=== PATIENT | male | born 1940 | race African-American/Black ===

== ENCOUNTER 2016-09-05 23:47 | Inpatient (IN) ==
[2016-09-06] MEDS ORDERED: cefTRIAXone 1,000 MG in SODIUM CHLORIDE 0.9% 100 ML IV STA (00:24)
[2016-09-06] MEDS ORDERED: methylPREDNISolone SOD SUC 125 MG/2 ML VIAL IV STA (00:24)
[2016-09-06] MEDS ORDERED: ONDANSETRON 4 MG/2 ML VIAL IV STA (00:24)
[2016-09-06] MEDS ORDERED: MORPHINE 2 MG/1 ML SYRINGE IV STA ×2 (00:24→02:29)
[2016-09-06] MEDS ORDERED: FUROSEMIDE 100 MG/10 ML VIAL IV STA (00:24)
[2016-09-06] MEDS ORDERED: ALBUTEROL 2.5 MG/3 ML NEB RESP TX SCH (00:30)
[2016-09-06] MEDS ORDERED: cefTRIAXone 1,000 MG VIAL ONE (00:40)
[2016-09-06] MEDS ORDERED: MORPHINE 2 MG/1 ML SYRINGE ONE ×2 (00:40→02:46)
[2016-09-06] MEDS ORDERED: ONDANSETRON 4 MG/2 ML VIAL ONE (00:40)
[2016-09-06] MEDS ORDERED: FUROSEMIDE 40 MG/4 ML VIAL ONE (00:40)
[2016-09-06] MEDS ORDERED: methylPREDNISolone SOD SUC 125 MG/2 ML VIAL ONE (00:41)
--- NOTE | 2016-09-06 00:43 | Emergency Department Note ---
IBrook Sierra, am scribing for, and in the presence of, Mitchel Dang MD 00:27. Alton Perez Charles R, MD, personally performed the services described in this documentation, ascribed by Donna Doe in my presence, and it is both accurate and complete . Arrival - Arrival Chief Complaint: Shortness of Breath ED Nursing Triage Note: Patient complains of headache that began about four days ago. Patient also complains of shortness of breath. States that he was treated at [facility] yesterday but has not had any relief. Patient was diagnosed with strep throat at clinic. Hx of DM, HTN, and CHF. Mode of Arrival: Stretcher Limitations: No Limitations Source: Patient Time Seen by Provider: 09/06/16 00:07 - History of Present Illness HPI Narrative: Pt is a 76 y/o male that was brought to the ED with c/o HERNÁNDEZ that began 4 days ago. Pt reports the HERNÁNDEZ as a 8 or 9 out of 10. Pt has associated sxs of sore throat but denies SOB. Pt states he was treated at [facility] yesterday and diagnosed with strep throat and treated with an antibiotic shot. Pt denies being tested for the flu. Pt denies feeling smothered when he lays flat or being on lasix. Pt reports he quit smoking years ago. No other complaints/pain in ED. Onset (ago): day(s) Consistency: constant Severity: moderate, severe Severity scale (1-10): 8 Allergies/Adverse Reactions: Allergies Allergy/AdvReac Type Severity Reaction Status Date / Time No Known Allergies Allergy Verified 04/13/16 10:19 Home Medications: Home Medications Medication Instructions Recorded Confirmed Type Furosemide Tab [Lasix Tab] 40 mg PO BID 02/01/15 09/06/16 History Glimepiride [Amaryl] 4 mg PO DAILY W/BREAKFAST 02/01/15 09/06/16 History Potassium Chloride 20 meq PO DAILY 02/01/15 09/06/16 History Clopidogrel [Plavix] 75 mg PO DAILY #30 tablet 02/09/15 09/06/16 Rx Aspirin [Ecotrin] 81 mg PO DAILY 07/31/15 09/06/16 History metFORMIN [Glucophage] 500 mg PO BID W/MEALS 07/31/15 09/06/16 History Carvedilol [Coreg] 12.5 mg PO BID 04/11/16 09/06/16 History HYDROcodone/ACETAMIN 7.5-325 1 tablet PO Q6H #10 tablet 04/11/16 09/06/16 Rx [[place] 7.5-325] Azithromycin Tab [Zithromax Tab] 250 mg PO DAILY #6 tablet 05/04/16 09/06/16 Rx Furosemide Tab [Lasix Tab] 40 mg PO BID #60 tablet 05/04/16 09/06/16 Rx Amitriptyline [Elavil] 10 mg PO Q6H #12 tablet 09/05/16 09/06/16 Rx Promethazine Tab [Phenergan Tab] 25 mg PO Q6H #12 tablet 09/05/16 09/06/16 Rx Rosuvastatin [Crestor] 5 mg PO DAILY 09/06/16 09/06/16 History Review of System - Review of System 12 point system: reviewed and no additional remarkable complaints except as stated - Review of System Constitutional: Absent: chills, fever Head/Ears/Nose/Throat: Present: sore throat Respiratory: Absent: cough Cardiovascular: Absent: chest pain Gastrointestinal: Absent: abdominal pain Musculoskeletal: Absent: arm pain, back pain, leg pain, neck pain Skin: Absent: rash Neurological: Present: headache Psychiatric: Absent: anxiety Medical,Surgical,& Family Hx - Medical History Cardio: History of: CHF, CAD, Hypertension, [place], Valvular Heart Disease Neurology: No history of: TIA Endocrine: History of: Diabetes Mellitus (IDDM), Diabetes Mellitus (NIDDM), Dyslipidemia Respiratory: History of: COPD, Pneumonia Renal: History of: Renal Failure Genitourinary: History of: Prostate Problems (cancer) Other: History of: Cancer (PROSTATE) - Surgical History Cardiac Surgeries: Sugical HX of: Cardiac Catheterization Reproductive Surgeries: Surgical HX of;: Prostate Surgery - Family History Family History: Reports;: Family Cancer (FATHER), Family Diabetes, Family Hypertension Denies;: Family Heart Disease, Family Stroke - Social History Smoking Status: Former smoker Frequency of Alcohol Use: None Type of Drug Use: None Exam Vital Signs: Vital Signs Temperature 98.7 F 09/05/16 23:55 Pulse Rate 105 H 09/06/16 00:52 Respiratory Rate 31 H 09/06/16 00:52 Blood Pressure 156/90 09/05/16 23:55 O2 Sat by Pulse Oximetry 81 L 09/06/16 00:52 - General General appearance: alert, in no apparent distress, other (pt is a mouth breather) - Head Head exam: Present: atraumatic, normocephalic - Eye Eye exam: Present: PERRL, EOMI - ENT ENT exam: Present: mucous membranes moist. Absent: mucous membranes dry - Neck Neck exam: Present: full ROM. Absent: tenderness - Chest Chest inspection: Present: symmetric chest wall rise. Absent: tenderness - Respiratory Respiratory exam: Present: rales (rales in the bases), rhonchi (rhonchi throughout) - Cardiovascular Cardiovascular exam: Present: normal rhythm, tachycardia, murmur (4 out of 6 systolic murmur) - Abdominal Exam Abdominal exam: Present: soft. Absent: tenderness - Extremities Exam Extremities exam: Present: full ROM, pedal edema (+1 or 2 edema in the lower extremities). Absent: tenderness - Back Exam Back exam: Present: full ROM. Absent: tenderness - Neurological Exam Neurological exam: Present: alert, oriented X3, CN II-XII intact. Absent: motor sensory deficit - Psychiatric Psychiatric exam: Present: normal affect, normal mood - Skin Skin exam: Present: warm, dry Course - Reevaluation(s) Reevaluation #1: Patient feels better. Headache is better but still has one. Patient has UTI strep throat COPD exacerbation sinus tachycardia. No chest pain patient was asked this and he said no just his headaches bothering him does have sinus tach on EKG and some looks like increased T wave but no electrolyte abnormality Time: 02:26 - Consultations Consultation #1: Hospitalist will admit patient Time: 02:27 Results - Labs CBC & BMP: 09/06/16 01:18 09/06/16 01:18 Lab Results: I have reviewed the patients labs Labs: Laboratory Tests 09/06/16 Unknown ABG pH 7.486 H ABG pO2 47.6 L ABG HCO3 31.7 H ABG Total CO2 33.1 H ABG O2 Saturation 82.4 L ABG Base Excess 7.6 H Laboratory Tests 09/06/16 01:18 RBC 3.24 L Hgb 10.5 L Hct 31.8 L Neut % (Auto) 80.5 H Lymph % (Auto) 10.5 L Lymph # (Auto) 0.9 L Laboratory Tests 09/06/16 01:18 INR 1.0 PT Patient/Control Mix 10.7 D-Dimer, Quantitative 1.1 Laboratory Tests 09/06/16 01:18 Urine Color Yellow Urine Appearance Slightly hazy Urine pH 6.0 Ur Specific [place] 1.012 Urine Protein 100 Urine Glucose (UA) Negative Urine Ketones Negative Urine Blood Small Urine Nitrate Negative Urine Bilirubin Negative Urine Urobilinogen < 2.0 H Urine Leukocytes Large H Urine RBC 7 Urine WBC 156 Urine WBC Clumps Occasional Ur Squamous Epith Cells Occasional Hyaline Casts 4 Microbiology 09/06/16 01:18 Nasal Aspirate Influenza Types A,B Antigen (ABDI) - Final Negative for Influenza A Ag Negative for Influenza B Ag Laboratory Tests 09/06/16 01:18 Sodium 146 H BUN 27 H Creatinine 1.60 H Glucose 142 H Magnesium 1.7 L AST 95 H ALT 68 H Alkaline Phosphatase 151 H Troponin I 0.588 H Total Protein 6.3 L Albumin 3.2 L Albumin/Globulin Ratio 1.0 L Critical Care Time Critical Care Time: Yes Total Critical Care Time: 60 Disposition Clinical Impression: UTI (urinary tract infection), Strep pharyngitis, Headache, Hypoxia, Congestive heart failure, Aortic stenosis, Diabetes, Elevated troponin, Renal insufficiency Case discussed with: patient, patient's family Disposition: Still a Patient Condition: Guarded Time of Disposition: 02:28
[2016-09-06] MEDS ORDERED: FUROSEMIDE 20 MG/2 ML VIAL ONE (00:48)
[2016-09-06 01:03] LABS: ABG Base Excess 7.6 MMOL/L (-2.5-2.5); ABG HCO3 31.7 MMOL/L (20-26); ABG Oxygen Saturation 82.4 % (95-100); ABG PH 7.486 (7.35-7.45); ABG PO2 47.6 MM HG (80-95); ABG TCO2 33.1 MMOL/L (23-27); Allen Test Positive
[2016-09-06 01:37] LABS: Basophils % 0.1 % (0.0-0.8); Eosinophils # 0.2 10*3/uL (0.0-0.87); Eosinophils % 1.7 % (0.00-10.9); Hematocrit 31.8 VOL% (42.0-52.0); Hemoglobin 10.5 GM/DL (14.0-18.0); Immature Granulocytes % 0.3 %; Immature Granulocytes Absolute 0.03 #; Lymphocytes # 0.9 10*3/uL (1.4-4.0); Lymphocytes % 10.5 % (21.2-54.2); Mean Corpuscular Hemoglobin 32 PG (27-34); Mean Corpuscular Volume 98.1 FL (87-102); Mean Platelet Volume 9.7 FL (9.6-12.0); Monocytes # 0.6 10*3/uL (0.11-0.8); Monocytes % 6.9 % (1.7-12.7); Neutrophils # 7.1 10*3/uL (1.4-7.4); Neutrophils % 80.5 % (38.7-73.9); Platelet Count 240 T/CUMM (130-400); Red Blood Count 3.24 MC/CUMM (3.8-5.5); Red Cell Distribution Width 12.3 % (9.3-17.3); White Blood Count 8.8 T/CUMM (4-12)
[2016-09-06 01:48] LABS: D-Dimer 1.1 MG/L FEU; PT Patient Result 10.7 SECS
[2016-09-06 02:03] LABS: Apearance,Urine Slightly Hazy (Clear); Bilirubin,Urine Negative (Negative); Blood, Urine Small mg/dL (Negative); Glucose,Urine (UA) Negative (Negative); Hyaline Casts,Urine 4 /LPF (0-3); Ketones,Urine Negative (Negative); Nitrite,Urine Negative (Negative); Protein,Urine 100 MG/DL; RBC,Urine 7 /HPF (0-4); Squamous Epithelial Cell,Urine Occasional /HPF (0-10); Urine Color Yellow (Yellow); Urine Specific Gravity 1.012 (1.001-1.035); Urine Urobilinogen < 2.0 EU/DL (0.2-1.0); WBC,Urine 156 /HPF (0-6)
[2016-09-06 02:11] LABS: Albumin 3.2 G/DL (3.4-5.0); Bilirubin,Total 0.5 MG/DL (0.2-1.0); Calcium 8.6 MG/DL (8.5-10.1); Magnesium 1.7 MG/DL (1.8-2.4); Osmolality,Calculated 296.6 MOS/KG (273-304); Potassium 3.7 MMOL/L (3.5-5.1); Total Protein 6.3 G/DL (6.4-8.3); Troponin I Only 0.588 NG/ML (0.00-0.045)
[2016-09-06] MEDS ORDERED: ASPIRIN EC 325 MG TABLET PO STA (02:28)
[2016-09-06] MEDS ORDERED: ASPIRIN 325 MG TABLET ONE (02:46)
--- NOTE | 2016-09-06 03:32 | Hospitalist History & Physical ---
Assessment and Plan (1) COPD (chronic obstructive pulmonary disease) Status: Acute Current Visit: Yes (2) Acute respiratory failure with hypoxia Status: Acute Current Visit: No (3) UTI (urinary tract infection) Status: Acute Current Visit: Yes (4) Strep pharyngitis Status: Acute Current Visit: Yes (5) Headache Status: Acute Assessment and plan: Plan for this patient will be admitting him to our service. Patient's already been started on IV antibiotics. Need to culture his urine. Will diurese him some check a BNP. Recheck a troponin. Reevaluate patient in the morning and repeat labs. Current Visit: Yes (6) Hypoxia Status: Acute Current Visit: Yes (7) Elevated troponin Status: Acute Current Visit: Yes History of Present Illness Chief complaint: Shortness of breath headache History of present illness: Mr. Guerrero is a 76 year old male with past medical history significant for congestive heart failure COPD who was recently diagnosed with strep throat. Patient's family reports that he got antibiotic shot. Patient began feeling short of breath. He was brought here for further evaluation. He has a history of COPD and congestive heart failure. Patient does have oxygen available but is not on oxygen [id number]. Currently his headache feels better shortness of breath is improved. He still satting and on talking to him at 94% but it was significantly lower earlier. I was consulted to admit him Home Medications Medication Instructions Recorded Confirmed Type Furosemide Tab [Lasix Tab] 40 mg PO BID 02/01/15 09/06/16 History Glimepiride [Amaryl] 4 mg PO DAILY W/BREAKFAST 02/01/15 09/06/16 History Potassium Chloride 20 meq PO DAILY 02/01/15 09/06/16 History Clopidogrel [Plavix] 75 mg PO DAILY #30 tablet 02/09/15 09/06/16 Rx Aspirin [Ecotrin] 81 mg PO DAILY 07/31/15 09/06/16 History metFORMIN [Glucophage] 500 mg PO BID W/MEALS 07/31/15 09/06/16 History Carvedilol [Coreg] 12.5 mg PO BID 04/11/16 09/06/16 History HYDROcodone/ACETAMIN 7.5-325 1 tablet PO Q6H #10 tablet 04/11/16 09/06/16 Rx [[place] 7.5-325] Azithromycin Tab [Zithromax Tab] 250 mg PO DAILY #6 tablet 05/04/16 09/06/16 Rx Furosemide Tab [Lasix Tab] 40 mg PO BID #60 tablet 05/04/16 09/06/16 Rx Amitriptyline [Elavil] 10 mg PO Q6H #12 tablet 09/05/16 09/06/16 Rx Promethazine Tab [Phenergan Tab] 25 mg PO Q6H #12 tablet 09/05/16 09/06/16 Rx Rosuvastatin [Crestor] 5 mg PO DAILY 09/06/16 09/06/16 History Allergies Allergy/AdvReac Type Severity Reaction Status Date / Time No Known Allergies Allergy Verified 04/13/16 10:19 Medical,Surgical,& Family Hx - Medical History Cardio: History of: CHF, CAD, Hypertension, [place], Valvular Heart Disease Neurology: No history of: TIA Endocrine: History of: Diabetes Mellitus (IDDM), Diabetes Mellitus (NIDDM), Dyslipidemia Respiratory: History of: COPD, Pneumonia Renal: History of: Renal Failure Genitourinary: History of: Prostate Problems (cancer) Other: History of: Cancer (PROSTATE) - Surgical History Cardiac Surgeries: Sugical HX of: Cardiac Catheterization Reproductive Surgeries: Surgical HX of;: Prostate Surgery - Family History Family History: Reports;: Family Cancer (FATHER), Family Diabetes, Family Hypertension Denies;: Family Heart Disease, Family Stroke - Social History Smoking Status: Former smoker Frequency of Alcohol Use: None Type of Drug Use: None 12 point system: reviewed and no additional remarkable complaints except as stated Exam - Constitutional Vitals: Period Temp Pulse Resp BP Sys/Slater Pulse Ox Last 24 Hr 98.7 F-98.7 F 105-108 20-31 156-156/90-90 81-87 - General General appearance: alert, in no apparent distress - Head Head exam: Present: atraumatic, normocephalic - Eye Eye exam: Present: PERRL, EOMI - ENT ENT exam: Present: mucous membranes moist. - Neck Neck exam: Present: full ROM. - Chest Chest inspection: Present: symmetric chest wall rise. - Respiratory Respiratory exam: Present: rales and rhonchi - Cardiovascular Cardiovascular exam: Present: normal rhythm, tachycardia, systolic murmur - Abdominal Exam Abdominal exam: Present: soft. Absent: tenderness - Extremities Exam Extremities exam: Present: full ROM, pedal edema (+1 or 2 edema in the lower extremities). - Back Exam Back exam: Present: full ROM. - Neurological Exam Neurological exam: Present: alert, oriented X3, CN II-XII intact. Absent: motor sensory deficit - Psychiatric Psychiatric exam: Present: normal affect, normal mood - Skin Skin exam: Present: warm, dry Results - Labs CBC & BMP: 09/06/16 01:18 09/06/16 01:18
[2016-09-06] MEDS ORDERED: MAGNESIUM SULF RIDER 4 GM in PREMIX 1 EACH IV PRN (03:37)
[2016-09-06] MEDS ORDERED: MORPHINE 2 MG/1 ML SYRINGE IV PRN (03:37)
[2016-09-06] MEDS ORDERED: ACETAMINOPHEN 325 MG TABLET PO PRN (03:37)
[2016-09-06] MEDS ORDERED: MAGNESIUM SULF RIDER 2 GM in PREMIX 1 EACH IV PRN (03:37)
[2016-09-06] MEDS ORDERED: GLUCAGON 1 MG VIAL IM PRN (03:37)
[2016-09-06] MEDS ORDERED: ALBUTEROL 2.5 MG/3 ML NEB RESP TX PRN (03:37)
[2016-09-06] MEDS ORDERED: ONDANSETRON 4 MG/2 ML VIAL IV PRN (03:37)
[2016-09-06] MEDS ORDERED: DEXTROSE 50% 25 GM/50 ML VIAL IV PRN (03:37)
--- NOTE | 2016-09-06 06:03 | EKG Report ---
Stationary ECG Study [facility] ER Test Date: 09/06/2016 2:23:35 AM Pat Name: HARDEEP LORENZ Department: Room: 326 Gender: M [employer] Supervisor: BRIANNA : 1940 Requested by: Mitchel Talamantes Order Number: [id number] Curtis MD: TATE BOWDEN Intervals Eclectic Rate: 116 P: 111 PA: 143 QRS: 186 QRSD: 122 T: 94 QT: 338 QTc: 407 Interpretive Statements SINUS TACHYCARDIA ARM LEADS REVERSED ABNORMAL RHYTHM ECG Electronically Signed On 09-06-16 12:26:19 CDT by TATE BOWDEN [email or web address]
[2016-09-06 07:06] LABS: Basophils % 0.1 % (0.0-0.8); Eosinophils % 0.1 % (0.00-10.9); Hematocrit 30.3 VOL% (42.0-52.0); Hemoglobin 9.9 GM/DL (14.0-18.0); Immature Granulocytes % 0.3 %; Immature Granulocytes Absolute 0.03 #; Lymphocytes # 0.2 10*3/uL (1.4-4.0); Lymphocytes % 2.5 % (21.2-54.2); Mean Corpuscular HGB Conc 32.7 GM/DL (32-36); Mean Corpuscular Hemoglobin 32 PG (27-34); Mean Platelet Volume 9.8 FL (9.6-12.0); Monocytes # 0.2 10*3/uL (0.11-0.8); Neutrophils # 9.1 10*3/uL (1.4-7.4); Platelet Count 248 T/CUMM (130-400); Red Blood Count 3.06 MC/CUMM (3.8-5.5); Red Cell Distribution Width 12.2 % (9.3-17.3); White Blood Count 9.6 T/CUMM (4-12)
--- NOTE | 2016-09-06 07:15 | XRay Report ---
XR chest 1V portable Indication: Shortness of breath. Chest one view: Comparison 05/04/2016. Mild cardiomegaly is progressed with increased pulmonary vascular congestion throughout both lung reyes. No focal infiltrate. Pleural spaces are clear. Impression: CHF decompensation. PROCEDURE INTERPRETED AT [facility] DEPARTMENT OF RADIOLOGY Final Report Signed by: Elton Sanches M.D.
[2016-09-06] MEDS: ALBUTEROL/IPRATROPIUM 3 ML NEB RESP TX SCH ×3 (07:19→20:26)
[2016-09-06 07:30] LABS: Band Neutrophils 3 % (0-10); Hypochromasia 1+; Lymphocytes 2 % (20-55); Platelet Estimate Adequate; Polychromasia Slight; Segmented Neutrophils 93 % (50-85); Total Cells Counted 100
[2016-09-06 07:45] LABS: Troponin I Only 0.458 NG/ML (0.00-0.045)
[2016-09-06 07:47] LABS: Calcium 8.5 MG/DL (8.5-10.1); Osmolality,Calculated 303.7 MOS/KG (273-304); Potassium 3.9 MMOL/L (3.5-5.1)
[2016-09-06] MEDS ORDERED: FUROSEMIDE 40 MG/4 ML VIAL IV SCH (08:00)
[2016-09-06] MEDS: ENOXAPARIN 40 MG/0.4 ML SYRINGE SUBCUT SCH (08:26)
[2016-09-06] MEDS: INSULIN REGULAR 100 UNIT/ML SUBCUT SCH ×4 (08:26→23:00)
[2016-09-06] MEDS: predniSONE 20 MG TABLET PO SCH (08:27)
[2016-09-06] MEDS: CLOPIDOGREL 75 MG TABLET PO SCH (08:27)
[2016-09-06] MEDS: PANTOPRAZOLE 40 MG TABLET PO SCH (08:27)
[2016-09-06] MEDS: CARVEDILOL 12.5 MG TABLET PO SCH ×2 (08:27→22:58)
[2016-09-06] MEDS: GLIMEPIRIDE 4 MG TABLET PO SCH (08:27)
[2016-09-06] MEDS: POTASSIUM CHLORIDE 20 MEQ TABLET PO SCH (08:27)
[2016-09-06] MEDS: ASPIRIN CHEW 81 MG TABLET PO SCH (08:27)
[2016-09-06] MEDS: ROSUVASTATIN 10 MG TABLET PO SCH (08:27)
[2016-09-06] MEDS ORDERED: AZITHROMYCIN 250 MG TABLET PO SCH (09:00)
[2016-09-06 10:09] LABS: Troponin I Only 0.371 NG/ML (0.00-0.045)
[2016-09-06] MEDS: methylPREDNISolone SOD SUC 40 MG/1 ML VIAL IV SCH ×3 (10:39→22:59)
[2016-09-06] MEDS: LEVOFLOXACIN INJ 500 MG in PREMIX 1 EACH IV SCH (10:39)
--- NOTE | 2016-09-06 13:32 | Hospitalist Progress Note ---
Assessment and Plan - Time spent with patient Time spent with patient: Greater than 30 minutes (1) COPD (chronic obstructive pulmonary disease) Status: Acute Assessment and plan: Continue current management. Current Visit: Yes (2) Transaminitis Status: Acute Assessment and plan: Obtain a right upper quadrant ultrasound. Current Visit: Yes (3) Elevated troponin Status: Acute Assessment and plan: Unsure if this represents baseline however patient does have chronic kidney disease. Will consult cardiology for any further recommendations. Current Visit: Yes (4) Headache Status: Acute Assessment and plan: Resolved. Current Visit: Yes (5) UTI (urinary tract infection) Status: Acute Assessment and plan: Continue antibiotics. Current Visit: Yes (6) Diabetes Status: Chronic Assessment and plan: Continue current management. Current Visit: Yes Qualifiers: Diabetes mellitus type: type 2 Diabetes mellitus complication status: without complication Qualified Code(s): E11.9 - Type 2 diabetes mellitus without complications (7) CHF (congestive heart failure) Status: Acute Assessment and plan: Previous EF of 25%. I switched his Lasix IV to oral given his creatinine. We will defer to cardiology for like to repeat an echocardiogram. Current Visit: Yes Hospitalist: Subjective Interval history: No complaints. Patient states he feels much better. Denies any chest pain. Exam - Constitutional Vitals: Period Temp Pulse Resp BP Sys/Slater Pulse Ox Last 24 Hr 97.0 F-98.4 F 62-109 16-22 114-168/59-87 87-100 General appearance: no acute distress - Head Head exam: Present: normocephalic, atraumatic - Eye Eye exam: Present: EOMI Pupils: Present: LEANDRO - ENT ENT exam: Present: normal exam - Neck Neck exam: Present: normal inspection - Respiratory Respiratory exam: Absent: prolonged expiratory phase, rhonchi, wheezes - Cardiovascular Cardiovascular exam: Present: regular rate and rhythm. Absent: gallop, rubs, systolic murmur - GI/Abdominal GI/Abdominal exam: Present: normal bowel sounds, soft. Absent: distended, firm , guarding, tenderness, rebound - Extremities Exam Extremities exam: Present: normal inspection. Absent: calf tenderness, edema Results - Labs CBC & BMP: 09/06/16 06:42 09/06/16 06:42 Lab Results: I have reviewed the past 24 hour labs
--- NOTE | 2016-09-06 16:03 | Cardiology Consult Note ---
Radhika Perez April, RN, am scribing for, and in the presence of, Chon Turner MD 16:01. Assessment and Plan - Time spent with patient Time spent with patient: Greater than 30 minutes (due to assessment, planning, documentation, and medication review) (1) Elevated troponin Status: Acute Assessment and plan: This patient has an extensive history of stenting in we need to be certain that he is not having progression of his coronary artery disease. Current Visit: Yes (2) Headache Status: Acute Current Visit: Yes (3) Diabetes Status: Chronic Current Visit: Yes Qualifiers: Diabetes mellitus type: type 2 Diabetes mellitus complication status: without complication (4) Exertional dyspnea Status: Chronic Current Visit: Yes (5) Coronary artery disease Status: Chronic Current Visit: Yes (6) Cardiomyopathy Status: Acute Assessment and plan: This patient has a prior ejection fraction in the 20% range. We will repeat echocardiography. Current Visit: Yes (7) Aortic stenosis Status: Chronic Assessment and plan: Aortic valve area by thermodilution cardiac output was 1.3 and this was in February 2015 Current Visit: Yes Qualifiers: Cardiac valve disease etiology: etiology unspecified Qualified Code(s): I35.0 - Nonrheumatic aortic (valve) stenosis (8) NSTEMI (non-ST elevated myocardial infarction) Status: Resolved Current Visit: No History of Present Illness - Data of Consult Patient: known to practice within the last 3 years Consult date: 09/06/16 Requesting Physician: Gabriela Chew - Consult Narrative Reason for consult: SOB, elevated troponin History of present illness: Mr. Guerrero is a 76 year old male who is routinely followed by Dr. Ho. He is a poor historian so much this information is obtained from old records. He has a history of coronary artery disease, ischemic cardiomyopathy, shortness of breath, anemia, aortic stenosis, and diabetes. Patient had a heart cath May 04, 2013 with drug-eluting stent to mid circumflex. He was cathed again May 07, 2013 with stents to the mid and proximal RCA. His most recent cath was February 17, 2015 with the following impression and plan: Impression: 1. Severe single-vessel coronary artery disease. Proximal mid LAD with 90% stenosis. 2. Patent stents in the mid circumflex, proximal and mid right coronary artery. 3. Right dominant coronary arteries. 4. Combination of ischemic and nonischemic cardiomyopathy with Ejection fraction 20%. 5. Mild to moderate aortic stenosis, aortic valve area by thermodilution 1.34 cm, by Joan equation 1.88 cm. 6. Angiographically normal right iliac artery without evidence of vascular complications. 7. Successful PCI of the proximal mid LAD as described above. 8. Pulmonary hypertension. Plan: 1. DAPT > 12 months. 2. Risk factor modification. 3. Reassess ejection fraction in 6 weeks to evaluate for ICD implantation. 4. Referral to cardiac rehabilitation and heart failure clinic. He denies any other surgery except for prostate surgery had related to prostate cancer. Echo done at Dr. Ho's office in June 2015 with ejection fraction of 40%. Of note he had an echo done here at the hospital in January 2015 with ejection fraction 25% family history includes brother with cancer, mother with heart attack, some of diabetes, and he states numerous family members with hypertension. He reports that he no longer smokes but that he quit smoking about 15 years ago. Patient reports he presented to the emergency department to seek treatment regarding a headache that he has had for 2 days. He reports that he has been short of breath on exertion, but no more than is his usual state. He denies having any recent chest pain at rest or on exertion. Currently he is resting in bed with oxygen use via nasal biprong. He reports that he no longer has a headache, and continues to be without chest pain. EKG done this morning with sinus tachycardia heart rate of 116. Troponin on admission was 0.588, since then has been 0.458 and 0.371. BNP was 1348. I have discussed in detail the particulars of this case and I have examined the patient and reviewed the patient's chart both current and old. I was directly involved in the patient's evaluation and management and I completely agree with Irais Garrido RN regarding this patient's evaluation and treatment plan. This patient is a terrible historian and cannot get a reasonable history. His troponins are elevated and he has a history of multiple intracoronary stents placed over the last 5 years or so. He likely needs repeat catheterization. However, his creatinine is elevated and we will give him cautious hydration. He has aortic stenosis which was not critical value by evaluation done in 2014. We will repeat studies and determine his suitability for proceeding with cardiac evaluation in the future. CC: Gabriela Chew MD - Home Medications and Allergies Home Medications: Home Medications Medication Instructions Recorded Confirmed Type Furosemide Tab [Lasix Tab] 40 mg PO BID 02/01/15 09/06/16 History Glimepiride [Amaryl] 4 mg PO DAILY W/BREAKFAST 02/01/15 09/06/16 History Potassium Chloride 20 meq PO DAILY 02/01/15 09/06/16 History Clopidogrel [Plavix] 75 mg PO DAILY #30 tablet 02/09/15 09/06/16 Rx Aspirin [Ecotrin] 81 mg PO DAILY 07/31/15 09/06/16 History metFORMIN [Glucophage] 500 mg PO BID W/MEALS 07/31/15 09/06/16 History Carvedilol [Coreg] 12.5 mg PO BID 04/11/16 09/06/16 History HYDROcodone/ACETAMIN 7.5-325 1 tablet PO Q6H #10 tablet 04/11/16 09/06/16 Rx [[place] 7.5-325] Azithromycin Tab [Zithromax Tab] 250 mg PO DAILY #6 tablet 05/04/16 09/06/16 Rx Furosemide Tab [Lasix Tab] 40 mg PO BID #60 tablet 05/04/16 09/06/16 Rx Amitriptyline [Elavil] 10 mg PO Q6H #12 tablet 09/05/16 09/06/16 Rx Promethazine Tab [Phenergan Tab] 25 mg PO Q6H #12 tablet 09/05/16 09/06/16 Rx Rosuvastatin [Crestor] 5 mg PO DAILY 09/06/16 09/06/16 History Allergies/Adverse Reactions: Allergies Allergy/AdvReac Type Severity Reaction Status Date / Time No Known Allergies Allergy Verified 04/13/16 10:19 - Constitutional Constitutional: Present: as per HPI - EENT Eyes: Present: blurry vision, loss of vision Ears: Absent: decreased hearing, tinnitus Nose, mouth and throat: Present: headache(s). Absent: epistaxis, neck pain - Cardiovascular Cardiovascular: Present: dyspnea on exertion. Absent: chest pain at rest, chest pain with activity, dyspnea, edema, radiating jaw, neck or arm pain - Respiratory Respiratory: Present: cough, dyspnea on exertion. Absent: hemoptysis, wheezing - Gastrointestinal Gastrointestinal: Absent: abdominal pain, constipation, diarrhea, hematemesis, hematochezia, nausea, vomiting - Genitourinary Genitourinary: Absent: dysuria, hematuria - Musculoskeletal Musculoskeletal: Present: limited range of motion, muscle weakness. Absent: back pain - Neurological Neurological: Present: abnormal gait, headache(s). Absent: dizziness, frequent falls, syncope - Psychiatric Psychiatric: Absent: anxiety, depression - Endocrine Endocrine: Present: fatigue - Hematologic/Lymphatic Hematologic/Lymphatic: Absent: easy bleeding, easy bruising Medical,Surgical,& Family Hx - Medical History Cardio: History of: CHF, CAD, Hypertension, DC, Valvular Heart Disease Endocrine: History of: Diabetes Mellitus (NIDDM), Dyslipidemia Respiratory: History of: COPD, Pneumonia Renal: History of: Renal Failure Genitourinary: History of: Prostate Problems (cancer) Other: History of: Cancer (PROSTATE) - Surgical History Cardiac Surgeries: Sugical HX of: Cardiac Catheterization Reproductive Surgeries: Surgical HX of;: Prostate Surgery - Family History Family History: Reports;: Family Cancer (brother), Family Diabetes (son), Family Heart Disease (mother), Family Hypertension (family) - Social History Smoking Status: Former smoker (quit about 15 years ago) Have you smoked in the last 12 months: No Frequency of Alcohol Use: None Type of Drug Use: None Marital Status: Lives With:: Alone Functional capacity: independent ambulation Physical Examination Vital Signs Temp Pulse Resp BP Pulse Ox 98.7 F 108 H 20 156/90 87 L 09/05/16 23:55 09/05/16 23:55 09/05/16 23:55 09/05/16 23:55 09/05/16 23:55 General: Present: Appears Well, No Apparent Distress HEENT: Present: PERRL, Mucus Membranes Moist Neck: Present: Supple Neck, Midline Trachea, No JVD/HJR Cardiac: Present: Reg Rate and Rhythm, Systolic Murmur Lungs: Present: Normal Breath Sounds, Oxygen (via nasal biprong), No Wheeze, Rales, Rhonchi Neuro: Absent: Essential Tremor Abdomen: Present: Soft, Active Bowel Sounds, Non-Tender. Absent: Distended Skin: Present: Clear Musculoskeletal: Present: Decreased Range of Motion Gait: Present: Poor Gait Extremities: Present: No Edema, Normal Upper Extr. Pulses. Absent: Normal Gait , Normal Lower Extr. Pulses (present but weak) Result/EKG - Labs CBC & BMP: 09/06/16 06:42 09/06/16 06:42 Labs: Laboratory Results - last 24 hr 09/06/16 09/06/16 09/06/16 06:42 06:42 06:42 WBC 9.6 RBC 3.06 L Hgb 9.9 L Hct 30.3 L MCV 99.0 MCH 32 MCHC 32.7 RDW 12.2 Plt Count 248 MPV 9.8 Neut % (Auto) 95.0 H Lymph % (Auto) 2.5 L [place] % (Auto) 2.0 Eos % (Auto) 0.1 Baso % (Auto) 0.1 Neut # (Auto) 9.1 H Lymph # (Auto) 0.2 L [place] # (Auto) 0.2 Eos # (Auto) 0.0 Baso # (Auto) 0.0 Total Counted 100 Immature Gran % 0.3 Nucleated RBC % 0.0 Immature Gran # 0.03 Segmented Neutrophils 93 H Band Neutrophils 3 Lymphocytes 2 L Monocytes 2 Nucleated RBCs # 0.00 Platelet Estimate Adequate Polychromasia Slight Hypochromasia 1+ ABG pH ABG pCO2 ABG pO2 ABG HCO3 ABG Total CO2 ABG O2 Saturation ABG Base Excess FiO2 Sodium 145 Potassium 3.9 Chloride 105 Carbon Dioxide 29 Anion Gap 14.9 BUN 29 H Creatinine 1.80 H GFR Calculation 44 BUN/Creatinine Ratio 16.00 Glucose 277 H POC Glucose Calculated Osmolality 303.7 Calcium 8.5 Total Creatine Kinase 146 CK-MB (CK-2) 1.5 Troponin I 0.458 H D 09/06/16 09/06/16 09/06/16 07:44 09:24 10:44 WBC RBC Hgb Hct MCV MCH MCHC RDW Plt Count MPV Neut % (Auto) Lymph % (Auto) [place] % (Auto) Eos % (Auto) Baso % (Auto) Neut # (Auto) Lymph # (Auto) [place] # (Auto) Eos # (Auto) Baso # (Auto) Total Counted Immature Gran % Nucleated RBC % Immature Gran # Segmented Neutrophils Band Neutrophils Lymphocytes Monocytes Nucleated RBCs # Platelet Estimate Polychromasia Hypochromasia ABG pH ABG pCO2 ABG pO2 ABG HCO3 ABG Total CO2 ABG O2 Saturation ABG Base Excess FiO2 Sodium Potassium Chloride Carbon Dioxide Anion Gap BUN Creatinine GFR Calculation BUN/Creatinine Ratio Glucose POC Glucose 327 H 472 H Calculated Osmolality Calcium Total Creatine Kinase 148 CK-MB (CK-2) 1.6 Troponin I 0.371 H 09/06/16 09/06/16 13:18 Unknown WBC RBC Hgb Hct MCV MCH MCHC RDW Plt Count MPV Neut % (Auto) Lymph % (Auto) [place] % (Auto) Eos % (Auto) Baso % (Auto) Neut # (Auto) Lymph # (Auto) [place] # (Auto) Eos # (Auto) Baso # (Auto) Total Counted Immature Gran % Nucleated RBC % Immature Gran # Segmented Neutrophils Band Neutrophils Lymphocytes Monocytes Nucleated RBCs # Platelet Estimate Polychromasia Hypochromasia ABG pH 7.486 H ABG pCO2 43.0 ABG pO2 47.6 L ABG HCO3 31.7 H ABG Total CO2 33.1 H ABG O2 Saturation 82.4 L ABG Base Excess 7.6 H FiO2 32.00 Sodium Potassium Chloride Carbon Dioxide Anion Gap BUN Creatinine GFR Calculation BUN/Creatinine Ratio Glucose POC Glucose 384 H Calculated Osmolality Calcium Total Creatine Kinase CK-MB (CK-2) Troponin I - EKG EKG results: interpreted by me EKG shows: tachycardia, sinus rhythm I, Chon Turner MD, personally performed the services described in this documentation, ascribed by Irais Garrido RN in my presence, and it is both accurate and complete 603 .
[2016-09-06] MEDS: SODIUM CHLORIDE 0.9% 1,000 ML IV SCH (16:38)
[2016-09-06] MEDS: FUROSEMIDE 40 MG TABLET PO SCH (22:58)
[2016-09-07] MEDS: ALBUTEROL/IPRATROPIUM 3 ML NEB RESP TX SCH ×4 (00:18→19:21)
[2016-09-07] MEDS ORDERED: cefTRIAXone 1,000 MG in SODIUM CHLORIDE 0.9% 100 ML IV SCH (01:00)
[2016-09-07] MEDS: methylPREDNISolone SOD SUC 40 MG/1 ML VIAL IV SCH ×2 (03:33→09:14)
[2016-09-07] MEDS: SODIUM CHLORIDE 0.9% 1,000 ML IV SCH (05:52)
[2016-09-07 06:03] LABS: Basophils % 0.1 % (0.0-0.8); Hematocrit 29.3 VOL% (42.0-52.0); Hemoglobin 9.6 GM/DL (14.0-18.0); Immature Granulocytes % 0.8 %; Immature Granulocytes Absolute 0.14 #; Lymphocytes # 0.4 10*3/uL (1.4-4.0); Lymphocytes % 2.4 % (21.2-54.2); Mean Corpuscular HGB Conc 32.8 GM/DL (32-36); Mean Corpuscular Hemoglobin 32 PG (27-34); Mean Corpuscular Volume 97.3 FL (87-102); Mean Platelet Volume 10.1 FL (9.6-12.0); Monocytes # 0.3 10*3/uL (0.11-0.8); Neutrophils # 16.2 10*3/uL (1.4-7.4); Neutrophils % 94.7 % (38.7-73.9); Platelet Count 299 T/CUMM (130-400); Red Blood Count 3.01 MC/CUMM (3.8-5.5); Red Cell Distribution Width 12.2 % (9.3-17.3); White Blood Count 17.1 T/CUMM (4-12)
[2016-09-07 06:31] LABS: Band Neutrophils 2 % (0-10); Hypochromasia 1+; Lymphocytes 1 % (20-55); Platelet Estimate Adequate; Segmented Neutrophils 96 % (50-85); Total Cells Counted 100
[2016-09-07 06:32] LABS: Calcium 8.6 MG/DL (8.5-10.1); Magnesium 1.9 MG/DL (1.8-2.4); Osmolality,Calculated 303.8 MOS/KG (273-304); Potassium 4.5 MMOL/L (3.5-5.1)
--- NOTE | 2016-09-07 08:21 | Ultrasound Report ---
US right upper quadrant Indication: Transaminitis. ULTRASOUND ABDOMEN, limited Comparison: None Findings: Liver: Normal size without focal lesion. Smooth contour. Gallbladder: Contracted. No stones or sludge. Negative sonographic Glaser sign. Trace amount of pericholecystic fluid is incidentally noted. Common bile duct: 4 mm Pancreas: Unremarkable Right kidney: 10.7 cm length. No mass, cyst, calcification or obstruction Impression: Trace amount of pericholecystic fluid is nonspecific. No findings of cholecystitis. No cholelithiasis. PROCEDURE INTERPRETED AT [facility] DEPARTMENT OF RADIOLOGY Final Report Signed by: Elton Sanches M.D.
[2016-09-07] MEDS: CARVEDILOL 12.5 MG TABLET PO SCH ×2 (09:14→21:48)
[2016-09-07] MEDS: ROSUVASTATIN 10 MG TABLET PO SCH (09:14)
[2016-09-07] MEDS: FUROSEMIDE 40 MG TABLET PO SCH ×2 (09:14→21:48)
[2016-09-07] MEDS: PANTOPRAZOLE 40 MG TABLET PO SCH (09:14)
[2016-09-07] MEDS: predniSONE 20 MG TABLET PO SCH (09:14)
[2016-09-07] MEDS: ENOXAPARIN 40 MG/0.4 ML SYRINGE SUBCUT SCH (09:15)
[2016-09-07] MEDS: CLOPIDOGREL 75 MG TABLET PO SCH (09:15)
[2016-09-07] MEDS: ASPIRIN CHEW 81 MG TABLET PO SCH (09:15)
[2016-09-07] MEDS: GLIMEPIRIDE 4 MG TABLET PO SCH (09:16)
[2016-09-07] MEDS: LEVOFLOXACIN INJ 500 MG in PREMIX 1 EACH IV SCH (09:16)
[2016-09-07] MEDS: POTASSIUM CHLORIDE 20 MEQ TABLET PO SCH (09:17)
[2016-09-07] MEDS: INSULIN REGULAR 100 UNIT/ML SUBCUT SCH ×4 (09:29→21:48)
--- NOTE | 2016-09-07 10:23 | Cardiology Progress Note ---
Radhika Perez April RN, am scribing for, and in the presence of, Chon Turner MD 10:23. Assessment and Plan (1) Elevated troponin Status: Acute Current Visit: Yes (2) Headache Status: Acute Current Visit: Yes (3) Diabetes Status: Chronic Current Visit: Yes Qualifiers: Diabetes mellitus type: type 2 Diabetes mellitus complication status: without complication (4) Exertional dyspnea Status: Chronic Current Visit: Yes (5) Coronary artery disease Status: Chronic Current Visit: Yes (6) Cardiomyopathy Status: Chronic Current Visit: Yes (7) Aortic stenosis Status: Chronic Current Visit: Yes Qualifiers: Cardiac valve disease etiology: etiology unspecified Qualified Code(s): I35.0 - Nonrheumatic aortic (valve) stenosis (8) NSTEMI (non-ST elevated myocardial infarction) Status: Resolved Assessment and plan: 09/07: Patient continues with chest pain free. He had a rise in his troponins which I think is significant given the patient's history and likely he needs repeat cardiac catheterization. Current Visit: No Cardiology - PN: Subj Interval history: Mr. Chou is seen resting in bed in no acute distress. Oxygen use via nasal biprong. He denies chest pain, shortness of breath, palpitations, or dizziness. He has been for some testing and is concerned he has missed his breakfast. Gentle hydration was started yesterday, and this morning creatinine is 1.6. Patient is not complaining of chest discomfort. His creatinine has dropped as noted. We are going to continue cautious hydration normal review his 2D echocardiogram and decide related to proceeding with cardiac catheterization which I think is going to be necessary this admission. Exam (Progress Note) - Constitutional Vitals: Period Temp Pulse Resp BP Sys/Slater Pulse Ox Last 24 Hr 96.7 F-98.2 F 86-97 16-20 122-165/70-95 91-100 General appearance: no acute distress - Head Head exam: Absent: abrasion, hematoma - Eye Eye exam: Absent: periorbital swelling, laceration to eyelids - Neck Neck exam: Absent: tenderness - Respiratory Respiratory exam: Present: clear to auscultation bilaterally, other (Oxygen via nasal biprong). Absent: accessory muscle use, chest wall tenderness - Cardiovascular Cardiovascular exam: Present: regular rate and rhythm, systolic murmur - GI/Abdominal GI/Abdominal exam: Present: normal bowel sounds, soft. Absent: distended, tenderness - Extremities Exam Extremities exam: Absent: edema - Neurological Exam Neurological exam: Present: alert, oriented X3 - Psychiatric Psychiatric exam: Present: normal affect, normal mood - Skin Skin exam: Present: warm, dry Result/EKG - Labs CBC & BMP: 09/07/16 04:44 09/07/16 04:44 Lab Results: I have reviewed the past 24 hour labs Labs: Laboratory Results - last 24 hr 09/06/16 09/06/16 09/06/16 09:24 10:44 13:18 WBC RBC Hgb Hct MCV MCH MCHC RDW Plt Count MPV Neut % (Auto) Lymph % (Auto) [place] % (Auto) Eos % (Auto) Baso % (Auto) Neut # (Auto) Lymph # (Auto) [place] # (Auto) Eos # (Auto) Baso # (Auto) Total Counted Immature Gran % Nucleated RBC % Immature Gran # Segmented Neutrophils Band Neutrophils Lymphocytes Monocytes Nucleated RBCs # Platelet Estimate Hypochromasia Morphology Comment Sodium Potassium Chloride Carbon Dioxide Anion Gap BUN Creatinine GFR Calculation BUN/Creatinine Ratio Glucose POC Glucose 472 H 384 H Calculated Osmolality Calcium Magnesium Total Creatine Kinase 148 CK-MB (CK-2) 1.6 Troponin I 0.371 H 09/06/16 09/06/16 09/07/16 16:11 20:44 04:44 WBC RBC Hgb Hct MCV MCH MCHC RDW Plt Count MPV Neut % (Auto) Lymph % (Auto) [place] % (Auto) Eos % (Auto) Baso % (Auto) Neut # (Auto) Lymph # (Auto) [place] # (Auto) Eos # (Auto) Baso # (Auto) Total Counted Immature Gran % Nucleated RBC % Immature Gran # Segmented Neutrophils Band Neutrophils Lymphocytes Monocytes Nucleated RBCs # Platelet Estimate Hypochromasia Morphology Comment Sodium 144 Potassium 4.5 Chloride 104 Carbon Dioxide 29 Anion Gap 15.5 H BUN 39 H D Creatinine 1.60 H GFR Calculation 51 BUN/Creatinine Ratio 24.00 H Glucose 267 H POC Glucose 307 H 258 H Calculated Osmolality 303.8 Calcium 8.6 Magnesium 1.9 Total Creatine Kinase CK-MB (CK-2) Troponin I 09/07/16 04:44 WBC 17.1 H D RBC 3.01 L Hgb 9.6 L Hct 29.3 L MCV 97.3 MCH 32 MCHC 32.8 RDW 12.2 Plt Count 299 D MPV 10.1 Neut % (Auto) 94.7 H Lymph % (Auto) 2.4 L [place] % (Auto) 2.0 Eos % (Auto) 0.0 Baso % (Auto) 0.1 Neut # (Auto) 16.2 H Lymph # (Auto) 0.4 L [place] # (Auto) 0.3 Eos # (Auto) 0.0 Baso # (Auto) 0.0 Total Counted 100 Immature Gran % 0.8 Nucleated RBC % 0.0 Immature Gran # 0.14 Segmented Neutrophils 96 H Band Neutrophils 2 Lymphocytes 1 L Monocytes 1 L Nucleated RBCs # 0.00 Platelet Estimate Adequate Hypochromasia 1+ Morphology Comment Sodium Potassium Chloride Carbon Dioxide Anion Gap BUN Creatinine GFR Calculation BUN/Creatinine Ratio Glucose POC Glucose Calculated Osmolality Calcium Magnesium Total Creatine Kinase CK-MB (CK-2) Troponin I I, Chon Turner MD, personally performed the services described in this documentation, ascribed by Irais Garrido RN in my presence, and it is both accurate and complete .
--- NOTE | 2016-09-07 11:20 | EKG Report ---
Stationary ECG Study [facility] Test Date: 09/07/2016 11:20:33 AM Pat Name: HARDEEP LORENZ Department: Room: 544 Gender: M [employer]: VERITO : 1940 Requested by: James Dove Order Number: [id number] Curtis MD: TATE BOWDEN Intervals [place] Rate: 95 P: 69 MD: 152 QRS: -5 QRSD: 96 T: 78 QT: 359 QTc: 411 Interpretive Statements SINUS RHYTHM POSSIBLE LEFT ATRIAL ENLARGEMENT Electronically Signed On 09-08-16 10:35:43 CDT by TATE BOWDEN [email or web address]
--- NOTE | 2016-09-07 11:55 | Hospitalist Progress Note ---
Assessment and Plan (1) COPD (chronic obstructive pulmonary disease) Status: Chronic Assessment and plan: Patient on oxygen and saturating at 93% on 2 L. He is not wheezing all continue bronchodilator as needed but are to stop IV Solu-Medrol he is already on by mouth steroid. His white count is elevated likely due to steroid Current Visit: Yes (2) Transaminitis Status: Chronic Assessment and plan: Noted elevated AST and ALT. more than he had previous admissions. I will recheck labs tomorrow. Ultrasound of gallbladder was unremarkable Current Visit: Yes (3) UTI (urinary tract infection) Status: Acute Assessment and plan: Patient has negative urine culture will DC levofloxacin Current Visit: Yes (4) CHF (congestive heart failure) Status: Chronic Assessment and plan: Compensated Current Visit: Yes (5) Diabetes Status: Chronic Assessment and plan: Elevated blood sugar was noted on that treatment response will DC IV steroid and continue to monitor blood sugar continued to give her short-acting insulin as needed basis Current Visit: Yes Qualifiers: Diabetes mellitus type: type 2 Diabetes mellitus complication status: without complication (6) Renal insufficiency Status: Chronic Assessment and plan: Little rise in creatinine on admission but improved today on lab work Current Visit: Yes (7) Syncope Status: Acute Assessment and plan: Patient is reported to have syncope today. He was a little hypotensive at that time but now blood pressure is improved. Activity vasovagal syncope but patient also has history of aortic stenosis and pulmonary hypertension although I do not have echocardiogram to review. I will order troponin. I'll place patient on telemetry bed. Patient is already being followed by cardiology and appreciated the help. Also patient is on I'm not sure about the etiology of unequal pupils and he seems to have a good strength and without any other deficit. I will do CT scan head . He had headache at the time of admission which was resolved. Current Visit: Yes Hospitalist: Subjective Interval history: Mr. Saldana is a 76-year-old male with history of chronic artery disease and cardiomyopathy COPD admitted for the shortness of breath. He h as been on home oxygen but was not using as prescribed. Noted he was placed on no IV steroid for possible COPD extubation and distally was on by mouth prednisone. He will also reported to have headache on admission as part of the problem which was resolved. Patient was seen by cardiology and I'll review the records revealed that he was documented to have coronary artery disease and had multiple cats. The last tetanus in 2014 reported to have proximal mid LAD with a 90% stenosis status post PCI he is also report to have pulmonary hypertension aortic stenosis but I could not find echocardiogram report. HOME IV antibiotics Levaquin for suspected UTI he was afebrile and had normal wbc count on admission Earlier her rapid response called because patient was clammy and short of breath in the bathroom. He was having bowel movements given In but denied any constipation. He was reported to have O2 sat of 78 on 2 L blood pressure 110/ 70 heart rate 103 He denied any chest pain. His blood sugar was so for more than 400 on fingerstick. He was brought back into the bed after this incident. By the time I saw him he was alert awake and was not short of breath. His repeat blood pressure was 131/74 without any orthostasis. EKG was done and showed normal sinus rhythm. Exam - Constitutional Vitals: Period Temp Pulse Resp BP Sys/Slater Pulse Ox Last 24 Hr 96.7 F-98.2 F 86-97 16-20 122-165/70-95 91-100 General appearance: no acute distress - Eye Eye exam: Present: EOMI Pupils: Present: unequal (right pupil smaller than the left) - Respiratory Respiratory exam: Present: clear to auscultation bilaterally. Absent: rales, rhonchi - Cardiovascular Cardiovascular exam: Present: regular rate and rhythm. Absent: tachycardia - GI/Abdominal GI/Abdominal exam: Present: normal bowel sounds, soft. Absent: tenderness - Neurological Exam Neurological exam: Present: alert, oriented X3. Absent: motor sensory deficit ( motor sensory deficit and equal strength 5/x 5 bilaterally) Results - Labs CBC & BMP: 09/07/16 04:44 09/07/16 04:44 Lab Results: I have reviewed the past 24 hour labs
--- NOTE | 2016-09-07 12:29 | CT Report ---
CT head/brain wo con Indication: 76-year-old male, altered mental status. CT BRAIN WITHOUT CONTRAST DLP: 1042 mGy*cm. One or more of the following dose reduction techniques was used: Automated exposure control, adjustment of the mA and/or kV according the patient size, or use of iterative reconstruction techniques. Comparison: 09/04/2016. Date of admission: 09/06/2016. Technique: Axial noncontrast CT images of the brain were obtained. Findings: No acute hemorrhage, mass or mass effect. Generalized atrophy and patchy periventricular white matter hypodensity is present throughout both convexities. 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 Cortical saha-white junction and remaining structures of the basal ganglia are well-defined. No bone lesions are shown. Internal auditory canals are symmetric. Visualized sinuses and mastoid air cells are clear. Impression: No acute intracranial pathology. Generalized atrophy and changes consistent with microvascular disease. No change. PROCEDURE INTERPRETED AT [facility] [place] DEPARTMENT OF RADIOLOGY Final Report Signed by: Elton Sanches M.D.
[2016-09-07 12:31] LABS: Hematocrit 29.9 VOL% (42.0-52.0); Hemoglobin 9.8 GM/DL (14.0-18.0)
[2016-09-07 12:32] LABS: Troponin I Only 0.324 NG/ML (0.00-0.045)
--- NOTE | 2016-09-07 14:43 | ECHO Report ---
Kaleb Guerrero Exam Date: 09/07/2016 10:29 Referring Physician: Technologist: Nisa Morales Age: 76 Ht (in): 64 Wt (lb): 169 Gender: M Exam Location: [facility] Echo Indications: UTI, strep, hypoxia, elevated troponin, aortic stenosis, CAD, Renal insuff, CHF BP: 149 / 82 HR: 104 Rhythm: NSR Technical Quality: Fair IMPRESSIONS Normal left ventricular cavity size. Mild concentric left ventricular hypertrophy with diastolic dysfunction. Mildly decreased left ventricular systolic function, left ventricular ejection fraction estimated at 40%. Mildly increased right ventricular size. The right atrium is mildly enlarged. Moderately increased left atrial size. Mild mitral valve sclerosis. Moderate mitral valve regurgitation. Mild aortic valve stenosis. Aortic valve area is 2.6 cm. Aortic valve mean gradient is 32 mmHg. Morphologically normal tricuspid valve. Severe tricuspid valve regurgitation. Tricuspid regurgitation velocities suggest a PAP of 88.0 mmHg + RAP. Morphologically normal pulmonic valve. Trace pulmonary valve regurgitation. No pericardial effusion. Normal size aortic root and proximal ascending aorta. MEASUREMENTS (Male / Female) Normal Values 2D ECHO LV Diastolic Diameter PLAX 4.8 cm 4.2 - 5.9 / 3.9 - 5.3 cm LV Systolic Diameter PLAX 3.6 cm LV Fractional Shortening PLAX 26.4 % IVS Diastolic Thickness 1.0 cm 0.6 - 1.0 / 0.6 - 0.9 cm LVPW Diastolic Thickness 1.3 cm 0.6 - 1.0 / 0.6 - 0.9 cm RV Internal Dim ED PLAX 3.1 cm Aortic Root Diameter 2.4 cm LA Systolic Diameter LX 4.1 cm 3.0 - 4.0 / 2.7 - 3.8 cm DOPPLER TR Peak Velocity 469.0 cm/s TR Peak Gradient 88.0 mmHg FINDINGS Left Ventricle Normal left ventricular cavity size. Mild concentric left ventricular hypertrophy with diastolic dysfunction. Mildly decreased left ventricular systolic function, left ventricular ejection fraction estimated at 40%. Right Ventricle Mildly increased right ventricular size. Right Atrium The right atrium is mildly enlarged. Left Atrium Moderately increased left atrial size. Mitral Valve Mild mitral valve sclerosis. Moderate mitral valve regurgitation. Aortic Valve Mild aortic valve stenosis. Aortic valve area is 2.6 cm. Aortic valve mean gradient is 32 mmHg. Tricuspid Valve Morphologically normal tricuspid valve. Severe tricuspid valve regurgitation. Tricuspid regurgitation velocities suggest a PAP of 88.0 mmHg + RAP. Pulmonic Valve Morphologically normal pulmonic valve. Trace pulmonary valve regurgitation. Pericardium No pericardial effusion. Aorta Normal size aortic root and proximal ascending aorta. Chon Turner MD (Electronically Signed) Final Date: 07 September 2016 14:41
[2016-09-08] MEDS: ZALEPLON 5 MG CAPSULE PO PRN ×2 (00:39→21:35)
[2016-09-08] MEDS ORDERED: FUROSEMIDE 40 MG/4 ML VIAL ONE (01:23)
[2016-09-08] MEDS: ALBUTEROL/IPRATROPIUM 3 ML NEB RESP TX SCH ×4 (02:02→19:28)
[2016-09-08 07:02] LABS: Hematocrit 28.9 VOL% (42.0-52.0); Hemoglobin 9.6 GM/DL (14.0-18.0); Immature Granulocytes % 0.8 %; Immature Granulocytes Absolute 0.14 #; Lymphocytes # 0.5 10*3/uL (1.4-4.0); Lymphocytes % 2.6 % (21.2-54.2); Mean Corpuscular HGB Conc 33.2 GM/DL (32-36); Mean Corpuscular Hemoglobin 32 PG (27-34); Mean Corpuscular Volume 96.3 FL (87-102); Mean Platelet Volume 9.6 FL (9.6-12.0); Monocytes # 0.7 10*3/uL (0.11-0.8); Monocytes % 3.8 % (1.7-12.7); NRBC # 0.02 10*3/uL; Neutrophils # 16.4 10*3/uL (1.4-7.4); Neutrophils % 92.8 % (38.7-73.9); Platelet Count 329 T/CUMM (130-400); Red Cell Distribution Width 12.4 % (9.3-17.3); White Blood Count 17.6 T/CUMM (4-12)
[2016-09-08 07:22] LABS: Hypochromasia 1+; Lymphocytes 2 % (20-55); Platelet Estimate Adequate; Segmented Neutrophils 92 % (50-85); Total Cells Counted 100
[2016-09-08 07:36] LABS: Calcium 8.2 MG/DL (8.5-10.1); Magnesium 1.9 MG/DL (1.8-2.4); Osmolality,Calculated 306.7 MOS/KG (273-304); Potassium 3.7 MMOL/L (3.5-5.1)
[2016-09-08 07:39] LABS: Bilirubin,Direct 0.1 MG/DL (0.0-0.20); Bilirubin,Indirect 0.5 MG/DL (0.0-1.0); Bilirubin,Total 0.6 MG/DL (0.2-1.0); Calcium 8.2 MG/DL (8.5-10.1); Osmolality,Calculated 305.7 MOS/KG (273-304); Potassium 3.7 MMOL/L (3.5-5.1); Total Protein 5.9 G/DL (6.4-8.3)
[2016-09-08] MEDS: ENOXAPARIN 40 MG/0.4 ML SYRINGE SUBCUT SCH (08:48)
[2016-09-08] MEDS: predniSONE 20 MG TABLET PO SCH (08:48)
[2016-09-08] MEDS: INSULIN REGULAR 100 UNIT/ML SUBCUT SCH ×4 (08:48→21:35)
[2016-09-08] MEDS: ROSUVASTATIN 10 MG TABLET PO SCH (08:48)
[2016-09-08] MEDS: CLOPIDOGREL 75 MG TABLET PO SCH (08:49)
[2016-09-08] MEDS: CARVEDILOL 12.5 MG TABLET PO SCH ×2 (08:49→21:35)
[2016-09-08] MEDS: POTASSIUM CHLORIDE 20 MEQ TABLET PO SCH (08:49)
[2016-09-08] MEDS: PANTOPRAZOLE 40 MG TABLET PO SCH (08:49)
[2016-09-08] MEDS: ASPIRIN CHEW 81 MG TABLET PO SCH (08:49)
[2016-09-08] MEDS: GLIMEPIRIDE 4 MG TABLET PO SCH (08:49)
[2016-09-08] MEDS: FUROSEMIDE 40 MG TABLET PO SCH ×2 (08:49→21:35)
[2016-09-08] MEDS: LEVOFLOXACIN INJ 500 MG in PREMIX 1 EACH IV SCH (09:09)
[2016-09-08 10:33] LABS: Allen Test Positive
[2016-09-08 10:34] LABS: ABG Base Excess 1.9 MMOL/L (-2.5-2.5); ABG HCO3 25.8 MMOL/L (20-26); ABG Oxygen Saturation 84.1 % (95-100); ABG PCO2 38.6 MM HG (35-48); ABG PH 7.437 (7.35-7.45); ABG PO2 50.4 MM HG (80-95); ABG TCO2 23.5 MMOL/L (23-27)
--- NOTE | 2016-09-08 10:44 | Hospitalist Progress Note ---
Assessment and Plan (1) COPD (chronic obstructive pulmonary disease) Status: Chronic Assessment and plan: Patient does not seem to be on any exacerbation on by mouth steroid and bronchodilator. Current Visit: Yes (2) Transaminitis Status: Chronic Assessment and plan: Noted elevated AST and ALT. more than he had previous admissions. Transmainase levels improved . AST in fact in normal range today. Ultrasound of gallbladder was unremarkable Current Visit: Yes (3) Syncope Status: Acute Assessment and plan: Patient is status post syncope yesterday no recurrence not sure what was the cause possibly vasovagal/hypoxia . Noted again hypoxia on ABG today pulmonary consulted and Current Visit: Yes (4) UTI (urinary tract infection) Status: Acute Assessment and plan: Patient has negative urine culture will DC levofloxacin Current Visit: Yes (5) CHF (congestive heart failure) Status: Chronic Assessment and plan: he is already on Lasix and off IV fluids. Not sure if this is contributing to hypoxia pulmonary following Current Visit: Yes (6) Diabetes Status: Chronic Assessment and plan: Impression improved after patient is off IV steroid Current Visit: Yes Qualifiers: Diabetes mellitus type: type 2 Diabetes mellitus complication status: without complication (7) Renal insufficiency Status: Chronic Assessment and plan: Stable Current Visit: Yes Hospitalist: Subjective Interval history: Mr. Saldana is a 76-year-old male with history of chronic artery disease and cardiomyopathy COPD admitted for the shortness of breath. He has been on home oxygen but was not using as prescribed. Noted he was placed on no IV steroid for possible COPD extubation and and also was on by mouth prednisone. He will also reported to have headache on admission as part of the problem which was resolved. Patient was seen by cardiology and he is documented to have coronary artery disease and had multiple caths. The last tetanus in 2014 reported to have proximal mid LAD with a 90% stenosis status post PCI he is also report to have pulmonary hypertension aortic stenosis. Patient was admitted on 2016 for shortness of breath which was improved after he been on oxygen. He was started on iv antibiotics Levaquin for suspected UTI . He was afebrile and had normal wbc count on admission. Yesterday rapid response called because patient was clammy and short of breath in the bathroom. He was in bathroom but denied any constipation or straining . He was reported to have O2 sat of 78 on 2 L blood pressure 110/70 heart rate 103 He denied any chest pain. His blood sugar was so for more than 400 on fingerstick. He was brought back into the bed after this incident. By the time I saw him he was alert awake and was not short of breath. He was temporarily placed on 4 L oxygen but then brought down to 2 L. his oxygen saturation was low 90s on pulse oximetry . Blood pressure later was improved without any orthostasis. EKG was done and showed normal sinus rhythm. Troponin was done and was stable from before or in fact did improve card following. He does report having urinary retention last night and unable to catheterize . consulted this am. Patient was noted to be on 4 L O2 nasal cannula at this morning. It was cut down later in ABG obtained his PO2 is found to be 50 on 2 L. Exam - Constitutional Vitals: Period Temp Pulse Resp BP Sys/Slater Pulse Ox Last 24 Hr 97.2 F-97.8 F 76-107 16-20 137-165/72-90 85-99 General appearance: no acute distress - Respiratory Respiratory exam: Present: clear to auscultation bilaterally. Absent: rales, rhonchi - Cardiovascular Cardiovascular exam: Present: regular rate and rhythm. Absent: tachycardia - GI/Abdominal GI/Abdominal exam: Present: normal bowel sounds, soft. Absent: tenderness - Extremities Exam Extremities exam: Absent: edema - Neurological Exam Neurological exam: Present: alert, oriented X3 Results - Labs CBC & BMP: 09/08/16 06:34 09/08/16 06:34 Lab Results: I have reviewed the past 24 hour labs
--- NOTE | 2016-09-08 12:28 | Pulmonology Consult Note ---
History of Present Illness Chief complaint: Hypoxemia. COPD. History of tobacco abuse. History of present illness: Nate Anthony, ANP-BC, GNP-BC, acting as scribe for Dr. Emre Mock Mr. Guerrero is a 76-year-old -Thai male who we have been asked to see in pulmonary consultation for evaluation and treatment. The request for consultation was made by Dr. Dove. This patient presented to the emergency room the day of admission secondary to shortness of breath. Prior to admission the patient had recently been diagnosed with strep throat and received an antibiotic shot and sometime after began feeling short of breath. He also complained of a significant headache at admission. On evaluation in the emergency room the patient was felt to have an acute exacerbation of COPD with acute respiratory failure and hypoxemia. He was admitted for further evaluation and care. He is being treated with inhalation therapy, oral prednisone, but no antibiotics at the present time. The patient today states that his shortness of breath has improved. His headache has resolved. He denies any cardiac angina or palpitations. There is been no bleeding from any site. He denies solid dysphagia or significant reflux. No change in bowel or bladder habits. No TIA symptoms or syncope. All other systems were reviewed and were negative. Allergies: None Home medications: See list Past medical history: Positive for congestive heart failure, coronary artery disease, hypertension, acute MD, valvular heart disease, diabetes mellitus, dyslipidemia, COPD, pneumonia, renal failure, and prostate cancer. Surgical history: Positive for cardiac cath and prostate surgery Family history: Positive for cancer in his father (unknown type), diabetes, and hypertension Social history: Marital status is unknown. The patient is a former smoker he quit approximately 15 years ago. He states prior to stopping, he smoked approximately 1 pack per day. He denies the use of alcohol. He is retired. 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 Note, the patient reports that he is quite active and walks every day. Chest x-ray. Done 09/06/2016. My interpretation. Acute congestive heart failure. No definite infiltrate. Echocardiogram. Done 09/06/[address] Turner. Mild diastolic dysfunction , ejection fraction estimated at 40%, mild mitral valve sclerosis, moderate mitral valve regurgitation, mild aortic valve stenosis, severe tricuspid valve regurgitation, pulmonary artery pressure 88.0 mg of mercury plus the right atrial pressure, trace pulmonary valve regurgitation, and no pericardial effusion. CT of the head. Done 09/06/2016. No acute intracranial pathology. Generalized atrophy and changes consistent with microvascular disease. Microbiology: Influenza a and B screen was negative. Blood cultures are negative thus far. Urine culture is negative. Laboratory: White count is 17,600 with 92.8% segs, 2.6% lymphs, and 3.8% monos; H&H 9.6/28.9 with normal indices and normal red blood cell distribution width; platelet count 329,000; INR 1.0; creatinine 1.60, BUN 46, sodium 145, potassium 3.7, magnesium 1.9; liver function tests within normal limits with the exception of minimally elevated ALT and alkaline phosphatase; calcium low 8.2 reflected in a low albumin of 3.0, total protein 5.9; BNP at admission was elevated at 1348 and has not been repeated; urinalysis showed large leukocytes with 156 WBCs. ABGs. Done 09/08/2016. On an FiO2 of 28% pH was 7.437, PCO2 38.6, PO2 50.4, bicarb 25.8, and oxygen saturation 84.1% Home Medications Medication Instructions Recorded Confirmed Type Furosemide Tab [Lasix Tab] 40 mg PO BID 02/01/15 09/06/16 History Glimepiride [Amaryl] 4 mg PO DAILY W/BREAKFAST 02/01/15 09/06/16 History Potassium Chloride 20 meq PO DAILY 02/01/15 09/06/16 History Clopidogrel [Plavix] 75 mg PO DAILY #30 tablet 02/09/15 09/06/16 Rx Aspirin [Ecotrin] 81 mg PO DAILY 07/31/15 09/06/16 History metFORMIN [Glucophage] 500 mg PO BID W/MEALS 07/31/15 09/06/16 History Carvedilol [Coreg] 12.5 mg PO BID 04/11/16 09/06/16 History HYDROcodone/ACETAMIN 7.5-325 1 tablet PO Q6H #10 tablet 04/11/16 09/06/16 Rx [[place] 7.5-325] Azithromycin Tab [Zithromax Tab] 250 mg PO DAILY #6 tablet 05/04/16 09/06/16 Rx Furosemide Tab [Lasix Tab] 40 mg PO BID #60 tablet 05/04/16 09/06/16 Rx Amitriptyline [Elavil] 10 mg PO Q6H #12 tablet 09/05/16 09/06/16 Rx Promethazine Tab [Phenergan Tab] 25 mg PO Q6H #12 tablet 09/05/16 09/06/16 Rx Rosuvastatin [Crestor] 5 mg PO DAILY 09/06/16 09/06/16 History Allergies Allergy/AdvReac Type Severity Reaction Status Date / Time No Known Allergies Allergy Verified 04/13/16 10:19 Exam ([facility]) H&P - Constitutional Vitals: Period Temp Pulse Resp BP Sys/Slater Pulse Ox Last 24 Hr 97.2 F-98.0 F 76-107 16-20 136-165/70-90 85-99 Exam: Psych: [Oriented x 3; a pleasant and cooperative patient] HEENT: [Pupils, irises, sclera, conjunctiva, and eyelids are normal. The face is symmetrical without rash or masses. Lips, tongue, buccal mucosa, soft and hard palates, and pharynx are WNL ] Neck: [Symmetrical. Thyroid was not palpated.] Lymphatics: [No submandibular, cervical, or supraclavicular adenopathy] Chest: [Symmetrical without wheeze, rhonchi or rales] CV: [Regular without gallop] Arterial: [Carotids with a fair upstroke. There is no bruit. Upper extremity pulses are palpable. Lower extremity pulses are palpable.] Venous: [Exam of the neck, upper, and lower extremities is normal] Abd: [No appreciable organomegaly, masses, tenderness, or bruit; Bowel sounds are positive 4; The aorta was not palpated] /Rectal: [Deferred] Extremities: [No clubbing, cyanosis, edema, or obvious DVT; mild tenderness to palpation of the calves left greater than right] Skin: [No cancerous or infectious lesions of the exposed, examined skin; the perineal area was not examined] M/S: [Age appropriate loss of the normal curvature of the cervical, thoracic, and lumbar spine] Neurological: [Cranial nerves are intact, Long tract motor function is intact; Sensory exam was not done; gait was not tested.] The remainder of the exam was noncontributory. Impression: #1: Acute congestive heart failure #2: Hypoxemia possibly secondary to #1, #3, and/or #4; consider other causes such as pulmonary embolism #3: COPD #4: History of tobacco abuse #5: Diabetes mellitus #6: Coronary artery disease #7: Hypertension #8: History of acute MD #9: Valvular heart disease #10: History of prostate cancer #11: Renal failure #12: Dyslipidemia #13: See past history Plan: #1: Agree with diuresis #2: Repeat chest x-ray in the morning #3: Sputum for Gram stain, culture, and sensitivity #4: Doppler venograms to rule out deep venous thrombophlebitis noted, due to the patient's renal failure we cannot proceed with CT of the chest with PE protocol. #5: See orders We appreciate this consult and will follow along with you. Medical,Surgical,& Family Hx - Medical History Cardio: History of: CHF, CAD, Hypertension, MD, Valvular Heart Disease Neurology: No history of: TIA Endocrine: History of: Diabetes Mellitus (IDDM), Diabetes Mellitus (NIDDM), Dyslipidemia Respiratory: History of: COPD, Pneumonia Renal: History of: Renal Failure Genitourinary: History of: Prostate Problems (cancer) Other: History of: Cancer (PROSTATE) - Surgical History Cardiac Surgeries: Sugical HX of: Cardiac Catheterization Abdominal Surgeries: Patient denies: Abdominal Surgery Reproductive Surgeries: Surgical HX of;: Prostate Surgery - Family History Family History: Reports;: Family Cancer (brother), Family Diabetes (son), Family Heart Disease (mother), Family Hypertension (family) Denies;: Family Stroke - Social History Smoking Status: Former smoker (quit about 15 years ago) Frequency of Alcohol Use: None Type of Drug Use: None Results - Labs CBC & BMP: 09/08/16 06:34 09/08/16 06:34
--- NOTE | 2016-09-08 14:34 | Ultrasound Report ---
US venous doppler LE BI Indication: Calf tenderness. Hypoxemia. BILATERAL LOWER EXTREMITY VENOUS ULTRASOUND Comparison: 05/02/2013 Findings: Graded grayscale compression, color Doppler and pulsed Doppler ultrasound evaluation of the venous structures performed. Normal compressibility, augmentation and color saturation is present within bilateral common femoral, superficial femoral, popliteal and proximal greater saphenous veins. Impression: No evidence of DVT either lower extremity. PROCEDURE INTERPRETED AT [facility] DEPARTMENT OF RADIOLOGY Final Report Signed by: Elton Sanches M.D.
--- NOTE | 2016-09-08 15:10 | Urology Consultation ---
History of Present Illness - Data of Consult Consult date: 09/08/16 - Consult Narrative History of present illness: Mr. Guerrero is a 76 year old male This 76-year-old black male has a past history of a prostatectomy and a urethral stricture. He has had elevated residual on bladder scan but he is voiding. A Prieto could not be passed. The patient was dilated initially with Veras followers but he has got a seriously dense stricture in the Veras followers cannot be passed through the stricture even at 10 [place]. [place] sounds were then used and I was able to dilating only to 16 [place] and I was unable to get a smaller a Prieto catheter in at this level of dilatation. Ideally the patient will need cystoscopy with visual internal urethrotomy but will have to be off of Plavix if this is done. I am going to observe the patient tonight to see if his voiding is better with the dilatation and possibly plan cystoscopy with VIU next week off of Plavix or possibly repeat the dilatation tomorrow if the Plavix can cannot be stopped CC: James Dove MD - Home Medications and Allergies Home Medications: Home Medications Medication Instructions Recorded Confirmed Type Furosemide Tab [Lasix Tab] 40 mg PO BID 02/01/15 09/06/16 History Glimepiride [Amaryl] 4 mg PO DAILY W/BREAKFAST 02/01/15 09/06/16 History Potassium Chloride 20 meq PO DAILY 02/01/15 09/06/16 History Clopidogrel [Plavix] 75 mg PO DAILY #30 tablet 02/09/15 09/06/16 Rx Aspirin [Ecotrin] 81 mg PO DAILY 07/31/15 09/06/16 History metFORMIN [Glucophage] 500 mg PO BID W/MEALS 07/31/15 09/06/16 History Carvedilol [Coreg] 12.5 mg PO BID 04/11/16 09/06/16 History HYDROcodone/ACETAMIN 7.5-325 1 tablet PO Q6H #10 tablet 04/11/16 09/06/16 Rx [[place] 7.5-325] Azithromycin Tab [Zithromax Tab] 250 mg PO DAILY #6 tablet 05/04/16 09/06/16 Rx Furosemide Tab [Lasix Tab] 40 mg PO BID #60 tablet 05/04/16 09/06/16 Rx Amitriptyline [Elavil] 10 mg PO Q6H #12 tablet 09/05/16 09/06/16 Rx Promethazine Tab [Phenergan Tab] 25 mg PO Q6H #12 tablet 09/05/16 09/06/16 Rx Rosuvastatin [Crestor] 5 mg PO DAILY 09/06/16 09/06/16 History Allergies/Adverse Reactions: Allergies Allergy/AdvReac Type Severity Reaction Status Date / Time No Known Allergies Allergy Verified 04/13/16 10:19 Exam - Constitutional Vitals: Period Temp Pulse Resp BP Sys/Slater Pulse Ox Last 24 Hr 97.2 F-98.0 F 76-107 16-20 136-165/70-90 92-99 Results - Labs CBC & BMP: 09/08/16 06:34 09/08/16 06:34
[2016-09-09] MEDS: ALBUTEROL/IPRATROPIUM 3 ML NEB RESP TX SCH ×4 (00:24→19:52)
[2016-09-09 05:52] LABS: Calcium 8.3 MG/DL (8.5-10.1); Magnesium 2.2 MG/DL (1.8-2.4); Potassium 3.8 MMOL/L (3.5-5.1)
--- NOTE | 2016-09-09 07:40 | Urology Progress Note ---
Urology - PN: Subj Interval history: The patient is voiding better even though he was only dilated to 16 [place]. I will check a bladder scan today and if he is adequately decompressed then I will plan on elective cystoscopy with visual internal urethrotomy after he is off anticoagulation Exam - Constitutional Vitals: Period Temp Pulse Resp BP Sys/Slater Pulse Ox Last 24 Hr 97.3 F-98.0 F 76-95 16-19 124-160/70-84 85-99 Results - Labs CBC & BMP: 09/08/16 06:34 09/09/16 04:52
[2016-09-09] MEDS: INSULIN REGULAR 100 UNIT/ML SUBCUT SCH ×4 (08:02→21:33)
[2016-09-09] MEDS: POTASSIUM CHLORIDE 20 MEQ TABLET PO SCH (08:08)
[2016-09-09] MEDS: ENOXAPARIN 40 MG/0.4 ML SYRINGE SUBCUT SCH (08:08)
[2016-09-09] MEDS: GLIMEPIRIDE 4 MG TABLET PO SCH (08:08)
[2016-09-09] MEDS: FUROSEMIDE 40 MG TABLET PO SCH ×2 (08:08→21:32)
[2016-09-09] MEDS: PANTOPRAZOLE 40 MG TABLET PO SCH (08:09)
[2016-09-09] MEDS: CARVEDILOL 12.5 MG TABLET PO SCH ×2 (08:09→21:33)
[2016-09-09] MEDS: ROSUVASTATIN 10 MG TABLET PO SCH (08:09)
[2016-09-09] MEDS: predniSONE 20 MG TABLET PO SCH (08:09)
[2016-09-09] MEDS: CLOPIDOGREL 75 MG TABLET PO SCH (08:09)
[2016-09-09] MEDS: ASPIRIN CHEW 81 MG TABLET PO SCH (08:09)
--- NOTE | 2016-09-09 09:48 | XRay Report ---
XR chest 2V Indication: CHF Comparison: Chest x-ray dated September 06, 2016 Technique: Frontal and lateral views of the chest Findings: Heart size is borderline. Interstitial pulmonary prominent suspicious for interstitial pulmonary edema which appears minimally improved from comparison study. Small bilateral pleural effusions noted. Osseous and surrounding soft tissue structures appear grossly unchanged. IMPRESSION: As above. PROCEDURE INTERPRETED AT [facility] DEPARTMENT OF RADIOLOGY Final Report Signed by: Dr Amanuel Keenan
--- NOTE | 2016-09-09 10:43 | Pulmonology Progress Note ---
Pulmonary - PN: Subj Interval history: Nate Anthony, ANP-BC, GNP-BC, acting as scribe for Dr. Emre Mock Mr. Guerrero is a 76-year-old -[place]uneian male who we saw in initial pulmonary consultation on 09/08/2016. At that time, our impressions were: #1: Acute congestive heart failure #2: Hypoxemia possibly secondary to #1, #3, and/or #4; consider other causes such as pulmonary embolism #3: COPD #4: History of tobacco abuse #5: Diabetes mellitus #6: Coronary artery disease #7: Hypertension #8: History of acute NE #9: Valvular heart disease #10: History of prostate cancer #11: Renal failure #12: Dyslipidemia #13: See past history 09/09/2016. The patient is lying flat in bed and breathing comfortably. He states that his breathing has much improved since admission. Today's chest x- ray shows that his previously noted heart failure has nearly resolved. He has been diuresed as per cardiology. Doppler venograms showed no evidence of deep venous femoral phlebitis in either lower extremity. Oxygen saturations on O2 at 2 L/min are 99%. Medications have been reviewed. We made no changes today. Labs been reviewed. Creatinine 1.40, BUN 41, electrolytes are normal; BNP is pending Exam (Progress Note) - Constitutional Vitals: Period Temp Pulse Resp BP Sys/Slater Pulse Ox Last 24 Hr 97.4 F-98.0 F 74-95 16-19 124-148/70-81 85-100 Exam: Chest is fairly clear Heart no gallop Abdomen is nontender and nondistended; bowel sounds are positive 4 Extremities with nothing to suggest acute deep venous femoral phlebitis; note, Doppler venograms this admission were negative on 09/08/2016 Psychiatric oriented 3 Neurologic long-term motor function is intact Plan: From a pulmonary standpoint the patient has markedly improved. We would recommend continuing diuresis as per cardiology. We will sign off. Please reconsult as needed. Results - Labs CBC & BMP: 09/08/16 06:34 09/09/16 04:52
--- NOTE | 2016-09-09 11:31 | Cardiology Progress Note ---
Radhika Perez April RN, am scribing for, and in the presence of, Daphnie Ho MD 11:31. Assessment and Plan (1) Elevated troponin Status: Acute Assessment and plan: We discussed cardiac catheterization now that he is clinically improving. He will try to lay flat tonight to see if he is able to undergo this procedure. Current Visit: Yes (2) Headache Status: Acute Current Visit: Yes (3) Diabetes Status: Chronic Current Visit: Yes Qualifiers: Diabetes mellitus type: type 2 Diabetes mellitus complication status: without complication (4) Exertional dyspnea Status: Chronic Current Visit: Yes (5) Coronary artery disease Status: Chronic Current Visit: Yes (6) Cardiomyopathy Status: Chronic Current Visit: Yes (7) Aortic stenosis Status: Chronic Current Visit: Yes Qualifiers: Cardiac valve disease etiology: etiology unspecified Qualified Code(s): I35.0 - Nonrheumatic aortic (valve) stenosis (8) NSTEMI (non-ST elevated myocardial infarction) Status: Resolved Current Visit: No Cardiology - PN: Subj Interval history: Mr. Guerrero is seen resting in bed in no acute distress. He denies chest pain, shortness of breath, or palpitations. He had an episode yesterday of getting dizzy and felt like he was about to pass out. He had a CT of the head done, no acute changes were noted. We placed him on truck hopper. He has been in sinus rhythm, heart rates currently in the 80s. This morning he tells me he has had no more episodes like that. H&H this morning is 9.6 and 28.9, creatinine 1.6. Echo done with ejection fraction 40%. He is not sure if he'll be able to lay flat. Exam (Progress Note) - Constitutional Vitals: Period Temp Pulse Resp BP Sys/Slater Pulse Ox Last 24 Hr 97.2 F-97.8 F 87-107 18-20 137-165/72-90 85-99 General appearance: no acute distress, over weight - Head Head exam: Absent: abrasion, hematoma - Eye Eye exam: Absent: periorbital swelling, laceration to eyelids - Respiratory Respiratory exam: Present: clear to auscultation bilaterally, other (Oxygen via nasal biprong). Absent: accessory muscle use, chest wall tenderness - Cardiovascular Cardiovascular exam: Present: regular rate and rhythm - GI/Abdominal GI/Abdominal exam: Present: normal bowel sounds, soft. Absent: distended, tenderness - Extremities Exam Extremities exam: Absent: edema - Neurological Exam Neurological exam: Present: alert, oriented X3 - Psychiatric Psychiatric exam: Present: normal affect, normal mood Result/EKG - Labs CBC & BMP: 09/08/16 06:34 09/09/16 04:52 Lab Results: I have reviewed the past 24 hour labs Labs: Laboratory Results - last 24 hr 09/07/16 09/07/16 09/07/16 09:24 11:09 11:11 WBC RBC Hgb Hct MCV MCH MCHC RDW Plt Count MPV Neut % (Auto) Lymph % (Auto) Weber % (Auto) Eos % (Auto) Baso % (Auto) Neut # (Auto) Lymph # (Auto) Weber # (Auto) Eos # (Auto) Baso # (Auto) Total Counted Immature Gran % Nucleated RBC % Immature Gran # Segmented Neutrophils Lymphocytes Monocytes Nucleated RBCs # Platelet Estimate Hypochromasia Morphology Comment Sodium Potassium Chloride Carbon Dioxide Anion Gap BUN Creatinine GFR Calculation BUN/Creatinine Ratio Glucose POC Glucose 324 H 411 H 412 H Calculated Osmolality Calcium Magnesium Total Bilirubin Direct Bilirubin Indirect Bilirubin AST ALT Alkaline Phosphatase Total Creatine Kinase Troponin I Total Protein Albumin 09/07/16 09/07/16 09/07/16 11:20 11:26 11:45 WBC RBC Hgb 9.8 L Hct 29.9 L MCV MCH MCHC RDW Plt Count MPV Neut % (Auto) Lymph % (Auto) Weber % (Auto) Eos % (Auto) Baso % (Auto) Neut # (Auto) Lymph # (Auto) Weber # (Auto) Eos # (Auto) Baso # (Auto) Total Counted Immature Gran % Nucleated RBC % Immature Gran # Segmented Neutrophils Lymphocytes Monocytes Nucleated RBCs # Platelet Estimate Hypochromasia Morphology Comment Sodium Potassium Chloride Carbon Dioxide Anion Gap BUN Creatinine GFR Calculation BUN/Creatinine Ratio Glucose 418 POC Glucose Calculated Osmolality Calcium Magnesium Total Bilirubin Direct Bilirubin Indirect Bilirubin AST ALT Alkaline Phosphatase Total Creatine Kinase 158 Troponin I 0.324 H Total Protein Albumin 09/07/16 09/07/16 09/07/16 12:32 15:57 21:17 WBC RBC Hgb Hct MCV MCH MCHC RDW Plt Count MPV Neut % (Auto) Lymph % (Auto) Weber % (Auto) Eos % (Auto) Baso % (Auto) Neut # (Auto) Lymph # (Auto) Weber # (Auto) Eos # (Auto) Baso # (Auto) Total Counted Immature Gran % Nucleated RBC % Immature Gran # Segmented Neutrophils Lymphocytes Monocytes Nucleated RBCs # Platelet Estimate Hypochromasia Morphology Comment Sodium Potassium Chloride Carbon Dioxide Anion Gap BUN Creatinine GFR Calculation BUN/Creatinine Ratio Glucose POC Glucose 386 H 270 H 300 H Calculated Osmolality Calcium Magnesium Total Bilirubin Direct Bilirubin Indirect Bilirubin AST ALT Alkaline Phosphatase Total Creatine Kinase Troponin I Total Protein Albumin 09/08/16 09/08/16 09/08/16 06:34 06:34 06:34 WBC 17.6 H RBC 3.00 L Hgb 9.6 L Hct 28.9 L MCV 96.3 MCH 32 MCHC 33.2 RDW 12.4 Plt Count 329 MPV 9.6 Neut % (Auto) 92.8 H Lymph % (Auto) 2.6 L Weber % (Auto) 3.8 Eos % (Auto) 0.0 Baso % (Auto) 0.0 Neut # (Auto) 16.4 H Lymph # (Auto) 0.5 L Weber # (Auto) 0.7 Eos # (Auto) 0.0 Baso # (Auto) 0.0 Total Counted 100 Immature Gran % 0.8 Nucleated RBC % 0.1 Immature Gran # 0.14 Segmented Neutrophils 92 H Lymphocytes 2 L Monocytes 6 Nucleated RBCs # 0.02 Platelet Estimate Adequate Hypochromasia 1+ Morphology Comment Sodium 145 145 Potassium 3.7 3.7 Chloride 106 107 Carbon Dioxide 27 27 Anion Gap 15.7 H 14.7 BUN 49 H 46 H Creatinine 1.60 H 1.60 H GFR Calculation 51 51 BUN/Creatinine Ratio 30.00 H 28.00 H Glucose 201 H 202 H POC Glucose Calculated Osmolality 306.7 H 305.7 H Calcium 8.2 L 8.2 L Magnesium 1.9 Total Bilirubin 0.60 Direct Bilirubin 0.1 Indirect Bilirubin 0.5 AST 32 ALT 64 H Alkaline Phosphatase 128 H Total Creatine Kinase Troponin I Total Protein 5.9 L Albumin 3.0 L 09/08/16 07:20 WBC RBC Hgb Hct MCV MCH MCHC RDW Plt Count MPV Neut % (Auto) Lymph % (Auto) Weber % (Auto) Eos % (Auto) Baso % (Auto) Neut # (Auto) Lymph # (Auto) Weber # (Auto) Eos # (Auto) Baso # (Auto) Total Counted Immature Gran % Nucleated RBC % Immature Gran # Segmented Neutrophils Lymphocytes Monocytes Nucleated RBCs # Platelet Estimate Hypochromasia Morphology Comment Sodium Potassium Chloride Carbon Dioxide Anion Gap BUN Creatinine GFR Calculation BUN/Creatinine Ratio Glucose POC Glucose 220 H Calculated Osmolality Calcium Magnesium Total Bilirubin Direct Bilirubin Indirect Bilirubin AST ALT Alkaline Phosphatase Total Creatine Kinase Troponin I Total Protein Albumin - EKG EKG results: interpreted by me EKG shows: sinus rhythm IVic Jennifer, MD, personally performed the services described in this documentation, ascribed by Irais Garrido RN in my presence, and it is both accurate and complete [id number] .
--- NOTE | 2016-09-09 11:33 | Cardiology Progress Note ---
Radhika Perez April, RN, am scribing for, and in the presence of, Daphnie Ho MD 11:33. Assessment and Plan (1) Diabetes Status: Chronic Current Visit: Yes Qualifiers: Diabetes mellitus type: type 2 Diabetes mellitus complication status: without complication (2) Exertional dyspnea Status: Chronic Current Visit: Yes (3) Coronary artery disease Status: Chronic Current Visit: Yes (4) Cardiomyopathy Status: Chronic Current Visit: Yes (5) Aortic stenosis Status: Chronic Current Visit: Yes Qualifiers: Cardiac valve disease etiology: etiology unspecified Qualified Code(s): I35.0 - Nonrheumatic aortic (valve) stenosis (6) NSTEMI (non-ST elevated myocardial infarction) Status: Resolved Assessment and plan: I discussed the role, risks and benefits of cardiac catheterization with the patient and he is agreeable to proceeding. We'll plan on doing that this afternoon. Current Visit: No (7) Headache Status: Resolved Current Visit: Yes Cardiology - PN: Subj Interval history: Mr. Chou is seen resting in bed in no acute distress. He denies any chest pain , shortness of breath, palpitations, or dizziness. Telemetry monitoring currently sinus rhythm with heart rates in the 80s. His blood pressures been stable throughout the night. Creatinine is down to 1.4. He was able to lay flat. He prefers to proceed with cardiac catheterization today rather than waiting until Monday. Exam (Progress Note) - Constitutional Vitals: Period Temp Pulse Resp BP Sys/Slater Pulse Ox Last 24 Hr 97.4 F-98.0 F 74-95 16-19 124-148/70-81 85-100 General appearance: no acute distress, over weight - Head Head exam: Present: normal inspection, normocephalic. Absent: abrasion, hematoma - Eye Eye exam: Absent: periorbital swelling, laceration to eyelids Pupils: Absent: dilated, fixed, irregular - ENT ENT exam: Present: normal exam, normal external ear exam - Neck Neck exam: Present: normal inspection. Absent: lymphadenopathy, thyromegaly - Respiratory Respiratory exam: Present: clear to auscultation bilaterally, other (Oxygen via nasal biprong). Absent: accessory muscle use, chest wall tenderness - Cardiovascular Cardiovascular exam: Present: regular rate and rhythm. Absent: bradycardia, tachycardia - GI/Abdominal GI/Abdominal exam: Present: normal bowel sounds, soft. Absent: distended, mass , tenderness - Extremities Exam Extremities exam: Present: normal capillary refill. Absent: edema - Back Exam Back exam: Absent: muscle spasm, vertebral tenderness - Neurological Exam Neurological exam: Present: alert, oriented X3 - Psychiatric Psychiatric exam: Present: normal affect, normal mood - Skin Skin exam: Present: warm, dry Result/EKG - Labs CBC & BMP: 09/08/16 06:34 09/09/16 04:52 Lab Results: I have reviewed the past 24 hour labs Labs: Laboratory Results - last 24 hr 09/08/16 09/08/16 09/08/16 10:25 11:39 16:12 ABG pH 7.437 ABG pCO2 38.6 ABG pO2 50.4 L ABG HCO3 25.8 ABG Total CO2 23.5 ABG O2 Saturation 84.1 L ABG Base Excess 1.9 FiO2 28.00 Sodium Potassium Chloride Carbon Dioxide Anion Gap BUN Creatinine GFR Calculation BUN/Creatinine Ratio Glucose POC Glucose 362 H 177 H Calculated Osmolality Calcium Magnesium 09/08/16 09/09/16 09/09/16 20:16 04:52 07:27 ABG pH ABG pCO2 ABG pO2 ABG HCO3 ABG Total CO2 ABG O2 Saturation ABG Base Excess FiO2 Sodium 143 Potassium 3.8 Chloride 107 Carbon Dioxide 28 Anion Gap 11.8 BUN 41 H Creatinine 1.40 H GFR Calculation 60 BUN/Creatinine Ratio 29.00 H Glucose 142 H POC Glucose 302 H 107 H Calculated Osmolality 296.0 Calcium 8.3 L Magnesium 2.2 - EKG EKG results: interpreted by me EKG shows: sinus rhythm IVic Jennifer, MD, personally performed the services described in this documentation, ascribed by Irais Garrido RN in my presence, and it is both accurate and complete .
--- NOTE | 2016-09-09 11:33 | History and Physical Update ---
Sedation H&P Update - Dictation Physical: refer to H&P completed by admitting physician - Physical Exam Mental Status: alert and oriented Heart: regular rate and rhythm Lung: clear to auscultation Abdomen: within normal limits Vitals: within normal limits History and Physical Changes: Pulmonary condition is now improved, heart failure is improved, he can lay flat. Kidney function has improved. - Sedation Plan for Sedation: moderate Patient Consent: Procedure disscussed with patient and patinet has consented., Risks and benefits were discussed with patient,including infection,, bleeding, injury to surrounding structures, seizure, temporary nerve, Patient understands and accepts potential risks/benefits and agrees to, proceed. ASA Class: IV Airway Assessment: Class II: Soft palate, uvula, fauces visible
[2016-09-09] MEDS ORDERED: DIAZEPAM 5 MG TABLET PO ONE (11:34)
[2016-09-09] MEDS ORDERED: diphenhydrAMINE CAP 25 MG CAPSULE PO ONE (11:34)
[2016-09-09] MEDS ORDERED: POTASSIUM CHLORIDE RIDER 10 MEQ in PREMIX 1 EACH IV PRN (11:34)
[2016-09-09] MEDS ORDERED: MAGNESIUM SULF RIDER 2 GM in PREMIX 1 EACH IV PRN (11:34)
[2016-09-09 12:48] LABS: INR 1.1; PT Patient Result 11.6 SECS
--- NOTE | 2016-09-09 15:16 | Hospitalist Progress Note ---
Assessment and Plan (1) Elevated troponin Status: Acute Assessment and plan: Secondary to NSTEMI being Evaluated with cardiac cath today Current Visit: Yes (2) Transaminitis Status: Chronic Assessment and plan: Probably due to congestive heart failure I will have this repeated again tomorrow and to be followed by the hospitalist rounding Current Visit: Yes (3) COPD (chronic obstructive pulmonary disease) Status: Chronic Assessment and plan: Stable at present on p.o. steroids and bronchodilator Current Visit: Yes (4) Syncope Status: Acute Assessment and plan: No recurrence. It was possible that the syncope was due to cardiac event patient is a status post NTEMI and CHF Current Visit: Yes (5) CHF (congestive heart failure) Status: Chronic Assessment and plan: Symptomatically improved after diuretics given cardiology following and plan to cath today Current Visit: Yes (6) UTI (urinary tract infection) Status: Acute Assessment and plan: Urine culture was negative and antibiotic was discontinued Current Visit: Yes (7) Diabetes Status: Chronic Assessment and plan: Impression improved after patient is off IV steroid Current Visit: Yes Qualifiers: Diabetes mellitus type: type 2 Diabetes mellitus complication status: without complication (8) Renal insufficiency Status: Chronic Assessment and plan: Creatinine improved but elevated BUN creatinine ratio need to monitor closely patient is on diuretics I would also check hemoglobin and hematocrit tomorrow with repeat chemistry as patient undergoing cath with contrast exposure Current Visit: Yes Hospitalist: Subjective Interval history: Mr. Saldana is a 76-year-old male with history of chronic artery disease and cardiomyopathy COPD admitted for the shortness of breath. He has been on home oxygen but was not using as prescribed. Noted he was placed on no IV steroid for possible COPD extubation and and also was on by mouth prednisone. He will also reported to have headache on admission as part of the problem which was resolved. Patient was seen by cardiology and he is documented to have coronary artery disease and had multiple caths. The last tetanus in 2014 reported to have proximal mid LAD with a 90% stenosis status post PCI he is also report to have pulmonary hypertension aortic stenosis. Patient was admitted on 2016 for shortness of breath which was improved after he been on oxygen. He was started on iv antibiotics Levaquin for suspected UTI . He was afebrile and had normal wbc count on admission. 09/07/16 rapid response called because patient was clammy and short of breath in the bathroom. He was in bathroom but denied any constipation or straining . He was reported to have O2 sat of 78 on 2 L blood pressure 110/70 heart rate 103 He denied any chest pain. His blood sugar was so for more than 400 on fingerstick. He was brought back into the bed after this incident. By the time I saw him he was alert awake and was not short of breath. He was temporarily placed on 4 L oxygen but then brought down to 2 L. his oxygen saturation was low 90s on pulse oximetry . Blood pressure later was improved without any orthostasis. EKG was done and showed normal sinus rhythm. Troponin was done and was stable from before or in fact did improve card following. He does report having urinary retention night before night and unable to catheterize . consulted this am. Patient was noted to be on 4 L O2 nasal cannula at this morning. It was cut down later in ABG obtained his PO2 is found to be 50 on 2 L. Pulmonary consulted started on Lasix for suspected CHF. Patient feeling better his dyspnea has improved able to lay flat no chest pain or any other acute subjective symptom. He is being followed by cardiology pulmonary and urology. He had elevated troponin and suspected CHF with pulmonary edema improved with Lasix. He does not have any angina cardiology plan to do a cath today for evaluation. He had urinary retention for which urology following him and apparently has urethral stricture and underwent dilatation. Exam - Constitutional Vitals: Period Temp Pulse Resp BP Sys/Slater Pulse Ox Last 24 Hr 97.4 F-98.7 F 74-95 16-19 124-148/71-81 95-100 General appearance: no acute distress - Respiratory Respiratory exam: Present: clear to auscultation bilaterally. Absent: rales, rhonchi - Cardiovascular Cardiovascular exam: Present: regular rate and rhythm. Absent: tachycardia - GI/Abdominal GI/Abdominal exam: Present: normal bowel sounds, soft. Absent: tenderness - Extremities Exam Extremities exam: Present: normal inspection, edema (Mild edema bilateral lower extremities present) - Neurological Exam Neurological exam: Present: alert, oriented X3 Results - Labs CBC & BMP: 09/08/16 06:34 09/09/16 04:52 Lab Results: I have reviewed the past 24 hour labs
[2016-09-09] MEDS ORDERED: SODIUM BICARBONATE 2.4 MEQ/5 ML VIAL ONE (15:23)
[2016-09-09] MEDS ORDERED: HEPARIN/NACL 0.9% 2 UNITS/ML 1,000 ML IV ONE (15:23)
[2016-09-09] MEDS ORDERED: LIDOCAINE 1% 20 ML VIAL ONE (15:23)
[2016-09-09] MEDS ORDERED: MIDAZOLAM 2 MG/2 ML VIAL ONE (15:42)
[2016-09-09] MEDS ORDERED: fentaNYL 100 MCG/2 ML VIAL ONE (15:42)
[2016-09-09] MEDS ORDERED: BIVALIRUDIN 250 MG VIAL IV ONE (16:06)
[2016-09-09] MEDS ORDERED: TICAGRELOR 90 MG TABLET ONE (16:36)
--- NOTE | 2016-09-09 17:19 | Cardiology Operative Report ---
Date of Procedure:: 09/09/16 Pre-op diagnosis: CAD,NSTEMI Post-op diagnosis: other (CAD, ICM, ) Procedure: 1. Selective left and right coronary angiography. 2. Left heart catheterization with left ventriculogram. 3. Right iliac angiography to rule out vascular complications. 4. Percutaneous intervention of the second obtuse marginal artery with placement of Synergy 2.5 x 12 mm drug-eluting stent. Impression: 1. Severe single-vessel coronary artery disease. A. OM 2 was 99% stenosis, GOMEZ 2 flow. B. First obtuse marginal artery with 90% stenosis in its distal segment where it is less than 2 mm in caliber. C. Patent stents in the proximal LAD, proximal mid RCA and distal mid RCA. 2. Right dominant coronary arteries. 3. Ejection fraction 25-30 %. 4. Mild atherosclerotic vascular disease of the right iliac artery without evidence of vascular complications. 5. Successful PCI of the second marginal artery as described above. 6. Aortic stenosis with mean gradient of 28 mmHg. Plan: 1. DAPT > 12 months. 2. Risk factor modification. Equipment: Diagnostic 6 Malian JL4, JR4, pigtail catheters Guiding 6 Malian JL4 catheter, 180cm [employer] wire, Trek 2 x 12 mm Balloon, Synergy 2.5 x 12 mm drug-eluting stent, Trek 2.5 x 8 mm non-compliant balloon Hemodynamics: Aortic pressure 139/67 mmHg, left ventricular pressure 164/17 mmHg, LVEDP 24 mmHg, mean gradient 28 mmHg Sedation: Versed 1 mg, fentanyl 25 g Procedure: After informed consent was obtained the patient was prepped and draped in sterile fashion. The right groin was infiltrated with 1% lidocaine and the right femoral artery was accessed via modified Seldinger technique using a micropuncture needle and a 6 Malian femoral arterial sheath was placed. All catheter exchanges were performed over a guidewire under fluoroscopic guidance. Diagnostic 6 Malian JL4 and JR4 catheters were advanced to the left and right coronary arteries respectively and multiple cineangiograms were performed in varying degrees of obliquity and angulation. Thereafter a pigtail catheter was advanced into the left ventricle where hemodynamics were obtained followed by left ventriculogram. Percutaneous intevention of the was then performed as described below. At conclusion of the procedure right iliac angiography was performed to rule out vascular complications. Findings: 1. The left main artery is short with mild atherosclerosis. 2. The left anterior descending artery extends to the apex and wraps around. There is a stent in the proximal segment that is patent. There are mild luminal irregularities throughout without significant stenosis. 3. There is an intermediate ramus branch that is small and branching, free of significant disease. 4. The circumflex artery is a nondominant vessel. There are luminal irregularities throughout this system. The first obtuse marginal artery has 90 % stenosis in its distal segment is less than 2 mm in caliber. The second obtuse marginal artery has a 99% proximal stenosis with GOMEZ 2 flow. 5. The right coronary artery is a small but dominant vessel. There is diffuse disease with up to 50-60% stenosis in the distal segment. Stents are noted in the proximal mid and more distal mid segments of the vessel with 30-40% late lumen loss. 6. Ejection fraction is 25-30 % with severe global hypokinesis. 7. Mild mitral regurgitation. 8. Evidence of aortic stenosis with mean gradient as reported above. 9. The right iliac artery has mild atherosclerotic vascular disease without evidence of vascular complications. PCI: The patient was anticoagulated with Angiomax. After appropriate anticoagulation was confirmed with an ACT measurement, a guiding 6 Malian JL4 catheter was advanced to the left main artery. A [employer] 180 cm wire was used to traverse the second obtuse marginal artery. A Trek 2 x 12 mm balloon was advanced to the site of stenosis and angioplasty was performed at 8 nils. Thereafter, a Synergy 2.5 x 12 mm drug-eluting stent was advanced to the site of angioplasty, and successfully deployed at 11 nils. Afterwards, a non- compliant trek 2.5 x 8 mm balloon was advanced into the stented segment and post -dilation was performed at 12 nils. Satisfactory angiographic result was obtained with appropriate step-up proximally and distally, and no evidence of residual vascular complications. Preoperatively there is 99% stenosis with GOMEZ 2 flow. Postoperatively there is 0% residual stenosis at the treated segment with GOMEZ 3 flow. Contrast use: There is a patent 119 cc Fluoro time: 6.77 minutes Complications: none Specimens removed: none Devices implanted: stent as described above Anesthesia: moderate conscious sedation Surgeon / Physician: Daphnie Ho Wheel Assembler: none (Shirin Gibson) Estimated blood loss: minimal Specimens: none sent Condition: stable Disposition: ICU/CCU
--- NOTE | 2016-09-09 18:11 | EKG Report ---
Stationary ECG Study [facility] Test Date: 09/09/2016 6:08:17 PM Pat Name: HARDEEP LORENZ Department: Room: 289 Gender: M Technical Service Specialist: DANIELITO : 1940 Requested by: Daphnie Ho Order Number: [id number] Reading MD: ALTAGRACIA BURRIS Intervals [place] Rate: 83 P: 68 LA: 158 QRS: -6 QRSD: 111 T: 84 QT: 383 QTc: 423 Interpretive Statements SINUS RHYTHM MODERATE INTRAVENTRICULAR CONDUCTION DELAY Peaked T waves, consider hyperkalemia Electronically Signed On 09-11-16 20:33:17 CDT by ALTAGRACIA BURRIS [email or web address]
[2016-09-09] MEDS: SODIUM CHLORIDE 0.45% 1,000 ML IV SCH (18:21)
[2016-09-09] MEDS: TICAGRELOR 90 MG TABLET PO SCH (21:33)
[2016-09-10] MEDS: ALBUTEROL/IPRATROPIUM 3 ML NEB RESP TX SCH ×4 (00:35→19:46)
--- NOTE | 2016-09-10 05:58 | Cardiology Progress Note ---
Assessment and Plan (1) Coronary artery disease Status: Chronic Assessment and plan: He is now status post PCI to OM 2. We will follow-up his labs. He will require dual antiplatelet therapy for greater than equal to 1 year. Current Visit: Yes (2) Cardiomyopathy Status: Chronic Assessment and plan: His ejection fraction by left ventriculogram is approximately 25-30%. We will initiate NEMESIO inhibitor and follow his creatinine. We will refer him for LifeVest. Current Visit: Yes (3) Diabetes Status: Chronic Current Visit: Yes Qualifiers: Diabetes mellitus type: type 2 Diabetes mellitus complication status: without complication (4) Aortic stenosis Status: Chronic Current Visit: Yes Qualifiers: Cardiac valve disease etiology: etiology unspecified Qualified Code(s): I35.0 - Nonrheumatic aortic (valve) stenosis (5) NSTEMI (non-ST elevated myocardial infarction) Status: Resolved Assessment and plan: Status post PCI of the culprit vessel. Current Visit: No (6) Renal insufficiency Status: Chronic Current Visit: Yes (7) COPD (chronic obstructive pulmonary disease) Status: Chronic Current Visit: Yes Cardiology - PN: Subj Interval history: Overall evening was uneventful. He denies any chest pain. He has mild shortness of breath. He has no groin complaints. His labs have not been reported back yet. From a clinical standpoint which should be able to move him up to the telemetry floor today. Exam (Progress Note) - Constitutional Vitals: Period Temp Pulse Resp BP Sys/Slater Pulse Ox Last 24 Hr 96.7 F-98.7 F 74-87 15-24 143-180/73-99 92-100 Exam: General appearance: normal weight, no acute distress - Head Head exam: Present: normal inspection, normocephalic, atraumatic. Absent: hematoma, laceration - Eye Eye exam: Present: EOMI. Absent: conjunctival injection, nystagmus, periorbital swelling, scleral icterus, laceration to eyelids Pupils: Present: PERRL. Absent: constricted, dilated, fixed, irregular, unequal - ENT ENT exam: Present: normal exam, normal external ear exam - Neck Neck exam: Present: normal inspection. Absent: lymphadenopathy, meningismus, tenderness, thyromegaly - Respiratory Respiratory exam: Present: Scant crackles in the bilateral bases. Absent: accessory muscle use, chest wall tenderness - Cardiovascular Cardiovascular exam: Present: regular rate and rhythm. Absent: carotid bruit, gallop, JVD, rubs - GI/Abdominal GI/Abdominal exam: Present: normal bowel sounds, soft. Absent: distended, firm , guarding, hernia, mass, tenderness, rebound. - Extremities Exam Extremities exam: Present: normal inspection, normal capillary refill, right groin without hematoma or bruit, right femoral and posterior tibialis pulses are 3+. Absent: calf tenderness, edema - Back Exam Back exam: Present: normal inspection. Absent: muscle spasm, vertebral tenderness - Neurological Exam Neurological exam: Present: alert, oriented X3, grossly intact without resting or intention tremor - Psychiatric Psychiatric exam: Present: normal affect, normal mood - Skin Skin exam: Present: normal color, warm, dry, intact. Absent: cyanosis, diaphoretic, rash, urticaria Result/EKG - Labs CBC & BMP: 09/08/16 06:34 09/09/16 04:52 Lab Results: I have reviewed the past 24 hour labs Labs: Laboratory Results - last 24 hr 09/09/16 09/09/16 09/09/16 07:27 10:57 12:00 INR PT Patient/Control Mix POC Glucose 107 H 237 H B-Natriuretic Peptide 1872 H 09/09/16 09/09/16 09/09/16 12:27 13:53 20:23 INR 1.1 PT Patient/Control Mix 11.6 POC Glucose 203 H 170 H B-Natriuretic Peptide - EKG EKG results: not changed from: (EKG currently not available)
[2016-09-10 06:09] LABS: Basophils % 0.2 % (0.0-0.8); Eosinophils % 0.2 % (0.00-10.9); Hematocrit 32.7 VOL% (42.0-52.0); Hemoglobin 11.4 GM/DL (14.0-18.0); Immature Granulocytes % 0.5 %; Immature Granulocytes Absolute 0.07 #; Lymphocytes # 1.1 10*3/uL (1.4-4.0); Lymphocytes % 8.5 % (21.2-54.2); Mean Corpuscular HGB Conc 34.9 GM/DL (32-36); Mean Corpuscular Hemoglobin 32 PG (27-34); Mean Corpuscular Volume 92.1 FL (87-102); Mean Platelet Volume 9.4 FL (9.6-12.0); Monocytes # 0.9 10*3/uL (0.11-0.8); Monocytes % 7.1 % (1.7-12.7); NRBC # 0.02 10*3/uL; Neutrophils # 10.7 10*3/uL (1.4-7.4); Neutrophils % 83.5 % (38.7-73.9); Platelet Count 366 T/CUMM (130-400); Red Blood Count 3.55 MC/CUMM (3.8-5.5); Red Cell Distribution Width 12.2 % (9.3-17.3); White Blood Count 12.9 T/CUMM (4-12)
--- NOTE | 2016-09-10 06:32 | Hospitalist Progress Note ---
Assessment and Plan - Time spent with patient Time spent with patient: Less than 30 minutes (1) NSTEMI (non-ST elevated myocardial infarction) Status: Resolved Assessment and plan: Patient has had non-ST segment elevation [place] is now status post cardiac catheterization with stenting of the OM 2. Continue current medical regimen treatment and recommendations by Dr. Ho. Current Visit: No (2) Coronary artery disease Status: Chronic Assessment and plan: As noted above. Current Visit: Yes (3) Renal insufficiency Status: Chronic Current Visit: Yes (4) Diabetes Status: Chronic Assessment and plan: Continue to follow with Accu-Cheks and sliding scale insulin. Current Visit: Yes Qualifiers: Diabetes mellitus type: type 2 Diabetes mellitus complication status: without complication (5) Congestive heart failure Status: Acute Assessment and plan: Currently appears to be well compensated. Medical therapy per cardiology. Current Visit: No Qualifiers: Congestive heart failure type: systolic (6) COPD (chronic obstructive pulmonary disease) Status: Chronic Assessment and plan: Oxygenating well and appears to be stabilized. Continue current care. Current Visit: Yes (7) Transaminitis Status: Chronic Assessment and plan: LFTs have returned to normal and was likely secondary to underlying CHF. Current Visit: Yes Hospitalist: Subjective Interval history: Patient had cardiac catheterization with stenting of the OM [address] Ho. He is currently having no complaints of chest pain or shortness of breath. He has no abdominal pain, nausea, vomiting, diarrhea, constipation. Exam - Constitutional Vitals: Period Temp Pulse Resp BP Sys/Slater Pulse Ox Last 24 Hr 96.7 F-98.7 F 74-87 15-24 143-180/73-99 92-100 General appearance: no acute distress - Head Head exam: Present: normocephalic, atraumatic - Eye Eye exam: Present: EOMI Pupils: Present: LEANDRO - ENT ENT exam: Present: normal oropharynx - Neck Neck exam: Present: normal inspection - Respiratory Respiratory exam: Present: clear to auscultation bilaterally. Absent: rales, rhonchi, wheezes - Cardiovascular Cardiovascular exam: Present: regular rate and rhythm - GI/Abdominal GI/Abdominal exam: Present: normal bowel sounds, soft. Absent: mass, tenderness , rebound - Extremities Exam Extremities exam: Absent: calf tenderness, edema - Back Exam Back exam: Present: normal inspection - Neurological Exam Neurological exam: Present: alert, oriented X3, CN II-XII intact. Absent: motor sensory deficit - Psychiatric Psychiatric exam: Present: normal affect, normal mood. Absent: agitated, anxious - Skin Skin exam: Present: warm, dry. Absent: erythema, rash Results - Labs CBC & BMP: 09/10/16 05:59 09/10/16 05:59 Lab Results: I have reviewed the past 24 hour labs
[2016-09-10 06:33] LABS: Calcium 8.6 MG/DL (8.5-10.1); Magnesium 2.3 MG/DL (1.8-2.4); Osmolality,Calculated 292.7 MOS/KG (273-304); Potassium 3.3 MMOL/L (3.5-5.1)
[2016-09-10 06:50] LABS: Albumin 2.8 G/DL (3.4-5.0); Bilirubin,Direct 0.1 MG/DL (0.0-0.20); Bilirubin,Indirect 0.5 MG/DL (0.0-1.0); Bilirubin,Total 0.6 MG/DL (0.2-1.0); Total Protein 5.8 G/DL (6.4-8.3)
--- NOTE | 2016-09-10 07:54 | EKG Report ---
Stationary ECG Study [facility] Test Date: 09/10/2016 7:53:45 AM Pat Name: HARDEEP LORENZ Department: Room: 105 Gender: M Ortho Tech: GREGORIO : 1940 Requested by: Daphnie Ho Order Number: [id number] Reading MD: ALTAGRACIA BURRIS Intervals Alexander Rate: 80 P: 75 MD: 147 QRS: -2 QRSD: 103 T: 66 QT: 397 QTc: 433 Interpretive Statements SINUS RHYTHM WITH SINUS ARRHYTHMIA NONSPECIFIC T-WAVE ABNORMALITY Borderline IVCD Electronically Signed On 09-11-16 20:38:42 CDT by ALTAGRACIA BURRIS [email or web address]
[2016-09-10] MEDS: INSULIN REGULAR 100 UNIT/ML SUBCUT SCH ×4 (08:43→20:57)
[2016-09-10] MEDS: LISINOPRIL 2.5 MG TABLET PO SCH (08:44)
[2016-09-10] MEDS: CARVEDILOL 12.5 MG TABLET PO SCH ×2 (08:44→20:57)
[2016-09-10] MEDS: GLIMEPIRIDE 4 MG TABLET PO SCH (08:44)
[2016-09-10] MEDS: FUROSEMIDE 40 MG TABLET PO SCH ×2 (08:44→20:57)
[2016-09-10] MEDS: PANTOPRAZOLE 40 MG TABLET PO SCH (08:44)
[2016-09-10] MEDS: ROSUVASTATIN 10 MG TABLET PO SCH (08:45)
[2016-09-10] MEDS: TICAGRELOR 90 MG TABLET PO SCH ×2 (08:45→20:57)
[2016-09-10] MEDS: ASPIRIN CHEW 81 MG TABLET PO SCH (08:45)
[2016-09-10] MEDS: predniSONE 20 MG TABLET PO SCH (08:46)
[2016-09-10] MEDS: POTASSIUM CHLORIDE 20 MEQ TABLET PO SCH (08:46)
[2016-09-10] MEDS: ENOXAPARIN 40 MG/0.4 ML SYRINGE SUBCUT SCH (08:46)
--- NOTE | 2016-09-10 09:09 | Urology Progress Note ---
Urology - PN: Subj Interval history: The patient had less than 200 cc on bladder scan residual urine. And he thinks he is voiding better. He is not dilated enough to put in a Prieto catheter but he is voiding well enough that I think he can go without the catheter. He will eventually need cystoscopy with visual internal urethrotomy but will need to be off of anticoagulation so this may have to be delayed Exam - Constitutional Vitals: Period Temp Pulse Resp BP Sys/Slater Pulse Ox Last 24 Hr 96.7 F-98.7 F 58-87 11-24 134-180/66-99 92-100 Results - Labs CBC & BMP: 09/10/16 05:59 09/10/16 05:59
[2016-09-10] MEDS: SODIUM CHLORIDE 0.45% 1,000 ML IV SCH (17:16)
[2016-09-11] MEDS: ALBUTEROL/IPRATROPIUM 3 ML NEB RESP TX SCH ×4 (00:10→18:54)
[2016-09-11 05:46] LABS: Basophils % 0.1 % (0.0-0.8); Eosinophils % 0.1 % (0.00-10.9); Hematocrit 31.1 VOL% (42.0-52.0); Hemoglobin 10.9 GM/DL (14.0-18.0); Immature Granulocytes % 0.6 %; Immature Granulocytes Absolute 0.08 #; Lymphocytes # 0.8 10*3/uL (1.4-4.0); Lymphocytes % 5.8 % (21.2-54.2); Mean Corpuscular Hemoglobin 32 PG (27-34); Mean Corpuscular Volume 92.6 FL (87-102); Mean Platelet Volume 9.4 FL (9.6-12.0); Monocytes # 0.9 10*3/uL (0.11-0.8); Monocytes % 6.6 % (1.7-12.7); Neutrophils # 11.6 10*3/uL (1.4-7.4); Neutrophils % 86.8 % (38.7-73.9); Platelet Count 371 T/CUMM (130-400); Red Blood Count 3.36 MC/CUMM (3.8-5.5); Red Cell Distribution Width 12.2 % (9.3-17.3); White Blood Count 13.3 T/CUMM (4-12)
[2016-09-11 06:09] LABS: Calcium 8.5 MG/DL (8.5-10.1); Osmolality,Calculated 298.1 MOS/KG (273-304); Potassium 3.9 MMOL/L (3.5-5.1)
[2016-09-11 06:16] LABS: Calcium 8.7 MG/DL (8.5-10.1); Magnesium 2.5 MG/DL (1.8-2.4); Potassium 3.9 MMOL/L (3.5-5.1)
[2016-09-11] MEDS: ASPIRIN CHEW 81 MG TABLET PO SCH (08:14)
[2016-09-11] MEDS: PANTOPRAZOLE 40 MG TABLET PO SCH (08:14)
[2016-09-11] MEDS: ROSUVASTATIN 10 MG TABLET PO SCH (08:14)
[2016-09-11] MEDS: predniSONE 20 MG TABLET PO SCH (08:14)
[2016-09-11] MEDS: CARVEDILOL 12.5 MG TABLET PO SCH ×2 (08:14→20:24)
[2016-09-11] MEDS: GLIMEPIRIDE 4 MG TABLET PO SCH (08:14)
[2016-09-11] MEDS: ENOXAPARIN 40 MG/0.4 ML SYRINGE SUBCUT SCH (08:14)
[2016-09-11] MEDS: INSULIN REGULAR 100 UNIT/ML SUBCUT SCH ×4 (08:14→20:24)
[2016-09-11] MEDS: TICAGRELOR 90 MG TABLET PO SCH ×2 (08:14→20:25)
[2016-09-11] MEDS: POTASSIUM CHLORIDE 20 MEQ TABLET PO SCH (08:14)
[2016-09-11] MEDS: LISINOPRIL 2.5 MG TABLET PO SCH (08:14)
[2016-09-11] MEDS: FUROSEMIDE 40 MG TABLET PO SCH ×2 (08:14→20:25)
--- NOTE | 2016-09-11 09:04 | Hospitalist Progress Note ---
Assessment and Plan - Time spent with patient Time spent with patient: Less than 30 minutes (1) NSTEMI (non-ST elevated myocardial infarction) Status: Resolved Assessment and plan: Patient has had non-ST segment elevation [place] is now status post cardiac catheterization with stenting of the OM 2. Continue current medical regimen treatment and recommendations by Dr. Ho. 09/11/16: Patient is doing well clinically. Continue current medical regimen. Current Visit: No (2) Coronary artery disease Status: Chronic Assessment and plan: As noted above. Current Visit: Yes (3) Renal insufficiency Status: Chronic Assessment and plan: Patient's creatinine has risen from 1.1-1.5 since yesterday consistent with acute kidney injury. We will continue hydration and avoidance of nephrotoxic insults. Current Visit: Yes (4) Diabetes Status: Chronic Assessment and plan: Continue to follow with Accu-Cheks and sliding scale insulin. Blood sugars are poorly controlled. Will continue to optimize therapy while here. Current Visit: Yes Qualifiers: Diabetes mellitus type: type 2 Diabetes mellitus complication status: without complication (5) Congestive heart failure Status: Acute Assessment and plan: Currently appears to be well compensated. Medical therapy per cardiology. Current Visit: No Qualifiers: Congestive heart failure type: systolic (6) COPD (chronic obstructive pulmonary disease) Status: Chronic Assessment and plan: Oxygenating well and appears to be stabilized. Continue current care. Current Visit: Yes (7) Transaminitis Status: Chronic Assessment and plan: LFTs have returned to normal and was likely secondary to underlying CHF. Current Visit: Yes Hospitalist: Subjective Interval history: Patient is doing well today without any complaints of chest pain, shortness breath, nausea, vomiting, diarrhea, constipation. He is tolerating his diet. Exam - Constitutional Vitals: Period Temp Pulse Resp BP Sys/Slater Pulse Ox Last 24 Hr 97.4 F-98.3 F 77-87 12-20 104-144/57-78 85-100 General appearance: no acute distress - Head Head exam: Present: normocephalic, atraumatic - Eye Eye exam: Present: EOMI Pupils: Present: LEANDRO - ENT ENT exam: Present: normal exam - Neck Neck exam: Present: normal inspection - Respiratory Respiratory exam: Present: clear to auscultation bilaterally - Cardiovascular Cardiovascular exam: Present: regular rate and rhythm - GI/Abdominal GI/Abdominal exam: Present: normal bowel sounds, soft. Absent: tenderness - Extremities Exam Extremities exam: Absent: calf tenderness, edema - Neurological Exam Neurological exam: Present: alert, oriented X3, CN II-XII intact. Absent: motor sensory deficit - Psychiatric Psychiatric exam: Present: normal affect, normal mood. Absent: agitated, anxious - Skin Skin exam: Present: warm, dry. Absent: rash Results - Labs CBC & BMP: 09/11/16 05:08 09/11/16 05:08 Lab Results: I have reviewed the past 24 hour labs
--- NOTE | 2016-09-11 10:28 | Urology Progress Note ---
Urology - PN: Subj Interval history: The patient is voiding better postdilatation but he was not dilated above 16 English. The patient is now post heart stent and will need to be on anticoagulation for 1 year and this is going to let delay the possibility of visual internal urethrotomy Exam - Constitutional Vitals: Period Temp Pulse Resp BP Sys/Slater Pulse Ox Last 24 Hr 97.4 F-98.3 F 77-87 16-20 104-144/57-78 85-100 Results - Labs CBC & BMP: 09/11/16 05:08 09/11/16 05:08
--- NOTE | 2016-09-11 11:54 | Cardiology Progress Note ---
Assessment and Plan (1) Coronary artery disease Status: Chronic Assessment and plan: He is now status post PCI to OM 2. He will require dual antiplatelet therapy for greater than or equal to 1 year. Current Visit: Yes (2) Cardiomyopathy Status: Chronic Assessment and plan: His ejection fraction by left ventriculogram is approximately 25-30%. We will refer him for LifeVest. We will rechallenge him with NEMESIO inhibitor his creatinine has increased, which may or may not be related. We will change him to hydralazine and isosorbide. Current Visit: Yes (3) Diabetes Status: Chronic Current Visit: Yes Qualifiers: Diabetes mellitus type: type 2 Diabetes mellitus complication status: without complication (4) Aortic stenosis Status: Chronic Current Visit: Yes Qualifiers: Cardiac valve disease etiology: etiology unspecified Qualified Code(s): I35.0 - Nonrheumatic aortic (valve) stenosis (5) NSTEMI (non-ST elevated myocardial infarction) Status: Resolved Assessment and plan: Status post PCI of the culprit vessel. Current Visit: No (6) Renal insufficiency Status: Chronic Assessment and plan: See discussion above. I do not know whether the creatinine of 1.1 was a lab abnormality, as 1.5 is consistent with his previous baseline. We will observe him an additional day. Current Visit: Yes (7) COPD (chronic obstructive pulmonary disease) Status: Chronic Current Visit: Yes Cardiology - PN: Subj Interval history: This is my usual clinic patient. He has a history of coronary artery disease, moderate aortic stenosis. He presented to the hospital with a headache, but was found to have a non-ST elevation myocardial infarction, and is also been treated for pulmonary process. During his hospital stay he also underwent some dilation for urinary retention. He had acute renal insufficiency as well. He underwent cardiac catheterization 09/09/2016 with PCI to 99% occluded obtuse marginal branch. He has significant cardiomyopathy with ejection fraction 25%. Clinically he is doing well, has no chest pain, shortness of breath, and is now able to ambulatory to the restroom without dyspnea. His kidney function had normalized to 1.1, but today is up to 1.5. This is the 48 hour period post contrast exposure may be related to the contrast he received. However, I also rechallenged him with low-dose NEMESIO inhibitor yesterday, and this may also be related. I'm now going to discontinue the NEMESIO inhibitor. He will be observed an additional day to evaluate his renal function, and he should also be fitted with a life Vest tomorrow. Exam (Progress Note) - Constitutional Vitals: Period Temp Pulse Resp BP Sys/Slater Pulse Ox Last 24 Hr 97.4 F-98.3 F 77-87 16-20 119-144/62-78 93-100 Exam: General appearance: normal weight, no acute distress - Head Head exam: Present: normal inspection, normocephalic, atraumatic. Absent: hematoma, laceration - Eye Eye exam: Present: EOMI. Absent: conjunctival injection, nystagmus, periorbital swelling, scleral icterus, laceration to eyelids Pupils: Present: PERRL. Absent: constricted, dilated, fixed, irregular, unequal - ENT ENT exam: Present: normal exam, normal external ear exam - Neck Neck exam: Present: normal inspection. Absent: lymphadenopathy, meningismus, tenderness, thyromegaly - Respiratory Respiratory exam: Present: Clear to auscultation bilaterally. Absent: accessory muscle use, chest wall tenderness - Cardiovascular Cardiovascular exam: Present: regular rate and rhythm. Absent: carotid bruit, gallop, JVD, rubs - GI/Abdominal GI/Abdominal exam: Present: normal bowel sounds, soft. Absent: distended, firm , guarding, hernia, mass, tenderness, rebound. - Extremities Exam Extremities exam: Present: normal inspection, normal capillary refill, right groin without hematoma or bruit, right femoral and posterior tibialis pulses are 3+. Absent: calf tenderness, edema - Back Exam Back exam: Present: normal inspection. Absent: muscle spasm, vertebral tenderness - Neurological Exam Neurological exam: Present: alert, oriented X3, grossly intact without resting or intention tremor - Psychiatric Psychiatric exam: Present: normal affect, normal mood - Skin Skin exam: Present: normal color, warm, dry, intact. Absent: cyanosis, diaphoretic, rash, urticaria Result/EKG - Labs CBC & BMP: 09/11/16 05:08 09/11/16 05:08 Lab Results: I have reviewed the past 24 hour labs Labs: Laboratory Results - last 24 hr 09/10/16 09/10/16 09/10/16 11:45 15:31 19:57 WBC RBC Hgb Hct MCV MCH MCHC RDW Plt Count MPV Neut % (Auto) Lymph % (Auto) [place]ulloch % (Auto) Eos % (Auto) Baso % (Auto) Neut # (Auto) Lymph # (Auto) [place] # (Auto) Eos # (Auto) Baso # (Auto) Immature Gran % Nucleated RBC % Immature Gran # Nucleated RBCs # Sodium Potassium Chloride Carbon Dioxide Anion Gap BUN Creatinine GFR Calculation BUN/Creatinine Ratio Glucose POC Glucose 219 H 300 H 329 H Calculated Osmolality Calcium Magnesium 09/11/16 09/11/16 09/11/16 05:08 05:08 05:08 WBC 13.3 H RBC 3.36 L Hgb 10.9 L Hct 31.1 L MCV 92.6 MCH 32 MCHC 35.0 RDW 12.2 Plt Count 371 MPV 9.4 L Neut % (Auto) 86.8 H Lymph % (Auto) 5.8 L [place]ulloch % (Auto) 6.6 Eos % (Auto) 0.1 Baso % (Auto) 0.1 Neut # (Auto) 11.6 H Lymph # (Auto) 0.8 L [place]och # (Auto) 0.9 H Eos # (Auto) 0.0 Baso # (Auto) 0.0 Immature Gran % 0.6 Nucleated RBC % 0.0 Immature Gran # 0.08 Nucleated RBCs # 0.00 Sodium 143 142 Potassium 3.9 3.9 Chloride 106 106 Carbon Dioxide 28 28 Anion Gap 12.9 11.9 BUN 38 H 37 H Creatinine 1.50 H 1.50 H GFR Calculation 55 55 BUN/Creatinine Ratio 25.00 H 24.00 H Glucose 233 H 231 H POC Glucose Calculated Osmolality 300.0 298.1 Calcium 8.7 8.5 Magnesium 2.5 H 09/11/16 07:12 WBC RBC Hgb Hct MCV MCH MCHC RDW Plt Count MPV Neut % (Auto) Lymph % (Auto) [place] % (Auto) Eos % (Auto) Baso % (Auto) Neut # (Auto) Lymph # (Auto) [place] # (Auto) Eos # (Auto) Baso # (Auto) Immature Gran % Nucleated RBC % Immature Gran # Nucleated RBCs # Sodium Potassium Chloride Carbon Dioxide Anion Gap BUN Creatinine GFR Calculation BUN/Creatinine Ratio Glucose POC Glucose 196 H Calculated Osmolality Calcium Magnesium
[2016-09-11] MEDS: hydrALAZINE 25 MG TABLET PO SCH ×2 (16:30→20:25)
[2016-09-12] MEDS: ALBUTEROL/IPRATROPIUM 3 ML NEB RESP TX SCH ×4 (01:07→19:06)
[2016-09-12 05:49] LABS: Magnesium 2.4 MG/DL (1.8-2.4); Osmolality,Calculated 291.4 MOS/KG (273-304); Potassium 3.8 MMOL/L (3.5-5.1)
--- NOTE | 2016-09-12 07:45 | Urology Progress Note ---
Urology - PN: Subj Interval history: I will follow the patient in the office. He may require periodic dilatation for difficulty voiding and I would like to do a visual internal urethrotomy at some point when he can stop anticoagulation Exam - Constitutional Vitals: Period Temp Pulse Resp BP Sys/Slater Pulse Ox Last 24 Hr 97.4 F-98.6 F 75-88 16-20 115-148/56-76 92-98 Results - Labs CBC & BMP: 09/11/16 05:08 09/12/16 04:43 Specialty Discharge - Follow Up or Referrals
[2016-09-12] MEDS: INSULIN REGULAR 100 UNIT/ML SUBCUT SCH ×4 (08:16→22:22)
[2016-09-12] MEDS: PANTOPRAZOLE 40 MG TABLET PO SCH (08:54)
[2016-09-12] MEDS: GLIMEPIRIDE 4 MG TABLET PO SCH (08:54)
[2016-09-12] MEDS: ISOSORBIDE MONONITRATE 30 MG TABLET PO SCH (08:54)
[2016-09-12] MEDS: ENOXAPARIN 40 MG/0.4 ML SYRINGE SUBCUT SCH (08:54)
[2016-09-12] MEDS: ROSUVASTATIN 10 MG TABLET PO SCH (08:55)
[2016-09-12] MEDS: CARVEDILOL 12.5 MG TABLET PO SCH ×2 (08:55→22:23)
[2016-09-12] MEDS: predniSONE 10 MG TABLET PO SCH (08:55)
[2016-09-12] MEDS: hydrALAZINE 25 MG TABLET PO SCH ×3 (08:56→22:23)
[2016-09-12] MEDS: TICAGRELOR 90 MG TABLET PO SCH ×2 (08:56→22:23)
[2016-09-12] MEDS: FUROSEMIDE 40 MG TABLET PO SCH ×2 (08:56→22:22)
[2016-09-12] MEDS: POTASSIUM CHLORIDE 20 MEQ TABLET PO SCH (08:56)
[2016-09-12] MEDS: ASPIRIN CHEW 81 MG TABLET PO SCH (08:56)
--- NOTE | 2016-09-12 12:56 | Cardiology Progress Note ---
Assessment and Plan (1) NSTEMI (non-ST elevated myocardial infarction) Status: Resolved Assessment and plan: Patient is status post PCI to OM 2. Patient will need follow-up appointment with Dr. Ho in 2 weeks with CBC, BMP, magnesium and EKG. Further plan and addendum to follow per Dr. Anders. Discharge cardiac medications should include: Brilinta 90 mg p.o. twice daily, aspirin 81 mg p.o. daily, Coreg 12.5 mg p.o. twice daily, Imdur 15 mg p.o. daily , hydralazine 25 mg p.o. 3 times daily, Crestor 5 mg p.o. daily and Lasix. Current Visit: No (2) Coronary artery disease Status: Chronic Assessment and plan: He is now status post PCI to OM 2. He will require dual antiplatelet therapy for greater than or equal to 1 year. Current Visit: Yes (3) Aortic stenosis Status: Chronic Current Visit: Yes Qualifiers: Cardiac valve disease etiology: etiology unspecified Qualified Code(s): I35.0 - Nonrheumatic aortic (valve) stenosis (4) Cardiomyopathy Status: Chronic Assessment and plan: His ejection fraction by left ventriculogram is approximately 25-30%. field services manager have been consulted to set up patient with life vest. Creatinine continues to rise. NEMESIO inhibitor was discontinued and hydralazine and Imdur was added yesterday. Daily BMPs. Current Visit: Yes (5) Diabetes Status: Chronic Assessment and plan: Continue current plan of care. Defer further management to attending. Current Visit: Yes Qualifiers: Diabetes mellitus type: type 2 Diabetes mellitus complication status: without complication (6) Renal insufficiency Status: Acute Assessment and plan: Creatinine continues to rise. It is 1.7 today. We will continue to hold NEMESIO inhibitor due to fear of worsening renal function. Continue hydralazine and Imdur. Current Visit: Yes Cardiology - PN: Subj Interval history: Mr. Guerrero, 76-year-old male with a history of coronary artery disease and a moderate aortic stenosis. He presented to the hospital with a headache, but was found to have a non-ST elevation myocardial infarction, and is also been treated for pulmonary process. During his hospital stay he also underwent some dilation for urinary retention. He had acute renal insufficiency as well. He underwent cardiac catheterization 09/09/2016 with PCI to 90% occluded obtuse marginal branch. He has significant cardiomyopathy with ejection fraction 25%-30%. field services manager has been consulted to set up patient with lifevest. His groin is soft without bleeding, hematoma and bruit. Distal pulses present. Patient reports that he has ambulated around the room without any difficulty. Right groin has remained stable post ambulation. Patient will be given follow-up appointment with Dr. Ho in 2 weeks with CBC, BMP, mag and EKG. Vital signs have been stable. He is currently in normal sinus rhythm with heart rates in the 80s without any overt arrhythmias or ectopy noted. Creatinine continues to rise. We will continue to hold NEMESIO inhibitor. This could be reinitiated on an outpatient basis. Exam (Progress Note) - Constitutional Vitals: Period Temp Pulse Resp BP Sys/Slater Pulse Ox Last 24 Hr 97.6 F-98.4 F 75-83 16-80 115-148/56-76 94-100 Exam: General appearance: normal weight, no acute distress - Head Head exam: Present: normal inspection, normocephalic, atraumatic. Absent: hematoma, laceration - Eye Eye exam: Present: EOMI. Absent: conjunctival injection, nystagmus, periorbital swelling, scleral icterus, laceration to eyelids Pupils: Present: PERRL. Absent: constricted, dilated, fixed, irregular, unequal - ENT ENT exam: Present: normal exam, normal external ear exam - Neck Neck exam: Present: normal inspection. Absent: lymphadenopathy, meningismus, tenderness, thyromegaly - Respiratory Respiratory exam: Present: Clear to auscultation bilaterally. Absent: accessory muscle use, chest wall tenderness - Cardiovascular Cardiovascular exam: Present: regular rate and rhythm. Absent: carotid bruit, gallop, JVD, rubs - GI/Abdominal GI/Abdominal exam: Present: normal bowel sounds, soft. Absent: distended, firm , guarding, hernia, mass, tenderness, rebound. - Extremities Exam Extremities exam: Present: normal inspection, normal capillary refill, right groin without hematoma or bruit, right femoral and posterior tibialis pulses are 2+. Absent: calf tenderness, edema - Back Exam Back exam: Present: normal inspection. Absent: muscle spasm, vertebral tenderness - Neurological Exam Neurological exam: Present: alert, oriented X3, grossly intact without resting or intention tremor - Psychiatric Psychiatric exam: Present: normal affect, normal mood - Skin Skin exam: Present: normal color, warm, dry, intact. Absent: cyanosis, diaphoretic, rash, urticaria Result/EKG - Labs CBC & BMP: 09/11/16 05:08 09/12/16 04:43 Lab Results: I have reviewed the past 24 hour labs Labs: Laboratory Results - last 24 hr 09/11/16 09/11/16 09/12/16 15:43 19:43 04:43 Sodium 140 Potassium 3.8 Chloride 102 Carbon Dioxide 29 Anion Gap 12.8 BUN 36 H Creatinine 1.70 H GFR Calculation 47 BUN/Creatinine Ratio 21.00 H Glucose 180 H POC Glucose 320 H 319 H Calculated Osmolality 291.4 Calcium 9.0 Magnesium 2.4 09/12/16 09/12/16 07:55 11:42 Sodium Potassium Chloride Carbon Dioxide Anion Gap BUN Creatinine GFR Calculation BUN/Creatinine Ratio Glucose POC Glucose 135 H 214 H Calculated Osmolality Calcium Magnesium Specialty Discharge - Follow Up or Referrals Follow up with: Stephen Leal MD [Physician] - 12/12/16 8:30 am (follow up in 3 months.) Daphnie Ho MD [Physician] - (follow-up appointment with Dr. Ho in 2 weeks with CBC, BMP, magnesium and EKG.)
--- NOTE | 2016-09-12 16:07 | Hospitalist Progress Note ---
Assessment and Plan (1) NSTEMI (non-ST elevated myocardial infarction) Status: Resolved Assessment and plan: The patient is recovering from non-ST elevation myocardial infarction. The patient has had increase in creatinine which appears that it might be a new baseline. We are adjusting medications anticipate discharge soon. Current Visit: No (2) Dyspnea Status: Acute Current Visit: No Qualifiers: Dyspnea type: shortness of breath Qualified Code(s): R06.02 - Shortness of breath (3) Coronary artery disease Status: Chronic Current Visit: Yes (4) Renal insufficiency Status: Chronic Current Visit: Yes Hospitalist: Subjective Interval history: This patient was admitted to the hospital with headache and was found to have non-ST elevation myocardial infarction. Coronary arteriogram was accomplished. We are continung with medication adjustments. Exam - Constitutional Vitals: Period Temp Pulse Resp BP Sys/Slater Pulse Ox Last 24 Hr 97.5 F-98.1 F 75-83 16-80 111-148/56-76 94-100 General appearance: no acute distress - Respiratory Respiratory exam: Present: clear to auscultation bilaterally - Cardiovascular Cardiovascular exam: Present: regular rate and rhythm - GI/Abdominal GI/Abdominal exam: Present: normal bowel sounds Results - Labs CBC & BMP: 09/11/16 05:08 09/12/16 04:43 Lab Results: I have reviewed the past 24 hour labs Specialty Discharge - Follow Up or Referrals Follow up with: Daphnie Ho MD [Physician] - (follow-up appointment with Dr. Ho in 2 weeks with CBC, BMP, magnesium and EKG.) Stephen Leal MD [Physician] - 12/12/16 8:30 am (follow up in 3 months.)
[2016-09-13] MEDS: ALBUTEROL/IPRATROPIUM 3 ML NEB RESP TX SCH ×2 (01:04→06:46)
[2016-09-13 04:32] LABS: Basophils % 0.1 % (0.0-0.8); Hematocrit 31.2 VOL% (42.0-52.0); Hemoglobin 10.7 GM/DL (14.0-18.0); Immature Granulocytes % 0.7 %; Immature Granulocytes Absolute 0.12 #; Lymphocytes # 0.7 10*3/uL (1.4-4.0); Lymphocytes % 4.3 % (21.2-54.2); Mean Corpuscular HGB Conc 34.3 GM/DL (32-36); Mean Corpuscular Hemoglobin 32 PG (27-34); Mean Platelet Volume 9.3 FL (9.6-12.0); Monocytes % 5.9 % (1.7-12.7); Neutrophils # 15.2 10*3/uL (1.4-7.4); Platelet Count 372 T/CUMM (130-400); Red Blood Count 3.39 MC/CUMM (3.8-5.5); Red Cell Distribution Width 12.4 % (9.3-17.3); White Blood Count 17.1 T/CUMM (4-12)
[2016-09-13 05:00] LABS: Calcium 9.1 MG/DL (8.5-10.1); Magnesium 2.4 MG/DL (1.8-2.4); Osmolality,Calculated 291.1 MOS/KG (273-304); Potassium 4.1 MMOL/L (3.5-5.1)
[2016-09-13 05:08] LABS: Troponin I Only 0.055 NG/ML (0.00-0.045)
[2016-09-13 05:09] LABS: Lymphocytes 5 % (20-55); Segmented Neutrophils 93 % (50-85); Total Cells Counted 100
[2016-09-13 05:10] LABS: Hypochromasia 1+; Platelet Estimate Adequate
[2016-09-13] MEDS: ROSUVASTATIN 10 MG TABLET PO SCH (08:39)
[2016-09-13] MEDS: INSULIN REGULAR 100 UNIT/ML SUBCUT SCH ×2 (08:39→11:00)
[2016-09-13] MEDS: ISOSORBIDE MONONITRATE 30 MG TABLET PO SCH (08:40)
[2016-09-13] MEDS: ENOXAPARIN 40 MG/0.4 ML SYRINGE SUBCUT SCH (08:42)
[2016-09-13] MEDS: predniSONE 10 MG TABLET PO SCH (08:43)
[2016-09-13] MEDS: GLIMEPIRIDE 4 MG TABLET PO SCH (08:43)
[2016-09-13] MEDS: POTASSIUM CHLORIDE 20 MEQ TABLET PO SCH (08:44)
[2016-09-13] MEDS: ASPIRIN CHEW 81 MG TABLET PO SCH (08:44)
[2016-09-13] MEDS: PANTOPRAZOLE 40 MG TABLET PO SCH (08:44)
[2016-09-13] MEDS: hydrALAZINE 25 MG TABLET PO SCH (08:44)
[2016-09-13] MEDS: TICAGRELOR 90 MG TABLET PO SCH (08:44)
[2016-09-13] MEDS: FUROSEMIDE 40 MG TABLET PO SCH (08:44)
[2016-09-13] MEDS: CARVEDILOL 12.5 MG TABLET PO SCH (08:44)
[2016-09-13] MEDS: AMITRIPTYLINE 10 MG TABLET PO SCH ×6 (10:11→10:19)
--- NOTE | 2016-09-13 10:11 | Discharge Summary ---
Hospital Course - Hospital Course Hospital Course: This patient was originally admitted to the hospital due to a sore throat and shortness of breath. He was found to have non-ST elevation myocardial infarction. The patient had cardiology consultation and then cardiac catheterization. The patient had PTCA of the second obtuse marginal branch. The patient has recovered nicely and without complication. The patient was found to have compromised left ventricular function and has been fitted for LifeVest. The patient is at increased risk of sudden due to systolic congestive heart failure. The patient was diagnosed with chronic kidney disease stage 3 with creatinine of 1.5. The patient's creatinine was stable following the dye load and arteriogram. On the date of discharge, chest is clear, heart has regular rate and rhythm, abdomen soft, and the LifeVest is operable. The patient will follow up with chemistry associate. - Time spent with patient Time with patient DS: Greater than 30 minutes Diagnosis - Discharge Diagnosis (1) NSTEMI (non-ST elevated myocardial infarction) Status: Resolved (2) Dyspnea Status: Resolved (3) Coronary artery disease Status: Chronic (4) CKD (chronic kidney disease) stage 3, GFR 30-59 ml/min Status: Acute (5) Urethral stricture Status: Resolved Specialty Discharge - Follow Up or Referrals Follow up with: Daphnie Ho MD [Physician] - (follow-up appointment with Dr. Ho in 2 weeks with CBC, BMP, magnesium and EKG.) Stephen Leal MD [Physician] - 12/12/16 8:30 am (follow up in 3 months.) Discharge Plan - Discharge Data Disposition: Disch To Home/Self Care Condition at Discharge: Stable Discharge Diet: heart healthy Activity: resume usual activities as tolerated - Discharge Medications New Ticagrelor [Brilinta] 90 mg PO BID #100 tablet Isosorbide Mononitrate [Imdur] 15 mg PO DAILY #60 tablet Continue Potassium Chloride 20 meq PO DAILY Glimepiride [Amaryl] 4 mg PO DAILY W/BREAKFAST metFORMIN [Glucophage] 500 mg PO BID W/MEALS Aspirin [Ecotrin] 81 mg PO DAILY Carvedilol [Coreg] 12.5 mg PO BID HYDROcodone/ACETAMIN 7.5-325 [[place] 7.5-325] 1 tablet PO Q6H #10 tablet Furosemide Tab [Lasix Tab] 40 mg PO BID #60 tablet Rosuvastatin [Crestor] 5 mg PO DAILY Discontinued Furosemide Tab [Lasix Tab] 40 mg PO BID Clopidogrel [Plavix] 75 mg PO DAILY #30 tablet Azithromycin Tab [Zithromax Tab] 250 mg PO DAILY #6 tablet Promethazine Tab [Phenergan Tab] 25 mg PO Q6H #12 tablet - Follow Up or Referral Follow Up: Daphnie Ho MD [Physician] - (follow-up appointment with Dr. Ho in 2 weeks with CBC, BMP, magnesium and EKG.) Stephen Leal MD [Physician] - 12/12/16 8:30 am (follow up in 3 months.) - Forms/Instructions Instructions: Myocardial Infarction (GEN), Left Heart Catheterization (DC), Heart Healthy Diet (GEN), Coronary Intravascular Stent Placement, Small Products Ii Assembler (GEN) Exam - Constitutional Vitals: Period Temp Pulse Resp BP Sys/Slater Pulse Ox Last 24 Hr 97.5 F-97.8 F 76-86 12-20 111-137/62-73 94-100 Discharge Results Procedures and tests throughout hospitalization: Pending Orders 09/11/16 07:05 Sputum Culture and Gram Stain Routine 09/14/16 04:00 BMP w/ Mg [Basic Metabolic Panel w/Mg] IN AM CBC [Comp Blood Count Auto Diff] IN AM 09/15/16 04:00 CBC [Comp Blood Count Auto Diff] IN AM Labs on day of discharge: Labs from last 24 hours 09/13/16 09/13/16 09/13/16 08:01 03:54 03:54 WBC 17.1 H RBC 3.39 L Hgb 10.7 L Hct 31.2 L MCV 92.0 MCH 32 MCHC 34.3 RDW 12.4 Plt Count 372 MPV 9.3 L Neut % (Auto) 89.0 H Lymph % (Auto) 4.3 L Butler % (Auto) 5.9 Eos % (Auto) 0.0 Baso % (Auto) 0.1 Neut # (Auto) 15.2 H Lymph # (Auto) 0.7 L Butler # (Auto) 1.0 H Eos # (Auto) 0.0 Baso # (Auto) 0.0 Total Counted 100 Immature Gran % 0.7 Nucleated RBC % 0.0 Immature Gran # 0.12 Segmented Neutrophils 93 H Lymphocytes 5 L Monocytes 2 Nucleated RBCs # 0.00 Platelet Estimate Adequate Hypochromasia 1+ Morphology Comment Sodium Potassium Chloride Carbon Dioxide Anion Gap BUN Creatinine GFR Calculation BUN/Creatinine Ratio Glucose POC Glucose 76 Calculated Osmolality Calcium Magnesium Total Creatine Kinase 45 D Troponin I 0.055 H 09/13/16 09/13/16 09/12/16 03:54 00:28 20:21 WBC RBC Hgb Hct MCV MCH MCHC RDW Plt Count MPV Neut % (Auto) Lymph % (Auto) Butler % (Auto) Eos % (Auto) Baso % (Auto) Neut # (Auto) Lymph # (Auto) Butler # (Auto) Eos # (Auto) Baso # (Auto) Total Counted Immature Gran % Nucleated RBC % Immature Gran # Segmented Neutrophils Lymphocytes Monocytes Nucleated RBCs # Platelet Estimate Hypochromasia Morphology Comment Sodium 142 Potassium 4.1 Chloride 103 Carbon Dioxide 32 Anion Gap 11.1 BUN 36 H Creatinine 1.50 H GFR Calculation 55 BUN/Creatinine Ratio 24.00 H Glucose 114 H POC Glucose 260 H 443 H Calculated Osmolality 291.1 Calcium 9.1 Magnesium 2.4 Total Creatine Kinase Troponin I 09/12/16 09/12/16 15:17 11:42 WBC RBC Hgb Hct MCV MCH MCHC RDW Plt Count MPV Neut % (Auto) Lymph % (Auto) Butler % (Auto) Eos % (Auto) Baso % (Auto) Neut # (Auto) Lymph # (Auto) Butler # (Auto) Eos # (Auto) Baso # (Auto) Total Counted Immature Gran % Nucleated RBC % Immature Gran # Segmented Neutrophils Lymphocytes Monocytes Nucleated RBCs # Platelet Estimate Hypochromasia Morphology Comment Sodium Potassium Chloride Carbon Dioxide Anion Gap BUN Creatinine GFR Calculation BUN/Creatinine Ratio Glucose POC Glucose 307 H 214 H Calculated Osmolality Calcium Magnesium Total Creatine Kinase Troponin I Preliminary micro results at discharge 09/11/16 07:05 Sputum Culture - Preliminary Sputum Yeast DS: Provider Date of admission: 09/06/16 03:37 Primary care physician: Jesus Foss DO Attending physician on admission: Gabriela Chew MD Consults: 09/06/16 13:33 Consult to Physician [CONS] Routine Comment: SOB, elevated troponins Consulting Provider: Consult to Specialist Group: Cardiology When should Consulting Provider be notified: Now Person Notified: usha Date Notified: 09/06/16 Time Notified: 14:13 09/08/16 09:01 Consult to Physician [CONS] Routine Comment: urinary retention Consulting Provider: Stephen Leal Person Notified: [email or web address] Date Notified: 09/08/16 Time Notified: 09:31 09/08/16 10:41 Consult to Physician [CONS] Routine Comment: hypoxia Consulting Provider: Emre Mock Consult to Specialist Group: Pulmonology When should Consulting Provider be notified: Now Person Notified: Dr Mock & Nate Anthony Date Notified: 09/08/16 Time Notified: 10:45 Consult Notification Comment: office also called & notified at 1058 09/09/16 17:53 Consult to Cardiac Rehabilitation [CONS] Routine Reason for Cardiac Rehabilitation: Risk Factor Modification 09/12/16 09:50 Consult to Case Mgmt/Social Srvs [CONS] Routine Reason for Case Mgmt/Social Srvs: Equipment Consult Comment: lifevest 09/12/16 13:58 Consult to Case Mgmt/Social Srvs [CONS] Routine Reason for Case Mgmt/Social Srvs: Other Consult Comment: patient needs lifevest Discharging clinician: Ramon Pizarro MD
[2016-09-13 11:45] VITALS: BP 108/65
== END 2016-09-13 13:00 | disposition home or self-care (01) | DRG 246 ==
LOC: N.ED 23:47 → N.EDINP 09-06 03:37 → SUATTDRO 09-06 03:37 → N.3E 09-06 04:15 → N.5E 09-06 09:43 → N.ICU 09-09 17:42 → N.TELEN 09-10 10:49
PROVIDERS: ADMIT Internal Medicine; ATTEND Internal Medicine
PROC: CLCCHCL (ICD-10-PCS; 2016-09-09 15:15)

== ENCOUNTER 2016-10-21 17:49 | Inpatient (IN) ==
[2016-10-21] MEDS ORDERED: ASPIRIN 325 MG TABLET PO STA (18:30)
[2016-10-21 18:37] LABS: Basophils % 0.2 % (0.0-0.8); Eosinophils # 0.1 10*3/uL (0.0-0.87); Eosinophils % 0.8 % (0.00-10.9); Hematocrit 23.4 VOL% (42.0-52.0); Hemoglobin 8.1 GM/DL (14.0-18.0); Immature Granulocytes % 0.5 %; Immature Granulocytes Absolute 0.05 #; Lymphocytes # 0.7 10*3/uL (1.4-4.0); Lymphocytes % 6.9 % (21.2-54.2); Mean Corpuscular HGB Conc 34.6 GM/DL (32-36); Mean Corpuscular Hemoglobin 32 PG (27-34); Mean Corpuscular Volume 93.6 FL (87-102); Mean Platelet Volume 8.7 FL (9.6-12.0); Monocytes # 0.7 10*3/uL (0.11-0.8); Monocytes % 6.8 % (1.7-12.7); Neutrophils # 8.9 10*3/uL (1.4-7.4); Neutrophils % 84.8 % (38.7-73.9); Platelet Count 372 T/CUMM (130-400); Red Cell Distribution Width 12.2 % (9.3-17.3); White Blood Count 10.5 T/CUMM (4-12)
--- NOTE | 2016-10-21 18:43 | Emergency Department Note ---
I, Donna Doe, am scribing for, and in the presence of, George Jiang MD 18: 31. IDeidre Andrew, MD, personally performed the services described in this documentation, ascribed by Donna Doe in my presence, and it is both accurate and complete [id number] . Arrival - Arrival Chief Complaint: Shortness of Breath Stated Complaint: shortness of breath ED Nursing Triage Note: pt started having shortness of breath this am that has increased throughout the day. on ems arrival pt O2 sats were 82 on 2L NC. non- rebreather placed on pt with sats improving to 96%. room air trial here in the ER pt O2 sat 73% placed back on non-rebreather with sats increasing to 99%. pt wearing an external defib. Mode of Arrival: Stretcher Limitations: No Limitations Source: Patient - History of Present Illness HPI Narrative: Pt is a 76 y/o male that was brought to the ED via EMS with c/o SOB that began yesterday. Pt has associated sxs of mild abdominal pain but denies CP, melena, vomiting, or hematochezia. Pt states the SOB came on slowly. Pt reports sxs are worse when lying down. He states he does use 2L nasal cannula O2 at home. He denies any recent long trips. Pt denies being a current smoker, alcohol consumption, or drug use. Pt has a PMHx of COPD, HTN, CHF, GA, CAD, aortic stenosis, DM, dyslipidemia, Prostate CA, and renal failure. Pt does have a life vest on and states it does not shock him. Pt's coil taper is Dr. Ho. No other complaints/pain in ED. Onset (ago): day(s) Consistency: constant Severity: moderate Severity scale (1-10): 5 Quality: other Allergies/Adverse Reactions: Allergies Allergy/AdvReac Type Severity Reaction Status Date / Time No Known Allergies Allergy Verified 10/07/16 04:23 Home Medications: Home Medications Medication Instructions Recorded Confirmed Type Glimepiride [Amaryl] 4 mg PO DAILY W/BREAKFAST 02/01/15 09/06/16 History Potassium Chloride 20 meq PO DAILY 02/01/15 09/06/16 History Aspirin [Ecotrin] 81 mg PO DAILY 07/31/15 09/06/16 History metFORMIN [Glucophage] 500 mg PO BID W/MEALS 07/31/15 09/06/16 History Carvedilol [Coreg] 12.5 mg PO BID 04/11/16 09/06/16 History HYDROcodone/ACETAMIN 7.5-325 1 tablet PO Q6H #10 tablet 04/11/16 09/06/16 Rx [[place] 7.5-325] Furosemide Tab [Lasix Tab] 40 mg PO BID #60 tablet 05/04/16 09/06/16 Rx Rosuvastatin [Crestor] 5 mg PO DAILY 09/06/16 09/06/16 History Isosorbide Mononitrate [Imdur] 15 mg PO DAILY #60 tablet 09/13/16 Rx Ticagrelor [Brilinta] 90 mg PO BID #100 tablet 09/13/16 Rx Review of System - Review of System 12 point system: reviewed and no additional remarkable complaints except as stated - Review of System Constitutional: Absent: chills, fever Respiratory: Present: other (SOB). Absent: cough Cardiovascular: Absent: chest pain Gastrointestinal: Present: abdominal pain (mild abdominal pain). Absent: vomiting, hematemesis, melena Musculoskeletal: Absent: arm pain, back pain, leg pain, neck pain Skin: Absent: rash Neurological: Absent: headache Psychiatric: Absent: anxiety Medical,Surgical,& Family Hx - Medical History Cardio: History of: CHF, CAD, Hypertension, GA, Valvular Heart Disease Neurology: No history of: TIA Endocrine: History of: Diabetes Mellitus (IDDM), Diabetes Mellitus (NIDDM), Dyslipidemia Respiratory: History of: COPD, Pneumonia Renal: History of: Renal Failure Genitourinary: History of: Prostate Problems (cancer) Other: History of: Cancer (PROSTATE) - Surgical History Cardiac Surgeries: Sugical HX of: Cardiac Catheterization Abdominal Surgeries: Patient denies: Abdominal Surgery Reproductive Surgeries: Surgical HX of;: Prostate Surgery - Family History Family History: Reports;: Family Cancer (brother), Family Diabetes (son), Family Heart Disease (mother), Family Hypertension (family) Denies;: Family Stroke - Social History Smoking Status: Former smoker Frequency of Alcohol Use: None Type of Drug Use: None Exam Vital Signs: Vital Signs Temperature 99.2 F 10/21/16 17:50 Pulse Rate 115 H 10/21/16 18:30 Respiratory Rate 25 H 10/21/16 18:30 Blood Pressure 135/98 10/21/16 18:30 O2 Sat by Pulse Oximetry 94 L 10/21/16 18:30 - General General appearance: alert, in distress (mild 2/2 tachypnea) - Head Head exam: Present: atraumatic, normocephalic - Eye Eye exam: Present: PERRL, EOMI - ENT ENT exam: Present: mucous membranes moist. Absent: mucous membranes dry - Neck Neck exam: Present: full ROM. Absent: tenderness - Chest Chest inspection: Present: symmetric chest wall rise. Absent: tenderness - Respiratory Respiratory exam: Present: normal lung sounds bilaterally, other (tachypnic) - Cardiovascular Cardiovascular exam: Present: regular rate, normal rhythm, murmur (holosystolic murmur). Absent: JVD - Abdominal Exam Abdominal exam: Present: soft, distention. Absent: tenderness - Rectal Exam Rectal exam: Present: deferred - Extremities Exam Extremities exam: Present: full ROM, other (trace of peripheral edema). Absent : tenderness - Back Exam Back exam: Present: full ROM. Absent: tenderness - Neurological Exam Neurological exam: Present: alert, oriented X3, CN II-XII intact. Absent: motor sensory deficit - Psychiatric Psychiatric exam: Present: normal affect, normal mood - Skin Skin exam: Present: warm, dry Course Course Narrative: Placed initially on non-rebreather but given pt's history of COPD as well as clinical picture BiPAP placed. Labs with elevated BNP >2000. Normal troponin. Lasix 40mg given IV. Discussed with Hospitalist for admit. Results - Labs CBC & BMP: 10/21/16 18:08 10/21/16 18:08 Lab Results: I have reviewed the patients labs Labs: Laboratory Tests 10/21/16 18:08 RBC 2.50 L Hgb 8.1 L Hct 23.4 L MPV 8.7 L Neut % (Auto) 84.8 H Lymph % (Auto) 6.9 L Neut # (Auto) 8.9 H Lymph # (Auto) 0.7 L Microbiology 10/21/16 18:30 Nasal Aspirate Influenza Types A,B Antigen (ABDI) - Final Negative for Influenza A Ag Negative for Influenza B Ag Laboratory Tests 10/21/16 10/21/16 10/21/16 18:08 18:08 18:08 INR 1.1 PT Patient/Control Mix 11.4 Circ Anticoag PTT 35.9 ABG pH ABG pCO2 ABG pO2 BUN 26 H Creatinine 1.60 H Calcium 8.1 L ALT 15 L B-Natriuretic Peptide 2092 H Total Protein 6.0 L Albumin 2.5 L Albumin/Globulin Ratio 0.7 L 10/21/16 18:55 INR PT Patient/Control Mix Circ Anticoag PTT ABG pH 7.491 H ABG pCO2 33.7 L ABG pO2 69.0 L BUN Creatinine Calcium ALT B-Natriuretic Peptide Total Protein Albumin Albumin/Globulin Ratio - Diagnostic Findings Procedure: Chest x-ray: report reviewed by me (Findings suggest mild cardiac decompensation.) Disposition Clinical Impression: Hypoxemia, CHF exacerbation Case discussed with: patient, patient's family Disposition: Still a Patient
[2016-10-21 18:44] LABS: INR 1.1; PT Patient Result 11.4 SECS; Partial Thromboplastin Time 35.9 SECS (0-40)
[2016-10-21] MEDS ORDERED: ASPIRIN 325 MG TABLET ONE (18:44)
[2016-10-21 18:51] LABS: Alanine Aminotransferase 15 U/L (16-61); Albumin 2.5 G/DL (3.4-5.0); Alkaline Phosphatase 84 U/L (45-117); Aspartate Amino Transferase 16 U/L (0-37); Bilirubin,Total < 0.39 MG/DL (0.2-1.0); Blood Urea Nitrogen 26 MG/DL (7-18); Calcium 8.1 MG/DL (8.5-10.1); Glucose 87 MG/DL (74-106); Osmolality,Calculated 284.3 MOS/KG (273-304); Sodium 141 MMOL/L (136-145); Troponin I Only 0.038 NG/ML (0.00-0.045)
--- NOTE | 2016-10-21 19:01 | XRay Report ---
XR chest 1V portable Indication: Shortness of breath Comparison: 07 October 2016 Findings: The heart and mediastinum are stable in size and configuration. The pulmonary vascularity is slightly increased with bilateral increased interstitial lung density. No other lung infiltrates, effusions, pneumothorax or other abnormality is demonstrated. Impression: Findings suggest mild cardiac decompensation. PROCEDURE INTERPRETED AT [facility] DEPARTMENT OF RADIOLOGY Final Report Signed by: Dr. Sudhakar James
[2016-10-21 19:09] LABS: Allen Test Positive
[2016-10-21 19:10] LABS: ABG Base Excess 2.4 MMOL/L (-2.5-2.5); ABG HCO3 25.2 MMOL/L (20-26); ABG PCO2 33.7 MM HG (35-48); ABG PH 7.491 (7.35-7.45); ABG TCO2 26.2 MMOL/L (23-27)
[2016-10-21 19:19] LABS: ABG Oxygen Saturation 95.2 % (95-100)
[2016-10-21] MEDS ORDERED: FUROSEMIDE 40 MG/4 ML VIAL IV STA (20:05)
[2016-10-21] MEDS ORDERED: FUROSEMIDE 40 MG/4 ML VIAL ONE (20:31)
[2016-10-21] MEDS ORDERED: DEXTROSE 50% 25 GM/50 ML VIAL IV PRN (21:02)
[2016-10-21] MEDS ORDERED: ACETAMINOPHEN 325 MG TABLET PO PRN (21:02)
[2016-10-21] MEDS ORDERED: ONDANSETRON 4 MG/2 ML VIAL IV PRN (21:02)
[2016-10-21] MEDS ORDERED: GLUCAGON 1 MG VIAL IM PRN (21:02)
[2016-10-21] MEDS ORDERED: ENOXAPARIN 30 MG/0.3 ML SYRINGE SUBCUT SCH (21:30)
--- NOTE | 2016-10-21 21:50 | Hospitalist History & Physical ---
Assessment and Plan (1) CHF exacerbation Status: Acute Assessment and plan: Admit to the hospital service Acute on chronic systolic CHF/acute hypoxic respiratory failure/history of COPD - On Bipap - External defibrillator -Telemetry - IV Lasix - Serial cardiac Enzymes - Echocardiogram; Echo (09/06/2016)- EF 40% with dialstolic dysfunction - I's and O's - Cardiology consult - Nebulizer treatments - Empiric coverage with Levaquin - will monitor Current Visit: Yes Qualifiers: Congestive heart failure type: systolic Qualified Code(s): I50.23 - Acute on chronic systolic (congestive) heart failure (2) Acute respiratory failure with hypoxia Status: Acute Assessment and plan: See plan for CHF Current Visit: Yes (3) Anemia Status: Chronic Assessment and plan: Chronic anemia - worsening; hemoglobin currently 8.1 but was 9.4 at discharge - anemia panel - FOBT - will monitor and will transfuse as needed Current Visit: No (4) CKD (chronic kidney disease) stage 3, GFR 30-59 ml/min Status: Chronic Assessment and plan: CKD, Stage 3 - Will monitor Current Visit: No History of Present Illness Chief complaint: Shortness of breath History of present illness: Mr. Guerrero is a 76 year old male with a history of hypertension, COPD, diabetes, MS, CKD (stage 3) and CVA that presented to the ER with shortness of breath for the past 2-3 days. Patient also reports feeling sluggish, weak, and has increased work of breathing. Shortness of breath is worsened with exertion. Patient also reports his glucose has been fluctuating. Patient denies any chest pain, cough, fever, and all the symptoms. Patient denies any precipitating factors for his symptoms. Patient was admitted to hospitalist service about 1 month ago and at that time a stent was placed and currently has an external defibrillator. 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 In the ER, patient was found to be in respiratory distress and was initially placed on a nonrebreather and later placed on BiPAP. Patient's workup was significant for elevated BNP and pulmonary congestion. Patient will be admitted to hospitalist service for acute on chronic CHF exacerbation. Home Medications Medication Instructions Recorded Confirmed Type Glimepiride [Amaryl] 4 mg PO DAILY W/BREAKFAST 02/01/15 09/06/16 History Potassium Chloride 20 meq PO DAILY 02/01/15 09/06/16 History Aspirin [Ecotrin] 81 mg PO DAILY 07/31/15 09/06/16 History metFORMIN [Glucophage] 500 mg PO BID W/MEALS 07/31/15 09/06/16 History Carvedilol [Coreg] 12.5 mg PO BID 04/11/16 09/06/16 History HYDROcodone/ACETAMIN 7.5-325 1 tablet PO Q6H #10 tablet 04/11/16 09/06/16 Rx [[place] 7.5-325] Furosemide Tab [Lasix Tab] 40 mg PO BID #60 tablet 05/04/16 09/06/16 Rx Rosuvastatin [Crestor] 5 mg PO DAILY 09/06/16 09/06/16 History Isosorbide Mononitrate [Imdur] 15 mg PO DAILY #60 tablet 09/13/16 Rx Ticagrelor [Brilinta] 90 mg PO BID #100 tablet 09/13/16 Rx Allergies Allergy/AdvReac Type Severity Reaction Status Date / Time No Known Allergies Allergy Verified 10/07/16 04:23 Medical,Surgical,& Family Hx - Medical History Cardio: History of: CHF, CAD, Hypertension, MS, Valvular Heart Disease Neurology: No history of: TIA Endocrine: History of: Diabetes Mellitus (IDDM), Diabetes Mellitus (NIDDM), Dyslipidemia Respiratory: History of: COPD, Pneumonia Renal: History of: Renal Failure Genitourinary: History of: Prostate Problems (cancer) Other: History of: Cancer (PROSTATE) - Surgical History Cardiac Surgeries: Sugical HX of: Cardiac Catheterization Abdominal Surgeries: Patient denies: Abdominal Surgery Reproductive Surgeries: Surgical HX of;: Prostate Surgery - Family History Family History: Reports;: Family Cancer (brother), Family Diabetes (son), Family Heart Disease (mother), Family Hypertension (family) Denies;: Family Stroke - Social History Smoking Status: Former smoker Frequency of Alcohol Use: None Type of Drug Use: None Exam - Constitutional General appearance: normal weight, no acute distress Exam: BiPAP in place - Head Head exam: Present: normal inspection, normocephalic - Eye Eye exam: Present: EOMI - Neck Neck exam: Present: normal inspection - Respiratory Respiratory exam: Present: decreased breath sounds, other (Coarse breath sound throughout). Absent: accessory muscle use, rales, rhonchi - Cardiovascular Cardiovascular exam: Present: JVD, regular rate and rhythm, systolic murmur - GI/Abdominal GI/Abdominal exam: Present: normal bowel sounds, soft. Absent: distended, guarding, mass, tenderness - Extremities Exam Extremities exam: Present: normal inspection, normal capillary refill. Absent: edema - Neurological Exam Neurological exam: Present: alert, oriented X3, other (afocal) - Psychiatric Psychiatric exam: Present: normal affect - Skin Skin exam: Present: normal color, warm, dry Results - Labs CBC & BMP: 10/21/16 18:08 10/21/16 18:08 - EKG EKG results: no acute changes - Diagnostic Findings Procedure: Chest x-ray: report reviewed by me (mild cardiac decompensation) Assessment and Plan (1) CHF exacerbation Status: Acute Current Visit: Yes Qualifiers: Congestive heart failure type: systolic Qualified Code(s): I50.23 - Acute on chronic systolic (congestive) heart failure (2) Acute respiratory failure with hypoxia Status: Acute Current Visit: Yes (3) Anemia Status: Chronic Current Visit: No (4) CKD (chronic kidney disease) stage 3, GFR 30-59 ml/min Status: Chronic Current Visit: No
[2016-10-21 23:38] LABS: Apearance,Urine CLEAR (Clear); Bacteria,Urine Occasional /HPF (Few); Bilirubin,Urine Negative (Negative); Blood, Urine Small mg/dL (Negative); Glucose,Urine (UA) Negative (Negative); Ketones,Urine Negative (Negative); Mucus,Urine Occasional /LPF (Occasional); Nitrite,Urine Negative (Negative); Protein,Urine Negative; RBC,Urine 1 /HPF (0-4); Urine Color Straw (Yellow); Urine Specific Gravity 1.003 (1.001-1.035); Urine Urobilinogen < 2.0 EU/DL (0.2-1.0); WBC,Urine 1 /HPF (0-6)
[2016-10-21] MEDS: LEVOFLOXACIN INJ 500 MG in PREMIX 1 EACH IV SCH (23:52)
[2016-10-22] MEDS ORDERED: ETOMIDATE 20 MG/10 ML VIAL IV ONE (00:08)
[2016-10-22 00:15] LABS: Troponin I Only 0.064 NG/ML (0.00-0.045)
[2016-10-22] MEDS: ALBUTEROL 2.5 MG/3 ML NEB RESP TX SCH ×2 (01:56→07:03)
[2016-10-22 05:47] LABS: Basophils % 0.4 % (0.0-0.8); Eosinophils % 0.3 % (0.00-10.9); Hematocrit 25.2 VOL% (42.0-52.0); Hemoglobin 8.5 GM/DL (14.0-18.0); Immature Granulocytes % 0.5 %; Immature Granulocytes Absolute 0.05 #; Lymphocytes # 0.7 10*3/uL (1.4-4.0); Lymphocytes % 6.7 % (21.2-54.2); Mean Corpuscular HGB Conc 33.7 GM/DL (32-36); Mean Corpuscular Hemoglobin 32 PG (27-34); Mean Corpuscular Volume 94.7 FL (87-102); Mean Platelet Volume 8.5 FL (9.6-12.0); Monocytes # 0.8 10*3/uL (0.11-0.8); Neutrophils # 8.4 10*3/uL (1.4-7.4); Neutrophils % 84.1 % (38.7-73.9); Platelet Count 364 T/CUMM (130-400); Red Blood Count 2.66 MC/CUMM (3.8-5.5); Red Cell Distribution Width 12.2 % (9.3-17.3); White Blood Count 9.9 T/CUMM (4-12)
[2016-10-22 06:10] LABS: ABG Base Excess 2.4 MMOL/L (-2.5-2.5); ABG HCO3 25.5 MMOL/L (20-26); ABG Oxygen Saturation 84.6 % (95-100); ABG PCO2 34.2 MM HG (35-48); ABG PO2 51.4 MM HG (80-95); ABG TCO2 26.5 MMOL/L (23-27)
[2016-10-22 06:26] LABS: Troponin I Only 0.045 NG/ML (0.00-0.045)
[2016-10-22 06:44] LABS: Albumin 2.4 G/DL (3.4-5.0); Bilirubin,Total 0.6 MG/DL (0.2-1.0); Calcium 8.3 MG/DL (8.5-10.1); Osmolality,Calculated 283.1 MOS/KG (273-304); Potassium 3.8 MMOL/L (3.5-5.1); Risk Ratio 2.69; VLDL CHOLESTEROL 16.6 MG/DL
[2016-10-22] MEDS ORDERED: ENOXAPARIN 30 MG/0.3 ML SYRINGE ONE (06:45)
[2016-10-22] MEDS ORDERED: FUROSEMIDE 20 MG/2 ML VIAL IV SCH (08:00)
--- NOTE | 2016-10-22 08:08 | Cardiology Consult Note ---
Assessment and Plan - Time spent with patient Time spent with patient: Greater than 30 minutes (1) Aortic stenosis Status: Chronic Assessment and plan: This is probably moderate based on the hemodynamics and echocardiogram. Certainly has a murmur secondary to this. Current Visit: No Qualifiers: Cardiac valve disease etiology: etiology unspecified Qualified Code(s): I35.0 - Nonrheumatic aortic (valve) stenosis (2) Coronary artery disease Status: Chronic Assessment and plan: Had prior stents with recent stenting of the obtuse marginal branch. He is continuing his dual antiplatelet therapy. Current Visit: No (3) Diabetes Status: Chronic Assessment and plan: Followed by the primary service. Current Visit: No Qualifiers: Diabetes mellitus type: type 2 Diabetes mellitus complication status: without complication (4) History of coronary artery stent placement Status: Acute Assessment and plan: Prior stents placed and recent stent 2 months ago placed obtuse marginal branch. He is on Brilinta and aspirin. Current Visit: No (5) Cardiomyopathy Status: Chronic Assessment and plan: This is probably ischemic in nature. On catheterization it was 2530% ejection fraction. He has a LifeVest on. Current Visit: No (6) Renal insufficiency Status: Chronic Assessment and plan: This is actually chronic and is fairly stable compared to prior numbers. Current Visit: No (7) CHF exacerbation Status: Acute Assessment and plan: This is probably multifactorial related to his cardiomyopathy and to some degree with his aortic stenosis. Current Visit: Yes Qualifiers: Congestive heart failure type: systolic Qualified Code(s): I50.23 - Acute on chronic systolic (congestive) heart failure (8) Cardiac murmur Status: Chronic Assessment and plan: This is due to his aortic valve stenosis. Current Visit: Yes History of Present Illness - Data of Consult Patient: known to practice within the last 3 years Consult date: 10/22/16 Requesting Physician: Dion Lindo - Consult Narrative Reason for consult: Congestive heart failure History of present illness: Mr. Guerrero is a 76 year old male who is known to Dr. Huerta apparently admitted with exacerbation congestive heart. Shortness of breath. Cardiac catheterization September 09, 2016 revealed his stents to his LAD and proximal/mid RCA and distal RCA to be patent. He had a 99% OM 2 lesion for which she has successful PCI with a synergy 2.5 x 12 mm drug-eluting stent. The patient had ejection fraction of 25-30% and was discharged apparently with a LifeVest that he is still wearing. Should be noted his cardiac catheterization he did have aortic valve gradient. An echocardiogram dated 09/06/16 with ejection fraction 40% with gradient across the aortic valve a 32 mmHg. Has severe tricuspid regurgitation with severely elevated right-sided pressures. The patient presented this time with shortness of breath and what appears to be heart failure. His BNP is elevated. His troponins are nondiagnostic. He has had no chest pain. ECG with sinus rhythm and left ventricular hypertrophy. No acute changes. He has nonspecific ST-T abnormalities. The patient today is doing fairly well still short of breath requiring CPAP/ BiPAP. His urine output is not that good. His chest x-ray consistent with congestive heart failure/pulmonary edema. CC: Emili Jackman MD - Home Medications and Allergies Home Medications: Home Medications Medication Instructions Recorded Confirmed Type Glimepiride [Amaryl] 4 mg PO DAILY W/BREAKFAST 02/01/15 09/06/16 History Potassium Chloride 20 meq PO DAILY 02/01/15 09/06/16 History Aspirin [Ecotrin] 81 mg PO DAILY 07/31/15 09/06/16 History metFORMIN [Glucophage] 500 mg PO BID W/MEALS 07/31/15 09/06/16 History Carvedilol [Coreg] 12.5 mg PO BID 04/11/16 09/06/16 History HYDROcodone/ACETAMIN 7.5-325 1 tablet PO Q6H #10 tablet 04/11/16 09/06/16 Rx [[place] 7.5-325] Furosemide Tab [Lasix Tab] 40 mg PO BID #60 tablet 05/04/16 09/06/16 Rx Rosuvastatin [Crestor] 5 mg PO DAILY 09/06/16 09/06/16 History Isosorbide Mononitrate [Imdur] 15 mg PO DAILY #60 tablet 09/13/16 Rx Ticagrelor [Brilinta] 90 mg PO BID #100 tablet 09/13/16 Rx Allergies/Adverse Reactions: Allergies Allergy/AdvReac Type Severity Reaction Status Date / Time No Known Allergies Allergy Verified 10/07/16 04:23 Review of systems: Constitutional: Denies anorexia, chills, fatigue, fever, frequent falls, night sweats, weight gain, weight loss Eyes: Denies visual changes or loss of vision Ears: Denies decreased hearing, vertigo Nose, mouth and throat: Denies dysphagia, epistaxis, headaches, neck pain, tongue swelling, Neck: Denies thyromegaly or masses. No stiffness. Cardiovascular: as per HPI Respiratory: Denies cough, hemoptysis, wheezing Gastrointestinal: Denies abdominal pain, constipation, dyspepsia, dysphagia, hematemesis, hematochezia, melena, nausea, vomiting Genitourinary: Denies dysuria, hematuria, nocturia Musculoskeletal: Denies arthralgias, joint swelling, muscle weakness, myalgias Neurological: denies abnormal gait, abnormal speech, confusion, convulsions, frequent falls, headaches, memory loss, syncope Psychiatric: Denies anxiety, confusion, depression Endocrine: Denies cold intolerance, fatigue, heat intolerance Hematologic/Lymphatic: Denies easy bleeding, easy bruising Dermatologic: Denies Rash, itching, shingles Medical,Surgical,& Family Hx - Medical History Cardio: History of: CHF, CAD, Hypertension, NH (last NH 2013), Valvular Heart Disease Neurology: No history of: TIA Endocrine: History of: Diabetes Mellitus (IDDM), Diabetes Mellitus (NIDDM), Dyslipidemia Respiratory: History of: COPD, Pneumonia Renal: History of: Renal Failure Genitourinary: History of: Prostate Problems (cancer) Other: History of: Cancer (PROSTATE) - Surgical History Cardiac Surgeries: Sugical HX of: Cardiac Catheterization (last cath 1 month ago ) Neurologic Surgeries: Patient denies: Neurologic Surgery Abdominal Surgeries: Patient denies: Abdominal Surgery Reproductive Surgeries: Surgical HX of;: Prostate Surgery - Family History Family History: Reports;: Family Cancer (brother), Family Diabetes (son), Family Heart Disease (mother), Family Hypertension (family) Denies;: Family Stroke - Social History Smoking Status: Former smoker Frequency of Alcohol Use: None Type of Drug Use: None Physical Examination Vital Signs Temp Pulse Resp BP Pulse Ox 99.2 F 116 H 18 140/76 98 10/21/16 17:50 10/21/16 17:50 10/21/16 17:50 10/21/16 17:50 10/21/16 17:50 Other: General appearance: normal weight, no acute distress Head exam: normal inspection, atraumatic Eye exam: Pupils are equal and reactive. EOMI. There is no trauma. Ear exam: Anatomically normal. Normal auditory acuity to conversation. Oral exam: No significant oral lesions. Neck exam: normal inspection no JVD. No carotid bruit. Trachea is in midline. Respiratory exam: Patient will distant. He has a few rales coarse breath sounds anteriorly. Cardiovascular exam: regular rate and rhythm, 2 to 3/6 systolic murmur heard over the right left upper sternal border radiating to the precordium and the base the neck, there is no gallop or rub. No precordial lift. No bruits over the major arteries. Chest wall/torso: Anatomically normal. No tenderness, deformity Peripheral Pulses: 2+ throughout. GI/Abdominal exam: normal bowel sounds, soft and nontender, no abdominal bruits or pulsatile masses. Musculoskeletal/Extremities exam: normal inspection without edema or cyanosis. No deformities or trauma. Neurological exam: alert, oriented X3. There is no gross neurologic deficits. Psychiatric exam: normal affect, normal mood. Cognitive function is grossly intact. Skin exam: normal color, warm. No rashes or other skin lesions. Result/EKG - Labs CBC & BMP: 10/22/16 05:32 10/22/16 05:32 Labs: Laboratory Results - last 24 hr 10/21/16 10/21/16 10/22/16 21:31 23:42 04:45 WBC RBC Hgb Hct MCV MCH MCHC RDW Plt Count MPV Neut % (Auto) Lymph % (Auto) [place] % (Auto) Eos % (Auto) Baso % (Auto) Neut # (Auto) Lymph # (Auto) [place] # (Auto) Eos # (Auto) Baso # (Auto) Immature Gran % Nucleated RBC % Immature Gran # Nucleated RBCs # Absolute Retic Percent Retic Retic Hgb Equivalent ABG pH 7.490 H ABG pCO2 34.2 L ABG pO2 51.4 L ABG HCO3 25.5 ABG Total CO2 26.5 ABG O2 Saturation 84.6 L ABG Base Excess 2.4 Sodium Potassium Chloride Carbon Dioxide Anion Gap BUN Creatinine GFR Calculation BUN/Creatinine Ratio Glucose Calculated Osmolality Calcium Magnesium Ferritin Total Bilirubin AST ALT Alkaline Phosphatase Total Creatine Kinase 108 CK-MB (CK-2) < 1.0 Troponin I 0.064 H D B-Natriuretic Peptide Total Protein Albumin Globulin Albumin/Globulin Ratio Triglycerides Cholesterol LDL Cholesterol VLDL Cholesterol HDL Cholesterol Heart Disease Risk Ratio Urine Color Straw Urine Appearance Clear Urine pH 5.0 Ur Specific [place] 1.003 Urine Protein Negative Urine Glucose (UA) Negative Urine Ketones Negative Urine Blood Small Urine Nitrate Negative Urine Bilirubin Negative Urine Urobilinogen < 2.0 H Urine Leukocytes Negative Urine RBC 1 Urine WBC 1 Urine Bacteria Occasional Urine Mucus Occasional Ur Culture Indicated? Not indicated 10/22/16 10/22/16 10/22/16 05:32 05:32 05:32 WBC 9.9 RBC 2.66 L Hgb 8.5 L Hct 25.2 L MCV 94.7 MCH 32 MCHC 33.7 RDW 12.2 Plt Count 364 MPV 8.5 L Neut % (Auto) 84.1 H Lymph % (Auto) 6.7 L [place] % (Auto) 8.0 Eos % (Auto) 0.3 Baso % (Auto) 0.4 Neut # (Auto) 8.4 H Lymph # (Auto) 0.7 L [place] # (Auto) 0.8 Eos # (Auto) 0.0 Baso # (Auto) 0.0 Immature Gran % 0.5 Nucleated RBC % 0.0 Immature Gran # 0.05 Nucleated RBCs # 0.00 Absolute Retic 0.1 Percent Retic 2.2 H Retic Hgb Equivalent 30.0 ABG pH ABG pCO2 ABG pO2 ABG HCO3 ABG Total CO2 ABG O2 Saturation ABG Base Excess Sodium 142 Potassium 3.8 Chloride 107 Carbon Dioxide 24 Anion Gap 14.8 BUN 27 H Creatinine 1.40 H GFR Calculation 63 BUN/Creatinine Ratio 19.00 Glucose 35 L* Calculated Osmolality 283.1 Calcium 8.3 L Magnesium 2.0 Ferritin 258.2 Total Bilirubin 0.60 AST 21 ALT 15 L Alkaline Phosphatase 78 Total Creatine Kinase CK-MB (CK-2) Troponin I B-Natriuretic Peptide Total Protein 6.0 L Albumin 2.4 L Globulin 3.6 H Albumin/Globulin Ratio 0.6 L Triglycerides 83 Cholesterol 97 LDL Cholesterol 58.0 VLDL Cholesterol 16.6 HDL Cholesterol 36 L Heart Disease Risk Ratio 2.69 Urine Color Urine Appearance Urine pH Ur Specific [place] Urine Protein Urine Glucose (UA) Urine Ketones Urine Blood Urine Nitrate Urine Bilirubin Urine Urobilinogen Urine Leukocytes Urine RBC Urine WBC Urine Bacteria Urine Mucus Ur Culture Indicated? 10/22/16 10/22/16 05:32 05:32 WBC RBC Hgb Hct MCV MCH MCHC RDW Plt Count MPV Neut % (Auto) Lymph % (Auto) [place] % (Auto) Eos % (Auto) Baso % (Auto) Neut # (Auto) Lymph # (Auto) [place] # (Auto) Eos # (Auto) Baso # (Auto) Immature Gran % Nucleated RBC % Immature Gran # Nucleated RBCs # Absolute Retic Percent Retic Retic Hgb Equivalent ABG pH ABG pCO2 ABG pO2 ABG HCO3 ABG Total CO2 ABG O2 Saturation ABG Base Excess Sodium Potassium Chloride Carbon Dioxide Anion Gap BUN Creatinine GFR Calculation BUN/Creatinine Ratio Glucose Calculated Osmolality Calcium Magnesium Ferritin Total Bilirubin AST ALT Alkaline Phosphatase Total Creatine Kinase 138 D CK-MB (CK-2) 1.0 Troponin I 0.045 B-Natriuretic Peptide 2960 H Total Protein Albumin Globulin Albumin/Globulin Ratio Triglycerides Cholesterol LDL Cholesterol VLDL Cholesterol HDL Cholesterol Heart Disease Risk Ratio Urine Color Urine Appearance Urine pH Ur Specific [place] Urine Protein Urine Glucose (UA) Urine Ketones Urine Blood Urine Nitrate Urine Bilirubin Urine Urobilinogen Urine Leukocytes Urine RBC Urine WBC Urine Bacteria Urine Mucus Ur Culture Indicated? - Impressions Impressions: ECG with sinus rhythm with possible left ventricular hypertrophy with ST-T abnormalities inferior laterally possible consistent with ischemia versus left ventricular hypertrophy with repolarization abnormality.
[2016-10-22 08:23] LABS: Sedimentation Rate-Westergren 139 MM/HR (0-20)
[2016-10-22] MEDS ORDERED: metOLazone 5 MG TABLET PO SCH (09:00)
[2016-10-22] MEDS ORDERED: POTASSIUM CHLORIDE 20 MEQ TABLET PO SCH (09:00)
[2016-10-22 09:05] LABS: Folate > 24.0 NG/ML (5.4-24.0); Vitamin B12 497 PG/ML (211-911)
[2016-10-22] MEDS ORDERED: FUROSEMIDE 20 MG/2 ML VIAL ONE (09:21)
[2016-10-22] MEDS: ISOSORBIDE MONONITRATE 30 MG TABLET PO SCH (09:31)
[2016-10-22] MEDS: ROSUVASTATIN 10 MG TABLET PO SCH (09:31)
[2016-10-22] MEDS: ASPIRIN EC 81 MG TABLET PO SCH (09:32)
[2016-10-22] MEDS: CARVEDILOL 12.5 MG TABLET PO SCH ×2 (09:32→20:45)
[2016-10-22] MEDS: TICAGRELOR 90 MG TABLET PO SCH ×2 (09:32→20:45)
[2016-10-22] MEDS: PANTOPRAZOLE 40 MG TABLET PO SCH (09:32)
[2016-10-22] MEDS ORDERED: LIDOCAINE 2% TOP JELLY 20 ML VIAL INTRAURETH ONE (10:08)
--- NOTE | 2016-10-22 10:40 | EKG Report ---
Stationary ECG Study [facility] ER Test Date: 10/21/2016 5:58:16 PM Pat Name: HARDEEP LORENZ Department: Room: 126 Gender: M [employer] Printer: : 1940 Requested by: George Jiang Order Number: [id number] Reading MD: ROSIO SANTANA Intervals [place] Rate: 111 P: 55 FL: 132 QRS: -8 QRSD: 90 T: -48 QT: 305 QTc: 371 Interpretive Statements SINUS TACHYCARDIA at 111 bpm LEFT VENTRICULAR HYPERTROPHY AND ST-T CHANGE Electronically Signed On 10-24-16 16:24:27 CDT by ROSIO SANTANA [email or web address]
[2016-10-22] MEDS ORDERED: MORPHINE 2 MG/1 ML SYRINGE ONE (11:03)
[2016-10-22] MEDS ORDERED: MORPHINE 2 MG/1 ML SYRINGE IV ONE (11:10)
--- NOTE | 2016-10-22 11:19 | Urology Progress Note ---
Urology - PN: Subj Interval history: Called for crocker placement Op note dictated I incorrectly dictated that pt is on "no anticoagulants" He is on Brillinta No hematuria noted after crocker placed Leave crocker for 5-7 days to allow healing of bladder neck dilation May remove thereafter F/U with Dr Welsh upon D/C Please call if needed Exam - Constitutional Vitals: Period Temp Pulse Resp BP Sys/Slater Pulse Ox Last 24 Hr 98.4 F-98.5 F 89-102 16-35 93-157/57-92 84-99 Results - Labs CBC & BMP: 10/22/16 05:32 10/22/16 05:32
[2016-10-22] MEDS ORDERED: FUROSEMIDE 20 MG/2 ML VIAL IV ONE (11:45)
[2016-10-22] MEDS ORDERED: ALBUTEROL 2.5 MG/3 ML NEB RESP TX PRN (11:48)
--- NOTE | 2016-10-22 11:49 | Hospitalist Progress Note ---
Assessment and Plan (1) Congestive heart failure Status: Acute Assessment and plan: Lasix 40 mg IV every 12, Zaroxolyn 5 mg p.o. twice daily, continue Coreg Current Visit: No Qualifiers: Congestive heart failure type: systolic (2) COPD exacerbation Status: Acute Assessment and plan: Started steroids, added duo nebs, oxygen and BiPAP for support Current Visit: Yes (3) Diabetes Status: Chronic Assessment and plan: Blood sugars too low. Have given D50. Monitor every 2 hours. Hold metformin and glipizide. Current Visit: No Qualifiers: Diabetes mellitus type: type 2 Diabetes mellitus complication status: without complication (4) Anemia Status: Chronic Assessment and plan: Guaiac stool, continue Protonix, patient on aspirin and Brilinta. He is not on DVT prophylaxis Lovenox will add SCDs Current Visit: No (5) Urinary retention Problem details: History of urethral strictures and prostate cancer Status: Resolved Assessment and plan: History of ureteral strictures and prostate cancer in the past. Neurology consultation and catheter placed Current Visit: No (6) CKD (chronic kidney disease) stage 3, GFR 30-59 ml/min Status: Acute Assessment and plan: Monitor while on Lasix. Current Visit: No Hospitalist: Subjective Interval history: Patient's oxygen bottoms out when we take it off briefly for him to eat. Patient does have COPD and this may be playing a role. We will start him on steroids and duo nebs. Unable to place Prieto. Neurology consulted. Patient had an immediate 400 mL's out Exam - Constitutional Vitals: Period Temp Pulse Resp BP Sys/Slater Pulse Ox Last 24 Hr 98.4 F-98.5 F 89-102 16-35 93-157/57-92 84-99 Exam: Heart Rate-[Tachy] Lungs-[diminished, tight ] GI-[+bs soft, NT] Ext-[1+ edema] Neuro [Motor 5/5], [alert and oriented times 3] psych [normal mood and affect] General [mild acute distress] Results - Labs CBC & BMP: 10/22/16 05:32 10/22/16 05:32 Lab Results: I have reviewed the past 24 hour labs Labs: bnp over 1999 - Diagnostic Findings Procedure: Chest x-ray: report reviewed by me (CHF)
[2016-10-22] MEDS: INSULIN LISPRO 100 UNIT/ML SUBCUT SCH ×5 (12:05→23:34)
[2016-10-22] MEDS: methylPREDNISolone SOD SUC 125 MG/2 ML VIAL IV SCH ×2 (12:06→18:09)
[2016-10-22] MEDS: ALBUTEROL/IPRATROPIUM 3 ML NEB RESP TX SCH ×3 (15:16→23:56)
[2016-10-22] MEDS ORDERED: FUROSEMIDE 40 MG/4 ML VIAL IM SCH (16:00)
[2016-10-22] MEDS: FUROSEMIDE 40 MG/4 ML VIAL IV SCH (16:09)
--- NOTE | 2016-10-22 20:14 | Operative Note ---
DATE: 10/22/2016 PREOPERATIVE DIAGNOSES: 1. INABILITY TO PLACE RENAE CATHETER. 2. HISTORY OF PROSTATE CANCER, STATUS POST PROSTATECTOMY. 3. 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 POSTOPERATIVE DIAGNOSIS: BLADDER NECK CONTRACTURE. OPERATIVE PROCEDURE: 1. Complicated Renae catheter placement. 2. Dilation of bladder neck contracture. SURGEON: Ernesto Campbell MD. ANESTHESIA: Local with IV sedation. SPECIMENS: None. DRAINS: An 18-Dutch Habematolel tip catheter to gravity. OPERATIVE FINDINGS: 1. Bladder neck contracture noted. 2. Uneventful dilation of bladder neck contracture using filiform and follower up to 22-Dutch. 3. Placement of 18-Dutch Habematolel tip catheter with return of clear yellow urine. INDICATION FOR PROCEDURE: Mr. Guerrero is a 76-year-old male, who was admitted on 10/21/2016 with castro estive heart failure. He is currently on a CPAP machine due to respiratory distress. He is being a ggressively diuresed. I was consulted about an hour ago by the nursing staff due to inability to pl carlos alberto Renae catheter. Mr. Guerrero has a history of prostate cancer, status post radical prostatectomy b y Dr. Welsh 3 years ago. He states that he has had an uneventful recovery from the prostatectomy. H owever, he states that in the past when a Renae catheter has been needed, a physician has had to fito ce this. Mr. Guerrero says he can urinate, however, a bladder scan this morning states that he has no retention and they need to adequately monitor his urine output due to his diuresis. The chart was reviewed. He is on no anticoagulants. DETAILS OF PROCEDURE: Mr. Guerrero was examined, he was resting comfortably. He was sedated using 2 m g of morphine IV. I examined the genitalia, prepped and draped in the normal sterile fashion. Uret hra was instilled with lidocaine jelly. Using the filiform hodan, I was able to negotiate this into the bladder. To me, it felt as if there was a bladder neck contracture with resistance towards the bladder neck. I was able to negotiate the filiform into the bladder without any resistance. The sc rew-set followers were then placed starting with 12-Dutch and working my way up in 2-Dutch increme nts up to 22-Dutch. Each time, I encountered resistance at the presumed bladder neck contracture, the pendulous urethra did not have any obvious strictures. Each time I passed the follower, clear u rine was seen to emanate from the tubing. No active bleeding was appreciated. After finishing the 22-Dutch follower, I unscrewed this and removed the filiform hodan as well. An 18-Dutch Habematolel ti p catheter was inserted relatively easily with return of clear yellow urine. The balloon was inflat ed with 10 mL of sterile water and the catheter was secured to the bedside bag. He tolerated this p rocedure well. The catheter is to stay in for at least 5 to 7 days and then can be removed when clinically indicate d thereafter. Please call Urology, if we can be of further assistance.
[2016-10-22] MEDS: LEVOFLOXACIN INJ 500 MG in PREMIX 1 EACH IV SCH (22:55)
[2016-10-23] MEDS: methylPREDNISolone SOD SUC 125 MG/2 ML VIAL IV SCH ×5 (00:35→23:52)
[2016-10-23] MEDS: INSULIN LISPRO 100 UNIT/ML SUBCUT SCH ×13 (01:25→23:53)
[2016-10-23] MEDS: ALBUTEROL/IPRATROPIUM 3 ML NEB RESP TX SCH ×6 (02:36→22:56)
[2016-10-23 04:27] LABS: Basophils % 0.1 % (0.0-0.8); Hematocrit 25.1 VOL% (42.0-52.0); Hemoglobin 8.6 GM/DL (14.0-18.0); Immature Granulocytes % 0.3 %; Immature Granulocytes Absolute 0.03 #; Lymphocytes # 0.4 10*3/uL (1.4-4.0); Lymphocytes % 3.9 % (21.2-54.2); Mean Corpuscular HGB Conc 34.3 GM/DL (32-36); Mean Corpuscular Hemoglobin 31 PG (27-34); Mean Corpuscular Volume 91.3 FL (87-102); Mean Platelet Volume 8.7 FL (9.6-12.0); Monocytes # 0.3 10*3/uL (0.11-0.8); Monocytes % 2.6 % (1.7-12.7); Neutrophils # 8.8 10*3/uL (1.4-7.4); Neutrophils % 93.1 % (38.7-73.9); Platelet Count 385 T/CUMM (130-400); Red Blood Count 2.75 MC/CUMM (3.8-5.5); White Blood Count 9.5 T/CUMM (4-12)
[2016-10-23 04:48] LABS: Calcium 8.7 MG/DL (8.5-10.1); Magnesium 2.3 MG/DL (1.8-2.4); Osmolality,Calculated 298.8 MOS/KG (273-304); Potassium 3.2 MMOL/L (3.5-5.1)
[2016-10-23 06:41] LABS: Lymphocytes 3 % (20-55); Myelocytes 3 %; Segmented Neutrophils 92 % (50-85); Total Cells Counted 100
[2016-10-23 06:42] LABS: Platelet Estimate Normal
[2016-10-23] MEDS: ISOSORBIDE MONONITRATE 30 MG TABLET PO SCH (08:52)
[2016-10-23] MEDS: TICAGRELOR 90 MG TABLET PO SCH ×2 (08:52→20:44)
[2016-10-23] MEDS: ASPIRIN EC 81 MG TABLET PO SCH (08:52)
[2016-10-23] MEDS: PANTOPRAZOLE 40 MG TABLET PO SCH (08:52)
[2016-10-23] MEDS: ROSUVASTATIN 10 MG TABLET PO SCH (08:52)
[2016-10-23] MEDS: CARVEDILOL 12.5 MG TABLET PO SCH ×2 (08:53→20:44)
[2016-10-23] MEDS: FUROSEMIDE 40 MG/4 ML VIAL IV SCH ×2 (08:53→15:52)
[2016-10-23] MEDS ORDERED: POTASSIUM CHLORIDE 20 MEQ TABLET PO SCH (09:00)
--- NOTE | 2016-10-23 09:11 | Cardiology Progress Note ---
Assessment and Plan (1) Aortic stenosis Status: Chronic Assessment and plan: This is probably moderate based on the hemodynamics and echocardiogram. Certainly has a murmur secondary to this. This certainly could contribute to some heart failure but I don't think that hemodynamically significant based on past studies. Current Visit: No Qualifiers: Cardiac valve disease etiology: etiology unspecified Qualified Code(s): I35.0 - Nonrheumatic aortic (valve) stenosis (2) Coronary artery disease Status: Chronic Assessment and plan: Had prior stents with recent stenting of the obtuse marginal branch. He is continuing his dual antiplatelet therapy. He's had no angina. Current Visit: No (3) Diabetes Status: Chronic Assessment and plan: Followed by the primary service. Current Visit: No Qualifiers: Diabetes mellitus type: type 2 Diabetes mellitus complication status: without complication (4) History of coronary artery stent placement Status: Acute Assessment and plan: Prior stents placed and recent stent 2 months ago placed obtuse marginal branch. He is on Brilinta and aspirin. Current Visit: No (5) Cardiomyopathy Status: Chronic Assessment and plan: This is probably ischemic in nature. On catheterization it was 25-30% ejection fraction. He has a LifeVest on. Current Visit: No (6) Renal insufficiency Status: Chronic Assessment and plan: Today his creatinine is up some as is his BUN. This may be from his diuresis. Current Visit: No (7) CHF exacerbation Status: Acute Assessment and plan: This is probably multifactorial related to his cardiomyopathy and to some degree with his aortic stenosis. Clinically this is much improved. The private chest x-ray tomorrow. Current Visit: Yes Qualifiers: Congestive heart failure type: systolic Qualified Code(s): I50.23 - Acute on chronic systolic (congestive) heart failure (8) Cardiac murmur Status: Chronic Assessment and plan: This is due to his aortic valve stenosis. Current Visit: Yes Cardiology - PN: Subj Interval history: The patient doing quite well with his exacerbation of some his heart failure and possible COPD. He is not wheezing he denies any shortness of breath. He's had no chest pain. His urine output is being good and he is in a negative fluid balance for the last 24+ hours. His weight is down based on the weights on the chart. His rhythm is been stable. Blood pressures of been stable. His H&H is still low. This is lower than what has been previously on admissions. Exam (Progress Note) - Constitutional Vitals: Period Temp Pulse Resp BP Sys/Slater Pulse Ox Last 24 Hr 96.7 F-99.4 F 73-103 11-29 112-151/53-96 85-100 Exam: General appearance: normal weight, no acute distress, he is eating breakfast without any difficulty. Head exam: normal inspection, atraumatic Neck exam: normal inspection no JVD. No carotid bruit. Trachea is in midline. Respiratory exam: Present lung reyes anteriorly bilaterally descended clear this morning. Cardiovascular exam: regular rate and rhythm, 2 to 3/6 systolic murmur heard over the right left upper sternal border radiating to the precordium and the base the neck, there is no gallop or rub. No precordial lift. No bruits over the major arteries. Chest wall/torso: Anatomically normal. No tenderness, deformity Peripheral Pulses: 2+ throughout. GI/Abdominal exam: normal bowel sounds, soft and nontender, no abdominal bruits or pulsatile masses. Musculoskeletal/Extremities exam: normal inspection without edema or cyanosis. No deformities or trauma. Neurological exam: alert, oriented X3. There is no gross neurologic deficits. Psychiatric exam: normal affect, normal mood. Cognitive function is grossly intact. Skin exam: normal color, warm. No rashes or other skin lesions. Result/EKG - Labs CBC & BMP: 10/23/16 04:07 10/23/16 04:07 Lab Results: I have reviewed the past 24 hour labs Labs: Laboratory Results - last 24 hr 10/22/16 10/22/16 10/22/16 15:31 19:10 21:46 WBC RBC Hgb Hct MCV MCH MCHC RDW Plt Count MPV Neut % (Auto) Lymph % (Auto) [place] % (Auto) Eos % (Auto) Baso % (Auto) Neut # (Auto) Lymph # (Auto) [place] # (Auto) Eos # (Auto) Baso # (Auto) Total Counted Immature Gran % Nucleated RBC % Immature Gran # Segmented Neutrophils Lymphocytes Monocytes Myelocytes Nucleated RBCs # Platelet Estimate Sodium Potassium Chloride Carbon Dioxide Anion Gap BUN Creatinine GFR Calculation BUN/Creatinine Ratio Glucose POC Glucose 206 H 318 H 435 H Calculated Osmolality Calcium Magnesium 10/22/16 10/23/16 10/23/16 23:25 04:07 04:07 WBC 9.5 RBC 2.75 L Hgb 8.6 L Hct 25.1 L MCV 91.3 MCH 31 MCHC 34.3 RDW 12.0 Plt Count 385 MPV 8.7 L Neut % (Auto) 93.1 H Lymph % (Auto) 3.9 L [place] % (Auto) 2.6 Eos % (Auto) 0.0 Baso % (Auto) 0.1 Neut # (Auto) 8.8 H Lymph # (Auto) 0.4 L [place] # (Auto) 0.3 Eos # (Auto) 0.0 Baso # (Auto) 0.0 Total Counted 100 Immature Gran % 0.3 Nucleated RBC % 0.0 Immature Gran # 0.03 Segmented Neutrophils 92 H Lymphocytes 3 L Monocytes 2 Myelocytes 3 Nucleated RBCs # 0.00 Platelet Estimate Normal Sodium 137 Potassium 3.2 L Chloride 99 Carbon Dioxide 26 Anion Gap 15.2 H BUN 43 H D Creatinine 1.80 H GFR Calculation 46 BUN/Creatinine Ratio 23.00 H Glucose 367 H POC Glucose 407 H Calculated Osmolality 298.8 Calcium 8.7 Magnesium 2.3 - Impressions Impressions: Sinus rhythm. Heart rates in the 70s to 80s.
--- NOTE | 2016-10-23 11:31 | Hospitalist Progress Note ---
Assessment and Plan (1) Congestive heart failure Status: Acute Assessment and plan: Continue Lasix 40 mg IV every 12, and Coreg Current Visit: No Qualifiers: Congestive heart failure type: systolic (2) COPD exacerbation Status: Acute Assessment and plan: Cont steroids,duo nebs, oxygen and BiPAP for support Current Visit: Yes (3) Diabetes Status: Chronic Assessment and plan: BS increasing now that he is eating, restarted amaryl Current Visit: No Qualifiers: Diabetes mellitus type: type 2 Diabetes mellitus complication status: without complication (4) Anemia Status: Chronic Assessment and plan: Guaiac stool, continue Protonix, patient on aspirin and Brilinta. cont SCD for dvt prophyl Current Visit: No (5) Urinary retention Problem details: History of urethral strictures and prostate cancer Status: Resolved Assessment and plan: Urology placed catheter for us after dilating the bladder neck Current Visit: No (6) CKD (chronic kidney disease) stage 3, GFR 30-59 ml/min Status: Acute Assessment and plan: worsening, will hold Zaroxolyn Current Visit: No Hospitalist: Subjective Interval history: Patient still on BiPAP today. Patient's sats do not drop as low when he goes off his BiPAP. Nursing reports he can be off of it as long as an hour. This is a significant improvement from yesterday. I still feel he requires ICU care. Urology had to place a Prieto for us yesterday. Thanks for their help. Exam - Constitutional Vitals: Period Temp Pulse Resp BP Sys/Slater Pulse Ox Last 24 Hr 96.7 F-97.5 F 73-96 11-29 103-151/50-96 85-100 Exam: Heart Rate-[RRR] Lungs-[diminished, clear while on BiPAP] GI-[+bs soft, NT] Ext-[1+ edema] Neuro [Motor 5/5], [alert and oriented times 3] psych [normal mood and affect] General [no acute distress] Results - Labs CBC & BMP: 10/23/16 04:07 10/23/16 04:07 Lab Results: I have reviewed the past 24 hour labs
[2016-10-23] MEDS: GLIMEPIRIDE 4 MG TABLET PO SCH (12:03)
--- NOTE | 2016-10-23 16:57 | ECHO Report ---
Kaleb Guerrero Exam Date: 10/22/2016 14:44 Referring Physician: Technologist: Nisa Morales Age: 76 Ht (in): 65 Wt (lb): 164 Gender: M Exam Location: [facility] Echo Indications: acute resp failure, cardiac murmur, CHF, hypoxia BP: 134 / 67 HR: 97 Rhythm: Sinus Technical Quality: Fair IMPRESSIONS 1. Left ventricle is normal size with mild concentric left ventricular hypertrophy at worst. Ejection fraction is probably around 40%. 2. Other cardiac chambers are normal size. 3. Sclerotic thickened mitral valve with moderate valve regurgitation. 4. Thickened sclerotic aortic valve with marked decreased excursion with moderate to severe aortic stenosis. There is mild regurgitation. 5. Tricuspid valve is minimally thickened with mild regurgitation. 6. Severely elevated right-sided pressures. MEASUREMENTS (Male / Female) Normal Values 2D ECHO LV Diastolic Diameter PLAX 4.8 cm 4.2 - 5.9 / 3.9 - 5.3 cm LV Systolic Diameter PLAX 3.5 cm LV Fractional Shortening PLAX 26.5 % IVS Diastolic Thickness 1.2 cm 0.6 - 1.0 / 0.6 - 0.9 cm LVPW Diastolic Thickness 1.3 cm 0.6 - 1.0 / 0.6 - 0.9 cm RV Internal Dim ED PLAX 2.4 cm Aortic Root Diameter 2.5 cm LA Systolic Diameter LX 3.9 cm 3.0 - 4.0 / 2.7 - 3.8 cm DOPPLER TR Peak Velocity 456.0 cm/s TR Peak Gradient 83.2 mmHg FINDINGS Left Ventricle Left ventricle is normal size with worse mild concentric left ventricular hypertrophy. Ejection fraction is 40 %. Right Ventricle Normal right ventricular size. Right Atrium Normal right atrial size. Left Atrium Left atrium is normal size. Mitral Valve Mitral valve is thickened and sclerotic. Moderate mitral valve regurgitation. Aortic Valve Aortic valve is thickened and sclerotic with decreased excursion. Moderate to severe aortic valve stenosis with aortic valve area approximately 1 cm. Aortic valve mean gradient is 45 mmHg. Mild aortic valve regurgitation. Tricuspid Valve Tricuspid valve may be mildly thickened. At least mild tricuspid valve regurgitation. Tricuspid regurgitation velocities suggest a PAP of 88- 93 mmHg. Pulmonic Valve Morphologically normal pulmonic valve. Pericardium No pericardial effusion. Aorta Normal size aortic root and proximal ascending aorta. Elton Christie MD (Electronically Signed) Final Date: 23 Oct 2016 16:56
[2016-10-23] MEDS: POTASSIUM CHLORIDE 20 MEQ TABLET PO SCH (20:44)
[2016-10-23] MEDS ORDERED: metOLazone 5 MG TABLET PO SCH (21:00)
[2016-10-23] MEDS: LEVOFLOXACIN INJ 250 MG in PREMIX 1 EACH IV SCH (23:53)
[2016-10-24] MEDS: INSULIN LISPRO 100 UNIT/ML SUBCUT SCH ×8 (01:59→21:43)
[2016-10-24] MEDS: ALBUTEROL/IPRATROPIUM 3 ML NEB RESP TX SCH ×6 (02:44→23:56)
[2016-10-24 04:55] LABS: Basophils % 0.1 % (0.0-0.8); Hematocrit 29.2 VOL% (42.0-52.0); Hemoglobin 9.6 GM/DL (14.0-18.0); Immature Granulocytes % 0.7 %; Immature Granulocytes Absolute 0.18 #; Lymphocytes # 0.4 10*3/uL (1.4-4.0); Lymphocytes % 1.5 % (21.2-54.2); Mean Corpuscular HGB Conc 32.9 GM/DL (32-36); Mean Corpuscular Hemoglobin 32 PG (27-34); Mean Corpuscular Volume 96.4 FL (87-102); Mean Platelet Volume 9.3 FL (9.6-12.0); Monocytes # 0.6 10*3/uL (0.11-0.8); Monocytes % 2.6 % (1.7-12.7); Neutrophils # 22.9 10*3/uL (1.4-7.4); Neutrophils % 95.1 % (38.7-73.9); Platelet Count 379 T/CUMM (130-400); Red Blood Count 3.03 MC/CUMM (3.8-5.5); Red Cell Distribution Width 12.3 % (9.3-17.3); White Blood Count 24.1 T/CUMM (4-12)
[2016-10-24 05:11] LABS: Calcium 8.7 MG/DL (8.5-10.1); Magnesium 2.4 MG/DL (1.8-2.4); Osmolality,Calculated 305.8 MOS/KG (273-304); Potassium 3.6 MMOL/L (3.5-5.1)
[2016-10-24 06:38] LABS: Lymphocytes 4 % (20-55); Platelet Estimate Adequate; Segmented Neutrophils 93 % (50-85); Total Cells Counted 100
[2016-10-24 06:39] LABS: Hypochromasia Slight; Ovalocytes Slight
[2016-10-24] MEDS: methylPREDNISolone SOD SUC 125 MG/2 ML VIAL IV SCH ×2 (06:49→21:43)
[2016-10-24] MEDS: GLIMEPIRIDE 4 MG TABLET PO SCH (08:45)
--- NOTE | 2016-10-24 08:55 | Physician Query Form ---
CLICK EDIT DOCUMENT TO SELECT QUERY ANSWER --> OK --> SIGN PROVIDERS: Make your selection(s) from the choices in EACH section by typing an "x" and enter comments in the comment section. Please use your independent medical judgment in providing your response. This request does not imply that any particular answer is desired or expected. CLINICAL INDICATORS: (Providers should not edit this section) The medical record indicates that the patient was admitted with acute on chronic CHF, creatinine of 1.60# on the that has increased to 2.10 on the , GFR of 50 that has decreased to 38 on the 15: Patient was receiving Lasix for the CHF. Based on the above, could you clarify the appropriate diagnosis, if significant , that supports the above abnormalities and additional evaluation, monitoring, and/or treatment rendered: (x ) CKD stage 3 only ( ) Acute on Chronic Kidney Disease Stage 3 ( ) Other, please specify: ( ) Clinically unable to determine COMMENTS: PLEASE ALSO DOCUMENT RESPONSE IN PROGRESS NOTES AND/OR DISCHARGE SUMMARY Use of terms such as suspected, likely, or probable (associated with a specific diagnosis that is being evaluated, monitored, or treated as if it exists) are acceptable and can be restated in the discharge summary if not ruled out. [facility]
--- NOTE | 2016-10-24 09:28 | Cardiology Progress Note ---
Assessment and Plan - Time spent with patient Time spent with patient: Greater than 30 minutes (1) Ischemic cardiomyopathy Status: Acute Assessment and plan: SEE PLAN OF CARE LISTED BELOW Current Visit: Yes (2) Hypertension Status: Chronic Assessment and plan: SEE PLAN OF CARE LISTED BELOW Current Visit: Yes (3) Dyslipidemia Status: Chronic Assessment and plan: SEE PLAN OF CARE LISTED BELOW Current Visit: Yes (4) Pulmonary hypertension Status: Chronic Assessment and plan: SEE PLAN OF CARE LISTED BELOW Current Visit: Yes (5) Coronary artery disease Status: Chronic Assessment and plan: SEE PLAN OF CARE LISTED BELOW Current Visit: No (6) History of coronary artery stent placement Status: Chronic Assessment and plan: SEE PLAN OF CARE LISTED BELOW Current Visit: No (7) CHF (congestive heart failure) Status: Acute Assessment and plan: SEE PLAN OF CARE LISTED BELOW Current Visit: No Qualifiers: Congestive heart failure type: systolic Congestive heart failure chronicity : acute on chronic Qualified Code(s): I50.23 - Acute on chronic systolic ( congestive) heart failure (8) Diabetes type 2, controlled Status: Chronic Assessment and plan: SEE PLAN OF CARE LISTED BELOW Current Visit: No (9) CKD (chronic kidney disease) stage 3, GFR 30-59 ml/min Status: Chronic Assessment and plan: SEE PLAN OF CARE LISTED BELOW Current Visit: No (10) Urethral stricture Status: Acute Assessment and plan: SEE PLAN OF CARE LISTED BELOW Current Visit: No (11) COPD exacerbation Status: Acute Assessment and plan: SEE PLAN OF CARE LISTED BELOW Current Visit: Yes (12) Mitral regurgitation and aortic stenosis Status: Chronic Assessment and plan: SEE PLAN OF CARE LISTED BELOW Current Visit: Yes Cardiology - PN: Subj Interval history: TRAVEL FREIGHT AND PASSENGER AGENT: DR. HO SUMMARY: 76BM, routinely followed by Dr. Daphnie Ho. Patient was admitted October 21, 2016 with acute exacerbation of congestive heart failure. History of known coronary artery disease, hypertension, dyslipidemia, ischemic cardiomyopathy (EF 25-30%), chronic kidney disease (stage III). Chronic anemia , aortic stenosis and diabetes. He has been wearing LifeVest since end of August 2016. Denies chest pain, heaviness or tightness. Patient reports that his shortness of breath had worsened of the past 2-3 days prior to admission. For this reason , he sought medical advice. Chest x-ray revealed CHF decompensation, proBNP 2960 in the setting of creatinine of 2.1. EKG revealed normal sinus rhythm, LVH with nonspecific ST-T abnormalities. Cardiac biomarkers stable. Patient had difficulty voiding. Urology placed Crocker catheter after dilating bladder neck Monday. (History of prostate cancer). Last [facility]: September 09, 2016 revealed: patent stents to LAD, proximal/mid RCA, and distal RCA. PCI OM2 (RAMIREZ). EF 25% - 30%. LVEDP 24mmHg, mean gradient 28mmHg. September 06, 2016 echo: EF 40% with gradient across the aortic valve a 32 mmHg, severe tricuspid regurgitation with severely elevated right-sided pressures. Repeat echo October 22, 2016 reveals the following: EF 40%, moderate to severe aortic stenosis, moderate MR, PAP 88 mmHg. OCTOBER 24, 2016: Patient reports he is doing better today. His breathing has improved. He is not requiring BiPAP. WBC is elevated however has received steroids during this admission. Overall, he has decreased 1/2 kg since admission. He continues to take aspirin and Brilinta. ASSESSMENT/PLAN: 1. ACUTE CHF - acute on chronic CHF secondary to severely reduced systolic function (EF 25-30%), [place] Heart Association classification III. -Continue with diuretics, afterload reduction, strict I&O and daily weights. Patient is improving. May transfer to floor when okay with attending physician. 2. ICM - wearing LifeVest with eventual plans for ICD in approximately 60 days. Continue current plan of care. 3. CAD - PCI OM2 September 09, 2016 (see report above). Continue ASA/Brilinta. 4. HYPERTENSION - continue with beta-blockers. Avoiding NEMESIO inhibitors for fear of worsening his renal insufficiency. Blood pressures well controlled. 5. DYSLIPIDEMIA - continue lipid-lowering. No need to repeat fasting lipid profile is it was ordered in August 2016 6. CRI (STAGE III) - continue current plan of care 7. DIABETES -adjust sliding scale accordingly during hospital stay 8. AORTIC STENOSIS, MODERATE TO SEVERE - will stop Imdur. 9. PULMONARY HYPERTENSION - PAP 88mmHg. Continue current plan of care. 10. URINARY RETENTION - now S/P insertion crocker catheter. History of prostate cancer. 11. MITRAL REGURGITATION, MODERATE - continue current plan of care Exam (Progress Note) - Constitutional Vitals: Period Temp Pulse Resp BP Sys/Slater Pulse Ox Last 24 Hr 97.4 F-98.2 F 77-103 12-29 102-132/50-76 88-99 Exam: General: [Appears well with no apparent distress.] [Pleasant and cooperative. ] [Appears comfortable.] HEENT: [Bilateral arcus noted. Normocephalic, atraumatic. Mucous membranes moist. No jaundice noted. Conjunctiva moist and clear, sclerae anicteric] Neck: No JVD/HJR, no thyromegaly or lymphadenopathy noted. Cardiac: [Regular rate and rhythm.] [IV/ RANDALL heard best at BUSB. Lungs: [Relatively clear to auscultation without accessory muscle use to assist the respiratory pattern.] Oxygen in use via nasal cannula intermittently. Abdomen: Soft, bowel sounds normoactive. Nontender and nondistended. No abdominal bruit or thrill noted. No masses noted. Musculoskeletal: No fluid collection. Decreased range of motion is noted. Extremities: No clubbing, cyanosis noted. [ No edema noted.] Upper extremity pulses 2+. Lower extremity pulses 2+. Capillary refill less than 3 seconds. Skin: No unusual lesions or rashes. No skin breakdown appreciated. Neuro: Awake, alert and oriented 3. Moves all extremities well without hemiparesis or paralysis. No essential tremor is appreciated. Result/EKG - Labs CBC & BMP: 10/24/16 03:52 10/24/16 03:52 Lab Results: I have reviewed the past 24 hour labs Labs: Laboratory Results - last 24 hr 10/22/16 10/23/16 10/23/16 05:32 01:22 03:31 WBC RBC Hgb Hct MCV MCH MCHC RDW Plt Count MPV Neut % (Auto) Lymph % (Auto) [place] % (Auto) Eos % (Auto) Baso % (Auto) Neut # (Auto) Lymph # (Auto) [place] # (Auto) Eos # (Auto) Baso # (Auto) Total Counted Immature Gran % Nucleated RBC % Immature Gran # Segmented Neutrophils Lymphocytes Monocytes Nucleated RBCs # Platelet Estimate Hypochromasia Ovalocytes Sodium Potassium Chloride Carbon Dioxide Anion Gap BUN Creatinine GFR Calculation BUN/Creatinine Ratio Glucose POC Glucose 359 H 327 H Calculated Osmolality Calcium Magnesium Vitamin B12 497 Folate > 24.0 H 10/23/16 10/23/16 10/23/16 05:38 07:49 09:56 WBC RBC Hgb Hct MCV MCH MCHC RDW Plt Count MPV Neut % (Auto) Lymph % (Auto) [place] % (Auto) Eos % (Auto) Baso % (Auto) Neut # (Auto) Lymph # (Auto) [place] # (Auto) Eos # (Auto) Baso # (Auto) Total Counted Immature Gran % Nucleated RBC % Immature Gran # Segmented Neutrophils Lymphocytes Monocytes Nucleated RBCs # Platelet Estimate Hypochromasia Ovalocytes Sodium Potassium Chloride Carbon Dioxide Anion Gap BUN Creatinine GFR Calculation BUN/Creatinine Ratio Glucose POC Glucose 260 H 220 H 292 H Calculated Osmolality Calcium Magnesium Vitamin B12 Folate 10/23/16 10/23/16 10/23/16 11:53 13:59 15:05 WBC RBC Hgb Hct MCV MCH MCHC RDW Plt Count MPV Neut % (Auto) Lymph % (Auto) [place] % (Auto) Eos % (Auto) Baso % (Auto) Neut # (Auto) Lymph # (Auto) [place] # (Auto) Eos # (Auto) Baso # (Auto) Total Counted Immature Gran % Nucleated RBC % Immature Gran # Segmented Neutrophils Lymphocytes Monocytes Nucleated RBCs # Platelet Estimate Hypochromasia Ovalocytes Sodium Potassium Chloride Carbon Dioxide Anion Gap BUN Creatinine GFR Calculation BUN/Creatinine Ratio Glucose POC Glucose 278 H 317 H 290 H Calculated Osmolality Calcium Magnesium Vitamin B12 Folate 10/23/16 10/23/16 10/23/16 17:19 19:13 23:46 WBC RBC Hgb Hct MCV MCH MCHC RDW Plt Count MPV Neut % (Auto) Lymph % (Auto) [place] % (Auto) Eos % (Auto) Baso % (Auto) Neut # (Auto) Lymph # (Auto) [place] # (Auto) Eos # (Auto) Baso # (Auto) Total Counted Immature Gran % Nucleated RBC % Immature Gran # Segmented Neutrophils Lymphocytes Monocytes Nucleated RBCs # Platelet Estimate Hypochromasia Ovalocytes Sodium Potassium Chloride Carbon Dioxide Anion Gap BUN Creatinine GFR Calculation BUN/Creatinine Ratio Glucose POC Glucose 274 H 208 H 365 H Calculated Osmolality Calcium Magnesium Vitamin B12 Folate 10/24/16 10/24/16 10/24/16 01:54 03:52 03:52 WBC 24.1 H D RBC 3.03 L Hgb 9.6 L Hct 29.2 L MCV 96.4 MCH 32 MCHC 32.9 RDW 12.3 Plt Count 379 MPV 9.3 L Neut % (Auto) 95.1 H Lymph % (Auto) 1.5 L [place] % (Auto) 2.6 Eos % (Auto) 0.0 Baso % (Auto) 0.1 Neut # (Auto) 22.9 H Lymph # (Auto) 0.4 L [place] # (Auto) 0.6 Eos # (Auto) 0.0 Baso # (Auto) 0.0 Total Counted 100 Immature Gran % 0.7 Nucleated RBC % 0.0 Immature Gran # 0.18 Segmented Neutrophils 93 H Lymphocytes 4 L Monocytes 3 Nucleated RBCs # 0.00 Platelet Estimate Adequate Hypochromasia Slight Ovalocytes Slight Sodium 137 Potassium 3.6 Chloride 100 Carbon Dioxide 23 Anion Gap 17.6 H BUN 57 H D Creatinine 2.10 H GFR Calculation 38 BUN/Creatinine Ratio 27.00 H Glucose 406 H POC Glucose 443 H Calculated Osmolality 305.8 H Calcium 8.7 Magnesium 2.4 Vitamin B12 Folate 10/24/16 10/24/16 10/24/16 04:47 06:41 07:54 WBC RBC Hgb Hct MCV MCH MCHC RDW Plt Count MPV Neut % (Auto) Lymph % (Auto) [place] % (Auto) Eos % (Auto) Baso % (Auto) Neut # (Auto) Lymph # (Auto) [place] # (Auto) Eos # (Auto) Baso # (Auto) Total Counted Immature Gran % Nucleated RBC % Immature Gran # Segmented Neutrophils Lymphocytes Monocytes Nucleated RBCs # Platelet Estimate Hypochromasia Ovalocytes Sodium Potassium Chloride Carbon Dioxide Anion Gap BUN Creatinine GFR Calculation BUN/Creatinine Ratio Glucose POC Glucose 390 H 394 H 305 H Calculated Osmolality Calcium Magnesium Vitamin B12 Folate - Diagnostic Findings Procedure: Chest x-ray: report reviewed by me - EKG EKG results: interpreted by md EKG shows: sinus rhythm
[2016-10-24] MEDS: POTASSIUM CHLORIDE 20 MEQ TABLET PO SCH ×2 (10:29→21:51)
[2016-10-24] MEDS: PANTOPRAZOLE 40 MG TABLET PO SCH (10:29)
[2016-10-24] MEDS: TICAGRELOR 90 MG TABLET PO SCH ×2 (10:29→21:51)
[2016-10-24] MEDS: ASPIRIN EC 81 MG TABLET PO SCH (10:30)
[2016-10-24] MEDS: CARVEDILOL 12.5 MG TABLET PO SCH ×2 (10:30→21:51)
[2016-10-24] MEDS: ROSUVASTATIN 10 MG TABLET PO SCH (10:31)
[2016-10-24] MEDS: FUROSEMIDE 40 MG/4 ML VIAL IV SCH (10:33)
[2016-10-24 11:07] LABS: Hemoglobin A1 (Alkaline) 98.2 % (96.5-98.5); Hemoglobin A2 (Alkaline) 1.8 % (1.5-3.5)
--- NOTE | 2016-10-24 14:42 | Hospitalist Progress Note ---
Assessment and Plan (1) Acute respiratory failure with hypoxia Status: Acute Assessment and plan: 1)acute resp failure with hypoxia- doing much better now. Off BIPAP. continue steroids, nebs, O2 by NC. can decrease steroids today. 2)COPD- see above 3)CHF- due to ischemic cardiomyopathy. diuresing, watch creatinine with BID lasix. EF is 25-30%. He has a lifevest which he should wear, but he doesn't like it. Plan for AICD in the next months. pHTN 4)diabetes- on orals and SSI 5)anemia- stoop guaiac pending, on asa and brillinta. on SCDs instead of lovenox. 6)CKD- creatinine climbing, zaroxolyn held, creatinine range is 1.3-1.8 over last couple of years. hold lasix this evening, and change to once a day. edema improved. 7)dispo- to the floor with monitor. 8)urinary retention- has crocker now after dilation of bladder neck (10/22), must have for 5-7 days to allow dilation to heal then follow up with DR Welsh at discharge. Current Visit: Yes (2) Diabetes Status: Chronic Current Visit: No Qualifiers: Diabetes mellitus type: type 2 Diabetes mellitus complication status: without complication (3) Anemia Status: Chronic Current Visit: No (4) Congestive heart failure Status: Acute Current Visit: No Qualifiers: Congestive heart failure type: systolic (5) Urinary retention Problem details: History of urethral strictures and prostate cancer Status: Resolved Current Visit: No (6) CHF (congestive heart failure) Status: Acute Current Visit: No Qualifiers: Congestive heart failure type: systolic Congestive heart failure chronicity : acute on chronic Qualified Code(s): I50.23 - Acute on chronic systolic ( congestive) heart failure (7) CKD (chronic kidney disease) stage 3, GFR 30-59 ml/min Status: Acute Current Visit: No (8) COPD exacerbation Status: Acute Current Visit: Yes Hospitalist: Subjective Interval history: Mr Guerrero is feeling good this morning, and wants to go to a room. He has not needed the BIPAP for over 24hours and is breathing comfortably while eating and talking without pause for breath. Denies pain. Exam - Constitutional Vitals: Period Temp Pulse Resp BP Sys/Slater Pulse Ox Last 24 Hr 97.4 F-98.2 F 78-103 12-29 102-132/49-76 90-99 General appearance: normal weight, no acute distress - Head Head exam: Present: normocephalic, atraumatic - Eye Eye exam: Present: EOMI. Absent: scleral icterus - Respiratory Respiratory exam: Present: clear to auscultation bilaterally - Cardiovascular Cardiovascular exam: Present: regular rate and rhythm - GI/Abdominal GI/Abdominal exam: Present: normal bowel sounds, soft. Absent: tenderness - Extremities Exam Extremities exam: Absent: edema - Neurological Exam Neurological exam: Present: alert, oriented X3 - Skin Skin exam: Present: warm, dry Results - Labs CBC & BMP: 10/24/16 03:52 10/24/16 03:52 Lab Results: I have reviewed the past 24 hour labs
[2016-10-24] MEDS: LEVOFLOXACIN INJ 250 MG in PREMIX 1 EACH IV SCH (21:46)
[2016-10-25] MEDS: ALBUTEROL/IPRATROPIUM 3 ML NEB RESP TX SCH ×5 (03:29→19:58)
[2016-10-25 05:33] LABS: Basophils % 0.1 % (0.0-0.8); Hematocrit 27.5 VOL% (42.0-52.0); Hemoglobin 9.5 GM/DL (14.0-18.0); Immature Granulocytes % 1.9 %; Immature Granulocytes Absolute 0.41 #; Lymphocytes # 0.4 10*3/uL (1.4-4.0); Lymphocytes % 1.7 % (21.2-54.2); Mean Corpuscular HGB Conc 34.5 GM/DL (32-36); Mean Corpuscular Hemoglobin 32 PG (27-34); Mean Corpuscular Volume 92.9 FL (87-102); Mean Platelet Volume 8.9 FL (9.6-12.0); Monocytes # 0.5 10*3/uL (0.11-0.8); Monocytes % 2.5 % (1.7-12.7); Neutrophils # 20.2 10*3/uL (1.4-7.4); Neutrophils % 93.8 % (38.7-73.9); Platelet Count 466 T/CUMM (130-400); Red Blood Count 2.96 MC/CUMM (3.8-5.5); Red Cell Distribution Width 12.3 % (9.3-17.3); White Blood Count 21.5 T/CUMM (4-12)
[2016-10-25 05:57] LABS: Lymphocytes 1 % (20-55); Magnesium 2.5 MG/DL (1.8-2.4); Osmolality,Calculated 310.3 MOS/KG (273-304); Potassium 4.7 MMOL/L (3.5-5.1); Segmented Neutrophils 97 % (50-85); Total Cells Counted 100
[2016-10-25 05:58] LABS: Hypochromasia Slight; Platelet Estimate Increased
[2016-10-25] MEDS: ROSUVASTATIN 10 MG TABLET PO SCH (09:10)
[2016-10-25] MEDS: CARVEDILOL 12.5 MG TABLET PO SCH ×2 (09:11→21:54)
[2016-10-25] MEDS: ASPIRIN EC 81 MG TABLET PO SCH (09:11)
[2016-10-25] MEDS: GLIMEPIRIDE 4 MG TABLET PO SCH (09:11)
[2016-10-25] MEDS: POTASSIUM CHLORIDE 20 MEQ TABLET PO SCH ×2 (09:11→21:54)
[2016-10-25] MEDS: methylPREDNISolone SOD SUC 125 MG/2 ML VIAL IV SCH (09:11)
[2016-10-25] MEDS: PANTOPRAZOLE 40 MG TABLET PO SCH (09:11)
[2016-10-25] MEDS: TICAGRELOR 90 MG TABLET PO SCH ×2 (09:11→21:54)
[2016-10-25] MEDS: FUROSEMIDE 40 MG/4 ML VIAL IV SCH (09:14)
[2016-10-25] MEDS: INSULIN LISPRO 100 UNIT/ML SUBCUT SCH ×6 (09:19→21:54)
--- NOTE | 2016-10-25 13:44 | Hospitalist Progress Note ---
Assessment and Plan (1) Acute respiratory failure with hypoxia Status: Acute Assessment and plan: 1)acute resp failure with hypoxia- doing much better now. Off BIPAP. steroids changed to oral, nebs, O2 by CT. 2)COPD- see above 3)CHF- due to ischemic cardiomyopathy. diuresing, watch creatinine with BID lasix. EF is 25-30%. He has a lifevest which he should wear, but he doesn't like it. Plan for AICD in the next months. pHTN 4)diabetes- on orals and SSI. His blood sugar has increased again with decrease in frequency of SSI to ac and hs. resume q2h humalog. steroids now changed to oral should lead to improved control. 5)anemia- stool guaiac positive., on asa and brillinta. on SCDs instead of lovenox. consult GI. 6)CKD- creatinine climbing, zaroxolyn held, creatinine range is 1.3-1.8 over last couple of years. hold lasix this evening, and change to once a day. edema improved. 7)dispo- to the floor with monitor. 8)urinary retention- has crocker now after dilation of bladder neck (10/22), must have for 5-7 days to allow dilation to heal then follow up with DR Welsh at discharge. Current Visit: Yes (2) Diabetes Status: Chronic Current Visit: No Qualifiers: Diabetes mellitus type: type 2 Diabetes mellitus complication status: without complication (3) Anemia Status: Chronic Current Visit: No (4) Congestive heart failure Status: Acute Current Visit: No Qualifiers: Congestive heart failure type: systolic (5) CHF (congestive heart failure) Status: Acute Current Visit: No Qualifiers: Congestive heart failure type: systolic Congestive heart failure chronicity : acute on chronic Qualified Code(s): I50.23 - Acute on chronic systolic ( congestive) heart failure (6) CKD (chronic kidney disease) stage 3, GFR 30-59 ml/min Status: Acute Current Visit: No (7) COPD exacerbation Status: Acute Current Visit: Yes Hospitalist: Subjective Interval history: Mr Guerrero is feeling good today and wants to go home. He denies pain or shortness of breath. He lives with his sister who takes care of him. He has been up to walk and take a shower. PT has not seen him. Exam - Constitutional Vitals: Period Temp Pulse Resp BP Sys/Slater Pulse Ox Last 24 Hr 96.9 F-97.5 F 70-87 16-20 109-124/50-72 93-99 General appearance: normal weight, no acute distress - Eye Eye exam: Present: EOMI. Absent: scleral icterus - Respiratory Respiratory exam: Present: clear to auscultation bilaterally - Cardiovascular Cardiovascular exam: Present: regular rate and rhythm - GI/Abdominal GI/Abdominal exam: Present: normal bowel sounds, soft. Absent: tenderness - Extremities Exam Extremities exam: Present: edema (trace) - Neurological Exam Neurological exam: Present: alert, oriented X3 Results - Labs CBC & BMP: 10/25/16 05:08 10/25/16 05:08 Specialty Discharge - Follow Up or Referrals Follow up with: Ryan Welsh MD [Physician] - 2 Weeks
--- NOTE | 2016-10-25 15:12 | Gastrointestinal Consult Note ---
Assessment and Plan (1) Heme + stool Status: Acute Assessment and plan: 10/25-Findings of dark tarry stools and noted to be 4+ positive for occult blood x several days. Drop in hemoglobin on admission from baseline of 11, down at 8.1 (now 9.5). No associated symptoms. On Brilinta with recent stent placement ( 6 weeks ago). Plan for tentative EGD when stable from resp standpoint to further evaluate. Plan and addendum to follow by Dr Blackman. Current Visit: Yes History of Present Illness Chief complaint: Heme positive stools, anemia History of present illness: Mr. Guerrero is a 76 year old male who was admitted to the hospital with abdominal pain, melena and vomiting. Pt has a history of COPD, HTN, MT, CAD, aortic stenosis, DM and prostate cancer as well as renal failure. Pt wears a life vest however states he has not been shocked by this. He had a stent placed approximately 6 weeks ago and is on Brilinta following this. Pt was found on admission to have CHF exacerbation and was placed on bipap which he is no longer on. He has since improved however he was noted to have a low hemoglobin on admission of 8.1. His last hemoglobin with inpatient stay in September was noted on average at 11. He has not been transfused since admission and currently 9.5. Pt states he has not been anemic in the past that he can recall. He has not had blood transfusions in the past. Pt denies any nausea or vomiting and states when he came in he did have some but denies any coffee ground or hemetemesis. Denies any hematochezia but states he has recently noted to have dark and tarry stools. He denies any epigastric or abdominal pain at present time. He cannot recall the abd pain he had on admission. Denies any recent weight loss, fever or chills. Denies history of GI bleed in the past. Denies any prior endoscopy. He states that he has had GERD in the past but this is controlled at this time with occasional OTC meds. Denies any NSAID use. Denies any dysphagia. His stools were checked and noted to have 4+ blood. Home Medications Medication Instructions Recorded Confirmed Type Glimepiride [Amaryl] 4 mg PO DAILY W/BREAKFAST 02/01/15 09/06/16 History Potassium Chloride 20 meq PO DAILY 02/01/15 09/06/16 History Aspirin [Ecotrin] 81 mg PO DAILY 07/31/15 09/06/16 History metFORMIN [Glucophage] 500 mg PO BID W/MEALS 07/31/15 09/06/16 History Carvedilol [Coreg] 12.5 mg PO BID 04/11/16 09/06/16 History HYDROcodone/ACETAMIN 7.5-325 1 tablet PO Q6H #10 tablet 04/11/16 09/06/16 Rx [[place] 7.5-325] Furosemide Tab [Lasix Tab] 40 mg PO BID #60 tablet 05/04/16 09/06/16 Rx Rosuvastatin [Crestor] 5 mg PO DAILY 09/06/16 09/06/16 History Isosorbide Mononitrate [Imdur] 15 mg PO DAILY #60 tablet 09/13/16 Rx Ticagrelor [Brilinta] 90 mg PO BID #100 tablet 09/13/16 Rx Allergies Allergy/AdvReac Type Severity Reaction Status Date / Time No Known Allergies Allergy Verified 10/07/16 04:23 Medical,Surgical,& Family Hx - Medical History Cardio: History of: CHF, CAD, Hypertension, MT (last MT 2013), Valvular Heart Disease Neurology: No history of: TIA Endocrine: History of: Diabetes Mellitus (IDDM), Diabetes Mellitus (NIDDM), Dyslipidemia Respiratory: History of: COPD, Pneumonia Renal: History of: Renal Failure Genitourinary: History of: Prostate Problems (cancer) Other: History of: Cancer (PROSTATE) - Surgical History Cardiac Surgeries: Sugical HX of: Cardiac Catheterization (last cath 1 month ago ) Neurologic Surgeries: Patient denies: Neurologic Surgery Abdominal Surgeries: Patient denies: Abdominal Surgery Reproductive Surgeries: Surgical HX of;: Prostate Surgery - Family History Family History: Reports;: Family Cancer (brother), Family Diabetes (son), Family Heart Disease (mother), Family Hypertension (family) Denies;: Family Stroke - Social History Smoking Status: Former smoker Frequency of Alcohol Use: None Type of Drug Use: None 12 point system: reviewed and no additional remarkable complaints except as stated - Constitutional Constitutional: Present: as per HPI - EENT Eyes: Present: as per HPI Ears: Present: as per HPI Nose, mouth and throat: Present: as per HPI - Cardiovascular Cardiovascular: Present: as per HPI - Respiratory Respiratory: Present: as per HPI - Gastrointestinal Gastrointestinal: Present: as per HPI, heartburn, melena - Genitourinary Genitourinary: Present: as per HPI - Musculoskeletal Musculoskeletal: Present: as per HPI - Neurological Neurological: Present: as per HPI - Psychiatric Psychiatric: Present: as per HPI - Endocrine Endocrine: Present: as per HPI - Hematologic/Lymphatic Hematologic/Lymphatic: Present: as per HPI Exam - Constitutional Vitals: Period Temp Pulse Resp BP Sys/Slater Pulse Ox Last 24 Hr 96.9 F-97.5 F 70-87 16-20 109-124/50-72 93-99 General appearance: normal weight, no acute distress - Head Head exam: Present: normal inspection, normocephalic - Eye Eye exam: Present: other (lids and conjunctiva unremarkable). Absent: scleral icterus - ENT ENT exam: Present: normal exam, normal oropharynx - Neck Neck exam: Present: normal inspection - Respiratory Respiratory exam: Present: clear to auscultation bilaterally. Absent: rales, rhonchi, wheezes - Cardiovascular Cardiovascular exam: Present: regular rate and rhythm. Absent: diastolic murmur , JVD, systolic murmur - GI/Abdominal GI/Abdominal exam: Present: normal bowel sounds, soft. Absent: ascites, distended, mass, organomegaly, tenderness - Extremities Exam Extremities exam: Present: normal inspection, full ROM - Back Exam Back exam: Present: normal inspection - Neurological Exam Neurological exam: Present: alert, oriented X3 - Psychiatric Psychiatric exam: Present: normal affect, normal mood - Skin Skin exam: Present: normal color, warm, dry Results - Labs CBC & BMP: 10/25/16 05:08 10/25/16 05:08 Lab Results: I have reviewed the past 24 hour labs Specialty Discharge - Follow Up or Referrals Follow up with: Ryan Welsh MD [Physician] - 2 Weeks
--- NOTE | 2016-10-25 15:51 | Cardiology Progress Note ---
Assessment and Plan (1) Ischemic cardiomyopathy Status: Acute Assessment and plan: SEE PLAN OF CARE LISTED BELOW Current Visit: Yes (2) Hypertension Status: Chronic Assessment and plan: SEE PLAN OF CARE LISTED BELOW Current Visit: Yes (3) Dyslipidemia Status: Chronic Assessment and plan: SEE PLAN OF CARE LISTED BELOW Current Visit: Yes (4) Pulmonary hypertension Status: Chronic Assessment and plan: SEE PLAN OF CARE LISTED BELOW Current Visit: Yes (5) Coronary artery disease Status: Chronic Assessment and plan: SEE PLAN OF CARE LISTED BELOW Current Visit: No (6) History of coronary artery stent placement Status: Chronic Assessment and plan: SEE PLAN OF CARE LISTED BELOW Current Visit: No (7) CHF (congestive heart failure) Status: Acute Assessment and plan: SEE PLAN OF CARE LISTED BELOW Current Visit: No Qualifiers: Congestive heart failure type: systolic Congestive heart failure chronicity : acute on chronic Qualified Code(s): I50.23 - Acute on chronic systolic ( congestive) heart failure (8) Diabetes type 2, controlled Status: Chronic Assessment and plan: SEE PLAN OF CARE LISTED BELOW Current Visit: No (9) CKD (chronic kidney disease) stage 3, GFR 30-59 ml/min Status: Chronic Assessment and plan: SEE PLAN OF CARE LISTED BELOW Current Visit: No (10) Urethral stricture Status: Acute Assessment and plan: SEE PLAN OF CARE LISTED BELOW Current Visit: No (11) COPD exacerbation Status: Acute Assessment and plan: SEE PLAN OF CARE LISTED BELOW Current Visit: Yes (12) Mitral regurgitation and aortic stenosis Status: Chronic Assessment and plan: SEE PLAN OF CARE LISTED BELOW Current Visit: Yes Cardiology - PN: Subj Interval history: [employer]: DR. HO SUMMARY: 76BM, routinely followed by Dr. Daphnie Ho. Patient was admitted October 21, 2016 with acute exacerbation of congestive heart failure. History of known coronary artery disease, hypertension, dyslipidemia, ischemic cardiomyopathy (EF 25-30%), chronic kidney disease (stage III). Chronic anemia , aortic stenosis and diabetes. He has been wearing LifeVest since end of August 2016. Denies chest pain, heaviness or tightness. Patient reports that his shortness of breath had worsened of the past 2-3 days prior to admission. For this reason , he sought medical advice. Chest x-ray revealed CHF decompensation, proBNP 2960 in the setting of creatinine of 2.1. EKG revealed normal sinus rhythm, LVH with nonspecific ST-T abnormalities. Cardiac biomarkers stable. Patient had difficulty voiding. Urology placed Crocker catheter after dilating bladder neck Monday. (History of prostate cancer). Last C: September 09, 2016 revealed: patent stents to LAD, proximal/mid RCA, and distal RCA. PCI OM2 (RAMIREZ). EF 25% - 30%. LVEDP 24mmHg, mean gradient 28mmHg. September 06, 2016 echo: EF 40% with gradient across the aortic valve a 32 mmHg, severe tricuspid regurgitation with severely elevated right-sided pressures. Repeat echo October 22, 2016 reveals the following: EF 40%, moderate to severe aortic stenosis, moderate MR, PAP 88 mmHg. OCTOBER 24, 2016: Patient reports he is doing better today. His breathing has improved. He is not requiring BiPAP. WBC is elevated however has received steroids during this admission. Overall, he has decreased 1/2 kg since admission. He continues to take aspirin and Brilinta. OCTOBER 25, 2016: Breathing much easier this morning. On review, anemia has worsened since September 2016 and GI has been consulted. Stool 4+ for occult blood. Denies chest pain, heaviness or tightness. He has a history of prostate cancer and I am uncertain of the status of this condition. He has had two admissions for acute CHF in the past month. Aortic stenosis is moderate to severe. May be a candidate for TAVR once his comorbidities improve. Family is concerned he is not sleeping well at home and are requesting sleeping medicine at discharge. I have assured family we will prescribe a limited amount of a mild sedative at discharge and he may follow up with this PCP for refills as needed. ASSESSMENT/PLAN: 1. ACUTE CHF - acute on chronic CHF secondary to severely reduced systolic function (EF 25-30%), moderate to severe . [place] [employer] classification III. -Continue with diuretics, afterload reduction, strict I&O and daily weights. Patient is improving. 2. ICM - wearing LifeVest with eventual plans for ICD in approximately 60 days. Continue current plan of care. 3. CAD - PCI OM2 September 09, 2016 (see report above). Continue ASA/Brilinta. 4. HYPERTENSION - continue with beta-blockers. Avoiding NEMESIO inhibitors for fear of worsening his renal insufficiency. Blood pressures well controlled. 5. DYSLIPIDEMIA - continue lipid-lowering. No need to repeat fasting lipid profile is it was ordered in August 2016 6. CRI (STAGE III) - continue current plan of care 7. DIABETES - suspect steroid causing elevated glucose levels. Will adjust sliding scale accordingly during hospital stay 8. AORTIC STENOSIS, MODERATE TO SEVERE - avoiding nitrates. Once he stablizes and multiple comorbidities improve, may be candidate for TAVR. 9. PULMONARY HYPERTENSION - PAP 88mmHg. Continue current plan of care. 10. URINARY RETENTION - now S/P insertion crocker catheter. History of prostate cancer. 11. MITRAL REGURGITATION, MODERATE - continue current plan of care 12. ANEMIA/GI BLEED - await recommendations from GI. Exam (Progress Note) - Constitutional Vitals: Period Temp Pulse Resp BP Sys/Slater Pulse Ox Last 24 Hr 96.9 F-97.5 F 70-87 16-20 109-124/50-72 93-99 Exam: General: [Appears well with no apparent distress.] [Pleasant and cooperative. ] [Appears comfortable.] HEENT: [Bilateral arcus noted. Normocephalic, atraumatic. Mucous membranes moist. No jaundice noted. Conjunctiva moist and clear, sclerae anicteric] Neck: No JVD/HJR, no thyromegaly or lymphadenopathy noted. Cardiac: [Regular rate and rhythm.] [IV/ RANDALL heard best at BUSB. Lungs: [Relatively clear to auscultation without accessory muscle use to assist the respiratory pattern.] Oxygen in use via nasal cannula intermittently. Abdomen: Soft, bowel sounds normoactive. Nontender and nondistended. No abdominal bruit or thrill noted. No masses noted. Musculoskeletal: No fluid collection. Decreased range of motion is noted. Extremities: No clubbing, cyanosis noted. [ No edema noted.] Upper extremity pulses 2+. Lower extremity pulses 2+. Capillary refill less than 3 seconds. Skin: No unusual lesions or rashes. No skin breakdown appreciated. Neuro: Awake, alert and oriented 3. Moves all extremities well without hemiparesis or paralysis. No essential tremor is appreciated. Result/EKG - Labs CBC & BMP: 10/25/16 05:08 10/25/16 05:08 Lab Results: I have reviewed the past 24 hour labs Labs: Laboratory Results - last 24 hr 10/22/16 10/22/16 10/24/16 11:42 13:04 12:12 WBC RBC Hgb Hct MCV MCH MCHC RDW Plt Count MPV Neut % (Auto) Lymph % (Auto) [place] % (Auto) Eos % (Auto) Baso % (Auto) Neut # (Auto) Lymph # (Auto) [place] # (Auto) Eos # (Auto) Baso # (Auto) Total Counted Immature Gran % Nucleated RBC % Immature Gran # Segmented Neutrophils Lymphocytes Monocytes Nucleated RBCs # Platelet Estimate Hypochromasia Sodium Potassium Chloride Carbon Dioxide Anion Gap BUN Creatinine GFR Calculation BUN/Creatinine Ratio Glucose POC Glucose 130 H 151 H 407 H Calculated Osmolality Calcium Magnesium 10/24/16 10/24/16 10/24/16 15:35 17:27 20:31 WBC RBC Hgb Hct MCV MCH MCHC RDW Plt Count MPV Neut % (Auto) Lymph % (Auto) [place] % (Auto) Eos % (Auto) Baso % (Auto) Neut # (Auto) Lymph # (Auto) [place] # (Auto) Eos # (Auto) Baso # (Auto) Total Counted Immature Gran % Nucleated RBC % Immature Gran # Segmented Neutrophils Lymphocytes Monocytes Nucleated RBCs # Platelet Estimate Hypochromasia Sodium Potassium Chloride Carbon Dioxide Anion Gap BUN Creatinine GFR Calculation BUN/Creatinine Ratio Glucose POC Glucose 402 H 392 H 409 H Calculated Osmolality Calcium Magnesium 10/24/16 10/25/16 10/25/16 23:53 05:08 05:08 WBC 21.5 H RBC 2.96 L Hgb 9.5 L Hct 27.5 L MCV 92.9 MCH 32 MCHC 34.5 RDW 12.3 Plt Count 466 H D MPV 8.9 L Neut % (Auto) 93.8 H Lymph % (Auto) 1.7 L [place] % (Auto) 2.5 Eos % (Auto) 0.0 Baso % (Auto) 0.1 Neut # (Auto) 20.2 H Lymph # (Auto) 0.4 L [place] # (Auto) 0.5 Eos # (Auto) 0.0 Baso # (Auto) 0.0 Total Counted 100 Immature Gran % 1.9 Nucleated RBC % 0.0 Immature Gran # 0.41 Segmented Neutrophils 97 H Lymphocytes 1 L Monocytes 2 Nucleated RBCs # 0.00 Platelet Estimate Increased Hypochromasia Slight Sodium 141 Potassium 4.7 Chloride 102 Carbon Dioxide 29 Anion Gap 14.7 BUN 64 H Creatinine 1.90 H GFR Calculation 43 BUN/Creatinine Ratio 33.00 H Glucose 314 H POC Glucose 307 H Calculated Osmolality 310.3 H Calcium 9.0 Magnesium 2.5 H 10/25/16 10/25/16 10/25/16 09:14 11:01 14:10 WBC RBC Hgb Hct MCV MCH MCHC RDW Plt Count MPV Neut % (Auto) Lymph % (Auto) [place] % (Auto) Eos % (Auto) Baso % (Auto) Neut # (Auto) Lymph # (Auto) [place] # (Auto) Eos # (Auto) Baso # (Auto) Total Counted Immature Gran % Nucleated RBC % Immature Gran # Segmented Neutrophils Lymphocytes Monocytes Nucleated RBCs # Platelet Estimate Hypochromasia Sodium Potassium Chloride Carbon Dioxide Anion Gap BUN Creatinine GFR Calculation BUN/Creatinine Ratio Glucose POC Glucose 405 H > 500 H* 446 H Calculated Osmolality Calcium Magnesium - EKG EKG results: interpreted by me EKG shows: sinus rhythm Specialty Discharge - Follow Up or Referrals Follow up with: Ryan Welsh MD [Physician] - 2 Weeks
[2016-10-25] MEDS: LEVOFLOXACIN INJ 250 MG in PREMIX 1 EACH IV SCH (21:54)
[2016-10-26] MEDS: ALBUTEROL/IPRATROPIUM 3 ML NEB RESP TX SCH ×6 (00:21→20:36)
[2016-10-26] MEDS: INSULIN LISPRO 100 UNIT/ML SUBCUT SCH ×5 (01:37→20:58)
[2016-10-26 06:35] LABS: Calcium 9.3 MG/DL (8.5-10.1)
[2016-10-26 06:36] LABS: Magnesium 2.6 MG/DL (1.8-2.4); Potassium 4.9 MMOL/L (3.5-5.1)
[2016-10-26] MEDS ORDERED: predniSONE 20 MG TABLET PO SCH (09:00)
[2016-10-26] MEDS: ASPIRIN EC 81 MG TABLET PO SCH (09:41)
[2016-10-26] MEDS: ROSUVASTATIN 10 MG TABLET PO SCH (09:41)
[2016-10-26] MEDS: GLIMEPIRIDE 4 MG TABLET PO SCH (09:42)
[2016-10-26] MEDS: predniSONE 20 MG TABLET PO SCH (09:42)
[2016-10-26] MEDS: TICAGRELOR 90 MG TABLET PO SCH ×2 (09:42→20:58)
[2016-10-26] MEDS: PANTOPRAZOLE 40 MG TABLET PO SCH (09:42)
[2016-10-26] MEDS: POTASSIUM CHLORIDE 20 MEQ TABLET PO SCH (09:42)
[2016-10-26] MEDS: CARVEDILOL 12.5 MG TABLET PO SCH ×2 (09:42→20:58)
[2016-10-26] MEDS: FUROSEMIDE 40 MG/4 ML VIAL IV SCH (09:43)
--- NOTE | 2016-10-26 10:40 | Cardiology Progress Note ---
Assessment and Plan - Time spent with patient Time spent with patient: Greater than 30 minutes (1) Ischemic cardiomyopathy Status: Chronic Assessment and plan: SEE PLAN OF CARE LISTED BELOW Current Visit: Yes (2) Hypertension Status: Chronic Assessment and plan: SEE PLAN OF CARE LISTED BELOW Current Visit: Yes (3) Dyslipidemia Status: Chronic Assessment and plan: SEE PLAN OF CARE LISTED BELOW Current Visit: Yes (4) Pulmonary hypertension Status: Chronic Assessment and plan: SEE PLAN OF CARE LISTED BELOW Current Visit: Yes (5) Coronary artery disease Status: Chronic Assessment and plan: SEE PLAN OF CARE LISTED BELOW Current Visit: No (6) History of coronary artery stent placement Status: Chronic Assessment and plan: SEE PLAN OF CARE LISTED BELOW Current Visit: No (7) CHF (congestive heart failure) Status: Acute Assessment and plan: SEE PLAN OF CARE LISTED BELOW Current Visit: No Qualifiers: Congestive heart failure type: systolic Congestive heart failure chronicity : acute on chronic Qualified Code(s): I50.23 - Acute on chronic systolic ( congestive) heart failure (8) Diabetes type 2, controlled Status: Chronic Assessment and plan: SEE PLAN OF CARE LISTED BELOW Current Visit: No (9) CKD (chronic kidney disease) stage 3, GFR 30-59 ml/min Status: Chronic Assessment and plan: SEE PLAN OF CARE LISTED BELOW Current Visit: No (10) Urethral stricture Status: Acute Assessment and plan: SEE PLAN OF CARE LISTED BELOW Current Visit: No (11) COPD exacerbation Status: Acute Assessment and plan: SEE PLAN OF CARE LISTED BELOW Current Visit: Yes (12) Mitral regurgitation and aortic stenosis Status: Chronic Assessment and plan: SEE PLAN OF CARE LISTED BELOW Current Visit: Yes Cardiology - PN: Subj 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 Daphnie Ho. Patient was admitted October 21, 2016 with acute exacerbation of congestive heart failure. History of known coronary artery disease, hypertension, dyslipidemia, ischemic cardiomyopathy (EF 25-30%), chronic kidney disease (stage III). Chronic anemia , aortic stenosis and diabetes. He has been wearing LifeVest since end of August 2016. Last C: September 09, 2016 revealed: patent stents to LAD, proximal/ mid RCA, and distal RCA. PCI OM2 (RAMIREZ). EF 25% - 30%. LVEDP 24mmHg, mean gradient 28mmHg. September 06, 2016 echo: EF 40% with gradient across the aortic valve a 32 mmHg, severe tricuspid regurgitation with severely elevated right- sided pressures. Repeat echo October 22, 2016 reveals the following: EF 40%, moderate to severe aortic stenosis, moderate MR, PAP 88 mmHg. Denies chest pain, heaviness or tightness. Patient reports that his shortness of breath had worsened of the past 2-3 days prior to admission. For this reason , he sought medical advice. Chest x-ray revealed CHF decompensation, proBNP 2960 in the setting of creatinine of 2.1. EKG revealed normal sinus rhythm, LVH with nonspecific ST-T abnormalities. Cardiac biomarkers stable. Patient had difficulty voiding. Urology placed Crocker catheter after dilating bladder neck Monday. (History of prostate cancer). OCTOBER 24, 2016: Patient reports he is doing better today. His breathing has improved. He is not requiring BiPAP. WBC is elevated however has received steroids during this admission. Overall, he has decreased 1/2 kg since admission. He continues to take aspirin and Brilinta. OCTOBER 25, 2016: Breathing much easier this morning. On review, anemia has worsened since September 2016 and GI has been consulted. Stool 4+ for occult blood. Denies chest pain, heaviness or tightness. He has a history of prostate cancer and I am uncertain of the status of this condition. He has had two admissions for acute CHF in the past month. Aortic stenosis is moderate to severe. May be a candidate for TAVR once his comorbidities improve. Family is concerned he is not sleeping well at home and are requesting sleeping medicine at discharge. I have assured family we will prescribe a limited amount of a mild sedative at discharge and he may follow up with this PCP for refills as needed. OCTOBER 26, 2016: Patient continues to do well. He is lying flat without shortness of breath. Denies chest pain, heaviness or tightness. Dr. Blackman has seen patient and has recommended EGD to evaluate his 4+ stool for occult blood. Hemoglobin and hematocrit 9.5 and 27.5 respectively. Given his moderate to severe aortic stenosis, DURING EGD, RECOMMEND KEEPING SYSTOLIC BLOOD PRESSURE GREATER THAN 120mmHg. Vital signs are stable without arrhythmia. Blood glucose levels are better controlled with adjustments in his medication regimen yesterday. Hopefully, we can discontinue Crocker catheter tomorrow after procedure. ASSESSMENT/PLAN: 1. ACUTE CHF - acute on chronic CHF secondary to severely reduced systolic function (EF 25-30%), moderate to severe . [place] [employer] classification III. Continue with diuretics, afterload reduction, strict I&O and daily weights. Patient is improving each day. No longer orthopneic. 2. ICM - wearing LifeVest with eventual plans for ICD in approximately 60 days. Continue current plan of care. 3. CAD - PCI OM2 September 09, 2016 (see report above). Continue ASA/Brilinta. 4. HYPERTENSION - continue with beta-blockers. Avoiding NEMESIO inhibitors for fear of worsening his renal insufficiency. Blood pressures well controlled. 5. DYSLIPIDEMIA - continue lipid-lowering. No need to repeat fasting lipid profile is it was ordered in August 2016 6. CRI (STAGE III) - continue current plan of care 7. DIABETES - suspect steroid causing elevated glucose levels. This is much improved with medication adjustment yesterday. 8. AORTIC STENOSIS, MODERATE TO SEVERE - avoiding nitrates. Once he stablizes and multiple comorbidities improve, may be candidate for TAVR. 9. PULMONARY HYPERTENSION - PAP 88mmHg. Continue current plan of care. 10. URINARY RETENTION - now S/P insertion crocker catheter. History of prostate cancer. 11. MITRAL REGURGITATION, MODERATE - continue current plan of care 12. ANEMIA/GI BLEED -recommended EGD possibly tomorrow. Exam (Progress Note) - Constitutional Vitals: Period Temp Pulse Resp BP Sys/Slater Pulse Ox Last 24 Hr 96.4 F-97.9 F 67-87 16-20 109-130/50-68 94-99 Exam: General: [Appears well with no apparent distress.] [Pleasant and cooperative. ] [Appears comfortable.] HEENT: [Bilateral arcus noted. Normocephalic, atraumatic. Mucous membranes moist. No jaundice noted. Conjunctiva moist and clear, sclerae anicteric] Neck: No JVD/HJR, no thyromegaly or lymphadenopathy noted. Cardiac: [Regular rate and rhythm.] [IV/ RANDALL heard best at BUSB. Lungs: [Relatively clear to auscultation without accessory muscle use to assist the respiratory pattern.] Oxygen in use via nasal cannula intermittently. Abdomen: Soft, bowel sounds normoactive. Nontender and nondistended. No abdominal bruit or thrill noted. No masses noted. Musculoskeletal: No fluid collection. Decreased range of motion is noted. Extremities: No clubbing, cyanosis noted. [ No edema noted.] Upper extremity pulses 2+. Lower extremity pulses 2+. Capillary refill less than 3 seconds. Skin: No unusual lesions or rashes. No skin breakdown appreciated. Neuro: Awake, alert and oriented 3. Moves all extremities well without hemiparesis or paralysis. No essential tremor is appreciated. Result/EKG - Labs CBC & BMP: 10/25/16 05:08 10/26/16 05:35 Lab Results: I have reviewed the past 24 hour labs Labs: Laboratory Results - last 24 hr 10/25/16 10/25/16 10/25/16 11:01 14:10 17:03 Sodium Potassium Chloride Carbon Dioxide Anion Gap BUN Creatinine GFR Calculation BUN/Creatinine Ratio Glucose POC Glucose > 500 H* 446 H 328 H Calculated Osmolality Calcium Magnesium 10/25/16 10/25/16 10/26/16 18:09 20:11 01:05 Sodium Potassium Chloride Carbon Dioxide Anion Gap BUN Creatinine GFR Calculation BUN/Creatinine Ratio Glucose POC Glucose 300 H 257 H 195 H Calculated Osmolality Calcium Magnesium 10/26/16 10/26/16 10/26/16 03:15 05:35 06:25 Sodium 143 Potassium 4.9 Chloride 104 Carbon Dioxide 31 Anion Gap 12.9 BUN 66 H Creatinine 1.60 H GFR Calculation 53 BUN/Creatinine Ratio 41.00 H Glucose 158 H POC Glucose 162 H 160 H Calculated Osmolality 306.0 H Calcium 9.3 Magnesium 2.6 H 10/26/16 07:33 Sodium Potassium Chloride Carbon Dioxide Anion Gap BUN Creatinine GFR Calculation BUN/Creatinine Ratio Glucose POC Glucose 159 H Calculated Osmolality Calcium Magnesium - EKG EKG results: interpreted by me EKG shows: sinus rhythm Specialty Discharge - Follow Up or Referrals Follow up with: Ryan Welsh MD [Physician] - 2 Weeks
--- NOTE | 2016-10-26 11:28 | Gastrointestinal Progress Note ---
Assessment and Plan (1) Heme + stool Status: Acute Assessment and plan: 10/26-No reports of overt bleeding. Resp status improved today. Plan tentatively to proceed with EGD tomorrow if pt remains stable. Plan and addendum to follow by Dr Blackman. 10/25-Findings of dark tarry stools and noted to be 4+ positive for occult blood x several days. Drop in hemoglobin on admission from baseline of 11, down at 8.1 (now 9.5). No associated symptoms. On Brilinta with recent stent placement ( 6 weeks ago). Plan for tentative EGD when stable from resp standpoint to further evaluate. Plan and addendum to follow by Dr Blackman. Current Visit: Yes Gastroenterology - PN: Subj Interval history: CC: Anemia, heme positive stools Pt is seen awake and alert. States he is feeling some better today. His breathing is improved and he denies any dyspnea while lying flat. No recheck on hemoglobin today however he denies any overt bleeding. His BUn/Cr noted at 41. Discussed case with Leti Marti, AUTOMOTIVE SERVICE DIRECTOR and cardiology feels it is safe to proceed with EGD tomorrow if pt remains stable. Abdomen is soft, nontender. ROS: Denies SOB or chest pain Exam (Progress Note) - Constitutional Vitals: Period Temp Pulse Resp BP Sys/Slater Pulse Ox Last 24 Hr 96.4 F-97.9 F 67-87 16-20 109-130/50-68 94-99 General appearance: normal weight, no acute distress - Head Head exam: Present: normal inspection, normocephalic - Eye Eye exam: Present: other (lids and conjunctiva unremarkable). Absent: scleral icterus - ENT ENT exam: Present: normal exam, normal oropharynx - Neck Neck exam: Present: normal inspection - Respiratory Respiratory exam: Present: clear to auscultation bilaterally. Absent: rales, rhonchi, wheezes - Cardiovascular Cardiovascular exam: Present: regular rate and rhythm. Absent: diastolic murmur , JVD, systolic murmur - GI/Abdominal GI/Abdominal exam: Present: normal bowel sounds, soft. Absent: ascites, distended, mass, organomegaly, tenderness - Extremities Exam Extremities exam: Present: normal inspection, full ROM - Back Exam Back exam: Present: normal inspection - Neurological Exam Neurological exam: Present: alert, oriented X3 - Psychiatric Psychiatric exam: Present: normal affect, normal mood - Skin Skin exam: Present: normal color, warm, dry Results - Labs CBC & BMP: 10/25/16 05:08 10/26/16 05:35 Lab Results: I have reviewed the past 24 hour labs Specialty Discharge - Follow Up or Referrals Follow up with: Ryan Welsh MD [Physician] - 2 Weeks
--- NOTE | 2016-10-26 11:53 | Hospitalist Progress Note ---
Assessment and Plan (1) Acute respiratory failure with hypoxia Status: Acute Assessment and plan: 1)acute resp failure with hypoxia- doing much better now. Off BIPAP. steroids changed to oral, nebs, O2 by MS when needed. 2)COPD- see above 3)CHF- pulmonary edema resolved. His CHF is due to ischemic cardiomyopathy. diuresing, change daily IV lasix to po today.Decrease potassium to 40meQ daily and check K in am. EF is 25-30%. He has a lifevest which he should wear, but he doesn't like it. Plan for AICD in the next months. pHTN 4)diabetes- on orals and SSI. glucose now under 200, will try SSI ac and hs again. 5)anemia- stool guaiac positive., on asa and brillinta. on SCDs instead of lovenox. GI to do EGD when ok with cardiology. 6)CKD- creatinine 1.6, zaroxolyn held yesterday, creatinine range is 1.3-1.8 over last couple of years. change lasix to oral. edema improved. 7)dispo- he wants to go home with home health, not interested in swing bed. 8)urinary retention- has crocker now after dilation of bladder neck (10/22), must have for 5-7 days to allow dilation to heal then follow up with DR Welsh at discharge. Current Visit: Yes (2) Diabetes Status: Chronic Current Visit: No Qualifiers: Diabetes mellitus type: type 2 Diabetes mellitus complication status: without complication (3) Anemia Status: Chronic Current Visit: No (4) Congestive heart failure Status: Acute Current Visit: No Qualifiers: Congestive heart failure type: systolic (5) CHF (congestive heart failure) Status: Acute Current Visit: No Qualifiers: Congestive heart failure type: systolic Congestive heart failure chronicity : acute on chronic Qualified Code(s): I50.23 - Acute on chronic systolic ( congestive) heart failure (6) CKD (chronic kidney disease) stage 3, GFR 30-59 ml/min Status: Acute Current Visit: No (7) COPD exacerbation Status: Acute Current Visit: Yes Hospitalist: Subjective Interval history: Mr Guerrero's respiratory failure from CHF/COPD has improved so that his sats are now good on RA and he is [place]. He has dropping hgb, g+stool and/melena prior to admission and recent cath with stent on Brillinta now- GI to see and will scope when ok with cards. Exam - Constitutional Vitals: Period Temp Pulse Resp BP Sys/Slater Pulse Ox Last 24 Hr 96.4 F-97.9 F 67-87 16-20 109-130/50-68 94-99 General appearance: normal weight, no acute distress - Eye Eye exam: Present: EOMI. Absent: scleral icterus - Respiratory Respiratory exam: Present: clear to auscultation bilaterally - Cardiovascular Cardiovascular exam: Present: regular rate and rhythm - GI/Abdominal GI/Abdominal exam: Present: normal bowel sounds, soft. Absent: tenderness - Extremities Exam Extremities exam: Absent: edema - Neurological Exam Neurological exam: Present: alert, oriented X3 - Skin Skin exam: Present: warm, dry Results - Labs CBC & BMP: 10/25/16 05:08 10/26/16 05:35 Lab Results: I have reviewed the past 24 hour labs Specialty Discharge - Follow Up or Referrals Follow up with: Ryan Welsh MD [Physician] - 2 Weeks
--- NOTE | 2016-10-26 17:14 | Cardiology Progress Note ---
Exam (Progress Note) - Constitutional Vitals: Period Temp Pulse Resp BP Sys/Slater Pulse Ox Last 24 Hr 96.4 F-97.9 F 67-87 16-20 116-130/56-68 93-99 Result/EKG - Labs CBC & BMP: 10/25/16 05:08 10/26/16 05:35 Labs: Laboratory Results - last 24 hr 10/25/16 10/25/16 10/25/16 17:03 18:09 20:11 Sodium Potassium Chloride Carbon Dioxide Anion Gap BUN Creatinine GFR Calculation BUN/Creatinine Ratio Glucose POC Glucose 328 H 300 H 257 H Calculated Osmolality Calcium Magnesium 10/26/16 10/26/16 10/26/16 01:05 03:15 05:35 Sodium 143 Potassium 4.9 Chloride 104 Carbon Dioxide 31 Anion Gap 12.9 BUN 66 H Creatinine 1.60 H GFR Calculation 53 BUN/Creatinine Ratio 41.00 H Glucose 158 H POC Glucose 195 H 162 H Calculated Osmolality 306.0 H Calcium 9.3 Magnesium 2.6 H 10/26/16 10/26/16 10/26/16 06:25 07:33 11:49 Sodium Potassium Chloride Carbon Dioxide Anion Gap BUN Creatinine GFR Calculation BUN/Creatinine Ratio Glucose POC Glucose 160 H 159 H 197 H Calculated Osmolality Calcium Magnesium 10/26/16 15:43 Sodium Potassium Chloride Carbon Dioxide Anion Gap BUN Creatinine GFR Calculation BUN/Creatinine Ratio Glucose POC Glucose 256 H Calculated Osmolality Calcium Magnesium Specialty Discharge - Follow Up or Referrals Follow up with: Ryan Welsh MD [Physician] - 2 Weeks
[2016-10-26] MEDS: LEVOFLOXACIN INJ 500 MG in PREMIX 1 EACH IV SCH (21:00)
[2016-10-27] MEDS: ALBUTEROL/IPRATROPIUM 3 ML NEB RESP TX SCH ×7 (00:44→22:38)
[2016-10-27 06:15] LABS: Calcium 9.3 MG/DL (8.5-10.1); Osmolality,Calculated 298.1 MOS/KG (273-304); Potassium 4.6 MMOL/L (3.5-5.1)
[2016-10-27] MEDS: INSULIN LISPRO 100 UNIT/ML SUBCUT SCH ×4 (08:04→21:15)
[2016-10-27] MEDS: ROSUVASTATIN 10 MG TABLET PO SCH (08:30)
[2016-10-27] MEDS: TICAGRELOR 90 MG TABLET PO SCH ×2 (08:30→21:08)
[2016-10-27] MEDS: GLIMEPIRIDE 4 MG TABLET PO SCH (08:30)
[2016-10-27] MEDS: POTASSIUM CHLORIDE 20 MEQ TABLET PO SCH (08:30)
[2016-10-27] MEDS: ASPIRIN EC 81 MG TABLET PO SCH (08:30)
[2016-10-27] MEDS: CARVEDILOL 12.5 MG TABLET PO SCH ×2 (08:30→21:08)
[2016-10-27] MEDS: FUROSEMIDE 40 MG TABLET PO SCH (08:31)
[2016-10-27] MEDS: PANTOPRAZOLE 40 MG TABLET PO SCH (08:31)
[2016-10-27] MEDS: predniSONE 20 MG TABLET PO SCH (08:31)
--- NOTE | 2016-10-27 09:30 | Hospitalist Progress Note ---
Assessment and Plan - Time spent with patient Time spent with patient: Less than 30 minutes (1) Leukocytosis Status: Acute Assessment and plan: Mr. Guerrero is a 76-year-old male admitted with acute respiratory failure with hypoxia due to pulmonary edema from CHF, urinary retention, and anemia with positive guaiac stools. Dr. Blankenship will see and examine patient and further recommendations to follow. Acute respiratory failure with hypoxia/COPD--patient feels much better. He is on oral steroids, nebs, oxygen as needed CHF--his pulmonary edema has resolved. This is due to his ischemic cardiomyopathy. He has an EF of 25-30%. His Lasix has been changed to p.o. His potassium was decreased to 40 daily and it is normal today. Patient has a LifeVest that he should wear that he does not have on. The plan is for AICD placement in the next few months. Diabetes hyperglycemia--patient's blood sugars were elevated due to high-dose steroids. He is on oral meds and sliding scale insulin. His blood sugars are under control now and he is back on before meals and at bedtime checks Leukocytosis--this is down to 21 today. This is most likely due to his high- dose steroid usage. There are no signs of infection. Anemia/guaiac positive stools--patient to undergo EGD today by Dr. Blackman. He is on aspirin and Brilinta. He has SCDs instead of Lovenox. CKD--creatinine is down to 1.6 which is his baseline. His Lasix has been changed to oral and his edema is improved. Urinary retention--patient has a Prieto status post dilation of the bladder neck on 513. He must carry the Prieto for 5-7 days to allow dilation to heal he will follow-up with Dr. Welsh at discharge. Current Visit: Yes (2) Hyperglycemia Status: Acute Current Visit: Yes (3) Diabetes Status: Chronic Current Visit: No Qualifiers: Diabetes mellitus type: type 2 Diabetes mellitus complication status: without complication (4) Anemia Status: Chronic Current Visit: No (5) Urinary retention Problem details: History of urethral strictures and prostate cancer Status: Resolved Current Visit: No (6) CKD (chronic kidney disease) stage 3, GFR 30-59 ml/min Status: Chronic Current Visit: No (7) Acute respiratory failure with hypoxia Status: Acute Current Visit: Yes (8) COPD exacerbation Status: Acute Current Visit: Yes (9) Hypertension Status: Chronic Current Visit: Yes (10) Heme + stool Status: Acute Current Visit: Yes Hospitalist: Subjective Interval history: Patient feels a lot better this morning. He states he is ready to go home when the doctors will let him. He is awaiting EGD today at 11 AM. Exam - Constitutional Vitals: Period Temp Pulse Resp BP Sys/Slater Pulse Ox Last 24 Hr 96.7 F-97.8 F 72-85 16-18 117-131/56-75 93-99 Exam: 76-year-old -[place] male, no acute distress Chest clear CV regular rate and rhythm Abdomen soft nontender Extremities no edema Results - Labs CBC & BMP: 10/25/16 05:08 10/27/16 04:39 Lab Results: I have reviewed the past 24 hour labs Specialty Discharge - Follow Up or Referrals Follow up with: Ryan Welsh MD [Physician] - 2 Weeks
[2016-10-27] MEDS ORDERED: PROPOFOL 200 MG/20 ML VIAL IV ONE (12:00)
[2016-10-27] MEDS ORDERED: LIDOCAINE 2% 5 ML VIAL ONE (12:00)
[2016-10-27] MEDS ORDERED: PHENYLEPHRINE 1 MG/10 ML SYRINGE IV ONE (12:00)
--- NOTE | 2016-10-27 12:07 | Cardiology Progress Note ---
Assessment and Plan - Time spent with patient Time spent with patient: Greater than 30 minutes (1) Ischemic cardiomyopathy Status: Chronic Assessment and plan: SEE PLAN OF CARE LISTED BELOW Current Visit: Yes (2) Hypertension Status: Chronic Assessment and plan: SEE PLAN OF CARE LISTED BELOW Current Visit: Yes (3) Dyslipidemia Status: Chronic Assessment and plan: SEE PLAN OF CARE LISTED BELOW Current Visit: Yes (4) Pulmonary hypertension Status: Chronic Assessment and plan: SEE PLAN OF CARE LISTED BELOW Current Visit: Yes (5) Coronary artery disease Status: Chronic Assessment and plan: SEE PLAN OF CARE LISTED BELOW Current Visit: No (6) History of coronary artery stent placement Status: Chronic Assessment and plan: SEE PLAN OF CARE LISTED BELOW Current Visit: No (7) CHF (congestive heart failure) Status: Acute Assessment and plan: SEE PLAN OF CARE LISTED BELOW Current Visit: No Qualifiers: Congestive heart failure type: systolic Congestive heart failure chronicity : acute on chronic Qualified Code(s): I50.23 - Acute on chronic systolic ( congestive) heart failure (8) Diabetes type 2, controlled Status: Chronic Assessment and plan: SEE PLAN OF CARE LISTED BELOW Current Visit: No (9) CKD (chronic kidney disease) stage 3, GFR 30-59 ml/min Status: Chronic Assessment and plan: SEE PLAN OF CARE LISTED BELOW Current Visit: No (10) Urethral stricture Status: Acute Assessment and plan: SEE PLAN OF CARE LISTED BELOW Current Visit: No (11) COPD exacerbation Status: Acute Assessment and plan: SEE PLAN OF CARE LISTED BELOW Current Visit: Yes (12) Mitral regurgitation and aortic stenosis Status: Chronic Assessment and plan: SEE PLAN OF CARE LISTED BELOW Current Visit: Yes Cardiology - PN: Subj Interval history: CARRY ALL DRIVER: DR. HO SUMMARY: 76BM, routinely followed by Dr. Daphnie Ho. Patient was admitted October 21, 2016 with acute exacerbation of congestive heart failure. History of known coronary artery disease, hypertension, dyslipidemia, ischemic cardiomyopathy (EF 25-30%), chronic kidney disease (stage III). Chronic anemia , aortic stenosis and diabetes. He has been wearing LifeVest since end of August 2016. Last C: September 09, 2016 revealed: patent stents to LAD, proximal/ mid RCA, and distal RCA. PCI OM2 (RAMIREZ). EF 25% - 30%. LVEDP 24mmHg, mean gradient 28mmHg. September 06, 2016 echo: EF 40% with gradient across the aortic valve a 32 mmHg, severe tricuspid regurgitation with severely elevated right- sided pressures. Repeat echo October 22, 2016 reveals the following: EF 40%, moderate to severe aortic stenosis, moderate MR, PAP 88 mmHg. Denies chest pain, heaviness or tightness. Patient reports that his shortness of breath had worsened of the past 2-3 days prior to admission. For this reason , he sought medical advice. Chest x-ray revealed CHF decompensation, proBNP 2960 in the setting of creatinine of 2.1. EKG revealed normal sinus rhythm, LVH with nonspecific ST-T abnormalities. Cardiac biomarkers stable. Patient had difficulty voiding. Urology placed Crocker catheter after dilating bladder neck Monday. (History of prostate cancer). OCTOBER 24, 2016: Patient reports he is doing better today. His breathing has improved. He is not requiring BiPAP. WBC is elevated however has received steroids during this admission. Overall, he has decreased 1/2 kg since admission. He continues to take aspirin and Brilinta. OCTOBER 25, 2016: Breathing much easier this morning. On review, anemia has worsened since September 2016 and GI has been consulted. Stool 4+ for occult blood. Denies chest pain, heaviness or tightness. He has a history of prostate cancer and I am uncertain of the status of this condition. He has had two admissions for acute CHF in the past month. Aortic stenosis is moderate to severe. May be a candidate for TAVR once his comorbidities improve. Family is concerned he is not sleeping well at home and are requesting sleeping medicine at discharge. I have assured family we will prescribe a limited amount of a mild sedative at discharge and he may follow up with this PCP for refills as needed. OCTOBER 26, 2016: Patient continues to do well. He is lying flat without shortness of breath. Denies chest pain, heaviness or tightness. Dr. Blackman has seen patient and has recommended EGD to evaluate his 4+ stool for occult blood. Hemoglobin and hematocrit 9.5 and 27.5 respectively. Given his moderate to severe aortic stenosis, DURING EGD, RECOMMEND KEEPING SYSTOLIC BLOOD PRESSURE GREATER THAN 120mmHg. Vital signs are stable without arrhythmia. Blood glucose levels are better controlled with adjustments in his medication regimen yesterday. Hopefully, we can discontinue Crocker catheter tomorrow after procedure. OCTOBER 27, 2016 - Scheduled to undergo EGD today. He sitting up in the bedside chair without chest pain, heaviness or tightness. Creatinine continues to improve is noted to be 1.6 this morning. I will order CBC for tomorrow. Hopefully, he will be ready for discharge tomorrow. According to urology recommendations, will need to keep the Crocker catheter several more days until he sees Dr. Welsh. Will decrease Coreg to 6.25 mg orally twice daily as he has some lower blood pressures. ASSESSMENT/PLAN: 1. ACUTE CHF - acute on chronic CHF secondary to severely reduced systolic function (EF 25-30%), and diastolic dysfunction due to moderate to severe . [place] [employer] classification II. Continue with diuretics, afterload reduction, strict I&O and daily weights. Patient is improving each day. Hopefully eligible for discharge tomorrow. 2. ICM - wearing LifeVest with eventual plans for ICD in approximately 60 days. Continue current plan of care. 3. CAD - PCI OM2 September 09, 2016 (see report above). Continue ASA/Brilinta. 4. HYPERTENSION - continue with beta-blockers. Avoiding NEMESIO inhibitors for fear of worsening his renal insufficiency. 5. DYSLIPIDEMIA - continue lipid-lowering. No need to repeat fasting lipid profile is it was ordered in August 2016 6. CRI (STAGE III) - continue current plan of care 7. DIABETES - suspect steroid causing elevated glucose levels. This is much improved with medication adjustment. 8. AORTIC STENOSIS, MODERATE TO SEVERE - avoiding nitrates. Once he stablizes and multiple comorbidities improve, may be candidate for TAVR. 9. PULMONARY HYPERTENSION - PAP 88mmHg. Continue current plan of care. 10. URINARY RETENTION - now S/P insertion crocker catheter. History of prostate cancer. 11. MITRAL REGURGITATION, MODERATE - continue current plan of care 12. ANEMIA/GI BLEED - EGD today. Exam (Progress Note) - Constitutional Vitals: Period Temp Pulse Resp BP Sys/Slater Pulse Ox Last 24 Hr 96.7 F-97.8 F 71-85 16-18 99-131/51-090 93-99 Exam: General: [Appears well with no apparent distress.] [Pleasant and cooperative. ] [Appears comfortable.] HEENT: [Bilateral arcus noted. Normocephalic, atraumatic. Mucous membranes moist. No jaundice noted. Conjunctiva moist and clear, sclerae anicteric] Neck: No JVD/HJR, no thyromegaly or lymphadenopathy noted. Cardiac: [Regular rate and rhythm.] [IV/ RANDALL heard best at BUSB. Lungs: [Relatively clear to auscultation without accessory muscle use to assist the respiratory pattern.] Oxygen in use via nasal cannula intermittently. Abdomen: Soft, bowel sounds normoactive. Nontender and nondistended. No abdominal bruit or thrill noted. No masses noted. Musculoskeletal: No fluid collection. Decreased range of motion is noted. Extremities: No clubbing, cyanosis noted. [ No edema noted.] Upper extremity pulses 2+. Lower extremity pulses 2+. Capillary refill less than 3 seconds. Skin: No unusual lesions or rashes. No skin breakdown appreciated. Neuro: Awake, alert and oriented 3. Moves all extremities well without hemiparesis or paralysis. No essential tremor is appreciated. Result/EKG - Labs CBC & BMP: 10/25/16 05:08 10/27/16 04:39 Lab Results: I have reviewed the past 24 hour labs Labs: Laboratory Results - last 24 hr 10/26/16 10/26/16 10/27/16 15:43 19:37 04:39 Sodium 142 Potassium 4.6 Chloride 101 Carbon Dioxide 32 Anion Gap 13.6 BUN 61 H Creatinine 1.60 H GFR Calculation 52 BUN/Creatinine Ratio 38.00 H Glucose 84 POC Glucose 256 H 344 H Calculated Osmolality 298.1 Calcium 9.3 10/27/16 10/27/16 07:42 11:14 Sodium Potassium Chloride Carbon Dioxide Anion Gap BUN Creatinine GFR Calculation BUN/Creatinine Ratio Glucose POC Glucose 95 113 H Calculated Osmolality Calcium - EKG EKG results: interpreted by me EKG shows: sinus rhythm Specialty Discharge - Follow Up or Referrals Follow up with: Ryan Welsh MD [Physician] - 2 Weeks
--- NOTE | 2016-10-27 12:44 | History and Physical Update ---
History and Physical Update - Physical Exam Mental Status: alert and oriented Heart: regular rate and rhythm Lung: clear to auscultation Abdomen: within normal limits Vitals: within normal limits History and Physical Changes: Patient is a 76-year-old male who has had recent GI bleeding with melena on Brilinta which cannot be stopped due to her recent coronary stent. He has required transfusion but has been stable the last few days.
--- NOTE | 2016-10-27 12:49 | Operative Note ---
Date of procedure: 10/27/16 Pre-op diagnosis: GI bleed with melena Procedure: Procedure: Esophagogastroduodenoscopy Brief clinical abstract: Patient is a 76-year-old male with coronary artery disease and recent coronary stent placement. He was admitted with GI bleeding with melena requiring transfusion. He has been stable the last few days. His Brilinta has been continued due to the coronary stent. Indication for procedure: GI bleed with melena Endoscopic findings:[After informed consent was obtained, the patient was placed in the left lateral decubitus position. The gastroscope was inserted in the upper esophagus under direct vision with no resistance encountered. Esophageal mucosa appeared normal with squamocolumnar junction sharply demarcated at the diaphragmatic indentation. The endoscope was advanced in the stomach which was carefully examined including retroflexed view of the cardia and fundus. There was a large amount of food throughout the fundus and extending into the antrum of the stomach. This greatly limited visibility although no gross mucosal lesions were seen. No blood was noted in the stomach. The pyloric channel, duodenal bulb, second and third portion of the duodenum were normal. The endoscope was removed and patient appeared to tolerate the procedure well. Impression: #1 large amount of retained food in stomach-would suggest gastric motility disorder/gastroparesis #2 no source for bleeding identified but sensitivity of exam could be significantly decreased with retained food Recommendations: Would continue to observe for now. If he re-bled, could consider repeating endoscopy with clear liquid diet to allow bladder exam. Also I will ask him about possible gastroparesis symptoms which he has not mentioned before. Anesthesia: MAC Surgeon / Physician: Emre Blackman Estimated blood loss: none Specimens: none sent Condition: stable Disposition: post procedure unit Results - Labs CBC & BMP: 10/25/16 05:08 10/27/16 04:39 Discharge Plan - Discharge Medications No Action Potassium Chloride 10 meq PO DAILY Glimepiride [Amaryl] 4 mg PO DAILY W/BREAKFAST metFORMIN [Glucophage] 1,000 mg PO BID W/MEALS Aspirin [Ecotrin] 81 mg PO DAILY Carvedilol [Coreg] 12.5 mg PO BID Furosemide Tab [Lasix Tab] 40 mg PO BID #60 tablet Rosuvastatin [Crestor] 5 mg PO DAILY Isosorbide Mononitrate [Imdur] 15 mg PO DAILY #60 tablet Clopidogrel [Plavix] 75 mg PO DAILY - Follow Up or Referral Follow Up: Ryan Welsh MD [Physician] - 2 Weeks - Forms/Instructions
--- NOTE | 2016-10-27 13:48 | Anesthesia Post-Op ---
Anesthesia Post OP - Post Ansesthetic Evaluation Patient seen in post op: Yes Resp: within normal limits CV: within normal limits Mental: within normal limits Temp: within normal limits Kyld-Kh-Iicoeemez: within normal limits Nausea and Vomiting: within normal limits Pain: within normal limits
[2016-10-27] MEDS: LEVOFLOXACIN INJ 500 MG in PREMIX 1 EACH IV SCH (21:09)
[2016-10-28] MEDS: ALBUTEROL/IPRATROPIUM 3 ML NEB RESP TX SCH ×3 (02:24→11:19)
[2016-10-28 05:30] LABS: Basophils % 0.1 % (0.0-0.8); Eosinophils # 0.1 10*3/uL (0.0-0.87); Eosinophils % 1.5 % (0.00-10.9); Hematocrit 30.5 VOL% (42.0-52.0); Hemoglobin 10.2 GM/DL (14.0-18.0); Immature Granulocytes % 1.4 %; Immature Granulocytes Absolute 0.12 #; Lymphocytes # 0.9 10*3/uL (1.4-4.0); Lymphocytes % 10.1 % (21.2-54.2); Mean Corpuscular HGB Conc 33.4 GM/DL (32-36); Mean Corpuscular Hemoglobin 31 PG (27-34); Mean Corpuscular Volume 93.8 FL (87-102); Monocytes # 0.8 10*3/uL (0.11-0.8); Neutrophils # 6.6 10*3/uL (1.4-7.4); Neutrophils % 77.9 % (38.7-73.9); Platelet Count 455 T/CUMM (130-400); Red Blood Count 3.25 MC/CUMM (3.8-5.5); Red Cell Distribution Width 12.8 % (9.3-17.3); White Blood Count 8.5 T/CUMM (4-12)
[2016-10-28 05:59] LABS: Calcium 9.4 MG/DL (8.5-10.1); Magnesium 2.5 MG/DL (1.8-2.4); Osmolality,Calculated 299.8 MOS/KG (273-304); Potassium 4.8 MMOL/L (3.5-5.1)
[2016-10-28] MEDS: CARVEDILOL 12.5 MG TABLET PO SCH (08:23)
[2016-10-28] MEDS: TICAGRELOR 90 MG TABLET PO SCH (08:23)
[2016-10-28] MEDS: INSULIN LISPRO 100 UNIT/ML SUBCUT SCH ×2 (08:23→12:41)
[2016-10-28] MEDS: PANTOPRAZOLE 40 MG TABLET PO SCH (08:23)
[2016-10-28] MEDS: ROSUVASTATIN 10 MG TABLET PO SCH (08:23)
[2016-10-28] MEDS: predniSONE 20 MG TABLET PO SCH (08:24)
[2016-10-28] MEDS: FUROSEMIDE 40 MG TABLET PO SCH (08:24)
[2016-10-28] MEDS: POTASSIUM CHLORIDE 20 MEQ TABLET PO SCH (08:25)
[2016-10-28] MEDS: GLIMEPIRIDE 4 MG TABLET PO SCH (08:25)
[2016-10-28] MEDS: ASPIRIN EC 81 MG TABLET PO SCH (08:25)
--- NOTE | 2016-10-28 08:34 | Discharge Summary ---
Addendum entered and electronically signed by Clarice Ni PA 10/28/16 11:23: This discharge summary is being amended to show that Plavix has been discontinued upon discharge. Original Note: Hospital Course - Hospital Course Hospital Course: Mr. Guerrero is a 76-year-old -[place] male admitted by the hospitalist service on 10/21/2016 with acute respiratory failure with hypoxia, CHF exacerbation and worsening anemia. He was also found to have urinary retention with a history of chronic kidney disease. Nurses were unable to Place Crocker so urology was consulted on 10/22/2016 and they noted a bladder neck contracture. They did a dilation of the bladder neck and placement of an 18 Tajik catheter. This was kept in place for 5 days and removed. Patient is urinating without difficulty at this time. Cardiology also followed this patient. He is a patient of Dr. Ho. He has severely reduced systolic function with an EF 25-30%, aortic stenosis, pulmonary hypertension and mitral regurgitation. He was placed on diuretics, afterload reduction, strict I&O and daily weights. Patient is improved and feeling much better. Patient does have a LifeVest that he is to wear for eventual plans for ICD placement in [address] Blackman from gastroenterology was also consulted for patient due to complaints of melena prior to arrival. Patient is on Brilinta and aspirin due to his coronary stenting. Dr. Blackman performed EGD on 10/27/2016 and found a large amount of retained food in the stomach suggestive of gastric motility disorder/ gastroparesis. He found no source of bleeding and recommended continuing observation for now. Patient is asymptomatic for this at the moment. He has no nausea or vomiting and is tolerating a diet. Patient has reached maximal hospital benefit and he is ready for discharge home. Patient's case was coordinated with Dr. Blankenship, cardiology, urology, patient and family. Case coordination, chart review, and discharge paperwork all took approximately 43 minutes. - Time spent with patient Time with patient DS: Greater than 30 minutes Diagnosis - Discharge Diagnosis (1) Leukocytosis Status: Resolved (2) Hyperglycemia Status: Resolved (3) Diabetes Status: Chronic (4) Anemia Status: Chronic (5) Urinary retention Status: Resolved (6) CKD (chronic kidney disease) stage 3, GFR 30-59 ml/min Status: Chronic (7) Acute respiratory failure with hypoxia Status: Resolved (8) COPD exacerbation Status: Resolved (9) Hypertension Status: Chronic (10) Heme + stool Status: Resolved Specialty Discharge - Follow Up or Referrals Follow up with: Daphnie Ho MD [Physician] - Vijay Jaquez MD [Physician] - (check to see if he has follow up for his CKD ) Ryan Welsh MD [Physician] - 2 Weeks Discharge Plan - Discharge Data Disposition: Disch To Home/Self Care Condition at Discharge: Stable Discharge Diet: diabetic diet Activity: resume usual activities as tolerated Hygiene: may shower Driving: no restrictions Contact your physician if you experience:: Nausea/Vomiting, Bleeding - Discharge Medications New Ticagrelor [Brilinta] 90 mg PO BID #120 tablet Continue Potassium Chloride 10 meq PO DAILY Glimepiride [Amaryl] 4 mg PO DAILY W/BREAKFAST metFORMIN [Glucophage] 1,000 mg PO BID W/MEALS Aspirin [Ecotrin] 81 mg PO DAILY Furosemide Tab [Lasix Tab] 40 mg PO BID #60 tablet Rosuvastatin [Crestor] 5 mg PO DAILY Isosorbide Mononitrate [Imdur] 15 mg PO DAILY #60 tablet Clopidogrel [Plavix] 75 mg PO DAILY Changed Carvedilol [Coreg] 6.25 mg PO BID #60 - Follow Up or Referral Follow Up: Vijay Jaquez MD [Physician] - (check to see if he has follow up for his CKD ) Ryan Welsh MD [Physician] - 2 Weeks Daphnie Ho MD [Physician] - 2 Weeks - Forms/Instructions Exam - Constitutional Vitals: Period Temp Pulse Resp BP Sys/Slater Pulse Ox Last 24 Hr 97.0 F-97.7 F 15 99-130/48-090 93-100 Exam: 76-year-old -[place] male, no acute distress, alert and oriented Chest clear CV regular rate and rhythm Abdomen soft and nontender Extremities no edema Discharge Results Procedures and tests throughout hospitalization: Pending Orders 10/25/16 09:50 Occult Blood, Stool Routine Labs on day of discharge: Labs from last 24 hours 10/28/16 10/28/16 10/28/16 07:43 05:01 05:01 WBC 8.5 D RBC 3.25 L Hgb 10.2 L Hct 30.5 L MCV 93.8 MCH 31 MCHC 33.4 RDW 12.8 Plt Count 455 H MPV 9.0 L Neut % (Auto) 77.9 H Lymph % (Auto) 10.1 L Wolfe % (Auto) 9.0 Eos % (Auto) 1.5 Baso % (Auto) 0.1 Neut # (Auto) 6.6 Lymph # (Auto) 0.9 L Wolfe # (Auto) 0.8 Eos # (Auto) 0.1 Baso # (Auto) 0.0 Immature Gran % 1.4 Nucleated RBC % 0.0 Immature Gran # 0.12 Nucleated RBCs # 0.00 Sodium 144 Potassium 4.8 Chloride 102 Carbon Dioxide 31 Anion Gap 15.8 H BUN 52 H Creatinine 1.50 H GFR Calculation 56 BUN/Creatinine Ratio 34.00 H Glucose 99 POC Glucose 105 Calculated Osmolality 299.8 Calcium 9.4 Magnesium 2.5 H 10/27/16 10/27/16 10/27/16 21:07 16:22 11:14 WBC RBC Hgb Hct MCV MCH MCHC RDW Plt Count MPV Neut % (Auto) Lymph % (Auto) Wolfe % (Auto) Eos % (Auto) Baso % (Auto) Neut # (Auto) Lymph # (Auto) Wolfe # (Auto) Eos # (Auto) Baso # (Auto) Immature Gran % Nucleated RBC % Immature Gran # Nucleated RBCs # Sodium Potassium Chloride Carbon Dioxide Anion Gap BUN Creatinine GFR Calculation BUN/Creatinine Ratio Glucose POC Glucose 268 H 120 H 113 H Calculated Osmolality Calcium Magnesium DS: Provider Date of admission: 10/21/16 21:01 Primary care physician: Jesus Foss DO Attending physician on admission: Cameron Lindo Consults: 10/21/16 21:02 Consult to Physician [CONS] Routine Comment: Consulting Provider: Daphnie Ho Consult Notification Comment: Dr. Christie saw 10/22/16 at 0805 10/22/16 09:55 Consult to Physician [CONS] Routine Comment: samantha crocker Consulting Provider: Ernesto Campbell When should Consulting Provider be notified: Now Person Notified: Dr. Campbell Date Notified: 10/22/16 Time Notified: 10:00 Consult Notification Comment: Spoke to Dr. Campbell over phone. 10/25/16 11:59 Consult to Physical Therapy [CONS] Routine Reason for Physical Therapy: Evaluate and Treat 10/25/16 13:43 Consult to Physician [CONS] Routine Comment: anemnia, g+stool Consulting Provider: Emre Blackman Consult to Specialist Group: Gastroenterology When should Consulting Provider be notified: Now Person Notified: TOÑA Date Notified: 10/25/16 Time Notified: 14:40 Consult Notification Comment: LEFT MESSAGE AT 1425 OF CONSULT 10/26/16 16:34 Consult to Case Mgmt/Social Srvs [CONS] Routine Reason for Case Mgmt/Social Srvs: Home Health Consult Comment: physical therapy; chf program Discharging clinician: EULOGIO Green Expected date of discharge: 10/28/16
[2016-10-28 12:22] VITALS: BP 98/58
== END 2016-10-28 15:20 | disposition home or self-care (01) | DRG 291 ==
LOC: EDBD → EDUNIT# → N.ED 17:49 → N.EDINP 21:01 → SUATTDRO 21:01 → N.CC 21:45 → N.TELEN 10-24 15:23
PROVIDERS: ADMIT Family Medicine; ATTEND Internal Medicine

== ENCOUNTER 2016-11-12 12:01 | Observation (INO) ==
--- NOTE | 2016-11-12 12:34 | EKG Report ---
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
--- NOTE | 2016-11-12 12:54 | XRay Report ---
Exam: XR chest 1V portable Indication: Shortness of breath Comparison study: October 21, 2016 Findings: Excellent mild enlarged, similar to prior. Control unit overlying the mediastinum and left hilar region is in similar position as compared to prior. Additional electronic units at the lateral aspect of the lower chest bilaterally appear in similar positions. Lungs are predominantly clear. There is slight improved aeration within the perihilar regions and lung bases when compared to prior. There is no definite focal consolidation. There is no pneumothorax or pleural effusion identified. Osseous structures appear stable from prior. Impression: Improved aeration with near complete clearing of perihilar and basilar interstitial opacities seen previously. Cardiac silhouette is mildly enlarged, similar to prior. Multiple electronic control units throughout the lower chest appear in similar position. PROCEDURE INTERPRETED AT [facility] DEPARTMENT OF RADIOLOGY Final Report Signed by: Keaton Young
[2016-11-12 13:07] LABS: Basophils % 0.2 % (0.0-0.8); Eosinophils # 0.1 10*3/uL (0.0-0.87); Hematocrit 25.9 VOL% (42.0-52.0); Hemoglobin 8.6 GM/DL (14.0-18.0); Immature Granulocytes % 0.4 %; Immature Granulocytes Absolute 0.02 #; Lymphocytes # 0.9 10*3/uL (1.4-4.0); Lymphocytes % 18.8 % (21.2-54.2); Mean Corpuscular HGB Conc 33.2 GM/DL (32-36); Mean Corpuscular Hemoglobin 32 PG (27-34); Mean Corpuscular Volume 96.6 FL (87-102); Mean Platelet Volume 9.1 FL (9.6-12.0); Monocytes # 0.5 10*3/uL (0.11-0.8); Monocytes % 10.2 % (1.7-12.7); Neutrophils # 3.4 10*3/uL (1.4-7.4); Neutrophils % 68.4 % (38.7-73.9); Platelet Count 297 T/CUMM (130-400); Red Blood Count 2.68 MC/CUMM (3.8-5.5); Red Cell Distribution Width 13.6 % (9.3-17.3); White Blood Count 4.9 T/CUMM (4-12)
[2016-11-12 13:18] LABS: D-Dimer 0.9 MG/L FEU; PT Patient Result 11.1 SECS
[2016-11-12 13:36] LABS: Alanine Aminotransferase 22 U/L (16-61); Albumin 2.5 G/DL (3.4-5.0); Alkaline Phosphatase 89 U/L (45-117); Aspartate Amino Transferase 20 U/L (0-37); Bilirubin,Total < 0.39 MG/DL (0.2-1.0); Blood Urea Nitrogen 31 MG/DL (7-18); Calcium 8.6 MG/DL (8.5-10.1); Glucose 113 MG/DL (74-106); Osmolality,Calculated 295.7 MOS/KG (273-304); Sodium 145 MMOL/L (136-145); Total Protein 6.9 G/DL (6.4-8.3)
[2016-11-12 13:37] LABS: Troponin I Only 0.071 NG/ML (0.00-0.045)
[2016-11-12 13:47] LABS: Apearance,Urine CLEAR (Clear); Bilirubin,Urine Negative (Negative); Blood, Urine Small mg/dL (Negative); Glucose,Urine (UA) Negative (Negative); Hyaline Casts,Urine 1 /LPF (0-3); Ketones,Urine Negative (Negative); Mucus,Urine Occasional /LPF (Occasional); Nitrite,Urine Negative (Negative); Protein,Urine 100 MG/DL; RBC,Urine 3 /HPF (0-4); Squamous Epithelial Cell,Urine Occasional /HPF (0-10); Urine Color Yellow (Yellow); Urine Specific Gravity 1.013 (1.001-1.035); Urine Urobilinogen < 2.0 EU/DL (0.2-1.0); WBC,Urine 2 /HPF (0-6)
--- NOTE | 2016-11-12 14:26 | Emergency Department Note ---
Fan Perez Hilary, am scribing for, and in the presence of, Jose Antonio Kitchen Jr., MD 12:36. Fidelina Perez Marvin Jr., MD, personally performed the services described in this documentation, ascribed by Yani Chavira in my presence, and it is both accurate and complete [phone] . Arrival - Arrival Chief Complaint: Shortness of Breath Stated Complaint: sob ED Nursing Triage Note: c/o being SOB since last evening around 2100 , denies having coughing, denies fever, denies chills., states had to sleep sitting up last night., states his left ankle started swelling last three days., states was evaluated last evening at [facility] for his legs swelling , EKG obtained at time of triage Mode of Arrival: Ambulatory Limitations: No Limitations Source: Patient, Family, RN Notes Reviewed Time Seen by Provider: 11/12/16 12:27 - History of Present Illness HPI Narrative: Pt is a 76 y/o black male presenting to the ED with c/o shortness of breath which onset last night and worsened this morning. Pt reports that he has Oxygen at home for his CHF and that last night his oxygen levels were low. He confirms SOB, chills, and SOB worsening when walking or laying down but denies chest pain , fever, nausea or vomiting. No other complaints or problems stated in the ED. Onset (ago): hour(s) Consistency: intermittent Allergies/Adverse Reactions: Allergies Allergy/AdvReac Type Severity Reaction Status Date / Time No Known Allergies Allergy Verified 11/12/16 12:10 Home Medications: Home Medications Medication Instructions Recorded Confirmed Type Glimepiride [Amaryl] 4 mg PO DAILY W/BREAKFAST 02/01/15 11/12/16 History Aspirin [Ecotrin] 81 mg PO QPM 07/31/15 11/12/16 History metFORMIN [Glucophage] 1,000 mg PO BID W/MEALS 07/31/15 11/12/16 History Furosemide Tab [Lasix Tab] 40 mg PO BID #60 tablet 05/04/16 11/12/16 Rx Rosuvastatin [Crestor] 5 mg PO DAILY 09/06/16 11/12/16 History Carvedilol [Coreg] 6.25 mg PO BID #60 10/28/16 11/12/16 Rx Ticagrelor [Brilinta] 90 mg PO BID #120 tablet 10/28/16 11/12/16 Rx Isosorbide Mononitrate [Isosorbide 15 mg PO DAILY 11/12/16 11/12/16 History Mononitrate ER] Potassium Chloride 10 meq PO DAILY 11/12/16 11/12/16 History Review of System - Review of System 12 point system: reviewed and no additional remarkable complaints except as stated - Review of System Constitutional: Present: chills. Absent: fever Respiratory: Present: respiratory distress (SOB) Cardiovascular: Absent: chest pain Gastrointestinal: Absent: nausea, vomiting Medical,Surgical,& Family Hx - Medical History Cardio: History of: CHF, CAD, Hypertension, AK (last AK 2013), Valvular Heart Disease Neurology: No history of: Seizures, TIA Endocrine: History of: Diabetes Mellitus (IDDM), Diabetes Mellitus (NIDDM), Dyslipidemia Respiratory: History of: COPD, Pneumonia Renal: History of: Renal Failure Genitourinary: History of: Prostate Problems (cancer) Other: History of: Cancer (PROSTATE) - Surgical History Cardiac Surgeries: Sugical HX of: Cardiac Catheterization (last cath 1 month ago ) Neurologic Surgeries: Patient denies: Neurologic Surgery Abdominal Surgeries: Patient denies: Abdominal Surgery Reproductive Surgeries: Surgical HX of;: Prostate Surgery - Family History Family History: Reports;: Family Cancer (brother), Family Diabetes (son), Family Heart Disease (mother), Family Hypertension (family) Denies;: Family Stroke - Social History Smoking Status: Smoker, status unknown Frequency of Alcohol Use: None Type of Drug Use: None Exam Physical Examination: General: Well-developed well-nourished, no apparent distress. Head: Normocephalic, atraumatic. Eyes: PERRLA, EOMI. Nose: No obvious acute deformities or discharge. Mouth: No obvious acute injury. Neck: Full range of motion without obvious pain. No midline tender to palpation. Lymphatic: no significant lymphadenopathy noted. Lungs: Clear to auscultation bilaterally, normal and equal air movement bilaterally, no obvious rales or wheezing. Heart: regular rate and rhythm, Peripheral vasculature: Pitting edema, mild, bilateral, left foot worse, patient says the swelling is chronic and may be a little bit worse in his left foot. Abdomen: Soft nontender, nondistended, normal active bowel sounds. Skin: No obivous acute lesions noted Musculoskeletal: No gross deformities. Neurological: No focal findings, cranial nerves II through XII grossly normal. Psychiatric: Appropriate mood.. : Deferred Vital Signs: Vital Signs Temperature 98.9 F 11/12/16 12:19 Pulse Rate 81 11/12/16 14:00 Respiratory Rate 20 11/12/16 14:00 Blood Pressure 127/71 11/12/16 14:00 O2 Sat by Pulse Oximetry 100 11/12/16 14:00 Course Course Narrative: Differential diagnosis: Congestive heart failure exacerbation, pneumonia, pleural effusion, pulmonary edema, ACS - Reevaluation(s) Reevaluation #1: Unchanged. Patient sleeping comfortably but easily awakened. O2 sat and vital signs are okay. Due to the renal insufficiency, anemia, elevated troponin and elevated d-dimer patient needs to be admitted for further workup. I discussed this with the hospitalist service and they accept the admission. Time: 14:23 Results - Labs CBC & BMP: 11/12/16 12:49 11/12/16 12:49 Lab Results: I have reviewed the patients labs Labs: Laboratory Tests 11/12/16 12:49 WBC 4.9 RBC 2.68 L Hgb 8.6 L Hct 25.9 L MCV 96.6 MCH 32 MCHC 33.2 RDW 13.6 Plt Count 297 MPV 9.1 L Neut % (Auto) 68.4 Lymph % (Auto) 18.8 L [place] % (Auto) 10.2 Eos % (Auto) 2.0 Baso % (Auto) 0.2 Neut # (Auto) 3.4 Lymph # (Auto) 0.9 L [place] # (Auto) 0.5 Eos # (Auto) 0.1 Baso # (Auto) 0.0 Immature Gran % 0.4 Nucleated RBC % 0.0 Immature Gran # 0.02 Nucleated RBCs # 0.00 Laboratory Tests 11/12/16 12:49 INR 1.0 PT Patient/Control Mix 11.1 D-Dimer, Quantitative 0.9 Laboratory Tests 11/12/16 11/12/16 12:49 12:49 Sodium 145 Potassium 4.0 Chloride 109 H Carbon Dioxide 28 Anion Gap 12.0 BUN 31 H Creatinine 1.70 H GFR Calculation 45 BUN/Creatinine Ratio 18.00 Glucose 113 H Calculated Osmolality 295.7 Calcium 8.6 Total Bilirubin < 0.39 AST 20 ALT 22 Alkaline Phosphatase 89 Troponin I 0.071 H Total Protein 6.9 Albumin 2.5 L Globulin 4.4 H Albumin/Globulin Ratio 0.5 L Urine Color Yellow Urine Appearance Clear Urine pH 5.0 Ur Specific [place] 1.013 Urine Protein 100 Urine Glucose (UA) Negative Urine Ketones Negative Urine Blood Small Urine Nitrate Negative Urine Bilirubin Negative Urine Urobilinogen < 2.0 H Urine Leukocytes Negative Urine RBC 3 Urine WBC 2 Ur Squamous Epith Cells Occasional Hyaline Casts 1 Urine Mucus Occasional Ur Culture Indicated? Not indicated - EKG EKG results: interpreted by ERMD (Heart rate 92, poor quality EKG, normal sinus rhythm, slightly wide QRS complex consistent with mild conduction defect. No obvious acute ST changes.) - Diagnostic Findings Procedure: Chest x-ray: report reviewed by me, image reviewed by me (Improved aeration with near complete clearing of perihilar and basilar interstitial opacities seen previously. Cardiac silhouette is mildly enlarged, similar to prior. Multiple electronic control units throughout the lower chest appear in similar position. ) Disposition Clinical Impression: Acute exacerbation of congestive heart failure, Renal insufficiency, Anemia, Non-ST elevation AK (NSTEMI), Elevated d-dimer Case discussed with: patient, patient's family Disposition: Still a Patient Condition: Stable Time of Disposition: 14:25
--- NOTE | 2016-11-12 14:53 | Hospitalist History & Physical ---
Assessment and Plan (1) Acute exacerbation of congestive heart failure Status: Acute Assessment and plan: This is a problem chronic in nature. The patient has severe valvular disease not sure if he is appropriate for surgical intervention. BNP was noted at 1594 troponins were elevated at the time of admission at 0.071. At the time of presentation the patient was noted to have a LifeVest on however he does not have the lead dental assistant for the LifeVest. We are admitting to the telemetry for close observation. We we will obtain serial enzymes, echocardiogram, and consult cardiology. Current Visit: Yes (2) Anemia Status: Acute Assessment and plan: Hemoglobin and hematocrit noted at 8.6 25.9 at the time of admission. This is a profound decrease since the previous admission which was 15 days ago and at that time his hemoglobin and hematocrit was noted at 10.2 and 30.5. Patient is currently on Brilinta and Ecotrin which could both contribute to the noted decrease in levels. The patient denies any rectal bleeding and no obvious bruising or discoloration is noted. We will obtain stools for occult blood and to perform anemia workup. Current Visit: Yes (3) CKD (chronic kidney disease) stage 3, GFR 30-59 ml/min Status: Acute Assessment and plan: The patient has known chronic kidney disease BUN noted at 31 and creatinine at 1.70. This is a market improvement from the previous admission on last month in which his BUN was noted at 52 and creatinine noted at 1.50. We will continue to monitor and avoid nephrotoxic agent. Current Visit: No History of Present Illness Chief complaint: Shortness of breath History of present illness: This is a chronically ill 76-year-old male that presented to the ED at [facility] this morning for evaluation of shortness of breath. The patient has a very extensive medical history significant for congestive heart failure, coronary artery disease, hypertension, myocardial infarction, valvular heart disease, insulin-dependent diabetes mellitus, dyslipidemia, chronic obstructive pulmonary disease, pneumonia, and renal failure, carcinoma of the prostate. He has a surgical history of heart catheterization which was performed on last month and prostate surgery. The patient reports the onset of the above symptoms on last night with gradual worsening on this morning. Despite the use of home oxygen, the patient reports that his shortness of breath was persistent. He reported that he was unable to lie flat on last night and that his shortness of breath increased with walking and/or lying down. In addition he reports chills, however denies fever, nausea, vomiting, syncope, and visual disturbances. At the time of ED presentation, the patient was assessed. Labs were obtained which reported a white blood cell count 4.9, hemoglobin at 8.6, hematocrit at 25.9, and platelet count 297. Chemistries were obtained which reported a sodium at 145, potassium of 4.0, chloride 109, carbon dioxide 28, BUN at 31, creatinine at 1.70, glucose at 113, and calcium 8.6. Coagulation panels were obtained which reported an INR at 1.0, PT at 11.1, and d-dimer at 0.9. Urinalysis was obtained which was essentially unremarkable. Chest x-ray was obtained which reported improved aeration with near complete clearing of the perihilar and basilar interstitial opacities seen previously. Cardiac silhouette is mildly enlarged similar to prior. No definite focal consolidation , no pneumothorax or pleural effusion identified. After brief discussion with both Dr. Kitchen and Dr. Blankenship the patient will be admitted to the hospitalist services for continuation of care. Home Medications Medication Instructions Recorded Confirmed Type Glimepiride [Amaryl] 4 mg PO DAILY W/BREAKFAST 02/01/15 11/12/16 History Aspirin [Ecotrin] 81 mg PO QPM 07/31/15 11/12/16 History metFORMIN [Glucophage] 1,000 mg PO BID W/MEALS 07/31/15 11/12/16 History Furosemide Tab [Lasix Tab] 40 mg PO BID #60 tablet 05/04/16 11/12/16 Rx Rosuvastatin [Crestor] 5 mg PO DAILY 09/06/16 11/12/16 History Carvedilol [Coreg] 6.25 mg PO BID #60 10/28/16 11/12/16 Rx Ticagrelor [Brilinta] 90 mg PO BID #120 tablet 10/28/16 11/12/16 Rx Isosorbide Mononitrate [Isosorbide 15 mg PO DAILY 11/12/16 11/12/16 History Mononitrate ER] Potassium Chloride 10 meq PO DAILY 11/12/16 11/12/16 History Allergies Allergy/AdvReac Type Severity Reaction Status Date / Time No Known Allergies Allergy Verified 11/12/16 12:10 Medical,Surgical,& Family Hx - Medical History Cardio: History of: CHF, CAD, Hypertension, MD (last MD 2013), Valvular Heart Disease Neurology: No history of: Seizures, TIA Endocrine: History of: Diabetes Mellitus (IDDM), Diabetes Mellitus (NIDDM), Dyslipidemia Respiratory: History of: COPD, Pneumonia Renal: History of: Renal Failure Genitourinary: History of: Prostate Problems (cancer) Other: History of: Cancer (PROSTATE) - Surgical History Cardiac Surgeries: Sugical HX of: Cardiac Catheterization (last cath 1 month ago ) Neurologic Surgeries: Patient denies: Neurologic Surgery Abdominal Surgeries: Patient denies: Abdominal Surgery Reproductive Surgeries: Surgical HX of;: Prostate Surgery - Family History Family History: Reports;: Family Cancer (brother), Family Diabetes (son), Family Heart Disease (mother), Family Hypertension (family) Denies;: Family Stroke - Social History Smoking Status: Smoker, status unknown Frequency of Alcohol Use: None Type of Drug Use: None Exam - Constitutional Vitals: Period Temp Pulse Resp BP Sys/Slater Pulse Ox Last 24 Hr 98.9 F-98.9 F 81-88 15-20 120-143/67-82 97-100 General appearance: normal weight, no acute distress - Head Head exam: Present: normal inspection, normocephalic, atraumatic - Eye Eye exam: Present: EOMI Pupils: Present: LEANDRO, normal accommodation - ENT ENT exam: Present: normal exam, normal external ear exam, normal oropharynx - Neck Neck exam: Present: normal inspection. Absent: lymphadenopathy, meningismus, tenderness, thyromegaly - Respiratory Respiratory exam: Present: clear to auscultation bilaterally. Absent: rales, rhonchi, stridor, wheezes - Cardiovascular Cardiovascular exam: Present: regular rate and rhythm, tachycardia. Absent: carotid bruit, diastolic murmur, gallop, irregular rhythm, JVD, rubs, systolic murmur - GI/Abdominal GI/Abdominal exam: Present: normal bowel sounds, soft. Absent: firm, guarding, mass - Extremities Exam Extremities exam: Present: edema (+2 right; +3 left lower extremity) - Back Exam Back exam: Present: normal inspection - Neurological Exam Neurological exam: Present: alert, oriented X3, CN II-XII intact - Psychiatric Psychiatric exam: Present: normal affect, normal mood - Skin Skin exam: Present: normal color, warm, dry Results - Labs CBC & BMP: 11/12/16 12:49 11/12/16 12:49 Lab Results: I have reviewed the past 24 hour labs
[2016-11-12] MEDS ORDERED: FUROSEMIDE 40 MG/4 ML VIAL IV PRN (16:15)
[2016-11-12] MEDS ORDERED: ACETAMINOPHEN 325 MG TABLET PO PRN (16:15)
[2016-11-12] MEDS ORDERED: MORPHINE 2 MG/1 ML SYRINGE IV PRN (16:15)
[2016-11-12] MEDS ORDERED: SODIUM CHLORIDE 0.9% 250 ML IV PRN (16:15)
[2016-11-12] MEDS ORDERED: GLUCAGON 1 MG VIAL IM PRN (16:15)
[2016-11-12] MEDS ORDERED: ONDANSETRON 4 MG/2 ML VIAL IV PRN (16:15)
[2016-11-12] MEDS ORDERED: DEXTROSE 50% 25 GM/50 ML VIAL IV PRN (16:15)
[2016-11-12 16:54] LABS: Hematocrit 27.9 VOL% (42.0-52.0); Hemoglobin 9.4 GM/DL (14.0-18.0)
[2016-11-12] MEDS: INSULIN LISPRO 100 UNIT/ML SUBCUT SCH ×2 (17:20→22:06)
[2016-11-12] MEDS ORDERED: ASPIRIN EC 81 MG TABLET PO SCH (19:00)
--- NOTE | 2016-11-12 20:56 | Ultrasound Report ---
Indication: Shortness of breath Duplex scan of the bilateral lower extremity veins Technique: Duplex scan of the bilateral lower extremity veins using B-mode/grayscale imaging and Doppler spectral analysis and color flow Findings: Major venous structures of the bilateral lower extremity demonstrate a normal course and caliber. There is no evidence of deep vein thrombosis. No abnormal intrinsic echogenic lesions are demonstrated in the scanned blood vessels. Veins demonstrate good compressibility with normal color flow study and spectral analysis. Incidental right popliteal fossa probable Sarmiento's cyst measuring up to 6.4 x 2 x 2.8 cm is noted. Impression: Unremarkable duplex imaging of the bilateral lower extremity veins. No evidence of DVT PROCEDURE INTERPRETED AT [facility] DEPARTMENT OF RADIOLOGY Final Report Signed by: Keaton Young
--- NOTE | 2016-11-12 21:25 | Nuclear Medicine Report ---
NM lung scan vent and per Indication: Shortness of breath Comparison: Negative DVT study done today 11/12/2016 and chest radiograph and negative CT PE protocol 07/31/2015 Correlation with: Chest radiograph dated 11/12/2016. Radiopharmaceutical: 40 mCi of Tc 99m DTPA aerosol for the ventilation study and 5 mCi Tc 99m MAA for the perfusion study. Technique: Following inhalation of the aerosolized radiopharmaceutical, the ventilation study was performed with images of the thorax being obtained in 8 projections. Thereafter, the perfusion study was performed following the injection of radiolabeled MAA particles with images of the thorax again obtained in 8 projections. Findings: Study is of adequate diagnostic value. Matched ventilation/perfusion defect suggested within the posterior right upper and right midlung, which may correspond to areas of atelectasis/underlying interstitial scarring. No mismatched segmental or larger pulmonary perfusion/ventilation defect is demonstrated. IMPRESSION: No perfusion/ventilation disassociation to suggest a pulmonary embolism. Low probability of pulmonary embolism. PROCEDURE INTERPRETED AT [facility] DEPARTMENT OF RADIOLOGY Final Report Signed by: Keaton Young
[2016-11-12] MEDS: CARVEDILOL 12.5 MG TABLET PO SCH (22:06)
[2016-11-12] MEDS: FUROSEMIDE 40 MG TABLET PO SCH (22:06)
[2016-11-12] MEDS: TICAGRELOR 90 MG TABLET PO SCH (22:06)
[2016-11-13 00:56] LABS: Basophils % 0.4 % (0.0-0.8); Eosinophils # 0.2 10*3/uL (0.0-0.87); Eosinophils % 3.5 % (0.00-10.9); Hematocrit 25.5 VOL% (42.0-52.0); Hematocrit 25.6 VOL% (42.0-52.0); Hemoglobin 8.4 GM/DL (14.0-18.0); Hemoglobin 8.5 GM/DL (14.0-18.0); Immature Granulocytes % 0.4 %; Immature Granulocytes Absolute 0.02 #; Lymphocytes # 1.2 10*3/uL (1.4-4.0); Lymphocytes % 23.7 % (21.2-54.2); Mean Corpuscular HGB Conc 33.2 GM/DL (32-36); Mean Corpuscular Hemoglobin 32 PG (27-34); Mean Corpuscular Volume 95.5 FL (87-102); Mean Platelet Volume 9.1 FL (9.6-12.0); Monocytes # 0.6 10*3/uL (0.11-0.8); Monocytes % 11.2 % (1.7-12.7); Neutrophils % 60.8 % (38.7-73.9); Platelet Count 311 T/CUMM (130-400); Red Blood Count 2.68 MC/CUMM (3.8-5.5); Red Cell Distribution Width 13.6 % (9.3-17.3); White Blood Count 4.9 T/CUMM (4-12)
[2016-11-13 01:20] LABS: Albumin 2.6 G/DL (3.4-5.0); Bilirubin,Total 0.4 MG/DL (0.2-1.0); Calcium 8.7 MG/DL (8.5-10.1); Osmolality,Calculated 291.7 MOS/KG (273-304); Potassium 3.7 MMOL/L (3.5-5.1); Total Protein 6.1 G/DL (6.4-8.3)
--- NOTE | 2016-11-13 07:55 | EKG Report ---
Stationary ECG Study [facility] Test Date: 11/13/2016 7:55:05 AM Pat Name: HARDEEP LORENZ Department: Room: 292 Gender: M It Applications Developer: GREGORIO : 1940 Requested by: Mine Blankenship Order Number: [id number] Reading MD: TATE BOWDEN Intervals [place] Rate: 82 P: 72 CA: 153 QRS: 48 QRSD: 110 T: -7 QT: 369 QTc: 408 Interpretive Statements SINUS RHYTHM WITH OCCASIONAL VENTRICULAR PREMATURE COMPLEXES ST DEVIATION AND MODERATE T-WAVE ABNORMALITY, CONSIDER LATERAL ISCHEMIA Electronically Signed On 11-15-16 12:49:59 CDT by TATE BOWDEN [email or web address]
[2016-11-13] MEDS ORDERED: GLIMEPIRIDE 4 MG TABLET PO SCH (08:00)
[2016-11-13 08:02] VITALS: BP 136/69
[2016-11-13] MEDS: INSULIN LISPRO 100 UNIT/ML SUBCUT SCH (08:10)
[2016-11-13] MEDS: FUROSEMIDE 40 MG TABLET PO SCH (08:16)
[2016-11-13] MEDS: TICAGRELOR 90 MG TABLET PO SCH (08:16)
[2016-11-13] MEDS: CARVEDILOL 12.5 MG TABLET PO SCH (08:17)
[2016-11-13 08:37] LABS: Hematocrit 28.7 VOL% (42.0-52.0); Hemoglobin 9.5 GM/DL (14.0-18.0)
[2016-11-13] MEDS ORDERED: POTASSIUM CHLORIDE 10 MEQ TABLET PO SCH (09:00)
[2016-11-13] MEDS ORDERED: ROSUVASTATIN 10 MG TABLET PO SCH (09:00)
[2016-11-13] MEDS ORDERED: ISOSORBIDE MONONITRATE 30 MG TABLET PO SCH (09:00)
[2016-11-13] MEDS ORDERED: PANTOPRAZOLE 40 MG TABLET PO SCH (09:00)
--- NOTE | 2016-11-13 10:41 | Gastrointestinal Consult Note ---
Assessment and Plan - Time spent with patient Time spent with patient: Greater than 30 minutes (1) Anemia Status: Chronic (2) Heme + stool Status: Resolved (3) Other specified counseling Status: Acute History of Present Illness History of present illness: Mr. Guerrero is a 76 year old male Home Medications Medication Instructions Recorded Confirmed Type Glimepiride [Amaryl] 4 mg PO DAILY W/BREAKFAST 02/01/15 11/12/16 History Aspirin [Ecotrin] 81 mg PO QPM 07/31/15 11/12/16 History metFORMIN [Glucophage] 1,000 mg PO BID W/MEALS 07/31/15 11/12/16 History Rosuvastatin [Crestor] 5 mg PO DAILY 09/06/16 11/12/16 History Carvedilol [Coreg] 6.25 mg PO BID #60 10/28/16 11/12/16 Rx Ticagrelor [Brilinta] 90 mg PO BID #120 tablet 10/28/16 11/12/16 Rx Isosorbide Mononitrate [Isosorbide 15 mg PO DAILY 11/12/16 11/12/16 History Mononitrate ER] Potassium Chloride 10 meq PO DAILY 11/12/16 11/12/16 History Furosemide Tab [Lasix Tab] 40 mg PO DAILY #30 tablet 11/13/16 Rx Furosemide Tab [Lasix Tab] 80 mg PO DAILY #30 tablet 11/13/16 Rx Allergies Allergy/AdvReac Type Severity Reaction Status Date / Time No Known Allergies Allergy Verified 11/12/16 12:10 Medical,Surgical,& Family Hx - Medical History Cardio: History of: CHF, CAD, Hypertension, [place] (last IN 2013), Valvular Heart Disease Neurology: No history of: Seizures, TIA Endocrine: History of: Diabetes Mellitus (IDDM), Diabetes Mellitus (NIDDM), Dyslipidemia Respiratory: History of: COPD, Pneumonia Renal: History of: Renal Failure Genitourinary: History of: Prostate Problems (cancer) Other: History of: Cancer (PROSTATE) - Surgical History Cardiac Surgeries: Sugical HX of: Cardiac Catheterization (last cath 1 month ago ) Neurologic Surgeries: Patient denies: Neurologic Surgery Abdominal Surgeries: Patient denies: Abdominal Surgery Reproductive Surgeries: Surgical HX of;: Prostate Surgery - Family History Family History: Reports;: Family Cancer (brother), Family Diabetes (son), Family Heart Disease (mother), Family Hypertension (family) Denies;: Family Stroke - Social History Smoking Status: Smoker, status unknown Frequency of Alcohol Use: None Type of Drug Use: None Exam - Constitutional Vitals: Period Temp Pulse Resp BP Sys/Slater Pulse Ox Last 24 Hr 96.4 F-98.9 F 76-95 12-20 119-144/60-93 97-100 Results - Labs CBC & BMP: 11/13/16 08:27 11/13/16 00:32 Quality Measures - VTE Contraindication to Pharmacological VTE Prophylaxis: High Risk of Bleeding Specialty Discharge - Follow Up or Referrals Follow up with: Emre Blackman MD [Physician] - 2 Weeks (anemia) Daphnie Ho MD [Physician] - (has appointment already for november 15) Note Addendum: Unfortunately, between the time I reviewed the patient's record and got up to the floor to see him he was discharged. He has previously been seen by one of my partners, Dr. Blackman, and he can follow-up in the outpatient gastroenterology clinic for further evaluation.
--- NOTE | 2016-11-13 11:14 | Discharge Summary ---
Hospital Course - Hospital Course Hospital Course: Mr Guerrero was admitted overnight for shortness of breath and to rule out DVT/PE. He had been seen the day before with LE edema and received IM lasix, then had a night of getting up all night to urinate and at that point developed shortness of breath and orthopnea. His LE doppler and VQ scan looked ok. He was treated with a dose of IV lasix because he still had LEft ankle edema which is better today. He is back to baseline. His H&H had dropped on our test yesterday in ER and I thought that might also be contributing to his shortness of breath, but this morning his hgb is increased to 9.5. He doesn't want a transfusion. I am going to discharge him today to see Dr Culevr at 3p on 11/[address] Blackman as an outpatient. Dr Blackman did EGD last week which showed retained food but no obvious source of bleeding. I have also increased is lasix to 80mg in the am and 40mg at 2pm, and he should cut the am dose in half if he is not having edema or shortness of breath. - Time spent with patient Time with patient DS: Less than 30 minutes Diagnosis - Discharge Diagnosis (1) Acute exacerbation of congestive heart failure Status: Acute (2) Renal insufficiency Status: Chronic (3) Anemia Status: Chronic Specialty Discharge - Follow Up or Referrals Follow up with: Emre Blackman MD [Physician] - 2 Weeks (anemia) Daphnie Ho MD [Physician] - (has appointment already for november 15) Discharge Plan - Discharge Data Disposition: Disch To Home/Self Care Condition at Discharge: Stable Discharge Diet: diabetic diet, heart healthy Activity: resume usual activities as tolerated - Discharge Medications New Furosemide Tab [Lasix Tab] 40 mg PO DAILY #30 tablet Furosemide Tab [Lasix Tab] 80 mg PO DAILY #30 tablet Continue Glimepiride [Amaryl] 4 mg PO DAILY W/BREAKFAST metFORMIN [Glucophage] 1,000 mg PO BID W/MEALS Aspirin [Ecotrin] 81 mg PO QPM Ticagrelor [Brilinta] 90 mg PO BID #120 tablet Carvedilol [Coreg] 6.25 mg PO BID #60 Isosorbide Mononitrate [Isosorbide Mononitrate ER] 15 mg PO DAILY Potassium Chloride 10 meq PO DAILY Rosuvastatin [Crestor] 5 mg PO DAILY Discontinued Furosemide Tab [Lasix Tab] 40 mg PO BID #60 tablet - Follow Up or Referral - Forms/Instructions Additional Discharge Instructions: I have increased the morning lasix to 80 mg. This should help control your edema. However, there may be days when you don't need that much at those mornings, take half a pill. Exam - Constitutional Vitals: Period Temp Pulse Resp BP Sys/Slater Pulse Ox Last 24 Hr 96.4 F-98.9 F 76-95 12-20 119-144/60-93 97-100 General appearance: normal weight, no acute distress - Head Head exam: Present: normocephalic, atraumatic - Eye Eye exam: Present: EOMI. Absent: scleral icterus - Respiratory Respiratory exam: Present: clear to auscultation bilaterally - Cardiovascular Cardiovascular exam: Present: regular rate and rhythm - GI/Abdominal GI/Abdominal exam: Present: normal bowel sounds, soft. Absent: tenderness - Extremities Exam Extremities exam: Absent: edema Discharge Results Procedures and tests throughout hospitalization: Pending Orders 11/12/16 16:41 Red Blood Cells Leuko Red Routine Type and Screen Routine 11/13/16 16:30 Hemoglobin and Hematocrit Q8H 11/14/16 00:30 Hemoglobin and Hematocrit Q8H Labs on day of discharge: Labs from last 24 hours 11/13/16 11/13/16 11/13/16 08:27 07:37 00:32 WBC RBC Hgb 9.5 L Hct 28.7 L MCV MCH MCHC RDW Plt Count MPV Neut % (Auto) Lymph % (Auto) Hardin % (Auto) Eos % (Auto) Baso % (Auto) Neut # (Auto) Lymph # (Auto) Hardin # (Auto) Eos # (Auto) Baso # (Auto) Immature Gran % Nucleated RBC % Immature Gran # Nucleated RBCs # INR PT Patient/Control Mix D-Dimer, Quantitative Sodium Potassium Chloride Carbon Dioxide Anion Gap BUN Creatinine GFR Calculation BUN/Creatinine Ratio Glucose POC Glucose 83 Calculated Osmolality Calcium Magnesium Total Bilirubin AST ALT Alkaline Phosphatase Troponin I B-Natriuretic Peptide 1946 H Total Protein Albumin Globulin Albumin/Globulin Ratio Urine Color Urine Appearance Urine pH Ur Specific Williamson Urine Protein Urine Glucose (UA) Urine Ketones Urine Blood Urine Nitrate Urine Bilirubin Urine Urobilinogen Urine Leukocytes Urine RBC Urine WBC Ur Squamous Epith Cells Hyaline Casts Urine Mucus Ur Culture Indicated? Blood Type Antibody Screen Crossmatch 11/13/16 11/13/16 11/13/16 00:32 00:32 00:32 WBC 4.9 RBC 2.68 L Hgb 8.5 L 8.4 L Hct 25.6 L 25.5 L MCV 95.5 MCH 32 MCHC 33.2 RDW 13.6 Plt Count 311 MPV 9.1 L Neut % (Auto) 60.8 Lymph % (Auto) 23.7 Hardin % (Auto) 11.2 Eos % (Auto) 3.5 Baso % (Auto) 0.4 Neut # (Auto) 3.0 Lymph # (Auto) 1.2 L Hardin # (Auto) 0.6 Eos # (Auto) 0.2 Baso # (Auto) 0.0 Immature Gran % 0.4 Nucleated RBC % 0.0 Immature Gran # 0.02 Nucleated RBCs # 0.00 INR PT Patient/Control Mix D-Dimer, Quantitative Sodium 145 Potassium 3.7 Chloride 108 H Carbon Dioxide 27 Anion Gap 13.7 BUN 26 H Creatinine 1.30 GFR Calculation 63 BUN/Creatinine Ratio 20.00 Glucose 74 POC Glucose Calculated Osmolality 291.7 Calcium 8.7 Magnesium 2.0 Total Bilirubin 0.40 AST 17 ALT 22 Alkaline Phosphatase 89 Troponin I B-Natriuretic Peptide Total Protein 6.1 L Albumin 2.6 L Globulin 3.5 Albumin/Globulin Ratio 0.7 L Urine Color Urine Appearance Urine pH Ur Specific Williamson Urine Protein Urine Glucose (UA) Urine Ketones Urine Blood Urine Nitrate Urine Bilirubin Urine Urobilinogen Urine Leukocytes Urine RBC Urine WBC Ur Squamous Epith Cells Hyaline Casts Urine Mucus Ur Culture Indicated? Blood Type Antibody Screen Crossmatch 11/12/16 11/12/16 11/12/16 Unknown 22:42 19:32 WBC RBC Hgb Hct MCV MCH MCHC RDW Plt Count MPV Neut % (Auto) Lymph % (Auto) Hardin % (Auto) Eos % (Auto) Baso % (Auto) Neut # (Auto) Lymph # (Auto) Hardin # (Auto) Eos # (Auto) Baso # (Auto) Immature Gran % Nucleated RBC % Immature Gran # Nucleated RBCs # INR PT Patient/Control Mix D-Dimer, Quantitative Sodium Potassium Chloride Carbon Dioxide Anion Gap BUN Creatinine GFR Calculation BUN/Creatinine Ratio Glucose POC Glucose 198 H Calculated Osmolality Calcium Magnesium Total Bilirubin AST ALT Alkaline Phosphatase Troponin I 0.049 H D B-Natriuretic Peptide 1594 H Total Protein Albumin Globulin Albumin/Globulin Ratio Urine Color Urine Appearance Urine pH Ur Specific Williamson Urine Protein Urine Glucose (UA) Urine Ketones Urine Blood Urine Nitrate Urine Bilirubin Urine Urobilinogen Urine Leukocytes Urine RBC Urine WBC Ur Squamous Epith Cells Hyaline Casts Urine Mucus Ur Culture Indicated? Blood Type Antibody Screen Crossmatch 11/12/16 11/12/16 11/12/16 16:59 16:44 16:41 WBC RBC Hgb Hct MCV MCH MCHC RDW Plt Count MPV Neut % (Auto) Lymph % (Auto) Hardin % (Auto) Eos % (Auto) Baso % (Auto) Neut # (Auto) Lymph # (Auto) Hardin # (Auto) Eos # (Auto) Baso # (Auto) Immature Gran % Nucleated RBC % Immature Gran # Nucleated RBCs # INR PT Patient/Control Mix D-Dimer, Quantitative Sodium Potassium Chloride Carbon Dioxide Anion Gap BUN Creatinine GFR Calculation BUN/Creatinine Ratio Glucose POC Glucose 77 Calculated Osmolality Calcium Magnesium Total Bilirubin AST ALT Alkaline Phosphatase Troponin I 0.066 H B-Natriuretic Peptide Total Protein Albumin Globulin Albumin/Globulin Ratio Urine Color Urine Appearance Urine pH Ur Specific Williamson Urine Protein Urine Glucose (UA) Urine Ketones Urine Blood Urine Nitrate Urine Bilirubin Urine Urobilinogen Urine Leukocytes Urine RBC Urine WBC Ur Squamous Epith Cells Hyaline Casts Urine Mucus Ur Culture Indicated? Blood Type O POSITIVE Antibody Screen Crossmatch 11/12/16 11/12/16 11/12/16 16:41 16:41 12:49 WBC RBC Hgb 9.4 L Hct 27.9 L MCV MCH MCHC RDW Plt Count MPV Neut % (Auto) Lymph % (Auto) Hardin % (Auto) Eos % (Auto) Baso % (Auto) Neut # (Auto) Lymph # (Auto) Hardin # (Auto) Eos # (Auto) Baso # (Auto) Immature Gran % Nucleated RBC % Immature Gran # Nucleated RBCs # INR PT Patient/Control Mix D-Dimer, Quantitative Sodium 145 Potassium 4.0 Chloride 109 H Carbon Dioxide 28 Anion Gap 12.0 BUN 31 H Creatinine 1.70 H GFR Calculation 45 BUN/Creatinine Ratio 18.00 Glucose 113 H POC Glucose Calculated Osmolality 295.7 Calcium 8.6 Magnesium Total Bilirubin < 0.39 AST 20 ALT 22 Alkaline Phosphatase 89 Troponin I 0.071 H B-Natriuretic Peptide Total Protein 6.9 Albumin 2.5 L Globulin 4.4 H Albumin/Globulin Ratio 0.5 L Urine Color Urine Appearance Urine pH Ur Specific Williamson Urine Protein Urine Glucose (UA) Urine Ketones Urine Blood Urine Nitrate Urine Bilirubin Urine Urobilinogen Urine Leukocytes Urine RBC Urine WBC Ur Squamous Epith Cells Hyaline Casts Urine Mucus Ur Culture Indicated? Blood Type O POSITIVE Antibody Screen Negative Crossmatch See Detail 11/12/16 11/12/16 11/12/16 12:49 12:49 12:49 WBC 4.9 RBC 2.68 L Hgb 8.6 L Hct 25.9 L MCV 96.6 MCH 32 MCHC 33.2 RDW 13.6 Plt Count 297 MPV 9.1 L Neut % (Auto) 68.4 Lymph % (Auto) 18.8 L Hardin % (Auto) 10.2 Eos % (Auto) 2.0 Baso % (Auto) 0.2 Neut # (Auto) 3.4 Lymph # (Auto) 0.9 L Hardin # (Auto) 0.5 Eos # (Auto) 0.1 Baso # (Auto) 0.0 Immature Gran % 0.4 Nucleated RBC % 0.0 Immature Gran # 0.02 Nucleated RBCs # 0.00 INR 1.0 PT Patient/Control Mix 11.1 D-Dimer, Quantitative 0.9 Sodium Potassium Chloride Carbon Dioxide Anion Gap BUN Creatinine GFR Calculation BUN/Creatinine Ratio Glucose POC Glucose Calculated Osmolality Calcium Magnesium Total Bilirubin AST ALT Alkaline Phosphatase Troponin I B-Natriuretic Peptide Total Protein Albumin Globulin Albumin/Globulin Ratio Urine Color Yellow Urine Appearance Clear Urine pH 5.0 Ur Specific Williamson 1.013 Urine Protein 100 Urine Glucose (UA) Negative Urine Ketones Negative Urine Blood Small Urine Nitrate Negative Urine Bilirubin Negative Urine Urobilinogen < 2.0 H Urine Leukocytes Negative Urine RBC 3 Urine WBC 2 Ur Squamous Epith Cells Occasional Hyaline Casts 1 Urine Mucus Occasional Ur Culture Indicated? Not indicated Blood Type Antibody Screen Crossmatch DS: Provider Date of admission: 11/12/16 14:24 Primary care physician: Jesus Foss DO Attending physician on admission: Mine Blankenship MD Consults: 11/12/16 16:15 Consult to Physician [CONS] Routine Comment: Consulting Provider: Steven Quintana Consult to Specialist Group: Cardiology Person Notified: Dr Quintana Date Notified: 11/12/16 Time Notified: 17:43 11/12/16 16:22 Consult to Physician [CONS] Routine Comment: GIB, now anemic again Consulting Provider: Karl Moise V Person Notified: Dr Moise Date Notified: 11/12/16 Time Notified: 18:02 Discharging clinician: Mine Blankenship MD
== END 2016-11-13 12:45 | disposition home or self-care (01) ==
LOC: N.ED 12:01 → INTOOBSV 14:24 → N.EDINP 14:24 → N.TELEN 15:21
PROVIDERS: ADMIT Internal Medicine; ATTEND Internal Medicine

== ENCOUNTER 2016-12-19 09:40 | Inpatient (IN) ==
--- NOTE | 2016-12-19 10:44 | XRay Report ---
Exam: XR chest 2V Indication: Near syncope Shortness of breath Comparison study: Prior chest radiograph 11/12/2016 Findings: The heart, mediastinum and bony structures are stable from prior. Multiple electrodes and control units are noted overlying the lower chest/abdomen, similar to prior. Minimal perihilar interstitial opacities are noted, which appear to from prior. There is no focal consolidation, pneumothorax or pleural effusion identified. Impression: Similar appearance of multiple electronic control unit overlying the lower chest/upper abdomen. If any change, minimal perihilar interstitial opacities are new from prior which may represent atelectasis or interstitial edema changes. Otherwise, no significant change. PROCEDURE INTERPRETED AT [facility] DEPARTMENT OF RADIOLOGY Final Report Signed by: Keaton Young
[2016-12-19] MEDS ORDERED: SODIUM CHLORIDE 0.9% 500 ML IV STA (11:04)
--- NOTE | 2016-12-19 11:12 | Emergency Department Note ---
Arrival - Arrival Chief Complaint: Syncope Stated Complaint: SOB, WEAK ED Nursing Triage Note: Pt was at the [facility] having a ECHO done this am. On his way out pt had a near syncope and SOB. Mode of Arrival: Wheelchair Limitations: No Limitations Source: Patient Time Seen by Provider: 12/19/16 11:04 - History of Present Illness HPI Narrative: This 76-year-old black male presents with a history of going to the cardiac outpatient diagnostic area for an echo and after leaving the unit and walk out the front door he began to get weak. His friend who drove him walked him to his truck and asked the patient if he would want to go to the ER to which the patient responded as soon as possible. The patient was able to get into the truck but by the time his friend got around to the motor vehicle escort driver's side, he had passed out. The friend observed no diaphoresis, nausea, or vomiting prior to the patient passing out. The friend quickly drove the patient to the emergency room and in the process of arriving the patient began to awaken having a period of unconsciousness per the friend approximately 2-3 minutes. The patient himself states he had no premonition of syncope other than just feeling weak all over and denied any chest pain, shortness of breath, palpitations, nausea, clamminess, or feeling warm all over. Immediately post awakening he had no significant symptoms either and at the moment feels back to normal. He does not describe any prior episodes in recent days and has felt fairly well in recent months. Currently he is in no acute medical distress. Onset (ago): hour(s) (Patient presents 1 hour post incident) Allergies/Adverse Reactions: Allergies Allergy/AdvReac Type Severity Reaction Status Date / Time No Known Allergies Allergy Verified 11/12/16 12:10 Home Medications: Home Medications Medication Instructions Recorded Confirmed Type Glimepiride [Amaryl] 4 mg PO DAILY 02/01/15 12/19/16 History Aspirin [Ecotrin] 81 mg PO QPM 07/31/15 12/19/16 History Ticagrelor [Brilinta] 90 mg PO BID #120 tablet 10/28/16 12/19/16 Rx Isosorbide Mononitrate [Isosorbide 15 mg PO DAILY 11/12/16 12/19/16 History Mononitrate ER] Potassium Chloride 10 meq PO DAILY 11/12/16 12/19/16 History Furosemide Tab [Lasix Tab] 40 mg PO DAILY #30 tablet 11/13/16 12/19/16 Rx Carvedilol [Coreg] 12.5 mg PO BID 12/19/16 12/19/16 History Clopidogrel [Plavix] 75 mg PO DAILY 12/19/16 12/19/16 History Rosuvastatin Calcium [Crestor] 5 mg PO DAILY 12/19/16 12/19/16 History Review of System - Review of System 12 point system: reviewed and no additional remarkable complaints except as stated - Review of System Constitutional: Present: as per HPI Respiratory: Present: as per HPI Cardiovascular: Present: as per HPI Gastrointestinal: Present: as per HPI Medical,Surgical,& Family Hx - Medical History Cardio: History of: CHF, CAD, Hypertension, TN (last TN 2013), Valvular Heart Disease Neurology: No history of: Seizures, TIA Endocrine: History of: Diabetes Mellitus (IDDM), Diabetes Mellitus (NIDDM), Dyslipidemia Respiratory: History of: COPD, Pneumonia Renal: History of: Renal Failure Genitourinary: History of: Prostate Problems (cancer) Other: History of: Cancer (PROSTATE) - Surgical History Cardiac Surgeries: Sugical HX of: Cardiac Catheterization (last cath 1 month ago ) Neurologic Surgeries: Patient denies: Neurologic Surgery Abdominal Surgeries: Patient denies: Abdominal Surgery Reproductive Surgeries: Surgical HX of;: Prostate Surgery - Family History Family History: Reports;: Family Cancer (brother), Family Diabetes (son), Family Heart Disease (mother), Family Hypertension (family) Denies;: Family Stroke - Social History Smoking Status: Former smoker Exam Physical Examination: GENERAL: Thin wiry elderly black male in no acute distress. HEENT: Normocephalic. No trauma. Moist mucous membranes. EOMI. PERRLA. ENT NML NECK: Supple. No adenopathy. CARDIAC: Regular. 2/4 maxi primary aortic and mitral areas. Heart rate 85 CHEST: Clear to auscultation. No respiratory distress. O2 saturation 82 per ABDOMEN: Soft. Nontender. Active bowel sounds. EXTREMITIES: No trauma. Normal ROM. No pedal edema. SKIN: No diaphoresis. No rash. NEURO: Alert. Oriented 3. Motor, sensory, vibratory intact. No focal deficits. Vital Signs: Vital Signs Temperature 96.7 F L 12/19/16 12:35 Pulse Rate 91 H 12/19/16 14:59 Respiratory Rate 20 12/19/16 14:59 Blood Pressure 97/54 12/19/16 12:35 O2 Sat by Pulse Oximetry 98 12/19/16 14:59 Course - Reevaluation(s) Reevaluation #1: Discussed with - Consultations Consultation #1: Discussed with patient with Dr. Ho who will admit the patient for further evaluation treatment Results - Labs CBC & BMP: 12/19/16 11:32 12/19/16 11:32 Labs: I reviewed the lab and noted the marked anemia - Impressions EKG sinus rhythm with occasional PVCs at 85 normal UT interval and QRS duration. Nonspecific ST changes. No acute injury pattern noted. - Diagnostic Findings Procedure: Chest x-ray: image reviewed by me, report reviewed by me (No interval change), CT - chest: image reviewed by me, report reviewed by me (CTA negative for PTE), CT: image reviewed by me, report reviewed by me (Head: No acute injury, microvascular ischemia and generalized atrophy) Disposition Clinical Impression: Syncope, Hypoxia, Anemia Case discussed with: patient Disposition: Still a Patient Condition: Guarded Time of Disposition: 15:14
--- NOTE | 2016-12-19 11:36 | CT Report ---
CT head/brain wo con INDICATION: syncope Dizziness The total DLP is 1012 mGy*cm. COMPARISON: Noncontrast CT head dated 09/07/2016 Technique: Serial axial tomographic images of the brain were obtained without the use of intravenous contrast. Dose reduction: This CT exam was performed using one or more of the following dose reduction techniques: Automated exposure control, automated adjustment of the mA and/or KV according to patient size, or use of iterative reconstruction technique. Findings: Mild generalized atrophy is noted with mild prominence of the sulci and cortical volume loss. Periventricular white matter hypodensity changes are noted bilaterally which do not demonstrate mass effect and are nonspecific but favored to represent sequela of chronic microvascular ischemia. There is no evidence of vascular territory infarct or acute intracranial hemorrhage. The saha-white matter differentiation is generally maintained. There is no hydrocephalus. The basilar cisterns are patent. The visualized paranasal sinuses, mastoid air cells and middle ear cavities are predominantly clear. The included orbits and their contents appear within normal limits. The visualized osseous structures and overlying soft tissues of the skull and face demonstrate no acute abnormality. IMPRESSION: No acute intracranial abnormality. Similar findings of chronic microvascular ischemia. PROCEDURE INTERPRETED AT [facility] DEPARTMENT OF RADIOLOGY Final Report Signed by: Keaton Young
[2016-12-19 12:11] LABS: Basophils % 0.4 % (0.0-0.8); Eosinophils # 0.1 10*3/uL (0.0-0.87); Eosinophils % 1.1 % (0.00-10.9); Hematocrit 24.5 VOL% (42.0-52.0); Hemoglobin 8.2 GM/DL (14.0-18.0); Immature Granulocytes % 0.4 %; Immature Granulocytes Absolute 0.02 #; Lymphocytes # 0.8 10*3/uL (1.4-4.0); Lymphocytes % 14.7 % (21.2-54.2); Mean Corpuscular HGB Conc 33.5 GM/DL (32-36); Mean Corpuscular Hemoglobin 33 PG (27-34); Mean Corpuscular Volume 97.6 FL (87-102); Mean Platelet Volume 8.8 FL (9.6-12.0); Monocytes # 0.7 10*3/uL (0.11-0.8); Monocytes % 12.2 % (1.7-12.7); Neutrophils % 71.2 % (38.7-73.9); Platelet Count 252 T/CUMM (130-400); Red Blood Count 2.51 MC/CUMM (3.8-5.5); Red Cell Distribution Width 14.5 % (9.3-17.3); White Blood Count 5.6 T/CUMM (4-12)
[2016-12-19 12:37] LABS: Alanine Aminotransferase 18 U/L (16-61); Albumin 3.1 G/DL (3.4-5.0); Alkaline Phosphatase 76 U/L (45-117); Aspartate Amino Transferase 19 U/L (0-37); Bilirubin,Total < 0.39 MG/DL (0.2-1.0); Calcium 8.9 MG/DL (8.5-10.1); Total Protein 6.4 G/DL (6.4-8.3)
[2016-12-19 12:38] LABS: Blood Urea Nitrogen 31 MG/DL (7-18); Glucose 183 MG/DL (74-106); Osmolality,Calculated 290.4 MOS/KG (273-304); Potassium 4.5 MMOL/L (3.5-5.1); Sodium 140 MMOL/L (136-145); Troponin I Only 0.413 NG/ML (0.00-0.045)
--- NOTE | 2016-12-19 14:28 | CT Report ---
CT of the chest with intravenous contrast, PE protocol. Indication: Hypoxia. Axial images were obtained with sagittal and coronal 2-D reconstructions. 80 cc Omni 350. Comparison is made to a previous exam dated July 31, 2015. Findings: There is no evidence of pulmonary thromboembolism. The thyroid gland is normal in size. There is heavy calcific plaque present within a normal caliber thoracic aorta. There is aortic valve calcification. There is coronary artery calcification. The heart is enlarged. There is no pericardial effusion. There are small bilateral pleural effusions. Within the mediastinum, there are numerous lymph nodes present, most of which are subcentimeter. There is a lymph node measuring 12 x 20 mm in the AP window area, stable. There are mildly enlarged hilar lymph nodes seen bilaterally, which are stable. There is posterior mediastinal lymph node formation, stable. There is bilateral gynecomastia. There are severe bilateral groundglass opacities within all lobes. These were present on the previous exam but have worsened significantly. There is bronchial wall thickening noted diffusely. Degenerative changes are present within the spinal column. Diverticuli are seen within the colon. Impression: 1. No evidence of pulmonary thromboembolism. 2. Diffuse prominent groundglass opacities. Bronchial wall thickening, small bilateral pleural effusions. Ground glass at opacities were present on the previous study but have worsened significantly. This type of infiltrates is seen due pneumonia, bronchiolitis, diffuse alveolar damage, hypersensitivity reaction, or edema.. The CT exam was performed using one or more of the following dose reduction techniques: Automated exposure control, adjustment of the mA and/or kV according to patient size, or use of iterative reconstruction technique. PROCEDURE INTERPRETED AT [facility] DEPARTMENT OF RADIOLOGY Final Report Signed by: Dr. Taina Adorno
[2016-12-19] MEDS ORDERED: ALBUTEROL/IPRATROPIUM 3 ML NEB RESP TX STA (14:38)
[2016-12-19] MEDS ORDERED: ONDANSETRON 4 MG/2 ML VIAL IV PRN (15:00)
[2016-12-19] MEDS ORDERED: ZALEPLON 5 MG CAPSULE PO PRN (15:00)
[2016-12-19] MEDS ORDERED: MAGNESIUM SULF RIDER 4 GM in PREMIX 1 EACH IV PRN (15:01)
[2016-12-19] MEDS ORDERED: MAGNESIUM SULF RIDER 2 GM in PREMIX 1 EACH IV PRN (15:01)
[2016-12-19] MEDS ORDERED: POTASSIUM CHLORIDE 20 MEQ TABLET PO PRN (15:02)
--- NOTE | 2016-12-19 15:19 | Cardiology History & Physical ---
Assessment and Plan - Time spent with patient Time spent with patient: Greater than 30 minutes (1) CHF (congestive heart failure), NYHA class III Status: Acute Assessment and plan: SEE PLAN OF CARE LISTED BELOW Current Visit: Yes Qualifiers: Congestive heart failure type: combined Congestive heart failure chronicity : acute on chronic Qualified Code(s): I50.43 - Acute on chronic combined systolic (congestive) and diastolic (congestive) heart failure (2) Abnormal cardiac enzyme level Status: Chronic Assessment and plan: SEE PLAN OF CARE LISTED BELOW Current Visit: Yes (3) Dyspnea Status: Acute Assessment and plan: SEE PLAN OF CARE LISTED BELOW Current Visit: Yes Qualifiers: Dyspnea type: unspecified Qualified Code(s): R06.00 - Dyspnea, unspecified (4) Aortic stenosis Status: Chronic Assessment and plan: SEE PLAN OF CARE LISTED BELOW Current Visit: Yes Qualifiers: Cardiac valve disease etiology: nonrheumatic Qualified Code(s): I35.0 - Nonrheumatic aortic (valve) stenosis (5) Coronary artery disease Status: Chronic Assessment and plan: SEE PLAN OF CARE LISTED BELOW Current Visit: Yes (6) Diabetes Status: Chronic Assessment and plan: SEE PLAN OF CARE LISTED BELOW Current Visit: Yes Qualifiers: Diabetes mellitus type: type 2 Diabetes mellitus complication status: without complication (7) Anemia Status: Chronic Assessment and plan: SEE PLAN OF CARE LISTED BELOW Current Visit: No (8) History of coronary artery stent placement Status: Chronic Assessment and plan: SEE PLAN OF CARE LISTED BELOW Current Visit: No (9) Pneumonia Status: Acute Assessment and plan: SEE PLAN OF CARE LISTED BELOW Current Visit: No Qualifiers: Laterality: bilateral Lung location: unspecified part of lung (10) CKD (chronic kidney disease) stage 3, GFR 30-59 ml/min Status: Chronic Assessment and plan: SEE PLAN OF CARE LISTED BELOW Current Visit: No (11) Cardiac murmur Status: Chronic Assessment and plan: SEE PLAN OF CARE LISTED BELOW Current Visit: No (12) Ischemic cardiomyopathy Status: Chronic Assessment and plan: SEE PLAN OF CARE LISTED BELOW Current Visit: No (13) Acute exacerbation of congestive heart failure Status: Acute Assessment and plan: SEE PLAN OF CARE LISTED BELOW Current Visit: No Qualifiers: Congestive heart failure type: combined Qualified Code(s): I50.43 - Acute on chronic combined systolic (congestive) and diastolic (congestive) heart failure History of Present Illness Chief complaint: Syncope, elevated troponin History of present illness: MEDIA CONSULTANT: DR. MAGED HO Patient is being seen in the emergency department. Mr. Guerrero, 76BM, routinely followed by Dr. Maged Ho. Last seen in cardiology clinic November 15, 2016. Risk factors include: Known coronary artery disease, hypertension, dyslipidemia, diabetes, sedentary lifestyle. History of ischemic cardiomyopathy (EF 40%), anemia, aortic stenosis, prostate cancer, CKD stage III. History of several stents placed in the past. Most recent occurred 09/09/2016 with PCI of OM 2 with RAMIREZ, patent stents in the proximal LAD, proximal to mid RCA and distal to mid RCA, EF 25-30% at that time. Echocardiogram performed today at [facility] reveals the following: EF 40%, grade 2 diastolic dysfunction, severe aortic valve stenosis (RAMÓN 0.6 cm, transaortic peak gradient 51 mmHg, transaortic mean gradient 27.6 mmHg), mild to moderate MR , moderate aortic regurgitation, PAP 96 mmHg. Patient is wearing a LifeVest as his prior EF by LV Gram August 2016 revealed EF 25%-30%. Patient arrived to the ED at [facility] this morning around 10 AM after experiencing a syncopal episode witnessed by a friend. He was leaving [facility] after undergoing echocardiogram when he was walking to his truck and felt weak and tired. He told his friend he felt as if he should go to the emergency department. He was assisted into the truck when he completely lost consciousness. His friend who is present does not think he quit breathing but brought him quickly to the ED. He was unconscious approximately 2-3 minutes. He had no complaints of chest pain, heaviness, tightness prior to the event but does acknowledge being "tired in my chest" with worsening shortness of breath of the past several days. When he regained consciousness, he felt as if he was back to his normal self without any sluggishness. No seizure activity witnessed. Troponin is elevated at 0.43 however he does have a chronic elevation. His CK- MB is within normal limits. EKG is abnormal though not a STEMI. Patient remains anemic with a hemoglobin and hematocrit of 8.2 and 24.5 respectively. Creatinine is 1.7. CT chest reveals small bilateral pleural effusions suspect of pneumonia, bronchiolitis or edema. At this time, patient will be admitted to telemetry. We will continue to cycle his cardiac biomarkers, EKG. Continue aspirin and Plavix. Monitor his telemetry. Patient is wearing a LifeVest. Contacting LifeVest now to inquire regarding possible arrythmia this morning. We may be able to discontinue LifeVest as his EF has now improved to 40%. Patient does have severe aortic stenosis. Echocardiogram reviewed from 1 year ago reveals only mild to moderate aortic stenosis. Systolic blood pressure has been 90s-110s during this admission. We will allow for higher blood pressures and will adjust medications accordingly during hospital stay. Elevated troponin may be related to his renal insufficiency. Will further discuss with Dr. Turner and await additional recommendations. ASSESSMENT/PLAN: 1. SYNCOPE -etiology undetermined. He is somewhat hypotensive at this time and this very well could be from his worsened aortic stenosis and lower blood pressures. We will allow for higher systolic blood pressures at this time. Adjusting medications during the hospital stay. Contacting life vest at this time due determine if there was any arrhythmia contributing to the syncope. We will follow along on telemetry as well and at this time I asked him to go ahead and remove the LifeVest. CT head revealed only chronic changes. 2. KNOWN CAD -PCI of OM 2 with RAMIREZ September 09, 2016. Continue aspirin and Plavix 3. AORTIC STENOSIS -previously mild to moderate. According to echocardiogram performed this morning, aortic stenosis has progressed to severe. 4. ICM -EF 40%, improved from 25% to 30% recently 5. UNDERLYING HYPERTENSION -will allow for permissive hypertension given patient's severity of aortic stenosis 6. DYSLIPIDEMIA -continue lipid-lowering agent 7. CKD - STAGE III -avoiding NEMESIO inhibitor for fear of worsening renal insufficiency. 8. ANEMIA -continue to follow H&H daily. Has had upper GI scope approximately 2 months ago which did not reveal any obvious source of bleeding. There was mention of a colonoscopy however I cannot find record of a colonoscopy. 9. ELEVATED TROPONIN - continue to follow every 83 including CPK and CK MB. May be related to his chronic kidney disease. Continue aspirin and Plavix 10. SOB - multifactorial including acute on chronic CHF, possible CAP, pulmonary hypertension 11. ACUTE ON CHRONIC CHF - secondary to combined systolic dysfunction (EF 40%) and diastolic dysfunction. NYHA Class III 12. POSSIBLE CAP - will treat accordingly. Pulmonary toilet, antibiotics. 13. PULMONARY HYPERTENSION - may consider Sildenafil 14. DIABETES - sliding scale insulin coverage. Home Medications Medication Instructions Recorded Confirmed Type Glimepiride [Amaryl] 4 mg PO DAILY 02/01/15 12/19/16 History Aspirin [Ecotrin] 81 mg PO QPM 07/31/15 12/19/16 History Ticagrelor [Brilinta] 90 mg PO BID #120 tablet 10/28/16 12/19/16 Rx Isosorbide Mononitrate [Isosorbide 15 mg PO DAILY 11/12/16 12/19/16 History Mononitrate ER] Potassium Chloride 10 meq PO DAILY 11/12/16 12/19/16 History Furosemide Tab [Lasix Tab] 40 mg PO DAILY #30 tablet 11/13/16 12/19/16 Rx Carvedilol [Coreg] 12.5 mg PO BID 12/19/16 12/19/16 History Clopidogrel [Plavix] 75 mg PO DAILY 12/19/16 12/19/16 History Rosuvastatin Calcium [Crestor] 5 mg PO DAILY 12/19/16 12/19/16 History Allergies Allergy/AdvReac Type Severity Reaction Status Date / Time No Known Allergies Allergy Verified 11/12/16 12:10 Review of systems: REVIEW OF SYSTEMS: Somewhat of a poor historian. He does give basic information. - Constitutional Constitutional: Present: Fatigue, syncope. Absent: anorexia, night sweats - EENT Eyes: Absent: blurry vision, loss of vision, diplopia Ears: Absent: decreased hearing, ear pain, ear discharge - Cardiovascular Cardiovascular: Present: chest pain tiredness with exertion, dyspnea on exertion is chronic but worse over the past week. Mild lower extremity edema, denies palpitations. Absent: chest pain with deep breath, claudication - Respiratory Respiratory: Present: HAND, cough. Absent: wheezing, hemoptysis, change in phlegm color - Gastrointestinal Gastrointestinal: Present: constipation, abdominal bloating. No vomiting of blood or passing blood in his stool. - Genitourinary Genitourinary: Absent: difficulty urinating, dysuria, urinary hesitancy, flank pain - Musculoskeletal Musculoskeletal: Present: back pain Absent: joint swelling, muscle cramps, muscle weakness - Neurological Neurological: Present: Poor gait without frequent falls. Absent: dizziness, hemiparesis - Psychiatric Psychiatric: Absent: anxiety, depression, difficulty concentrating - Endocrine Endocrine: Present: fatigue. Absent: cold intolerance, heat intolerance, polyuria, polyphagia, polydipsia - Hematologic/Lymphatic Hematologic/Lymphatic: Present: easy bruising. Absent: easy bleeding -Integumentary Integumentary: Absent: lesions, rashes, skin breakdown Medical,Surgical,& Family Hx - Medical History Cardio: History of: CHF, CAD, Hypertension, LA (last LA 2013), Valvular Heart Disease Neurology: No history of: Seizures, TIA Endocrine: History of: Diabetes Mellitus (IDDM), Diabetes Mellitus (NIDDM), Dyslipidemia Respiratory: History of: COPD, Pneumonia Renal: History of: Renal Failure Genitourinary: History of: Prostate Problems (cancer) Other: History of: Cancer (PROSTATE) - Surgical History Cardiac Surgeries: Sugical HX of: Cardiac Catheterization (last cath 1 month ago ) Neurologic Surgeries: Patient denies: Neurologic Surgery Abdominal Surgeries: Patient denies: Abdominal Surgery Reproductive Surgeries: Surgical HX of;: Prostate Surgery - Family History Family History: Reports;: Family Cancer (brother), Family Diabetes (son), Family Heart Disease (mother), Family Hypertension (family) Denies;: Family Stroke - Social History Smoking Status: Former smoker Have you smoked in the last 12 months: No Frequency of Alcohol Use: None Type of Drug Use: None Cardiology Physical Exam - Constitutional Vitals: Vital Signs Temp Pulse Resp BP Pulse Ox 96.7 F L 91 H 20 97/54 98 12/19/16 12:35 12/19/16 14:59 12/19/16 14:59 12/19/16 12:35 12/19/16 14:59 Intake and Output 12/18/16 12/19/16 12/19/16 23:59 07:59 15:59 Intake Total 500 / 500 Balance 500 / 500 Intake: IV 500 / 500 Ns 500 ml @ 999 mls/hr IV 500 / 500 1X ED BOLUS STA Rx#: [id number] Other: Weight 71.668 kg Patient Weight 12/19/16 23:59 Weight 71.668 kg Exam: General: [Appears well with no apparent distress.] [Pleasant and cooperative. ] [Appears comfortable.] HEENT: [Bilateral arcus, normocephalic, atraumatic. Mucous membranes moist. No jaundice noted. Conjunctiva moist and clear, sclerae anicteric] Neck: 4 6 cm JVD to jaw. Bilateral carotid bruits. Cardiac: [Regular rate and rhythm.] [IV/ RANDALL heard best at bilateral upper sternal borders. Lungs: [Scant crackles in bases posteriorly. Mildly tachypneic.] Oxygen in use via nasal cannula Abdomen: Soft, bowel sounds normoactive, mildly distended but nontender. No masses noted. Musculoskeletal: No fluid collection. Decreased range of motion is noted. Extremities: No clubbing, cyanosis noted. [Trace bilateral lower extremity edema noted.] Upper extremity pulses 2+. Lower extremity pulses 2+. Capillary refill less than 3 seconds. Skin: Circumoral excoriation noted. No other unusual lesions or rashes. No skin breakdown appreciated. Neuro: Awake, alert and oriented 3. Moves all extremities well without hemiparesis or paralysis. No essential tremor is appreciated. Result/EKG - Labs CBC & BMP: 12/19/16 11:32 12/19/16 11:32 Lab Results: I have reviewed the past 24 hour labs Labs: Laboratory Results - last 24 hr 12/19/16 12/19/16 12/19/16 11:19 11:32 11:32 WBC RBC Hgb Hct MCV MCH MCHC RDW Plt Count MPV Neut % (Auto) Lymph % (Auto) [place] % (Auto) Eos % (Auto) Baso % (Auto) Neut # (Auto) Lymph # (Auto) [place] # (Auto) Eos # (Auto) Baso # (Auto) Immature Gran % Nucleated RBC % Immature Gran # Nucleated RBCs # INR 1.0 PT Patient/Control Mix 11.0 D-Dimer, Quantitative Sodium Potassium Chloride Carbon Dioxide Anion Gap BUN Creatinine GFR Calculation BUN/Creatinine Ratio Glucose POC Glucose 220 H Calculated Osmolality Calcium Total Bilirubin AST ALT Alkaline Phosphatase Total Creatine Kinase 120 CK-MB (CK-2) 1.2 Troponin I 0.413 H B-Natriuretic Peptide Total Protein Albumin Globulin Albumin/Globulin Ratio 12/19/16 12/19/16 12/19/16 11:32 11:32 11:32 WBC 5.6 RBC 2.51 L Hgb 8.2 L Hct 24.5 L MCV 97.6 MCH 33 MCHC 33.5 RDW 14.5 Plt Count 252 MPV 8.8 L Neut % (Auto) 71.2 Lymph % (Auto) 14.7 L [place] % (Auto) 12.2 Eos % (Auto) 1.1 Baso % (Auto) 0.4 Neut # (Auto) 4.0 Lymph # (Auto) 0.8 L [place] # (Auto) 0.7 Eos # (Auto) 0.1 Baso # (Auto) 0.0 Immature Gran % 0.4 Nucleated RBC % 0.0 Immature Gran # 0.02 Nucleated RBCs # 0.00 INR PT Patient/Control Mix D-Dimer, Quantitative Sodium 140 Potassium 4.5 Chloride 107 Carbon Dioxide 26 Anion Gap 11.5 BUN 31 H Creatinine 1.70 H GFR Calculation 46 BUN/Creatinine Ratio 18.00 Glucose 183 H POC Glucose Calculated Osmolality 290.4 Calcium 8.9 Total Bilirubin < 0.39 AST 19 ALT 18 Alkaline Phosphatase 76 Total Creatine Kinase CK-MB (CK-2) Troponin I B-Natriuretic Peptide 1949 H Total Protein 6.4 Albumin 3.1 L Globulin 3.3 Albumin/Globulin Ratio 0.9 L 12/19/16 11:32 WBC RBC Hgb Hct MCV MCH MCHC RDW Plt Count MPV Neut % (Auto) Lymph % (Auto) [place] % (Auto) Eos % (Auto) Baso % (Auto) Neut # (Auto) Lymph # (Auto) [place] # (Auto) Eos # (Auto) Baso # (Auto) Immature Gran % Nucleated RBC % Immature Gran # Nucleated RBCs # INR PT Patient/Control Mix D-Dimer, Quantitative 0.8 Sodium Potassium Chloride Carbon Dioxide Anion Gap BUN Creatinine GFR Calculation BUN/Creatinine Ratio Glucose POC Glucose Calculated Osmolality Calcium Total Bilirubin AST ALT Alkaline Phosphatase Total Creatine Kinase CK-MB (CK-2) Troponin I B-Natriuretic Peptide Total Protein Albumin Globulin Albumin/Globulin Ratio - Diagnostic Findings Procedure: Chest x-ray: report reviewed by me, CT - chest: report reviewed by me , CT: report reviewed by me (CT head), Ultrasound: report reviewed by me ( Echocardiogram CIS) - EKG EKG results: interpreted by me EKG shows: sinus rhythm
[2016-12-19] MEDS ORDERED: ENOXAPARIN 30 MG/0.3 ML SYRINGE SUBCUT ONE (17:07)
[2016-12-19] MEDS: ASPIRIN EC 81 MG TABLET PO SCH (18:20)
[2016-12-19] MEDS: LEVOFLOXACIN INJ 500 MG in PREMIX 1 EACH IV SCH (19:01)
--- NOTE | 2016-12-19 19:07 | Ultrasound Report ---
Bilateral carotid Doppler. Indication: Bilateral carotid bruit. Grayscale, color-flow, and spectral analysis performed and interpreted. Within each carotid bulb and proximal internal carotid artery, there is plaque formation, which is mixed. The right internal carotid artery peak systolic velocity is 88 cm/s, with an IC/CC ratio of 1.0. The left internal carotid artery peak systolic velocity is 123 cm/s, with an IC/CC ratio 1.7. There is antegrade flow within each vertebral artery. Impression: Using NASCET criteria, findings consistent with less than 50% stenosis bilaterally. On the left, velocities indicate that the degree of stenosis is approaching 50%. PROCEDURE INTERPRETED AT [facility] DEPARTMENT OF RADIOLOGY Final Report Signed by: Dr. Taina Adorno
[2016-12-19] MEDS: LEVALBUTEROL 0.63 MG/3 ML NEB RESP TX SCH (19:53)
[2016-12-19] MEDS ORDERED: CARVEDILOL 12.5 MG TABLET PO SCH (21:00)
[2016-12-19] MEDS: ROSUVASTATIN 10 MG TABLET PO SCH (21:08)
[2016-12-19] MEDS: CARVEDILOL 6.25 MG TABLET PO SCH (21:08)
[2016-12-20 00:11] LABS: Troponin I Only 0.315 NG/ML (0.00-0.045)
[2016-12-20] MEDS: LEVALBUTEROL 0.63 MG/3 ML NEB RESP TX SCH ×5 (00:25→19:51)
[2016-12-20] MEDS ORDERED: FUROSEMIDE 40 MG/4 ML VIAL IV ONE (00:51)
[2016-12-20] MEDS ORDERED: FUROSEMIDE 100 MG/10 ML VIAL ONE (00:55)
[2016-12-20 02:05] LABS: Apearance,Urine CLEAR (Clear); Bilirubin,Urine Negative (Negative); Blood, Urine Small mg/dL (Negative); Glucose,Urine (UA) Negative (Negative); Ketones,Urine Negative (Negative); Mucus,Urine Occasional /LPF (Occasional); Nitrite,Urine Negative (Negative); Protein,Urine 100 MG/DL; RBC,Urine 3 /HPF (0-4); Squamous Epithelial Cell,Urine Occasional /HPF (0-10); Urine Color Yellow (Yellow); Urine Specific Gravity 1.038 (1.001-1.035); Urine Urobilinogen < 2.0 EU/DL (0.2-1.0); WBC,Urine <1 /HPF (0-6)
[2016-12-20 05:37] LABS: Basophils % 0.3 % (0.0-0.8); Eosinophils % 0.1 % (0.00-10.9); Hematocrit 26.2 VOL% (42.0-52.0); Hemoglobin 8.6 GM/DL (14.0-18.0); Immature Granulocytes % 0.5 %; Immature Granulocytes Absolute 0.04 #; Lymphocytes # 0.8 10*3/uL (1.4-4.0); Lymphocytes % 8.8 % (21.2-54.2); Mean Corpuscular HGB Conc 32.8 GM/DL (32-36); Mean Corpuscular Hemoglobin 32 PG (27-34); Mean Corpuscular Volume 98.5 FL (87-102); Mean Platelet Volume 9.1 FL (9.6-12.0); Monocytes # 0.8 10*3/uL (0.11-0.8); Monocytes % 8.8 % (1.7-12.7); Neutrophils % 81.5 % (38.7-73.9); Platelet Count 277 T/CUMM (130-400); Red Blood Count 2.66 MC/CUMM (3.8-5.5); Red Cell Distribution Width 14.6 % (9.3-17.3); White Blood Count 8.6 T/CUMM (4-12)
--- NOTE | 2016-12-20 05:57 | EKG Report ---
Stationary ECG Study [facility] ER Test Date: 12/19/2016 9:54:30 AM Pat Name: HARDEEP LORENZ Department: Room: 107 Gender: M Human Resources Manager: Rocio Mccain : 1940 Requested by: Smith Leon Order Number: [id number] Reading MD: ROSIO SANTANA Intervals Waves Rate: 85 P: 83 NH: 166 QRS: 55 QRSD: 109 T: 91 QT: 403 QTc: 445 Interpretive Statements SINUS RHYTHM WITH OCCASIONAL VENTRICULAR PREMATURE COMPLEXES at 85 bpm EARLY REPOLARIZATION Electronically Signed On 12-20-16 07:15:58 CDT by ROSIO SANTANA [email or web address]
[2016-12-20 06:01] LABS: Albumin 3.1 G/DL (3.4-5.0); Bilirubin,Total 0.6 MG/DL (0.2-1.0); Calcium 8.8 MG/DL (8.5-10.1); Osmolality,Calculated 292.1 MOS/KG (273-304); Potassium 4.2 MMOL/L (3.5-5.1); Risk Ratio 2.8; Total Protein 6.4 G/DL (6.4-8.3); VLDL CHOLESTEROL 17.4 MG/DL
[2016-12-20 07:47] LABS: Troponin I Only 0.331 NG/ML (0.00-0.045)
[2016-12-20] MEDS: LEVOFLOXACIN INJ 500 MG in PREMIX 1 EACH IV SCH (08:40)
[2016-12-20] MEDS: PANTOPRAZOLE 40 MG TABLET PO SCH (08:46)
[2016-12-20] MEDS: CARVEDILOL 6.25 MG TABLET PO SCH ×2 (08:46→20:11)
[2016-12-20] MEDS: CLOPIDOGREL 75 MG TABLET PO SCH (08:46)
[2016-12-20] MEDS: GLIMEPIRIDE 4 MG TABLET PO SCH (08:46)
[2016-12-20] MEDS: POTASSIUM CHLORIDE 10 MEQ TABLET PO SCH (08:46)
[2016-12-20] MEDS ORDERED: FUROSEMIDE 40 MG TABLET PO SCH (09:00)
[2016-12-20] MEDS ORDERED: ISOSORBIDE MONONITRATE 30 MG TABLET PO SCH (09:00)
--- NOTE | 2016-12-20 09:05 | Cardiology Progress Note ---
<Leti Barton E - Last Filed: 12/20/16 09:07> Assessment and Plan - Time spent with patient Time spent with patient: Greater than 30 minutes (1) CHF (congestive heart failure), NYHA class III Status: Acute Assessment and plan: SEE PLAN OF CARE LISTED BELOW Current Visit: Yes Qualifiers: Congestive heart failure type: combined Congestive heart failure chronicity : acute on chronic (2) Abnormal cardiac enzyme level Status: Chronic Assessment and plan: SEE PLAN OF CARE LISTED BELOW Current Visit: Yes (3) Dyspnea Status: Acute Assessment and plan: SEE PLAN OF CARE LISTED BELOW Current Visit: Yes Qualifiers: Dyspnea type: unspecified Qualified Code(s): R06.00 - Dyspnea, unspecified (4) Aortic stenosis Status: Chronic Assessment and plan: SEE PLAN OF CARE LISTED BELOW Current Visit: Yes Qualifiers: Cardiac valve disease etiology: nonrheumatic Qualified Code(s): I35.0 - Nonrheumatic aortic (valve) stenosis (5) Coronary artery disease Status: Chronic Assessment and plan: SEE PLAN OF CARE LISTED BELOW Current Visit: Yes (6) Diabetes Status: Chronic Assessment and plan: SEE PLAN OF CARE LISTED BELOW Current Visit: Yes Qualifiers: Diabetes mellitus type: type 2 Diabetes mellitus complication status: without complication (7) Anemia Status: Chronic Assessment and plan: SEE PLAN OF CARE LISTED BELOW Current Visit: No (8) History of coronary artery stent placement Status: Chronic Assessment and plan: SEE PLAN OF CARE LISTED BELOW Current Visit: No (9) Pneumonia Status: Acute Assessment and plan: SEE PLAN OF CARE LISTED BELOW Current Visit: Yes Qualifiers: Laterality: bilateral Lung location: unspecified part of lung (10) CKD (chronic kidney disease) stage 3, GFR 30-59 ml/min Status: Chronic Assessment and plan: SEE PLAN OF CARE LISTED BELOW Current Visit: No (11) Cardiac murmur Status: Chronic Assessment and plan: SEE PLAN OF CARE LISTED BELOW Current Visit: No (12) Acute exacerbation of congestive heart failure Status: Acute Assessment and plan: SEE PLAN OF CARE LISTED BELOW Current Visit: No Qualifiers: Congestive heart failure type: combined Qualified Code(s): I50.43 - Acute on chronic combined systolic (congestive) and diastolic (congestive) heart failure Cardiology - PN: Subj Interval history: LOCKSTITCH WAISTBAND SETTER: DR. MAGED SALGADO SUMMARY: Mr. Guerrero, 76BM, has a known history of coronary artery disease, hypertension, dyslipidemia, diabetes, ischemic cardiomyopathy (EF 40%), anemia, prostate cancer, CKD stage III. History of several stents placed in the past. Most recent occurred 09/09/2016 with PCI of OM 2 with RAMIREZ, patent stents in the proximal LAD, proximal to mid RCA and distal to mid RCA, EF 25-30% at that time. Echocardiogram performed December 19, 2016 revealed the following: EF 40 %, grade 2 diastolic dysfunction, severe aortic valve stenosis (RAMÓN 0.6 cm, transaortic peak gradient 51 mmHg, transaortic mean gradient 27.6 mmHg), mild to moderate MR, moderate aortic regurgitation, severe pulmonary hypertension ( PAP 96 mmHg.) Patient was admitted December 19, 2016 through ED at [facility] after experiencing a syncopal episode. Patient had just left [facility] after undergoing echocardiogram when he felt weak, tired and short of breath. He has been diagnosed with acute on chronic congestive heart failure, possible pneumonia. During the night, he became more abruptly short of breath, orthopneic with SPO2 saturations in the mid 80s. He was given IV Lasix but his respiratory status did not improve. He was transferred to ICU where he has been housed since around 0100. DECEMBER 20, 2016: This morning, Mr. Guerrero remains tachypneic although he states he is breathing better. He is currently on oxygen at 10 L/min with an SPO2 saturation 87%. LifeVest was interrogated last evening in an attempt to identify possible arrhythmia contributing to syncope. There was no arrhythmia noted per report. At this time, he may remove the LifeVest. Troponins flat. This is not NSTEMI. I have discussed with Dr. Turner. We will increase Lasix this morning, and Zaroxolyn daily. IV nitroglycerin to assist with afterload reduction, closely monitoring given his severe . Consult pulmonology for assistance with his severe shortness of breath certainly related to acute on chronic congestive heart failure but may have some underlying chronic issues and /or possible pneumonia. IV Levaquin was initiated yesterday. Patient may be considered a candidate for TAVR but obviously must be tuned up prior to procedure. Recently had stents placed and he continues to take aspirin and Plavix. Allowing for higher blood pressures given the severity of his aortic stenosis. ASSESSMENT/PLAN: 1. SYNCOPE - Most likely related to severe . Allowing for higher systolic blood pressure. May be a candidate for TAVR in the near future. 2. KNOWN CAD - PCI of OM 2 with RAMIREZ September 09, 2016 - Continue aspirin and Plavix 3. AORTIC STENOSIS - Severe. Afterload reduction. Adding IV Nitroglycerine, monitoring closely. 4. ICM - EF 40%, improved from 25% to 30% recently 5. UNDERLYING HYPERTENSION - Will allow for permissive hypertension given patient's severity of aortic stenosis 6. DYSLIPIDEMIA - Continue lipid-lowering agent. LDL 68. 7. CKD - STAGE III - Avoiding NEMESIO inhibitor for fear of worsening renal insufficiency. 8. ANEMIA - Continue to follow H&H daily. Has had upper GI scope approximately 2 months ago which did not reveal any obvious source of bleeding. There was mention of a colonoscopy however I cannot find record of a colonoscopy. He does not remember having c-scope. Checking stool for occult blood. Will add oral iron replacement. Appears stable at this time. 9. ELEVATED TROPONIN - Chronic. Not NSTEMI. 10. SOB - Multifactorial including acute on chronic CHF, possible CAP, pulmonary hypertension 11. ACUTE ON CHRONIC CHF - Secondary to combined systolic dysfunction (EF 40%) and diastolic dysfunction. NYHA Class IV. Continue with diuretics, afterload reduction agents. 12. POSSIBLE CAP - IV Levaquin initiated Monday. Consult pulmonary for assistance with SOB and abnormal CT Chest. Xray pending this morning. 13. PULMONARY HYPERTENSION - Continue current plan of care. 14. DIABETES - Sliding scale insulin coverage. Exam (Progress Note) - Constitutional Vitals: Period Temp Pulse Resp BP Sys/Slater Pulse Ox Last 24 Hr 96.5 F-99.4 F 85-102 16-33 97-157/54-91 81-99 Exam: General: [Mild distress, pleasant. Cooperative.] HEENT: [Bilateral arcus, normocephalic, atraumatic. Mucous membranes moist. No jaundice noted. Conjunctiva moist and clear, sclerae anicteric] Neck: 4-6 cm JVD to jaw. No thyromegaly or lymphadenopathy noted. Bilateral carotid bruits noted. Cardiac: [Regular rate and rhythm.] [IV/ RANDALL heard best at bilateral upper sternal borders with radiation to bilateral carotids. Lungs: [Inspiratory crackles noted posteriorly midway up both lung reyes. Tachypneic. SPO2 saturation 97% on O2 at 10 L/min by nasal cannula. Abdomen: Soft, bowel sounds normoactive. Distended. Nontender. Musculoskeletal: No fluid collection. Decreased range of motion is noted. Extremities: No clubbing, cyanosis noted. [Trace bilateral lower extremity edema noted. ] Upper extremity pulses 2+. Lower extremity pulses 2+. Capillary refill less than 3 seconds. Skin: No unusual lesions or rashes. No skin breakdown appreciated. Neuro: Awake, alert and oriented 3. Moves all extremities well without hemiparesis or paralysis. No essential tremor is appreciated. Result/EKG - Labs CBC & BMP: 12/20/16 05:15 12/20/16 05:15 Lab Results: I have reviewed the past 24 hour labs Labs: Laboratory Results - last 24 hr 12/19/16 12/19/16 12/19/16 11:19 11:32 11:32 WBC RBC Hgb Hct MCV MCH MCHC RDW Plt Count MPV Neut % (Auto) Lymph % (Auto) [place] % (Auto) Eos % (Auto) Baso % (Auto) Neut # (Auto) Lymph # (Auto) [place] # (Auto) Eos # (Auto) Baso # (Auto) Immature Gran % Nucleated RBC % Immature Gran # Nucleated RBCs # INR 1.0 PT Patient/Control Mix 11.0 D-Dimer, Quantitative Sodium Potassium Chloride Carbon Dioxide Anion Gap BUN Creatinine GFR Calculation BUN/Creatinine Ratio Glucose POC Glucose 220 H Calculated Osmolality Calcium Total Bilirubin AST ALT Alkaline Phosphatase Total Creatine Kinase 120 CK-MB (CK-2) 1.2 Troponin I 0.413 H B-Natriuretic Peptide Total Protein Albumin Globulin Albumin/Globulin Ratio Triglycerides Cholesterol LDL Cholesterol VLDL Cholesterol HDL Cholesterol Heart Disease Risk Ratio TSH 3rd Generation Urine Color Urine Appearance Urine pH Ur Specific [place] Urine Protein Urine Glucose (UA) Urine Ketones Urine Blood Urine Nitrate Urine Bilirubin Urine Urobilinogen Urine Leukocytes Urine RBC Urine WBC Ur Squamous Epith Cells Urine Mucus Ur Culture Indicated? Blood Type Antibody Screen 12/19/16 12/19/16 12/19/16 11:32 11:32 11:32 WBC 5.6 RBC 2.51 L Hgb 8.2 L Hct 24.5 L MCV 97.6 MCH 33 MCHC 33.5 RDW 14.5 Plt Count 252 MPV 8.8 L Neut % (Auto) 71.2 Lymph % (Auto) 14.7 L [place] % (Auto) 12.2 Eos % (Auto) 1.1 Baso % (Auto) 0.4 Neut # (Auto) 4.0 Lymph # (Auto) 0.8 L [place] # (Auto) 0.7 Eos # (Auto) 0.1 Baso # (Auto) 0.0 Immature Gran % 0.4 Nucleated RBC % 0.0 Immature Gran # 0.02 Nucleated RBCs # 0.00 INR PT Patient/Control Mix D-Dimer, Quantitative Sodium 140 Potassium 4.5 Chloride 107 Carbon Dioxide 26 Anion Gap 11.5 BUN 31 H Creatinine 1.70 H GFR Calculation 46 BUN/Creatinine Ratio 18.00 Glucose 183 H POC Glucose Calculated Osmolality 290.4 Calcium 8.9 Total Bilirubin < 0.39 AST 19 ALT 18 Alkaline Phosphatase 76 Total Creatine Kinase CK-MB (CK-2) Troponin I B-Natriuretic Peptide 1949 H Total Protein 6.4 Albumin 3.1 L Globulin 3.3 Albumin/Globulin Ratio 0.9 L Triglycerides Cholesterol LDL Cholesterol VLDL Cholesterol HDL Cholesterol Heart Disease Risk Ratio TSH 3rd Generation Urine Color Urine Appearance Urine pH Ur Specific [place] Urine Protein Urine Glucose (UA) Urine Ketones Urine Blood Urine Nitrate Urine Bilirubin Urine Urobilinogen Urine Leukocytes Urine RBC Urine WBC Ur Squamous Epith Cells Urine Mucus Ur Culture Indicated? Blood Type Antibody Screen 12/19/16 12/19/16 12/19/16 11:32 11:32 14:00 WBC RBC Hgb Hct MCV MCH MCHC RDW Plt Count MPV Neut % (Auto) Lymph % (Auto) [place] % (Auto) Eos % (Auto) Baso % (Auto) Neut # (Auto) Lymph # (Auto) [place] # (Auto) Eos # (Auto) Baso # (Auto) Immature Gran % Nucleated RBC % Immature Gran # Nucleated RBCs # INR PT Patient/Control Mix D-Dimer, Quantitative 0.8 Sodium Potassium Chloride Carbon Dioxide Anion Gap BUN Creatinine GFR Calculation BUN/Creatinine Ratio Glucose POC Glucose Calculated Osmolality Calcium Total Bilirubin AST ALT Alkaline Phosphatase Total Creatine Kinase CK-MB (CK-2) Troponin I B-Natriuretic Peptide Total Protein Albumin Globulin Albumin/Globulin Ratio Triglycerides Cholesterol LDL Cholesterol VLDL Cholesterol HDL Cholesterol Heart Disease Risk Ratio TSH 3rd Generation 2.760 Urine Color Urine Appearance Urine pH Ur Specific [place] Urine Protein Urine Glucose (UA) Urine Ketones Urine Blood Urine Nitrate Urine Bilirubin Urine Urobilinogen Urine Leukocytes Urine RBC Urine WBC Ur Squamous Epith Cells Urine Mucus Ur Culture Indicated? Blood Type O POSITIVE Antibody Screen Negative 12/19/16 12/19/16 12/19/16 16:59 17:02 23:27 WBC RBC Hgb Hct MCV MCH MCHC RDW Plt Count MPV Neut % (Auto) Lymph % (Auto) [place] % (Auto) Eos % (Auto) Baso % (Auto) Neut # (Auto) Lymph # (Auto) [place] # (Auto) Eos # (Auto) Baso # (Auto) Immature Gran % Nucleated RBC % Immature Gran # Nucleated RBCs # INR PT Patient/Control Mix D-Dimer, Quantitative Sodium Potassium Chloride Carbon Dioxide Anion Gap BUN Creatinine GFR Calculation BUN/Creatinine Ratio Glucose POC Glucose 168 H Calculated Osmolality Calcium Total Bilirubin AST ALT Alkaline Phosphatase Total Creatine Kinase 130 125 CK-MB (CK-2) 1.4 1.1 Troponin I 0.340 H 0.315 H B-Natriuretic Peptide Total Protein Albumin Globulin Albumin/Globulin Ratio Triglycerides Cholesterol LDL Cholesterol VLDL Cholesterol HDL Cholesterol Heart Disease Risk Ratio TSH 3rd Generation Urine Color Urine Appearance Urine pH Ur Specific [place] Urine Protein Urine Glucose (UA) Urine Ketones Urine Blood Urine Nitrate Urine Bilirubin Urine Urobilinogen Urine Leukocytes Urine RBC Urine WBC Ur Squamous Epith Cells Urine Mucus Ur Culture Indicated? Blood Type Antibody Screen 12/20/16 12/20/16 12/20/16 00:00 00:13 05:15 WBC 8.6 D RBC 2.66 L Hgb 8.6 L Hct 26.2 L MCV 98.5 MCH 32 MCHC 32.8 RDW 14.6 Plt Count 277 MPV 9.1 L Neut % (Auto) 81.5 H Lymph % (Auto) 8.8 L [place] % (Auto) 8.8 Eos % (Auto) 0.1 Baso % (Auto) 0.3 Neut # (Auto) 7.0 Lymph # (Auto) 0.8 L [place] # (Auto) 0.8 Eos # (Auto) 0.0 Baso # (Auto) 0.0 Immature Gran % 0.5 Nucleated RBC % 0.0 Immature Gran # 0.04 Nucleated RBCs # 0.00 INR PT Patient/Control Mix D-Dimer, Quantitative Sodium Potassium Chloride Carbon Dioxide Anion Gap BUN Creatinine GFR Calculation BUN/Creatinine Ratio Glucose POC Glucose 178 H Calculated Osmolality Calcium Total Bilirubin AST ALT Alkaline Phosphatase Total Creatine Kinase CK-MB (CK-2) Troponin I B-Natriuretic Peptide Total Protein Albumin Globulin Albumin/Globulin Ratio Triglycerides Cholesterol LDL Cholesterol VLDL Cholesterol HDL Cholesterol Heart Disease Risk Ratio TSH 3rd Generation Urine Color Yellow Urine Appearance Clear Urine pH 5.0 Ur Specific [place] 1.038 H Urine Protein 100 Urine Glucose (UA) Negative Urine Ketones Negative Urine Blood Small Urine Nitrate Negative Urine Bilirubin Negative Urine Urobilinogen < 2.0 H Urine Leukocytes Negative Urine RBC 3 Urine WBC <1 Ur Squamous Epith Cells Occasional Urine Mucus Occasional Ur Culture Indicated? Not indicated Blood Type Antibody Screen 12/20/16 12/20/16 05:15 06:31 WBC RBC Hgb Hct MCV MCH MCHC RDW Plt Count MPV Neut % (Auto) Lymph % (Auto) [place] % (Auto) Eos % (Auto) Baso % (Auto) Neut # (Auto) Lymph # (Auto) [place] # (Auto) Eos # (Auto) Baso # (Auto) Immature Gran % Nucleated RBC % Immature Gran # Nucleated RBCs # INR PT Patient/Control Mix D-Dimer, Quantitative Sodium 142 Potassium 4.2 Chloride 107 Carbon Dioxide 26 Anion Gap 13.2 BUN 34 H Creatinine 1.70 H GFR Calculation 46 BUN/Creatinine Ratio 20.00 Glucose 138 H POC Glucose Calculated Osmolality 292.1 Calcium 8.8 Total Bilirubin 0.60 AST 16 ALT 19 Alkaline Phosphatase 77 Total Creatine Kinase 124 CK-MB (CK-2) < 1.0 Troponin I 0.331 H B-Natriuretic Peptide Total Protein 6.4 Albumin 3.1 L Globulin 3.3 Albumin/Globulin Ratio 0.9 L Triglycerides 87 Cholesterol 123 LDL Cholesterol 68.0 VLDL Cholesterol 17.4 HDL Cholesterol 44 Heart Disease Risk Ratio 2.80 TSH 3rd Generation Urine Color Urine Appearance Urine pH Ur Specific [place] Urine Protein Urine Glucose (UA) Urine Ketones Urine Blood Urine Nitrate Urine Bilirubin Urine Urobilinogen Urine Leukocytes Urine RBC Urine WBC Ur Squamous Epith Cells Urine Mucus Ur Culture Indicated? Blood Type Antibody Screen - Diagnostic Findings Procedure: Chest x-ray: report reviewed by me, CT: report reviewed by me - EKG EKG results: interpreted by me EKG shows: sinus rhythm <Chon Turner - Last Filed: 12/20/16 10:19> Cardiology - PN: Subj Interval history: This patient has acute heart failure I think primarily related to severe aortic stenosis. We are trying to optimize his volume status and then proceed with evaluation for transcatheter versus surgical aortic valve replacement. He has had syncope and worsening heart failure both of which portend a poor prognosis related to his . I have discussed in detail the particulars of this case and I have examined the patient and reviewed the patient's chart both current and old. I was directly involved in the patient's evaluation and management and I completely agree with Leti Barton NP regarding this patient's evaluation and treatment plan. Exam (Progress Note) - Constitutional Vitals: Period Temp Pulse Resp BP Sys/Slater Pulse Ox Last 24 Hr 96.7 F-99.4 F 85-102 16-33 97-157/54-91 81-99 Result/EKG - Labs CBC & BMP: 12/20/16 05:15 12/20/16 05:15 Labs: Laboratory Results - last 24 hr 12/19/16 12/19/16 12/19/16 11:19 11:32 11:32 WBC RBC Hgb Hct MCV MCH MCHC RDW Plt Count MPV Neut % (Auto) Lymph % (Auto) [place] % (Auto) Eos % (Auto) Baso % (Auto) Neut # (Auto) Lymph # (Auto) [place] # (Auto) Eos # (Auto) Baso # (Auto) Immature Gran % Nucleated RBC % Immature Gran # Nucleated RBCs # INR 1.0 PT Patient/Control Mix 11.0 D-Dimer, Quantitative Sodium Potassium Chloride Carbon Dioxide Anion Gap BUN Creatinine GFR Calculation BUN/Creatinine Ratio Glucose POC Glucose 220 H Calculated Osmolality Calcium Total Bilirubin AST ALT Alkaline Phosphatase Total Creatine Kinase 120 CK-MB (CK-2) 1.2 Troponin I 0.413 H B-Natriuretic Peptide Total Protein Albumin Globulin Albumin/Globulin Ratio Triglycerides Cholesterol LDL Cholesterol VLDL Cholesterol HDL Cholesterol Heart Disease Risk Ratio TSH 3rd Generation Urine Color Urine Appearance Urine pH Ur Specific [place] Urine Protein Urine Glucose (UA) Urine Ketones Urine Blood Urine Nitrate Urine Bilirubin Urine Urobilinogen Urine Leukocytes Urine RBC Urine WBC Ur Squamous Epith Cells Urine Mucus Ur Culture Indicated? Blood Type Antibody Screen 12/19/16 12/19/16 12/19/16 11:32 11:32 11:32 WBC 5.6 RBC 2.51 L Hgb 8.2 L Hct 24.5 L MCV 97.6 MCH 33 MCHC 33.5 RDW 14.5 Plt Count 252 MPV 8.8 L Neut % (Auto) 71.2 Lymph % (Auto) 14.7 L [place] % (Auto) 12.2 Eos % (Auto) 1.1 Baso % (Auto) 0.4 Neut # (Auto) 4.0 Lymph # (Auto) 0.8 L [place] # (Auto) 0.7 Eos # (Auto) 0.1 Baso # (Auto) 0.0 Immature Gran % 0.4 Nucleated RBC % 0.0 Immature Gran # 0.02 Nucleated RBCs # 0.00 INR PT Patient/Control Mix D-Dimer, Quantitative Sodium 140 Potassium 4.5 Chloride 107 Carbon Dioxide 26 Anion Gap 11.5 BUN 31 H Creatinine 1.70 H GFR Calculation 46 BUN/Creatinine Ratio 18.00 Glucose 183 H POC Glucose Calculated Osmolality 290.4 Calcium 8.9 Total Bilirubin < 0.39 AST 19 ALT 18 Alkaline Phosphatase 76 Total Creatine Kinase CK-MB (CK-2) Troponin I B-Natriuretic Peptide 1949 H Total Protein 6.4 Albumin 3.1 L Globulin 3.3 Albumin/Globulin Ratio 0.9 L Triglycerides Cholesterol LDL Cholesterol VLDL Cholesterol HDL Cholesterol Heart Disease Risk Ratio TSH 3rd Generation Urine Color Urine Appearance Urine pH Ur Specific [place] Urine Protein Urine Glucose (UA) Urine Ketones Urine Blood Urine Nitrate Urine Bilirubin Urine Urobilinogen Urine Leukocytes Urine RBC Urine WBC Ur Squamous Epith Cells Urine Mucus Ur Culture Indicated? Blood Type Antibody Screen 12/19/16 12/19/16 12/19/16 11:32 11:32 14:00 WBC RBC Hgb Hct MCV MCH MCHC RDW Plt Count MPV Neut % (Auto) Lymph % (Auto) [place] % (Auto) Eos % (Auto) Baso % (Auto) Neut # (Auto) Lymph # (Auto) [place] # (Auto) Eos # (Auto) Baso # (Auto) Immature Gran % Nucleated RBC % Immature Gran # Nucleated RBCs # INR PT Patient/Control Mix D-Dimer, Quantitative 0.8 Sodium Potassium Chloride Carbon Dioxide Anion Gap BUN Creatinine GFR Calculation BUN/Creatinine Ratio Glucose POC Glucose Calculated Osmolality Calcium Total Bilirubin AST ALT Alkaline Phosphatase Total Creatine Kinase CK-MB (CK-2) Troponin I B-Natriuretic Peptide Total Protein Albumin Globulin Albumin/Globulin Ratio Triglycerides Cholesterol LDL Cholesterol VLDL Cholesterol HDL Cholesterol Heart Disease Risk Ratio TSH 3rd Generation 2.760 Urine Color Urine Appearance Urine pH Ur Specific [place] Urine Protein Urine Glucose (UA) Urine Ketones Urine Blood Urine Nitrate Urine Bilirubin Urine Urobilinogen Urine Leukocytes Urine RBC Urine WBC Ur Squamous Epith Cells Urine Mucus Ur Culture Indicated? Blood Type O POSITIVE Antibody Screen Negative 12/19/16 12/19/16 12/19/16 16:59 17:02 23:27 WBC RBC Hgb Hct MCV MCH MCHC RDW Plt Count MPV Neut % (Auto) Lymph % (Auto) [place] % (Auto) Eos % (Auto) Baso % (Auto) Neut # (Auto) Lymph # (Auto) [place] # (Auto) Eos # (Auto) Baso # (Auto) Immature Gran % Nucleated RBC % Immature Gran # Nucleated RBCs # INR PT Patient/Control Mix D-Dimer, Quantitative Sodium Potassium Chloride Carbon Dioxide Anion Gap BUN Creatinine GFR Calculation BUN/Creatinine Ratio Glucose POC Glucose 168 H Calculated Osmolality Calcium Total Bilirubin AST ALT Alkaline Phosphatase Total Creatine Kinase 130 125 CK-MB (CK-2) 1.4 1.1 Troponin I 0.340 H 0.315 H B-Natriuretic Peptide Total Protein Albumin Globulin Albumin/Globulin Ratio Triglycerides Cholesterol LDL Cholesterol VLDL Cholesterol HDL Cholesterol Heart Disease Risk Ratio TSH 3rd Generation Urine Color Urine Appearance Urine pH Ur Specific [place] Urine Protein Urine Glucose (UA) Urine Ketones Urine Blood Urine Nitrate Urine Bilirubin Urine Urobilinogen Urine Leukocytes Urine RBC Urine WBC Ur Squamous Epith Cells Urine Mucus Ur Culture Indicated? Blood Type Antibody Screen 12/20/16 12/20/16 12/20/16 00:00 00:13 05:15 WBC 8.6 D RBC 2.66 L Hgb 8.6 L Hct 26.2 L MCV 98.5 MCH 32 MCHC 32.8 RDW 14.6 Plt Count 277 MPV 9.1 L Neut % (Auto) 81.5 H Lymph % (Auto) 8.8 L [place] % (Auto) 8.8 Eos % (Auto) 0.1 Baso % (Auto) 0.3 Neut # (Auto) 7.0 Lymph # (Auto) 0.8 L [place] # (Auto) 0.8 Eos # (Auto) 0.0 Baso # (Auto) 0.0 Immature Gran % 0.5 Nucleated RBC % 0.0 Immature Gran # 0.04 Nucleated RBCs # 0.00 INR PT Patient/Control Mix D-Dimer, Quantitative Sodium Potassium Chloride Carbon Dioxide Anion Gap BUN Creatinine GFR Calculation BUN/Creatinine Ratio Glucose POC Glucose 178 H Calculated Osmolality Calcium Total Bilirubin AST ALT Alkaline Phosphatase Total Creatine Kinase CK-MB (CK-2) Troponin I B-Natriuretic Peptide Total Protein Albumin Globulin Albumin/Globulin Ratio Triglycerides Cholesterol LDL Cholesterol VLDL Cholesterol HDL Cholesterol Heart Disease Risk Ratio TSH 3rd Generation Urine Color Yellow Urine Appearance Clear Urine pH 5.0 Ur Specific [place] 1.038 H Urine Protein 100 Urine Glucose (UA) Negative Urine Ketones Negative Urine Blood Small Urine Nitrate Negative Urine Bilirubin Negative Urine Urobilinogen < 2.0 H Urine Leukocytes Negative Urine RBC 3 Urine WBC <1 Ur Squamous Epith Cells Occasional Urine Mucus Occasional Ur Culture Indicated? Not indicated Blood Type Antibody Screen 12/20/16 12/20/16 05:15 06:31 WBC RBC Hgb Hct MCV MCH MCHC RDW Plt Count MPV Neut % (Auto) Lymph % (Auto) [place] % (Auto) Eos % (Auto) Baso % (Auto) Neut # (Auto) Lymph # (Auto) [place] # (Auto) Eos # (Auto) Baso # (Auto) Immature Gran % Nucleated RBC % Immature Gran # Nucleated RBCs # INR PT Patient/Control Mix D-Dimer, Quantitative Sodium 142 Potassium 4.2 Chloride 107 Carbon Dioxide 26 Anion Gap 13.2 BUN 34 H Creatinine 1.70 H GFR Calculation 46 BUN/Creatinine Ratio 20.00 Glucose 138 H POC Glucose Calculated Osmolality 292.1 Calcium 8.8 Total Bilirubin 0.60 AST 16 ALT 19 Alkaline Phosphatase 77 Total Creatine Kinase 124 CK-MB (CK-2) < 1.0 Troponin I 0.331 H B-Natriuretic Peptide Total Protein 6.4 Albumin 3.1 L Globulin 3.3 Albumin/Globulin Ratio 0.9 L Triglycerides 87 Cholesterol 123 LDL Cholesterol 68.0 VLDL Cholesterol 17.4 HDL Cholesterol 44 Heart Disease Risk Ratio 2.80 TSH 3rd Generation Urine Color Urine Appearance Urine pH Ur Specific [place] Urine Protein Urine Glucose (UA) Urine Ketones Urine Blood Urine Nitrate Urine Bilirubin Urine Urobilinogen Urine Leukocytes Urine RBC Urine WBC Ur Squamous Epith Cells Urine Mucus Ur Culture Indicated? Blood Type Antibody Screen
[2016-12-20] MEDS ORDERED: GLUCAGON 1 MG VIAL IM PRN (09:26)
[2016-12-20] MEDS ORDERED: DEXTROSE 50% 25 GM/50 ML VIAL IV PRN (09:26)
[2016-12-20] MEDS ORDERED: ENOXAPARIN 40 MG/0.4 ML SYRINGE SUBCUT SCH (09:30)
[2016-12-20] MEDS: FERROUS SULFATE 325 MG TABLET PO SCH ×3 (09:46→20:11)
[2016-12-20] MEDS: FUROSEMIDE 40 MG/4 ML VIAL IV SCH ×2 (09:46→16:00)
[2016-12-20] MEDS: ENOXAPARIN 40 MG/0.4 ML SYRINGE SUBCUT SCH (09:46)
[2016-12-20] MEDS: metOLazone 5 MG TABLET PO SCH (09:47)
--- NOTE | 2016-12-20 09:56 | XRay Report ---
Exam: XR chest 1V portable Indication: Dyspnea Shortness of breath Comparison study: Chest radiograph 12/19/2016 Findings: Cardiac silhouette is enlarged, similar to prior. There is been slight worsening of diffuse interstitial opacities in the perihilar regions bilaterally suggesting a degree of pulmonary edema changes. The electronic control unit's about the chest and upper abdomen appear unchanged. No pneumothorax. No significant pleural effusion. Impression: Cardiomegaly with findings suggestive of interstitial edema. PROCEDURE INTERPRETED AT [facility] DEPARTMENT OF RADIOLOGY Final Report Signed by: Keaton Young
[2016-12-20] MEDS: NITROGLYCERIN DRIP 50 MG/250 ML BOTTLE IV SCH (10:07)
[2016-12-20] MEDS: INSULIN REGULAR 100 UNIT/ML SUBCUT SCH ×3 (11:59→20:12)
[2016-12-20 12:14] LABS: ABG Base Excess 1.3 MMOL/L (-2.5-2.5); ABG HCO3 25.4 MMOL/L (20-26); ABG Oxygen Saturation 82.3 % (95-100); ABG PCO2 32.3 MM HG (35-48); ABG PH 7.486 (7.35-7.45); ABG PO2 46.2 MM HG (80-95); ABG TCO2 22.6 MMOL/L (23-27)
--- NOTE | 2016-12-20 12:19 | Pulmonology Consult Note ---
History of Present Illness Chief complaint: Acute congestive heart failure. Severe hypoxemia. History of present illness: Mr. Guerrero is a 76 year old black male whom I been asked to see in pulmonary consultation. This patient was admitted through the emergency room on 12/19/2016 after experiencing a syncopal episode. He had just been at [facility] and it had an echocardiogram. He felt weak and tired and short of breath. He became severely short of breath. His O2 sats were in the mid 80s. Chest x-ray he had acute on chronic congestive heart failure.. He has been diuresed. On today's chest x-ray heart failure is not resolved. He is breathing much better. On 5 L /min of oxygen his O2 sats are 90%. Patient denies any chest pain. He said on 12/19/2016 he had wheezes which he had never had before. He does not have a cough and he has had no hemoptysis. Patient denies any history of deep venous thrombophlebitis. He denies dysphagia or gastroesophageal reflux. The remainder the review of systems are negative. Past history. Echocardiogram done 12/19/2016 showed an ejection fraction of 40% , grade 2 diastolic dysfunction, severe aortic valves stenosis with an aortic valve area of 0.6 cm. Peak gradient was 51 mmHg. There was mild to moderate mitral regurgitation, moderate aortic regurgitation and severe pulmonary hypertension with pulmonary artery pressures of 96 mmHg. There is a history of high blood pressure. Patient has mild chronic renal insufficiency with a creatinine of 1.70. There is a history of severe anemia. I do not know the etiology of this. Myocardial infarction in 2014. History of insulin-dependent diabetes mellitus and hyperlipidemia. History of prostate cancer. Social history. Patient started smoking at age 24 and he smoked a half pack or more of cigarettes per day until 2001 when he stopped smoking. He says he remembers when he stopped smoking because he also stopped drinking alcohol at that time. Family history. His brother had cancer. His son had diabetes and his mother had heart disease. There is a family history of high blood pressure. Chest x-rays on 12/19/2016 and 12/21/2015 both showed congestive heart failure. I do not think there is any pneumonia but this cannot absolutely be ruled out in the face of congestive heart failure with diffuse 5 lobe alveolar filling and increased interstitial markings. CT scan of the chest. I reviewed these films and the most prominent change is fluid in the fissures and fluid in the pleural space and alveolar filling secondary to pulmonary edema. ABGs were ordered stat and 9:38 AM. It is now 12:08 PM and these are pending. Patient's O2 sats are 90% at present Lab. White count is 8600 with 81.5 segs 9 lymphs and 9 monos. H&H is low at 8.6/26.2. Indices are normal. Red blood cell distribution width is normal. Platelets are 277,000 with a mean platelet volume low at 9.1. Electrolytes are normal. Creatinine is 1.70 with a BUN of 34. Glucoses are normal. Liver function tests are normal. Troponin is 0.331. Natruretic peptide is 3016. Protein is 6.4. Albumin is low at 3.1 and globulins are 3.3. TSH is normal. Urine showed a specific gravity of 1.038. No other abnormalities except 3 red blood cells per high-power field Physical exam. Vital signs. See below. Afebrile. General. Patient is laying in bed at a 25-30 angle appears to be comfortable. Psychiatric oriented 3. Neurological. Cranial nerves are intact. Long track motor function is grossly normal. Gait was not tested Neck is symmetrical with no masses and no meningismus. Thyroid was not palpated. Lymphatics. No submandibular cervical supraclavicular or epitrochlear adenopathy. Face. Symmetrical. No swelling or edema of the tongue or lips. Chest. No wheeze. Bibasilar rales. Breath sounds are somewhat stiff. Heart. As per Dr. Turner Abdomen. Nondistended. Nontender. Rare bowel sounds Lower extremities. No edema and no evidence of deep venous thrombophlebitis. Skin of the face hands and lower legs show no cancerous or infectious lesions. No other areas of skin were examined Impression. 1. Acute congestive heart failure. 2. Significant past history of tobacco abuse. At least [id number] history of smoking. 3. Severe aortic stenosis with mitral regurgitation and resultant pulmonary hypertension. 4. Severe hypoxemia. Patient may have underlying COPD. Any tendency towards hypoxemia would be exacerbated by his congestive heart failure and pulmonary hypertension. 5. Chronic renal failure with a creatinine of 1.70 6. Severe anemia. Etiology undetermined 7. See past history. Plan. 1. ABGs when available. I do not think this patient is a CO2 retainer and therefore have no hesitation about going higher on supplemental oxygen per 2. I agree with attempts to offload. Hopefully this will result in less mitral regurgitation and therefore a drop in pulmonary hypertension. 3. Patient still has a ways to go as far as his congestive heart failure is concerned. As this improves his oxygenation should also improve. 4. He is anemic and later on we can add red blood cells to increase his oxygen carrying capacity. Home Medications Medication Instructions Recorded Confirmed Type Glimepiride [Amaryl] 4 mg PO DAILY 02/01/15 12/19/16 History Aspirin [Ecotrin] 81 mg PO QPM 07/31/15 12/19/16 History Ticagrelor [Brilinta] 90 mg PO BID #120 tablet 10/28/16 12/19/16 Rx Isosorbide Mononitrate [Isosorbide 15 mg PO DAILY 11/12/16 12/19/16 History Mononitrate ER] Potassium Chloride 10 meq PO DAILY 11/12/16 12/19/16 History Furosemide Tab [Lasix Tab] 40 mg PO DAILY #30 tablet 11/13/16 12/19/16 Rx Carvedilol [Coreg] 12.5 mg PO BID 12/19/16 12/19/16 History Clopidogrel [Plavix] 75 mg PO DAILY 12/19/16 12/19/16 History Rosuvastatin Calcium [Crestor] 5 mg PO DAILY 12/19/16 12/19/16 History Allergies Allergy/AdvReac Type Severity Reaction Status Date / Time No Known Allergies Allergy Verified 11/12/16 12:10 Exam (Pulmonay) H&P - Constitutional Vitals: Period Temp Pulse Resp BP Sys/Slater Pulse Ox Last 24 Hr 96.7 F-99.4 F 85-102 15-33 97-157/54-91 81-99 Medical,Surgical,& Family Hx - Medical History Cardio: History of: CHF, CAD, Hypertension, MT (last MT 2013), Valvular Heart Disease Neurology: No history of: Seizures, TIA Endocrine: History of: Diabetes Mellitus (IDDM), Diabetes Mellitus (NIDDM), Dyslipidemia Respiratory: History of: COPD, Pneumonia Renal: History of: Renal Failure Genitourinary: History of: Prostate Problems (cancer) Gastrointestinal: History of: Gastrointestinal Bleed Other: History of: Cancer (PROSTATE) - Surgical History Cardiac Surgeries: Sugical HX of: Cardiac Catheterization (last cath 1 month ago ) Neurologic Surgeries: Patient denies: Neurologic Surgery Abdominal Surgeries: Patient denies: Abdominal Surgery Reproductive Surgeries: Surgical HX of;: Prostate Surgery - Family History Family History: Reports;: Family Cancer (brother), Family Diabetes (son), Family Heart Disease (mother), Family Hypertension (family) Denies;: Family Stroke - Social History Smoking Status: Former smoker Frequency of Alcohol Use: None Type of Drug Use: None Results - Labs CBC & BMP: 12/20/16 05:15 12/20/16 05:15
--- NOTE | 2016-12-20 13:33 | Ultrasound Report ---
Bilateral lower extremity venous Doppler with saha scale, Spectral Doppler and color-flow analysis performed and interpreted. Indication: Pain and swelling. Scanning over both common femoral veins, superficial femoral veins, greater saphenous veins and popliteal veins demonstrates normal compressibility, color flow, and augmentation. A Sarmiento's cyst is seen in the right popliteal fossa. Impression: No evidence of DVT seen in either lower extremity. Right Sarmiento's cyst. PROCEDURE INTERPRETED AT [facility] DEPARTMENT OF RADIOLOGY Final Report Signed by: Dr. Taina Adorno
[2016-12-20] MEDS: ASPIRIN EC 81 MG TABLET PO SCH (18:27)
[2016-12-20] MEDS: ROSUVASTATIN 10 MG TABLET PO SCH (20:11)
[2016-12-20] MEDS: DOCUSATE SODIUM 100 MG CAPSULE PO PRN (20:11)
[2016-12-21] MEDS: LEVALBUTEROL 0.63 MG/3 ML NEB RESP TX SCH ×4 (01:19→19:15)
[2016-12-21 03:46] LABS: ABG PCO2 39.9 MM HG (35-48); Allen Test Positive
[2016-12-21 03:47] LABS: ABG Base Excess 2.9 MMOL/L (-2.5-2.5); ABG HCO3 27.1 MMOL/L (20-26); ABG Oxygen Saturation 93.7 % (95-100); ABG PO2 70.5 MM HG (80-95); ABG TCO2 28.3 MMOL/L (23-27)
[2016-12-21 05:27] LABS: Basophils % 0.3 % (0.0-0.8); Eosinophils # 0.1 10*3/uL (0.0-0.87); Eosinophils % 1.8 % (0.00-10.9); Hematocrit 24.2 VOL% (42.0-52.0); Hemoglobin 8.2 GM/DL (14.0-18.0); Immature Granulocytes % 0.5 %; Immature Granulocytes Absolute 0.03 #; Lymphocytes # 0.9 10*3/uL (1.4-4.0); Lymphocytes % 14.1 % (21.2-54.2); Mean Corpuscular HGB Conc 33.9 GM/DL (32-36); Mean Corpuscular Hemoglobin 32 PG (27-34); Mean Corpuscular Volume 95.3 FL (87-102); Monocytes # 0.8 10*3/uL (0.11-0.8); Monocytes % 13.1 % (1.7-12.7); Neutrophils # 4.2 10*3/uL (1.4-7.4); Neutrophils % 70.2 % (38.7-73.9); Platelet Count 270 T/CUMM (130-400); Red Blood Count 2.54 MC/CUMM (3.8-5.5); Red Cell Distribution Width 14.4 % (9.3-17.3)
[2016-12-21 05:53] LABS: Calcium 8.6 MG/DL (8.5-10.1); Osmolality,Calculated 286.4 MOS/KG (273-304); Potassium 3.5 MMOL/L (3.5-5.1)
[2016-12-21 05:56] LABS: Albumin 2.7 G/DL (3.4-5.0); Bilirubin,Total 0.6 MG/DL (0.2-1.0); Calcium 8.5 MG/DL (8.5-10.1); Osmolality,Calculated 286.4 MOS/KG (273-304); Potassium 3.5 MMOL/L (3.5-5.1)
--- NOTE | 2016-12-21 07:23 | XRay Report ---
Exam: XR chest 1V portable Date: 12/21/2016 4:00 AM Indication: Post extubation follow-up Comparison: 12/20/2016 Technical: AP Findings Mild cardiomegaly present. Multiple electrical leads are present over the chest and oxygen tubing and external cardiac leads are present. Minimal thickening of the minor fissure. Some patchy alveolar densities are present in the base regions. No pneumothorax or effusions present. Some scalloping right hemidiaphragm. Arthritic change present at the shoulders. Impression: 1. Cardiomegaly 2. ASVD 3. Patchy alveolar interstitial infiltrates in the bases bilaterally. Mild thickening of the minor fissure. PROCEDURE INTERPRETED AT [facility] DEPARTMENT OF RADIOLOGY Final Report Signed by: Dr. Emre Mckeon
[2016-12-21] MEDS: INSULIN REGULAR 100 UNIT/ML SUBCUT SCH ×4 (08:03→21:08)
--- NOTE | 2016-12-21 08:53 | Cardiology Progress Note ---
<Leti Barton E - Last Filed: 12/21/16 08:39> Assessment and Plan - Time spent with patient Time spent with patient: Greater than 30 minutes (1) CHF (congestive heart failure), NYHA class III Status: Acute Assessment and plan: SEE PLAN OF CARE LISTED BELOW Current Visit: Yes Qualifiers: Congestive heart failure type: combined Congestive heart failure chronicity : acute on chronic (2) Abnormal cardiac enzyme level Status: Chronic Assessment and plan: SEE PLAN OF CARE LISTED BELOW Current Visit: Yes (3) Dyspnea Status: Acute Assessment and plan: SEE PLAN OF CARE LISTED BELOW Current Visit: Yes Qualifiers: Dyspnea type: unspecified Qualified Code(s): R06.00 - Dyspnea, unspecified (4) Aortic stenosis Status: Chronic Assessment and plan: SEE PLAN OF CARE LISTED BELOW Current Visit: Yes Qualifiers: Cardiac valve disease etiology: nonrheumatic Qualified Code(s): I35.0 - Nonrheumatic aortic (valve) stenosis (5) Coronary artery disease Status: Chronic Assessment and plan: SEE PLAN OF CARE LISTED BELOW Current Visit: Yes (6) Diabetes Status: Chronic Assessment and plan: SEE PLAN OF CARE LISTED BELOW Current Visit: Yes Qualifiers: Diabetes mellitus type: type 2 Diabetes mellitus complication status: without complication (7) Anemia Status: Chronic Assessment and plan: SEE PLAN OF CARE LISTED BELOW Current Visit: No (8) History of coronary artery stent placement Status: Chronic Assessment and plan: SEE PLAN OF CARE LISTED BELOW Current Visit: No (9) Pneumonia Status: Acute Assessment and plan: SEE PLAN OF CARE LISTED BELOW Current Visit: Yes Qualifiers: Laterality: bilateral Lung location: unspecified part of lung (10) CKD (chronic kidney disease) stage 3, GFR 30-59 ml/min Status: Chronic Assessment and plan: SEE PLAN OF CARE LISTED BELOW Current Visit: No (11) Cardiac murmur Status: Chronic Assessment and plan: SEE PLAN OF CARE LISTED BELOW Current Visit: No (12) Acute exacerbation of congestive heart failure Status: Acute Assessment and plan: SEE PLAN OF CARE LISTED BELOW Current Visit: No Qualifiers: Congestive heart failure type: combined Qualified Code(s): I50.43 - Acute on chronic combined systolic (congestive) and diastolic (congestive) heart failure Cardiology - PN: Subj Interval history: [employer]: DR. MAGED SALGADO SUMMARY: Mr. Guerrero, 76BM, has a known history of coronary artery disease, hypertension, dyslipidemia, diabetes, ischemic cardiomyopathy (EF 40%), anemia, prostate cancer, CKD stage III. History of several stents placed in the past. Most recent occurred 09/09/2016 with PCI of OM 2 with RAMIREZ, patent stents in the proximal LAD, proximal to mid RCA and distal to mid RCA, EF 25-30% at that time. Echocardiogram performed December 19, 2016 revealed the following: EF 40 %, grade 2 diastolic dysfunction, severe aortic valve stenosis (RAMÓN 0.6 cm, transaortic peak gradient 51 mmHg, transaortic mean gradient 27.6 mmHg), mild to moderate MR, moderate aortic regurgitation, severe pulmonary hypertension ( PAP 96 mmHg.) Patient was admitted December 19, 2016 through ED at [facility] after experiencing a syncopal episode. Patient had just left [facility] after undergoing echocardiogram when he felt weak, tired and short of breath. He has been diagnosed with acute on chronic congestive heart failure, possible pneumonia. During the night, he became more abruptly short of breath, orthopneic with SPO2 saturations in the mid 80s. He was given IV Lasix but his respiratory status did not improve. He was transferred to ICU where he has been housed since around 0100. DECEMBER 20, 2016: This morning, Mr. Guerrero remains tachypneic although he states he is breathing better. He is currently on oxygen at 10 L/min with an SPO2 saturation 87%. LifeVest was interrogated last evening in an attempt to identify possible arrhythmia contributing to syncope. There was no arrhythmia noted per report. At this time, he may remove the LifeVest. Troponins flat. This is not NSTEMI. I have discussed with Dr. Turner. We will increase Lasix this morning, and Zaroxolyn daily. IV nitroglycerin to assist with afterload reduction, closely monitoring given his severe . Consult pulmonology for assistance with his severe shortness of breath certainly related to acute on chronic congestive heart failure but may have some underlying chronic issues and /or possible pneumonia. IV Levaquin was initiated yesterday. Patient may be considered a candidate for TAVR but obviously must be tuned up prior to procedure. Recently had stents placed and he continues to take aspirin and Plavix. Allowing for higher blood pressures given the severity of his aortic stenosis. DECEMBER 21, 2016: Mr. Guerrero is less tachypneic this morning. He has diuresed 1 pound overnight. Currently on IV nitroglycerin at 26.7 mcg/min. He is tolerating this well. Appreciate Dr. Mock's assistance. Continue IV Lasix and oral Zaroxolyn. Patient's anemia is stable. Soon, we may consider transfusion to increase his oxygen carrying capacity. We will try to diurese him a little more before we transfuse. I am asking for the life vest telemetry strips (in particular the time when he had his syncopal episode) to be scanned in today to be reviewed with Dr. Turner. At this time, continue current plan of care. Will further discuss with Dr. Turner and await additional recommendations. ASSESSMENT/PLAN: 1. SYNCOPE - Most likely related to severe . Allowing for higher systolic blood pressure. May be a candidate for TAVR in the near future. Asking Life Vest telemetry strips to be downloaded for review. Will ask Dr. Turner to review this morning. 2. KNOWN CAD - PCI of OM 2 with RAMIREZ September 09, 2016 - Continue aspirin and Plavix 3. AORTIC STENOSIS - Severe. Afterload reduction. Continue IV Nitroglycerine , monitoring closely. 4. ICM - EF 40%, improved from 25% to 30% recently 5. UNDERLYING HYPERTENSION - Will allow for permissive hypertension given patient's severity of aortic stenosis 6. DYSLIPIDEMIA - Continue lipid-lowering agent. LDL 68. 7. CKD - STAGE III - Avoiding NEMESIO inhibitor for fear of worsening renal insufficiency. 8. ANEMIA - Continue to follow H&H daily. Has had upper GI scope approximately 2 months ago which did not reveal any obvious source of bleeding. There was mention of a colonoscopy however I cannot find record of a colonoscopy. He does not remember having c-scope. Checking stool for occult blood. Will add oral iron replacement. Appears stable at this time. Will transfuse when he diuresis more, possibly tomorrow. 9. ELEVATED TROPONIN - Chronic. Not NSTEMI. 10. SOB - Multifactorial including acute on chronic CHF, possible CAP, pulmonary hypertension 11. ACUTE ON CHRONIC CHF - Secondary to combined systolic dysfunction (EF 40%) and diastolic dysfunction. NYHA Class IV. Continue with diuretics, afterload reduction agents. 12. POSSIBLE CAP - IV Levaquin initiated Monday. Difficult to exclude given the abundance of fluid therefore will continue to treat with antibiotics. 13. PULMONARY HYPERTENSION - Continue current plan of care. 14. DIABETES - Sliding scale insulin coverage. Exam (Progress Note) - Constitutional Vitals: Period Temp Pulse Resp BP Sys/Slater Pulse Ox Last 24 Hr 98.0 F-98.5 F 70-105 13-28 87-150/47-98 85-100 Exam: General: [Mild distress, pleasant. Cooperative.] HEENT: [Bilateral arcus, normocephalic, atraumatic. Mucous membranes moist. No jaundice noted. Conjunctiva moist and clear, sclerae anicteric] Neck: 4 cm JVD to jaw. No thyromegaly or lymphadenopathy noted. Bilateral carotid bruits noted. Cardiac: [Regular rate and rhythm.] [IV/ RANDALL heard best at bilateral upper sternal borders with radiation to bilateral carotids. Lungs: [Inspiratory crackles noted posteriorly midway up both lung reyes. Less tachypneic. SPO2 saturation 97% on O2 at 6L/min by nasal cannula. Abdomen: Soft, bowel sounds normoactive. Distended. Nontender. Musculoskeletal: No fluid collection. Decreased range of motion is noted. Extremities: No clubbing, cyanosis noted. [Trace bilateral lower extremity edema noted. ] Upper extremity pulses 2+. Lower extremity pulses 2+. Capillary refill less than 3 seconds. Skin: No unusual lesions or rashes. No skin breakdown appreciated. Neuro: Awake, alert and oriented 3. Moves all extremities well without hemiparesis or paralysis. No essential tremor is appreciated. Result/EKG - Labs CBC & BMP: 12/21/16 05:06 12/21/16 05:06 Lab Results: I have reviewed the past 24 hour labs Labs: Laboratory Results - last 24 hr 12/20/16 12/20/16 12/20/16 09:54 11:35 12:11 WBC RBC Hgb Hct MCV MCH MCHC RDW Plt Count MPV Neut % (Auto) Lymph % (Auto) [place] % (Auto) Eos % (Auto) Baso % (Auto) Neut # (Auto) Lymph # (Auto) [place] # (Auto) Eos # (Auto) Baso # (Auto) Immature Gran % Nucleated RBC % Immature Gran # Nucleated RBCs # ABG pH 7.486 H ABG pCO2 32.3 L ABG pO2 46.2 L ABG HCO3 25.4 ABG Total CO2 22.6 L ABG O2 Saturation 82.3 L ABG Base Excess 1.3 FiO2 Sodium Potassium Chloride Carbon Dioxide Anion Gap BUN Creatinine GFR Calculation BUN/Creatinine Ratio Glucose POC Glucose 221 H Calculated Osmolality Calcium Total Bilirubin AST ALT Alkaline Phosphatase B-Natriuretic Peptide 3016 H Total Protein Albumin Globulin Albumin/Globulin Ratio 12/20/16 12/20/16 12/21/16 16:09 20:05 03:15 WBC RBC Hgb Hct MCV MCH MCHC RDW Plt Count MPV Neut % (Auto) Lymph % (Auto) [place] % (Auto) Eos % (Auto) Baso % (Auto) Neut # (Auto) Lymph # (Auto) [place] # (Auto) Eos # (Auto) Baso # (Auto) Immature Gran % Nucleated RBC % Immature Gran # Nucleated RBCs # ABG pH 7.450 ABG pCO2 39.9 ABG pO2 70.5 L ABG HCO3 27.1 H ABG Total CO2 28.3 H ABG O2 Saturation 93.7 L ABG Base Excess 2.9 H FiO2 44.00 Sodium Potassium Chloride Carbon Dioxide Anion Gap BUN Creatinine GFR Calculation BUN/Creatinine Ratio Glucose POC Glucose 104 87 Calculated Osmolality Calcium Total Bilirubin AST ALT Alkaline Phosphatase B-Natriuretic Peptide Total Protein Albumin Globulin Albumin/Globulin Ratio 12/21/16 12/21/16 12/21/16 05:06 05:06 05:06 WBC 6.0 D RBC 2.54 L Hgb 8.2 L Hct 24.2 L MCV 95.3 MCH 32 MCHC 33.9 RDW 14.4 Plt Count 270 MPV 9.0 L Neut % (Auto) 70.2 Lymph % (Auto) 14.1 L [place] % (Auto) 13.1 H Eos % (Auto) 1.8 Baso % (Auto) 0.3 Neut # (Auto) 4.2 Lymph # (Auto) 0.9 L [place] # (Auto) 0.8 Eos # (Auto) 0.1 Baso # (Auto) 0.0 Immature Gran % 0.5 Nucleated RBC % 0.0 Immature Gran # 0.03 Nucleated RBCs # 0.00 ABG pH ABG pCO2 ABG pO2 ABG HCO3 ABG Total CO2 ABG O2 Saturation ABG Base Excess FiO2 Sodium 140 Potassium 3.5 Chloride 103 Carbon Dioxide 27 Anion Gap 13.5 BUN 40 H Creatinine 1.80 H GFR Calculation 44 BUN/Creatinine Ratio 22.00 H Glucose 55 L POC Glucose Calculated Osmolality 286.4 Calcium 8.6 Total Bilirubin AST ALT Alkaline Phosphatase B-Natriuretic Peptide 1793 H Total Protein Albumin Globulin Albumin/Globulin Ratio 12/21/16 12/21/16 12/21/16 05:06 07:38 08:08 WBC RBC Hgb Hct MCV MCH MCHC RDW Plt Count MPV Neut % (Auto) Lymph % (Auto) [place] % (Auto) Eos % (Auto) Baso % (Auto) Neut # (Auto) Lymph # (Auto) [place] # (Auto) Eos # (Auto) Baso # (Auto) Immature Gran % Nucleated RBC % Immature Gran # Nucleated RBCs # ABG pH ABG pCO2 ABG pO2 ABG HCO3 ABG Total CO2 ABG O2 Saturation ABG Base Excess FiO2 Sodium 140 Potassium 3.5 Chloride 103 Carbon Dioxide 27 Anion Gap 13.5 BUN 41 H Creatinine 1.80 H GFR Calculation 44 BUN/Creatinine Ratio 22.00 H Glucose 56 L POC Glucose 59 L 84 Calculated Osmolality 286.4 Calcium 8.5 Total Bilirubin 0.60 AST 16 ALT 14 L Alkaline Phosphatase 68 B-Natriuretic Peptide Total Protein 6.0 L Albumin 2.7 L Globulin 3.3 Albumin/Globulin Ratio 0.8 L - Diagnostic Findings Procedure: Chest x-ray: report reviewed by ut - EKG EKG results: interpreted by ut EKG shows: sinus rhythm <Chon Turner - Last Filed: 12/21/16 10:23> Cardiology - PN: Subj Interval history: Patient seen evaluated. He does have a significant anemia and I am going to go ahead and transfuse him with 2 units of packed cells. This is been ordered. Once we have them stable will need to have him evaluated for aortic valve replacement. I have discussed in detail the particulars of this case and I have examined the patient and reviewed the patient's chart both current and old. I was directly involved in the patient's evaluation and management and I completely agree with [Leti Barton NP] regarding this patient's evaluation and treatment plan. Exam (Progress Note) - Constitutional Vitals: Period Temp Pulse Resp BP Sys/Slater Pulse Ox Last 24 Hr 98.0 F-98.5 F 70-105 13-28 87-150/47-98 85-100 Result/EKG - Labs CBC & BMP: 12/21/16 05:06 12/21/16 05:06 Labs: Laboratory Results - last 24 hr 12/20/16 12/20/16 12/20/16 09:54 11:35 12:11 WBC RBC Hgb Hct MCV MCH MCHC RDW Plt Count MPV Neut % (Auto) Lymph % (Auto) [place] % (Auto) Eos % (Auto) Baso % (Auto) Neut # (Auto) Lymph # (Auto) [place] # (Auto) Eos # (Auto) Baso # (Auto) Immature Gran % Nucleated RBC % Immature Gran # Nucleated RBCs # ABG pH 7.486 H ABG pCO2 32.3 L ABG pO2 46.2 L ABG HCO3 25.4 ABG Total CO2 22.6 L ABG O2 Saturation 82.3 L ABG Base Excess 1.3 FiO2 Sodium Potassium Chloride Carbon Dioxide Anion Gap BUN Creatinine GFR Calculation BUN/Creatinine Ratio Glucose POC Glucose 221 H Calculated Osmolality Calcium Total Bilirubin AST ALT Alkaline Phosphatase B-Natriuretic Peptide 3016 H Total Protein Albumin Globulin Albumin/Globulin Ratio 12/20/16 12/20/16 12/21/16 16:09 20:05 03:15 WBC RBC Hgb Hct MCV MCH MCHC RDW Plt Count MPV Neut % (Auto) Lymph % (Auto) [place] % (Auto) Eos % (Auto) Baso % (Auto) Neut # (Auto) Lymph # (Auto) [place] # (Auto) Eos # (Auto) Baso # (Auto) Immature Gran % Nucleated RBC % Immature Gran # Nucleated RBCs # ABG pH 7.450 ABG pCO2 39.9 ABG pO2 70.5 L ABG HCO3 27.1 H ABG Total CO2 28.3 H ABG O2 Saturation 93.7 L ABG Base Excess 2.9 H FiO2 44.00 Sodium Potassium Chloride Carbon Dioxide Anion Gap BUN Creatinine GFR Calculation BUN/Creatinine Ratio Glucose POC Glucose 104 87 Calculated Osmolality Calcium Total Bilirubin AST ALT Alkaline Phosphatase B-Natriuretic Peptide Total Protein Albumin Globulin Albumin/Globulin Ratio 12/21/16 12/21/16 12/21/16 05:06 05:06 05:06 WBC 6.0 D RBC 2.54 L Hgb 8.2 L Hct 24.2 L MCV 95.3 MCH 32 MCHC 33.9 RDW 14.4 Plt Count 270 MPV 9.0 L Neut % (Auto) 70.2 Lymph % (Auto) 14.1 L [place] % (Auto) 13.1 H Eos % (Auto) 1.8 Baso % (Auto) 0.3 Neut # (Auto) 4.2 Lymph # (Auto) 0.9 L [place] # (Auto) 0.8 Eos # (Auto) 0.1 Baso # (Auto) 0.0 Immature Gran % 0.5 Nucleated RBC % 0.0 Immature Gran # 0.03 Nucleated RBCs # 0.00 ABG pH ABG pCO2 ABG pO2 ABG HCO3 ABG Total CO2 ABG O2 Saturation ABG Base Excess FiO2 Sodium 140 Potassium 3.5 Chloride 103 Carbon Dioxide 27 Anion Gap 13.5 BUN 40 H Creatinine 1.80 H GFR Calculation 44 BUN/Creatinine Ratio 22.00 H Glucose 55 L POC Glucose Calculated Osmolality 286.4 Calcium 8.6 Total Bilirubin AST ALT Alkaline Phosphatase B-Natriuretic Peptide 1793 H Total Protein Albumin Globulin Albumin/Globulin Ratio 12/21/16 12/21/16 12/21/16 05:06 07:38 08:08 WBC RBC Hgb Hct MCV MCH MCHC RDW Plt Count MPV Neut % (Auto) Lymph % (Auto) [place] % (Auto) Eos % (Auto) Baso % (Auto) Neut # (Auto) Lymph # (Auto) [place] # (Auto) Eos # (Auto) Baso # (Auto) Immature Gran % Nucleated RBC % Immature Gran # Nucleated RBCs # ABG pH ABG pCO2 ABG pO2 ABG HCO3 ABG Total CO2 ABG O2 Saturation ABG Base Excess FiO2 Sodium 140 Potassium 3.5 Chloride 103 Carbon Dioxide 27 Anion Gap 13.5 BUN 41 H Creatinine 1.80 H GFR Calculation 44 BUN/Creatinine Ratio 22.00 H Glucose 56 L POC Glucose 59 L 84 Calculated Osmolality 286.4 Calcium 8.5 Total Bilirubin 0.60 AST 16 ALT 14 L Alkaline Phosphatase 68 B-Natriuretic Peptide Total Protein 6.0 L Albumin 2.7 L Globulin 3.3 Albumin/Globulin Ratio 0.8 L
[2016-12-21] MEDS: LEVOFLOXACIN INJ 500 MG in PREMIX 1 EACH IV SCH (09:23)
[2016-12-21] MEDS: FUROSEMIDE 40 MG/4 ML VIAL IV SCH ×2 (09:23→15:31)
[2016-12-21] MEDS: CARVEDILOL 6.25 MG TABLET PO SCH ×2 (09:24→21:08)
[2016-12-21] MEDS: metOLazone 5 MG TABLET PO SCH (09:24)
[2016-12-21] MEDS: FERROUS SULFATE 325 MG TABLET PO SCH ×3 (09:24→21:07)
[2016-12-21] MEDS: POTASSIUM CHLORIDE 10 MEQ TABLET PO SCH (09:24)
[2016-12-21] MEDS: GLIMEPIRIDE 4 MG TABLET PO SCH (09:24)
[2016-12-21] MEDS: CLOPIDOGREL 75 MG TABLET PO SCH (09:24)
[2016-12-21] MEDS: ENOXAPARIN 40 MG/0.4 ML SYRINGE SUBCUT SCH (09:24)
[2016-12-21] MEDS: NITROGLYCERIN DRIP 50 MG/250 ML BOTTLE IV SCH (09:25)
[2016-12-21] MEDS: PANTOPRAZOLE 40 MG TABLET PO SCH (09:35)
--- NOTE | 2016-12-21 10:11 | Pulmonology Progress Note ---
Pulmonary - PN: Subj Interval history: There is a 76-year-old black male whom I saw in pulmonary consultation on 2016. My impressions were. 1. Acute congestive heart failure. 2. Significant past history of tobacco abuse. At least [id number] history of smoking. 3. Severe aortic stenosis with mitral regurgitation and resultant pulmonary hypertension. 4. Severe hypoxemia. Patient may have underlying COPD. Any tendency towards hypoxemia would be exacerbated by his congestive heart failure and pulmonary hypertension. 5. Chronic renal failure with a creatinine of 1.70 6. Severe anemia. Etiology undetermined 7. See past history. 12/21/2016. Today's chest x-ray is improved. Patient still has congestive heart failure. ABGs are also improved. On FiO2 of 44% pH is 7.45, PCO2 40, PO2 70.5 bicarb is 27.1. Natruretic peptide is fallen from 3016 1793. Creatinine is 1.80 with a BUN of 41 electrolytes are normal. No potassium is low normal at 3.5. White count is 6000 with 70 segs 14 lymphs 13 monos H&H is fallen slightly at 8.2/24.2. Patient is on a nitroglycerin drip and this has helped him a great deal. Oxygenation is improving his congestive heart failure resolves and I think as we continue to offload reduction his pulmonary artery pressure should drop some. I doubt pulmonary artery pressures will come back to normal in the face of severe aortic stenosis and moderate mitral regurgitation. Overall the patient looks much better today Physical exam. Vital signs. See below. Afebrile Psychiatric. Oriented 3 General no distress lying in bed at a 35 angle. Face. Symmetrical. No swelling of the lips or tongue. Neck. Symmetrical. Slightly kyphotic. No meningismus. Thyroid was not palpated. Chest. Slight stiffness of breath sounds especially at the bases. Inspiratory excursion is much better. No chest wall tenderness. Heart. As per Dr. Turner Abdomen. Nondistended nontender. Positive bowel sounds Lower extremities. No edema. Note. Doppler venograms of lower extremities showed no evidence of deep venous thrombophlebitis Neurologic. Cranial nerves are intact. Long track motor functions intact. The remainder the physical exam is Plan. 12/20/2016 1. ABGs when available. I do not think this patient is a CO2 retainer and therefore have no hesitation about going higher on supplemental oxygen per 2. I agree with attempts to offload. Hopefully this will result in less mitral regurgitation and therefore a drop in pulmonary hypertension. 3. Patient still has a ways to go as far as his congestive heart failure is concerned. As this improves his oxygenation should also improve. 4. He is anemic and later on we can add red blood cells to increase his oxygen carrying capacity. 12/21/2016 1. See today's note above. 2. Continue present regimen. 3. Daily chest x-ray, ABGs, BMP, BNP Exam (Progress Note) - Constitutional Vitals: Period Temp Pulse Resp BP Sys/Slater Pulse Ox Last 24 Hr 98.0 F-98.5 F 70-105 13-28 87-150/47-98 85-100 Results - Labs CBC & BMP: 12/21/16 05:06 12/21/16 05:06
[2016-12-21] MEDS ORDERED: SODIUM CHLORIDE 0.9% 250 ML IV PRN (10:19)
[2016-12-21] MEDS: ASPIRIN EC 81 MG TABLET PO SCH (19:51)
[2016-12-21] MEDS: ROSUVASTATIN 10 MG TABLET PO SCH (21:07)
[2016-12-22] MEDS: LEVALBUTEROL 0.63 MG/3 ML NEB RESP TX SCH ×4 (00:13→19:30)
[2016-12-22 03:12] LABS: ABG Base Excess 5.1 MMOL/L (-2.5-2.5); ABG HCO3 29.5 MMOL/L (20-26); ABG Oxygen Saturation 96.1 % (95-100); ABG PCO2 42.2 MM HG (35-48); ABG PH 7.462 (7.35-7.45); ABG TCO2 30.8 MMOL/L (23-27); Allen Test Positive
[2016-12-22 04:21] LABS: Basophils % 0.2 % (0.0-0.8); Eosinophils # 0.2 10*3/uL (0.0-0.87); Hematocrit 34.5 VOL% (42.0-52.0); Immature Granulocytes % 0.3 %; Immature Granulocytes Absolute 0.03 #; Lymphocytes # 0.8 10*3/uL (1.4-4.0); Lymphocytes % 9.1 % (21.2-54.2); Mean Corpuscular HGB Conc 34.8 GM/DL (32-36); Mean Corpuscular Hemoglobin 32 PG (27-34); Mean Corpuscular Volume 90.8 FL (87-102); Mean Platelet Volume 8.8 FL (9.6-12.0); Monocytes # 0.8 10*3/uL (0.11-0.8); Monocytes % 9.3 % (1.7-12.7); Neutrophils # 7.1 10*3/uL (1.4-7.4); Neutrophils % 79.1 % (38.7-73.9); Platelet Count 297 T/CUMM (130-400); Red Cell Distribution Width 15.5 % (9.3-17.3)
[2016-12-22 04:59] LABS: Calcium 9.4 MG/DL (8.5-10.1); Osmolality,Calculated 287.5 MOS/KG (273-304); Potassium 3.4 MMOL/L (3.5-5.1)
[2016-12-22 05:04] LABS: Albumin 2.9 G/DL (3.4-5.0); Bilirubin,Total 0.8 MG/DL (0.2-1.0); Calcium 9.5 MG/DL (8.5-10.1); Osmolality,Calculated 284.7 MOS/KG (273-304); Potassium 3.5 MMOL/L (3.5-5.1); Total Protein 6.8 G/DL (6.4-8.3)
--- NOTE | 2016-12-22 07:45 | Cardiology Progress Note ---
<Leti Barton E - Last Filed: 12/22/16 07:38> Assessment and Plan - Time spent with patient Time spent with patient: Greater than 30 minutes (1) CHF (congestive heart failure), NYHA class III Status: Acute Assessment and plan: SEE PLAN OF CARE LISTED BELOW Current Visit: Yes Qualifiers: Congestive heart failure type: combined Congestive heart failure chronicity : acute on chronic (2) Abnormal cardiac enzyme level Status: Chronic Assessment and plan: SEE PLAN OF CARE LISTED BELOW Current Visit: Yes (3) Dyspnea Status: Acute Assessment and plan: SEE PLAN OF CARE LISTED BELOW Current Visit: Yes Qualifiers: Dyspnea type: unspecified Qualified Code(s): R06.00 - Dyspnea, unspecified (4) Aortic stenosis Status: Chronic Assessment and plan: SEE PLAN OF CARE LISTED BELOW Current Visit: Yes Qualifiers: Cardiac valve disease etiology: nonrheumatic Qualified Code(s): I35.0 - Nonrheumatic aortic (valve) stenosis (5) Coronary artery disease Status: Chronic Assessment and plan: SEE PLAN OF CARE LISTED BELOW Current Visit: Yes (6) Diabetes Status: Chronic Assessment and plan: SEE PLAN OF CARE LISTED BELOW Current Visit: Yes Qualifiers: Diabetes mellitus type: type 2 Diabetes mellitus complication status: without complication (7) Anemia Status: Chronic Assessment and plan: SEE PLAN OF CARE LISTED BELOW Current Visit: No (8) History of coronary artery stent placement Status: Chronic Assessment and plan: SEE PLAN OF CARE LISTED BELOW Current Visit: No (9) Pneumonia Status: Acute Assessment and plan: SEE PLAN OF CARE LISTED BELOW Current Visit: Yes Qualifiers: Laterality: bilateral Lung location: unspecified part of lung (10) CKD (chronic kidney disease) stage 3, GFR 30-59 ml/min Status: Chronic Assessment and plan: SEE PLAN OF CARE LISTED BELOW Current Visit: No (11) Cardiac murmur Status: Chronic Assessment and plan: SEE PLAN OF CARE LISTED BELOW Current Visit: No (12) Acute exacerbation of congestive heart failure Status: Acute Assessment and plan: SEE PLAN OF CARE LISTED BELOW Current Visit: No Qualifiers: Congestive heart failure type: combined Qualified Code(s): I50.43 - Acute on chronic combined systolic (congestive) and diastolic (congestive) heart failure (13) Bradycardia Status: Acute Assessment and plan: SEE PLAN OF CARE LISTED BELOW Current Visit: Yes Cardiology - PN: Subj Interval history: 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 Guerrero, 76BM, has a known history of coronary artery disease, hypertension, dyslipidemia, diabetes, ischemic cardiomyopathy (EF 40%), anemia, prostate cancer, CKD stage III. History of several stents placed in the past. Most recent occurred 09/09/2016 with PCI of OM 2 with RAMIREZ, patent stents in the proximal LAD, proximal to mid RCA and distal to mid RCA, EF 25-30% at that time. Echocardiogram performed December 19, 2016 revealed the following: EF 40 %, grade 2 diastolic dysfunction, severe aortic valve stenosis (RAMÓN 0.6 cm, transaortic peak gradient 51 mmHg, transaortic mean gradient 27.6 mmHg), mild to moderate MR, moderate aortic regurgitation, severe pulmonary hypertension ( PAP 96 mmHg.) Patient was admitted December 19, 2016 through ED at [facility] after experiencing a syncopal episode. Patient had just left [facility] after undergoing echocardiogram when he felt weak, tired and short of breath. He has been diagnosed with acute on chronic congestive heart failure, possible pneumonia. During the night, he became more abruptly short of breath, orthopneic with SPO2 saturations in the mid 80s. He was given IV Lasix but his respiratory status did not improve. He was transferred to ICU where he has been housed since around 0100. DECEMBER 20, 2016: This morning, Mr. Guerrero remains tachypneic although he states he is breathing better. He is currently on oxygen at 10 L/min with an SPO2 saturation 87%. LifeVest was interrogated last evening in an attempt to identify possible arrhythmia contributing to syncope. There was no arrhythmia noted per report. At this time, he may remove the LifeVest. Troponins flat. This is not NSTEMI. I have discussed with Dr. Turner. We will increase Lasix this morning, and Zaroxolyn daily. IV nitroglycerin to assist with afterload reduction, closely monitoring given his severe . Consult pulmonology for assistance with his severe shortness of breath certainly related to acute on chronic congestive heart failure but may have some underlying chronic issues and /or possible pneumonia. IV Levaquin was initiated yesterday. Patient may be considered a candidate for TAVR but obviously must be tuned up prior to procedure. Recently had stents placed and he continues to take aspirin and Plavix. Allowing for higher blood pressures given the severity of his aortic stenosis. DECEMBER 21, 2016: Mr. Guerrero is less tachypneic this morning. He has diuresed 1 pound overnight. Currently on IV nitroglycerin at 26.7 mcg/min. He is tolerating this well. Appreciate Dr. Mock's assistance. Continue IV Lasix and oral Zaroxolyn. Patient's anemia is stable. Soon, we may consider transfusion to increase his oxygen carrying capacity. We will try to diurese him a little more before we transfuse. I am asking for the life vest telemetry strips (in particular the time when he had his syncopal episode) to be scanned in today to be reviewed with Dr. Turner. At this time, continue current plan of care. Will further discuss with Dr. Turner and await additional recommendations. DECEMBER 22, 2016: Mr. Cox looks much improved overnight. According to his daily weight, he has lost 7 kg overnight. Certainly breathing much more comfortably on oxygen at 2 L/min. No longer orthopneic. Nitroglycerin is off. He was transfused last evening and his anemia has improved. Vital signs are stable as well. Telemetry strips from [facility] were obtained yesterday. He was wearing a LifeVest when he experiences the syncopal episode it is believed, after reviewing the telemetry strips, he had severe bradycardia likely related to severe aortic stenosis. Patient is currently being evaluated for possible TAVR. Will further discuss with Dr. Turner and await additional recommendations. ASSESSMENT/PLAN: 1. SYNCOPE - Most likely related to severe bradycardia related to severe . Allowing for higher systolic blood pressure. May be a candidate for TAVR in the near future. 2. KNOWN CAD - PCI of OM 2 with RAMIREZ September 09, 2016 - Continue Aspirin and Plavix 3. AORTIC STENOSIS - Severe. Afterload reduction. Nitroglycerin is off. Improving. 4. ICM - EF 40%, improved from 25% to 30% recently 5. UNDERLYING HYPERTENSION - Will allow for permissive hypertension given patient's severity of aortic stenosis 6. DYSLIPIDEMIA - Continue lipid-lowering agent. LDL 68. 7. CKD - STAGE III - Avoiding NEMESIO inhibitor for fear of worsening renal insufficiency. Creatinine 2.0 this morning 8. ANEMIA - Continue to follow H&H daily. Has had upper GI scope approximately 2 months ago which did not reveal any obvious source of bleeding. There was mention of a colonoscopy however I cannot find record of a colonoscopy. He does not remember having c-scope. Checking stool for occult blood. Will add oral iron replacement. Appears stable at this time. Transfused yesterday. Anemia improved. 9. ELEVATED TROPONIN - Chronic. Not NSTEMI. 10. SOB - Multifactorial including acute on chronic CHF, possible CAP, pulmonary hypertension 11. ACUTE ON CHRONIC CHF - Secondary to combined systolic dysfunction (EF 40%) and diastolic dysfunction. NYHA Class IV upon arrival, now class III. Continue with diuretics, afterload reduction agents. 12. POSSIBLE CAP - IV Levaquin initiated Monday. Difficult to exclude given the abundance of fluid therefore will continue to treat with antibiotics. 13. PULMONARY HYPERTENSION - Continue current plan of care. 14. DIABETES - Sliding scale insulin coverage. 15. SEVERE BRADYCARDIA -it is believed the rhythm strips revealed a severe bradycardia which caused a syncopal episode. There has been no additional bradycardic episodes since hospitalized. He is on low-dose Coreg and will continue this at this time Exam (Progress Note) - Constitutional Vitals: Period Temp Pulse Resp BP Sys/Slater Pulse Ox Last 24 Hr 97.3 F-97.9 F 77-92 12-30 92-149/47-90 93-964 Exam: General: [Mild distress, pleasant. Cooperative.] HEENT: [Bilateral arcus, normocephalic, atraumatic. Mucous membranes moist. No jaundice noted. Conjunctiva moist and clear, sclerae anicteric] Neck: 4 cm JVD to jaw. No thyromegaly or lymphadenopathy noted. Bilateral carotid bruits noted. Cardiac: [Regular rate and rhythm.] [IV/ RANDALL heard best at bilateral upper sternal borders with radiation to bilateral carotids. Lungs: [Inspiratory crackles in bases, scant. SPO2 saturation 97% on O2 at 4L/ min by nasal cannula. Abdomen: Soft, bowel sounds normoactive. Distended. Nontender. Musculoskeletal: No fluid collection. Decreased range of motion is noted. Extremities: No clubbing, cyanosis noted. [No lower extremity edema noted. ] Upper extremity pulses 2+. Lower extremity pulses 2+. Capillary refill less than 3 seconds. Skin: No unusual lesions or rashes. No skin breakdown appreciated. Neuro: Awake, alert and oriented 3. Moves all extremities well without hemiparesis or paralysis. No essential tremor is appreciated. Result/EKG - Labs CBC & BMP: 12/22/16 04:04 12/22/16 04:04 Lab Results: I have reviewed the past 24 hour labs Labs: Laboratory Results - last 24 hr 12/21/16 12/21/16 12/21/16 07:38 08:08 10:19 WBC RBC Hgb Hct MCV MCH MCHC RDW Plt Count MPV Neut % (Auto) Lymph % (Auto) Reeves % (Auto) Eos % (Auto) Baso % (Auto) Neut # (Auto) Lymph # (Auto) Reeves # (Auto) Eos # (Auto) Baso # (Auto) Immature Gran % Nucleated RBC % Immature Gran # Nucleated RBCs # ABG pH ABG pCO2 ABG pO2 ABG HCO3 ABG Total CO2 ABG O2 Saturation ABG Base Excess FiO2 Sodium Potassium Chloride Carbon Dioxide Anion Gap BUN Creatinine GFR Calculation BUN/Creatinine Ratio Glucose POC Glucose 59 L 84 Calculated Osmolality Calcium Total Bilirubin AST ALT Alkaline Phosphatase B-Natriuretic Peptide Total Protein Albumin Globulin Albumin/Globulin Ratio Blood Type Cancelled Antibody Screen Cancelled Crossmatch See Detail Blood Bank Comment Cancelled 12/21/16 12/21/16 12/21/16 11:45 16:07 20:51 WBC RBC Hgb Hct MCV MCH MCHC RDW Plt Count MPV Neut % (Auto) Lymph % (Auto) Reeves % (Auto) Eos % (Auto) Baso % (Auto) Neut # (Auto) Lymph # (Auto) Reeves # (Auto) Eos # (Auto) Baso # (Auto) Immature Gran % Nucleated RBC % Immature Gran # Nucleated RBCs # ABG pH ABG pCO2 ABG pO2 ABG HCO3 ABG Total CO2 ABG O2 Saturation ABG Base Excess FiO2 Sodium Potassium Chloride Carbon Dioxide Anion Gap BUN Creatinine GFR Calculation BUN/Creatinine Ratio Glucose POC Glucose 209 H 83 104 Calculated Osmolality Calcium Total Bilirubin AST ALT Alkaline Phosphatase B-Natriuretic Peptide Total Protein Albumin Globulin Albumin/Globulin Ratio Blood Type Antibody Screen Crossmatch Blood Bank Comment 12/22/16 12/22/16 12/22/16 01:57 03:00 04:04 WBC RBC Hgb Hct MCV MCH MCHC RDW Plt Count MPV Neut % (Auto) Lymph % (Auto) Reeves % (Auto) Eos % (Auto) Baso % (Auto) Neut # (Auto) Lymph # (Auto) Reeves # (Auto) Eos # (Auto) Baso # (Auto) Immature Gran % Nucleated RBC % Immature Gran # Nucleated RBCs # ABG pH 7.462 H ABG pCO2 42.2 ABG pO2 85.0 ABG HCO3 29.5 H ABG Total CO2 30.8 H ABG O2 Saturation 96.1 ABG Base Excess 5.1 H FiO2 40.00 Sodium 139 Potassium 3.4 L Chloride 99 Carbon Dioxide 32 Anion Gap 11.4 BUN 45 H Creatinine 2.00 H GFR Calculation 38 BUN/Creatinine Ratio 22.00 H Glucose 84 POC Glucose 98 Calculated Osmolality 287.5 Calcium 9.4 Total Bilirubin AST ALT Alkaline Phosphatase B-Natriuretic Peptide Total Protein Albumin Globulin Albumin/Globulin Ratio Blood Type Antibody Screen Crossmatch Blood Bank Comment 12/22/16 12/22/16 12/22/16 04:04 04:04 04:04 WBC 9.0 D RBC 3.80 D Hgb 12.0 L D Hct 34.5 L MCV 90.8 MCH 32 MCHC 34.8 RDW 15.5 Plt Count 297 MPV 8.8 L Neut % (Auto) 79.1 H Lymph % (Auto) 9.1 L Reeves % (Auto) 9.3 Eos % (Auto) 2.0 Baso % (Auto) 0.2 Neut # (Auto) 7.1 Lymph # (Auto) 0.8 L Reeves # (Auto) 0.8 Eos # (Auto) 0.2 Baso # (Auto) 0.0 Immature Gran % 0.3 Nucleated RBC % 0.0 Immature Gran # 0.03 Nucleated RBCs # 0.00 ABG pH ABG pCO2 ABG pO2 ABG HCO3 ABG Total CO2 ABG O2 Saturation ABG Base Excess FiO2 Sodium 138 Potassium 3.5 Chloride 99 Carbon Dioxide 28 Anion Gap 14.5 BUN 44 H Creatinine 2.00 H GFR Calculation 38 BUN/Creatinine Ratio 22.00 H Glucose 83 POC Glucose Calculated Osmolality 284.7 Calcium 9.5 Total Bilirubin 0.80 AST 16 ALT 15 L Alkaline Phosphatase 77 B-Natriuretic Peptide 1395 H Total Protein 6.8 Albumin 2.9 L Globulin 3.9 H Albumin/Globulin Ratio 0.7 L Blood Type Antibody Screen Crossmatch Blood Bank Comment - Diagnostic Findings Procedure: Chest x-ray: report reviewed by me - EKG EKG results: interpreted by ar EKG shows: sinus rhythm <Chon Turner - Last Filed: 12/22/16 10:21> Cardiology - PN: Subj Interval history: Patient's chart been reviewed. He has critical aortic stenosis. He also has what looks to be his sinus bradycardia by his LifeVest. We are reviewing that in detail and I am going to ask Dr. Anders to see him in consultation anticipating the possibility of an ICD or pacemaker. His EF is in the 40% range and we are reevaluating that. He recently had an echo at the office and his EF appears to be significantly improved over prior echoes. Patient needs to be evaluated for transcatheter versus surgical aortic valve replacement. I will discuss this with Dr. Ho his primary tape recording machine operator. His aortic stenosis is severe enough for him to have syncope related to it. He is also had significant episode of heart failure this admission which is resolving with diuresis and offloading. I have discussed in detail the particulars of this case and I have examined the patient and reviewed the patient's chart both current and old. I was directly involved in the patient's evaluation and management and I completely agree with Leti Barton NP regarding this patient' s evaluation and treatment plan. Exam (Progress Note) - Constitutional Vitals: Period Temp Pulse Resp BP Sys/Slater Pulse Ox Last 24 Hr 97.3 F-97.9 F 77-92 12-30 93-149/47-90 93-964 Result/EKG - Labs CBC & BMP: 12/22/16 04:04 12/22/16 04:04 Labs: Laboratory Results - last 24 hr 12/21/16 12/21/16 12/21/16 10:19 11:45 16:07 WBC RBC Hgb Hct MCV MCH MCHC RDW Plt Count MPV Neut % (Auto) Lymph % (Auto) Reeves % (Auto) Eos % (Auto) Baso % (Auto) Neut # (Auto) Lymph # (Auto) Reeves # (Auto) Eos # (Auto) Baso # (Auto) Immature Gran % Nucleated RBC % Immature Gran # Nucleated RBCs # ABG pH ABG pCO2 ABG pO2 ABG HCO3 ABG Total CO2 ABG O2 Saturation ABG Base Excess FiO2 Sodium Potassium Chloride Carbon Dioxide Anion Gap BUN Creatinine GFR Calculation BUN/Creatinine Ratio Glucose POC Glucose 209 H 83 Calculated Osmolality Calcium Total Bilirubin AST ALT Alkaline Phosphatase B-Natriuretic Peptide Total Protein Albumin Globulin Albumin/Globulin Ratio Blood Type Cancelled Antibody Screen Cancelled Crossmatch See Detail Blood Bank Comment Cancelled 12/21/16 12/22/16 12/22/16 20:51 01:57 03:00 WBC RBC Hgb Hct MCV MCH MCHC RDW Plt Count MPV Neut % (Auto) Lymph % (Auto) Reeves % (Auto) Eos % (Auto) Baso % (Auto) Neut # (Auto) Lymph # (Auto) Reeves # (Auto) Eos # (Auto) Baso # (Auto) Immature Gran % Nucleated RBC % Immature Gran # Nucleated RBCs # ABG pH 7.462 H ABG pCO2 42.2 ABG pO2 85.0 ABG HCO3 29.5 H ABG Total CO2 30.8 H ABG O2 Saturation 96.1 ABG Base Excess 5.1 H FiO2 40.00 Sodium Potassium Chloride Carbon Dioxide Anion Gap BUN Creatinine GFR Calculation BUN/Creatinine Ratio Glucose POC Glucose 104 98 Calculated Osmolality Calcium Total Bilirubin AST ALT Alkaline Phosphatase B-Natriuretic Peptide Total Protein Albumin Globulin Albumin/Globulin Ratio Blood Type Antibody Screen Crossmatch Blood Bank Comment 12/22/16 12/22/16 12/22/16 04:04 04:04 04:04 WBC 9.0 D RBC 3.80 D Hgb 12.0 L D Hct 34.5 L MCV 90.8 MCH 32 MCHC 34.8 RDW 15.5 Plt Count 297 MPV 8.8 L Neut % (Auto) 79.1 H Lymph % (Auto) 9.1 L Reeves % (Auto) 9.3 Eos % (Auto) 2.0 Baso % (Auto) 0.2 Neut # (Auto) 7.1 Lymph # (Auto) 0.8 L Reeves # (Auto) 0.8 Eos # (Auto) 0.2 Baso # (Auto) 0.0 Immature Gran % 0.3 Nucleated RBC % 0.0 Immature Gran # 0.03 Nucleated RBCs # 0.00 ABG pH ABG pCO2 ABG pO2 ABG HCO3 ABG Total CO2 ABG O2 Saturation ABG Base Excess FiO2 Sodium 139 Potassium 3.4 L Chloride 99 Carbon Dioxide 32 Anion Gap 11.4 BUN 45 H Creatinine 2.00 H GFR Calculation 38 BUN/Creatinine Ratio 22.00 H Glucose 84 POC Glucose Calculated Osmolality 287.5 Calcium 9.4 Total Bilirubin AST ALT Alkaline Phosphatase B-Natriuretic Peptide 1395 H Total Protein Albumin Globulin Albumin/Globulin Ratio Blood Type Antibody Screen Crossmatch Blood Bank Comment 12/22/16 12/22/16 04:04 07:42 WBC RBC Hgb Hct MCV MCH MCHC RDW Plt Count MPV Neut % (Auto) Lymph % (Auto) Reeves % (Auto) Eos % (Auto) Baso % (Auto) Neut # (Auto) Lymph # (Auto) Reeves # (Auto) Eos # (Auto) Baso # (Auto) Immature Gran % Nucleated RBC % Immature Gran # Nucleated RBCs # ABG pH ABG pCO2 ABG pO2 ABG HCO3 ABG Total CO2 ABG O2 Saturation ABG Base Excess FiO2 Sodium 138 Potassium 3.5 Chloride 99 Carbon Dioxide 28 Anion Gap 14.5 BUN 44 H Creatinine 2.00 H GFR Calculation 38 BUN/Creatinine Ratio 22.00 H Glucose 83 POC Glucose 64 L Calculated Osmolality 284.7 Calcium 9.5 Total Bilirubin 0.80 AST 16 ALT 15 L Alkaline Phosphatase 77 B-Natriuretic Peptide Total Protein 6.8 Albumin 2.9 L Globulin 3.9 H Albumin/Globulin Ratio 0.7 L Blood Type Antibody Screen Crossmatch Blood Bank Comment
--- NOTE | 2016-12-22 08:25 | XRay Report ---
Exam: XR chest 1V portable Indication: Cardiomegaly Comparison study: 12/21/2016 Findings: Cardiac silhouette is mildly enlarged, similar prior. Multiple control units and electrodes are noted overlying the chest and upper abdomen, unchanged. This obscures the anatomy. There is no obvious focal consolidation, pneumothorax or pleural effusion identified. Impression: No significant change. PROCEDURE INTERPRETED AT [facility] DEPARTMENT OF RADIOLOGY Final Report Signed by: Keaton Young
[2016-12-22] MEDS: INSULIN REGULAR 100 UNIT/ML SUBCUT SCH ×4 (08:47→23:24)
[2016-12-22] MEDS: FUROSEMIDE 40 MG/4 ML VIAL IV SCH ×2 (08:47→16:22)
[2016-12-22] MEDS: CARVEDILOL 6.25 MG TABLET PO SCH ×2 (08:48→21:08)
[2016-12-22] MEDS: metOLazone 5 MG TABLET PO SCH (08:48)
[2016-12-22] MEDS: FERROUS SULFATE 325 MG TABLET PO SCH ×3 (08:48→21:08)
[2016-12-22] MEDS: POTASSIUM CHLORIDE 10 MEQ TABLET PO SCH (08:48)
[2016-12-22] MEDS: CLOPIDOGREL 75 MG TABLET PO SCH (08:48)
[2016-12-22] MEDS: LEVOFLOXACIN INJ 500 MG in PREMIX 1 EACH IV SCH (08:48)
[2016-12-22] MEDS: PANTOPRAZOLE 40 MG TABLET PO SCH (08:48)
[2016-12-22] MEDS: GLIMEPIRIDE 4 MG TABLET PO SCH (08:50)
[2016-12-22] MEDS: ENOXAPARIN 40 MG/0.4 ML SYRINGE SUBCUT SCH (08:50)
[2016-12-22] MEDS: NITROGLYCERIN DRIP 50 MG/250 ML BOTTLE IV SCH (09:06)
--- NOTE | 2016-12-22 11:22 | Pulmonology Progress Note ---
Pulmonary - PN: Subj Interval history: Nate Anthony, [facility]-, acting as scribe for Dr. Emre Mock Mr. Guerrero is a 76-year-old black male who we saw in pulmonary consultation on 04/2017. At that time, our impressions were: 1. Acute congestive heart failure. 2. Significant past history of tobacco abuse. At least [id number] history of smoking. 3. Severe aortic stenosis with mitral regurgitation and resultant pulmonary hypertension. 4. Severe hypoxemia. Patient may have underlying COPD. Any tendency towards hypoxemia would be exacerbated by his congestive heart failure and pulmonary hypertension. 5. Chronic renal failure with a creatinine of 1.70 6. Severe anemia. Etiology undetermined 7. See past history. 12/21/2016. Today's chest x-ray is improved. Patient still has congestive heart failure. ABGs are also improved. On FiO2 of 44% pH is 7.45, PCO2 40, PO2 70.5 bicarb is 27.1. Natruretic peptide is fallen from 3016 1793. Creatinine is 1.80 with a BUN of 41 electrolytes are normal. No potassium is low normal at 3.5. White count is 6000 with 70 segs 14 lymphs 13 monos H&H is fallen slightly at 8.2/24.2. Patient is on a nitroglycerin drip and this has helped him a great deal. Oxygenation is improving his congestive heart failure resolves and I think as we continue to offload reduction his pulmonary artery pressure should drop some. I doubt pulmonary artery pressures will come back to normal in the face of severe aortic stenosis and moderate mitral regurgitation. Overall the patient looks much better today. 12/22/2016. The patient's chest x-ray is much improved. His BNP has improved further to 1395. ABGs this morning on an FiO2 of 40% showed pH of 7.462, PCO2 42.2, PO2 85.0, bicarb 29.5, and oxygen saturation 96.1%. Medications have been reviewed. We made no changes. Labs have been reviewed. White count is 9000 with 79.1% segs; H&H 12.0/34.5; platelet count 297,000; creatinine 2.00, BUN 44, sodium 138, potassium 3.5, liver function tests within normal limits; BNP 1395; calcium 9.5, albumin 2.9, total protein 6.8 Exam (Progress Note) - Constitutional Vitals: Period Temp Pulse Resp BP Sys/Slater Pulse Ox Last 24 Hr 97.3 F-97.9 F 77-92 12-30 93-149/51-90 93-964 Exam: Chest with slightly stiff breath sounds at the bases Heart as per Dr. Turner Abdomen is nontender and nondistended; bowel sounds positive 4 Lower extremities with nothing to suggest acute deep venous femoral phlebitis Psychiatric oriented 3 Neurologic long-term motor function is intact Plan: Continue present treatment. Chest x-ray ABGs and lab in the morning. See orders. Results - Labs CBC & BMP: 12/22/16 04:04 12/22/16 04:04
[2016-12-22] MEDS ORDERED: ceFAZolin 1,000 MG VIAL IRRIG ONE (16:51)
--- NOTE | 2016-12-22 16:54 | Electrophysiology Consultation ---
History of Present Illness - Data of Consult Patient: new to practice Consult date: 12/22/16 - Consult Narrative Reason for consult: Syncope History of present illness: Mr. Guerrero is a 76 year old male, followed by dr. Ho. H/o [facility], most recent PCI 08/2016. Ejection fraction improved from 25-40% since. He also has critical aortic stenosis, RAMÓN 0.6 cm. Severe pulmonary hypertension, with estimated PA P of 96 mmHg, moderate MR, moderate AI. He is still wearing a LifeVest, which is started when his ejection fraction was depressed. He had several presyncopal spells, and a few days ago, he had an episode of deangelo syncope, when he was leaving the doctor's office. The LifeVest recorded very irregular rhythm, artifacts, somewhat suggestive of ventricular fibrillation. There was, however no shock from the LifeVest. On the later part of the tracing , the irregular baseline remains, with a wider QRS, slower escape rhythm. He had a downtime for approximately 1 minute. ACS was ruled out. He is otherwise having class III heart failure symptoms, but no leg swelling at this time. Type 2 diabetes, well controlled, with recent mild hypoglycemia during his hospital stay. He also has a profound anemia, which improved after recent transfusion. Remote h/o prostate surgery. COPD, stable. EKG shows sinus rhythm, PVCs, QRS 109 ms. Telemetry shows sinus rhythm, PVCs, no recurrence of significant bradycardia or sustained tachyarrhythmia. He is on a beta-kristen, however, low blood pressure limited use of NEMESIO inhibitor. CC: Chon Turner MD - Home Medications and Allergies Home Medications: Home Medications Medication Instructions Recorded Confirmed Type Glimepiride [Amaryl] 4 mg PO DAILY 02/01/15 12/19/16 History Aspirin [Ecotrin] 81 mg PO QPM 07/31/15 12/19/16 History Ticagrelor [Brilinta] 90 mg PO BID #120 tablet 10/28/16 12/19/16 Rx Isosorbide Mononitrate [Isosorbide 15 mg PO DAILY 11/12/16 12/19/16 History Mononitrate ER] Potassium Chloride 10 meq PO DAILY 11/12/16 12/19/16 History Furosemide Tab [Lasix Tab] 40 mg PO DAILY #30 tablet 11/13/16 12/19/16 Rx Carvedilol [Coreg] 12.5 mg PO BID 12/19/16 12/19/16 History Clopidogrel [Plavix] 75 mg PO DAILY 12/19/16 12/19/16 History Rosuvastatin Calcium [Crestor] 5 mg PO DAILY 12/19/16 12/19/16 History Allergies/Adverse Reactions: Allergies Allergy/AdvReac Type Severity Reaction Status Date / Time No Known Allergies Allergy Verified 11/12/16 12:10 Medical,Surgical,& Family Hx - Medical History Cardio: History of: CHF, CAD, Hypertension, [place] (last [place] 2013), Valvular Heart Disease Neurology: No history of: Seizures, TIA Endocrine: History of: Diabetes Mellitus (IDDM), Diabetes Mellitus (NIDDM), Dyslipidemia Respiratory: History of: COPD, Pneumonia Renal: History of: Renal Failure Genitourinary: History of: Prostate Problems (cancer) Gastrointestinal: History of: Gastrointestinal Bleed Other: History of: Cancer (PROSTATE) - Surgical History Cardiac Surgeries: Sugical HX of: Cardiac Catheterization (last cath 1 month ago ) Neurologic Surgeries: Patient denies: Neurologic Surgery Abdominal Surgeries: Patient denies: Abdominal Surgery Reproductive Surgeries: Surgical HX of;: Prostate Surgery - Family History Family History: Reports;: Family Cancer (brother), Family Diabetes (son), Family Heart Disease (mother), Family Hypertension (family) Denies;: Family Stroke - Social History Smoking Status: Former smoker Frequency of Alcohol Use: None Type of Drug Use: None 12 point system: reviewed and no additional remarkable complaints except as stated Exam - Constitutional Vitals: Period Temp Pulse Resp BP Sys/Slater Pulse Ox Last 24 Hr 97.4 F-97.9 F 77-92 12-30 93-149/54-90 93-964 General appearance: normal weight, no acute distress - Head Head exam: Present: normal inspection, normocephalic. Absent: hematoma - Eye Eye exam: Absent: conjunctival injection, periorbital swelling Pupils: Absent: dilated, irregular - ENT ENT exam: Present: normal external ear exam - Neck Neck exam: Present: normal inspection. Absent: thyromegaly - Respiratory Respiratory exam: Present: clear to auscultation bilaterally. Absent: prolonged expiratory phase - Cardiovascular Cardiovascular exam: Present: diastolic murmur, irregular rhythm, systolic murmur - GI/Abdominal GI/Abdominal exam: Present: normal bowel sounds. Absent: distended - Extremities Exam Extremities exam: Present: normal inspection, normal capillary refill. Absent: edema - Back Exam Back exam: Present: normal inspection - Neurological Exam Neurological exam: Present: alert, oriented X3 - Psychiatric Psychiatric exam: Present: normal affect, normal mood - Skin Skin exam: Present: normal color, warm. Absent: cyanosis Results - Labs CBC & BMP: 12/22/16 04:04 12/22/16 04:04 Lab Results: I have reviewed the past 24 hour labs Assessment and Plan (1) Aortic stenosis Status: Chronic Assessment and plan: 76-year-old black male, with critical aortic stenosis, syncope, despite wearing LifeVest. Tracings are heavy with artifacts, are suspicious for PVT/VF, which must have self terminated, he got no shocks, he also had episodes, suggestive of profound bradycardia. ICM, ejection fraction 40%, type 2 diabetes mellitus, CHF class III, COPD. -The presentation is high risk, he may not tolerate bradycardia or tachyarrhythmia with critical aortic stenosis. We discussed risks and benefits of management options. -I recommend to protect him from arrhythmia first, before proceeding with TAVR evaluation and referral. If he becomes bradycardic again, or develops sustained tachyarrhythmia, that may be irreversible, even with prompt resuscitation -Interrogate LifeVest in a.m. Will review tracings. Unless the tracings are purely due to artifacts, we will need to proceed with a DDD ICD implant for secondary prevention. I will defer defibrillator testing in his case. Currently , although his ejection fraction improved to 40%, risks of an EP study, to assess inducibility of VT/VF, are prohibitive. -N.p.o. after midnight. Plan for dual-chamber ICD implant. Anesthesia consult. High risk of aguilar-procedural complications, critical , moderate AI/MR , severe pulmonary hypertension, CHF, COPD. -He is not a candidate for TRAVELING NURSE at this time. -We may increase beta-kristen, after he is protected from bradycardia, as blood pressure allows. He was not a candidate for NEMESIO inhibitor in the past, due to low blood pressure. Current Visit: Yes Qualifiers: Cardiac valve disease etiology: nonrheumatic Qualified Code(s): I35.0 - Nonrheumatic aortic (valve) stenosis (2) CHF (congestive heart failure), NYHA class III Status: Acute Current Visit: Yes Qualifiers: Congestive heart failure type: combined Congestive heart failure chronicity : acute on chronic Qualified Code(s): I50.43 - Acute on chronic combined systolic (congestive) and diastolic (congestive) heart failure (3) Coronary artery disease Status: Chronic Current Visit: Yes (4) Diabetes Status: Chronic Current Visit: Yes Qualifiers: Diabetes mellitus type: type 2 Diabetes mellitus complication status: without complication (5) CKD (chronic kidney disease) stage 3, GFR 30-59 ml/min Status: Acute Current Visit: No (6) Syncope Status: Acute Current Visit: No (7) COPD (chronic obstructive pulmonary disease) Status: Chronic Current Visit: No (8) Mitral regurgitation and aortic stenosis Status: Chronic Current Visit: No
[2016-12-22] MEDS: ASPIRIN EC 81 MG TABLET PO SCH (18:57)
[2016-12-22] MEDS: ROSUVASTATIN 10 MG TABLET PO SCH (21:08)
[2016-12-23] MEDS: LEVALBUTEROL 0.63 MG/3 ML NEB RESP TX SCH ×4 (00:15→20:11)
[2016-12-23 04:14] LABS: Allen Test Positive
[2016-12-23 04:16] LABS: ABG Base Excess 5.2 MMOL/L (-2.5-2.5); ABG HCO3 29.1 MMOL/L (20-26); ABG Oxygen Saturation 98.3 % (95-100); ABG PCO2 46.3 MM HG (35-48); ABG PH 7.426 (7.35-7.45); ABG TCO2 26.5 MMOL/L (23-27)
[2016-12-23 04:19] LABS: Basophils % 0.2 % (0.0-0.8); Eosinophils # 0.1 10*3/uL (0.0-0.87); Eosinophils % 1.5 % (0.00-10.9); Hematocrit 36.9 VOL% (42.0-52.0); Hemoglobin 12.7 GM/DL (14.0-18.0); Immature Granulocytes % 0.4 %; Immature Granulocytes Absolute 0.04 #; Lymphocytes # 0.8 10*3/uL (1.4-4.0); Lymphocytes % 8.9 % (21.2-54.2); Mean Corpuscular HGB Conc 34.4 GM/DL (32-36); Mean Corpuscular Hemoglobin 31 PG (27-34); Mean Corpuscular Volume 91.3 FL (87-102); Mean Platelet Volume 8.9 FL (9.6-12.0); Monocytes % 11.3 % (1.7-12.7); Neutrophils # 7.2 10*3/uL (1.4-7.4); Neutrophils % 77.7 % (38.7-73.9); Platelet Count 351 T/CUMM (130-400); Red Blood Count 4.04 MC/CUMM (3.8-5.5); Red Cell Distribution Width 15.3 % (9.3-17.3); White Blood Count 9.2 T/CUMM (4-12)
[2016-12-23 04:38] LABS: Partial Thromboplastin Time 34.3 SECS (0-40)
[2016-12-23 06:14] LABS: Alanine Aminotransferase 15 U/L (16-61); Albumin 3.1 G/DL (3.4-5.0); Alkaline Phosphatase 89 U/L (45-117); Aspartate Amino Transferase 13 U/L (0-37); Bilirubin,Total < 0.39 MG/DL (0.2-1.0); Blood Urea Nitrogen 56 MG/DL (7-18); Calcium 9.1 MG/DL (8.5-10.1); Glucose 136 MG/DL (74-106); Potassium 3.7 MMOL/L (3.5-5.1); Sodium 136 MMOL/L (136-145); Total Protein 6.9 G/DL (6.4-8.3)
--- NOTE | 2016-12-23 07:22 | Cardiology Progress Note ---
<OraliaLeti E - Last Filed: 12/23/16 07:06> Assessment and Plan - Time spent with patient Time spent with patient: Greater than 30 minutes (1) CHF (congestive heart failure), NYHA class III Status: Acute Assessment and plan: SEE PLAN OF CARE LISTED BELOW Current Visit: Yes Qualifiers: Congestive heart failure type: combined Congestive heart failure chronicity : acute on chronic Qualified Code(s): I50.43 - Acute on chronic combined systolic (congestive) and diastolic (congestive) heart failure (2) Abnormal cardiac enzyme level Status: Chronic Assessment and plan: SEE PLAN OF CARE LISTED BELOW Current Visit: Yes (3) Dyspnea Status: Acute Assessment and plan: SEE PLAN OF CARE LISTED BELOW Current Visit: Yes Qualifiers: Dyspnea type: unspecified Qualified Code(s): R06.00 - Dyspnea, unspecified (4) Aortic stenosis Status: Chronic Assessment and plan: SEE PLAN OF CARE LISTED BELOW Current Visit: Yes Qualifiers: Cardiac valve disease etiology: nonrheumatic Qualified Code(s): I35.0 - Nonrheumatic aortic (valve) stenosis (5) Coronary artery disease Status: Chronic Assessment and plan: SEE PLAN OF CARE LISTED BELOW Current Visit: Yes (6) Diabetes Status: Chronic Assessment and plan: SEE PLAN OF CARE LISTED BELOW Current Visit: Yes Qualifiers: Diabetes mellitus type: type 2 Diabetes mellitus complication status: without complication (7) Anemia Status: Chronic Assessment and plan: SEE PLAN OF CARE LISTED BELOW Current Visit: No (8) History of coronary artery stent placement Status: Chronic Assessment and plan: SEE PLAN OF CARE LISTED BELOW Current Visit: No (9) Pneumonia Status: Acute Assessment and plan: SEE PLAN OF CARE LISTED BELOW Current Visit: Yes Qualifiers: Laterality: bilateral Lung location: unspecified part of lung (10) CKD (chronic kidney disease) stage 3, GFR 30-59 ml/min Status: Chronic Assessment and plan: SEE PLAN OF CARE LISTED BELOW Current Visit: No (11) Cardiac murmur Status: Chronic Assessment and plan: SEE PLAN OF CARE LISTED BELOW Current Visit: No (12) Acute exacerbation of congestive heart failure Status: Acute Assessment and plan: SEE PLAN OF CARE LISTED BELOW Current Visit: No Qualifiers: Congestive heart failure type: combined Qualified Code(s): I50.43 - Acute on chronic combined systolic (congestive) and diastolic (congestive) heart failure (13) Bradycardia Status: Acute Assessment and plan: SEE PLAN OF CARE LISTED BELOW Current Visit: Yes (14) Arrhythmia Status: Acute Assessment and plan: SEE PLAN OF CARE LISTED BELOW Current Visit: Yes Cardiology - PN: Subj Interval history: [employer] SUPERINTENDENT: DR. MAGED SALGADO SUMMARY: Mr. Guerrero, 76BM, has a known history of coronary artery disease, hypertension, dyslipidemia, diabetes, ischemic cardiomyopathy (EF 40%), anemia, prostate cancer, CKD stage III. History of several stents placed in the past. Most recent occurred 09/09/2016 with PCI of OM 2 with RAMIREZ, patent stents in the proximal LAD, proximal to mid RCA and distal to mid RCA, EF 25-30% at that time. Echocardiogram performed December 19, 2016 revealed the following: EF 40 %, grade 2 diastolic dysfunction, severe aortic valve stenosis (RAMÓN 0.6 cm, transaortic peak gradient 51 mmHg, transaortic mean gradient 27.6 mmHg), mild to moderate MR, moderate aortic regurgitation, severe pulmonary hypertension ( PAP 96 mmHg.) Patient was admitted December 19, 2016 through ED at [facility] after experiencing a syncopal episode. Patient had just left [facility] after undergoing echocardiogram when he felt weak, tired and short of breath. He has been diagnosed with acute on chronic congestive heart failure, possible pneumonia. During the night, he became more abruptly short of breath, orthopneic with SPO2 saturations in the mid 80s. He was given IV Lasix but his respiratory status did not improve. He was transferred to ICU where he has been housed since around 0100. DECEMBER 20, 2016: This morning, Mr. Guerrero remains tachypneic although he states he is breathing better. He is currently on oxygen at 10 L/min with an SPO2 saturation 87%. LifeVest was interrogated last evening in an attempt to identify possible arrhythmia contributing to syncope. There was no arrhythmia noted per report. At this time, he may remove the LifeVest. Troponins flat. This is not NSTEMI. I have discussed with Dr. Truner. We will increase Lasix this morning, and Zaroxolyn daily. IV nitroglycerin to assist with afterload reduction, closely monitoring given his severe . Consult pulmonology for assistance with his severe shortness of breath certainly related to acute on chronic congestive heart failure but may have some underlying chronic issues and /or possible pneumonia. IV Levaquin was initiated yesterday. Patient may be considered a candidate for TAVR but obviously must be tuned up prior to procedure. Recently had stents placed and he continues to take aspirin and Plavix. Allowing for higher blood pressures given the severity of his aortic stenosis. DECEMBER 21, 2016: Mr. Guerrero is less tachypneic this morning. He has diuresed 1 pound overnight. Currently on IV nitroglycerin at 26.7 mcg/min. He is tolerating this well. Appreciate Dr. Mock's assistance. Continue IV Lasix and oral Zaroxolyn. Patient's anemia is stable. Soon, we may consider transfusion to increase his oxygen carrying capacity. We will try to diurese him a little more before we transfuse. I am asking for the life vest telemetry strips (in particular the time when he had his syncopal episode) to be scanned in today to be reviewed with Dr. Turner. At this time, continue current plan of care. Will further discuss with Dr. Turner and await additional recommendations. DECEMBER 22, 2016: Mr. Cox looks much improved overnight. According to his daily weight, he has lost 7 kg overnight. Certainly breathing much more comfortably on oxygen at 2 L/min. No longer orthopneic. Nitroglycerin is off. He was transfused last evening and his anemia has improved. Vital signs are stable as well. Telemetry strips from [employer] were obtained yesterday. He was wearing a LifeVest when he experiences the syncopal episode it is believed, after reviewing the telemetry strips, he had severe bradycardia likely related to severe aortic stenosis. Patient is currently being evaluated for possible TAVR. Will further discuss with Dr. Turner and await additional recommendations. DECEMBER 23, 2016: Continues to improve, slowly. He is also an additional 1/2 kg overnight, 9 kg since admission. Creatinine/BUN are rising a bit this morning. I think he is well compensated for acute CHF exacerbation will decrease his diuretics today. Scheduled to undergo ICD implantation around [address] Anders. [facility] inbound call center representative has been contacted and will reinterrogate life vest monitoring strips this morning for Dr. Anders to be reviewed. When patient experiences syncopal episode recently very irregular rhythms were recorded, suggestive of ventricular fibrillation. For this reason, Dr. Anders is considering ICD for prevention of sudden cardiac . Patient will need aortic valve surgery but, given the frequency of the presyncope, recent syncope and suspected fatal arrhythmia, will proceed with ICD first. Will further discuss with Dr. Turner and await additional recommendations. ASSESSMENT/PLAN: 1. SYNCOPE - Most likely related to severe arrythmia (suspected vfib, severe bradycardia/asystole) related to severe . Allowing for higher systolic blood pressure. ICD this afternoon with eventualy TAVR. 2. KNOWN CAD - PCI of OM 2 with RAMIREZ September 09, 2016 - Continue Aspirin and Plavix 3. AORTIC STENOSIS - Severe. Afterload reduction. Eventual TAVR or invasive AVR. 4. ICM - EF 40%, improved from 25% to 30% recently 5. UNDERLYING HYPERTENSION - Will allow for permissive hypertension given patient's severity of aortic stenosis 6. DYSLIPIDEMIA - Continue lipid-lowering agent. LDL 68. 7. CKD - STAGE III - Avoiding NEMESIO inhibitor for fear of worsening renal insufficiency. Creatinine 2.2 this morning 8. ANEMIA - Continue to follow H&H daily. Has had upper GI scope approximately 2 months ago which did not reveal any obvious source of bleeding. There was mention of a colonoscopy however I cannot find record of a colonoscopy. He does not remember having c-scope. Checking stool for occult blood. Will add oral iron replacement. Appears stable at this time. Transfused yesterday. Anemia improved. 9. ELEVATED TROPONIN - Chronic. Not NSTEMI. 10. SOB - Multifactorial including acute on chronic CHF, possible CAP, pulmonary hypertension 11. ACUTE ON CHRONIC CHF - Secondary to combined systolic dysfunction (EF 40%) and diastolic dysfunction. NYHA Class IV upon arrival, now class III. Continue with diuretics, afterload reduction agents. Well-compensated today. Decreasing Lasix to 40mg IV BID and decreasing Zaroxyln to 2.5mg every other day starting tomorrow. 12. POSSIBLE CAP - IV Levaquin initiated Monday. Difficult to exclude given the abundance of fluid therefore will continue to treat with antibiotics. Will discontinue after Monday's dose. 13. PULMONARY HYPERTENSION - Continue current plan of care. 14. DIABETES - Sliding scale insulin coverage. 15. ARRYTHMIA - vfib, severe bradycardia, possible asystole. There has been no additional episodes of severe arrythmia since hospitalized. Exam (Progress Note) - Constitutional Vitals: Period Temp Pulse Resp BP Sys/Slater Pulse Ox Last 24 Hr 97.2 F-98.5 F 77-92 12-23 86-141/47-73 94-100 Exam: General: [Mild distress, pleasant. Cooperative.] HEENT: [Bilateral arcus, normocephalic, atraumatic. Mucous membranes moist. No jaundice noted. Conjunctiva moist and clear, sclerae anicteric] Neck: 4 cm JVD to jaw. No thyromegaly or lymphadenopathy noted. Bilateral carotid bruits noted. Cardiac: [Regular rate and rhythm.] [IV/ RANDALL heard best at bilateral upper sternal borders with radiation to bilateral carotids. Lungs: [Inspiratory crackles in bases, scant. SPO2 saturation 97% on O2 at 4L/ min by nasal cannula. Abdomen: Soft, bowel sounds normoactive. Distended. Nontender. Musculoskeletal: No fluid collection. Decreased range of motion is noted. Extremities: No clubbing, cyanosis noted. [No lower extremity edema noted. ] Upper extremity pulses 2+. Lower extremity pulses 2+. Capillary refill less than 3 seconds. Skin: No unusual lesions or rashes. No skin breakdown appreciated. Neuro: Awake, alert and oriented 3. Moves all extremities well without hemiparesis or paralysis. No essential tremor is appreciated. Result/EKG - Labs CBC & BMP: 12/23/16 04:01 12/23/16 04:01 Lab Results: I have reviewed the past 24 hour labs Labs: Laboratory Results - last 24 hr 12/22/16 12/22/16 12/22/16 07:42 08:58 11:31 WBC RBC Hgb Hct MCV MCH MCHC RDW Plt Count MPV Neut % (Auto) Lymph % (Auto) [place] % (Auto) Eos % (Auto) Baso % (Auto) Neut # (Auto) Lymph # (Auto) [place] # (Auto) Eos # (Auto) Baso # (Auto) Immature Gran % Nucleated RBC % Immature Gran # Nucleated RBCs # INR PT Patient/Control Mix Circ Anticoag PTT ABG pH ABG pCO2 ABG pO2 ABG HCO3 ABG Total CO2 ABG O2 Saturation ABG Base Excess FiO2 Sodium Potassium Chloride Carbon Dioxide Anion Gap BUN Creatinine GFR Calculation BUN/Creatinine Ratio Glucose POC Glucose 64 L 196 H 245 H Calculated Osmolality Calcium Magnesium Total Bilirubin AST ALT Alkaline Phosphatase B-Natriuretic Peptide Total Protein Albumin Globulin Albumin/Globulin Ratio 12/22/16 12/22/16 12/22/16 16:26 17:59 20:05 WBC RBC Hgb Hct MCV MCH MCHC RDW Plt Count MPV Neut % (Auto) Lymph % (Auto) [place] % (Auto) Eos % (Auto) Baso % (Auto) Neut # (Auto) Lymph # (Auto) [place] # (Auto) Eos # (Auto) Baso # (Auto) Immature Gran % Nucleated RBC % Immature Gran # Nucleated RBCs # INR PT Patient/Control Mix Circ Anticoag PTT ABG pH ABG pCO2 ABG pO2 ABG HCO3 ABG Total CO2 ABG O2 Saturation ABG Base Excess FiO2 Sodium Potassium Chloride Carbon Dioxide Anion Gap BUN Creatinine GFR Calculation BUN/Creatinine Ratio Glucose POC Glucose 56 L 100 > 500 H* Calculated Osmolality Calcium Magnesium Total Bilirubin AST ALT Alkaline Phosphatase B-Natriuretic Peptide Total Protein Albumin Globulin Albumin/Globulin Ratio 12/22/16 12/23/16 12/23/16 20:08 03:50 04:01 WBC RBC Hgb Hct MCV MCH MCHC RDW Plt Count MPV Neut % (Auto) Lymph % (Auto) [place] % (Auto) Eos % (Auto) Baso % (Auto) Neut # (Auto) Lymph # (Auto) [place] # (Auto) Eos # (Auto) Baso # (Auto) Immature Gran % Nucleated RBC % Immature Gran # Nucleated RBCs # INR PT Patient/Control Mix Circ Anticoag PTT ABG pH 7.426 ABG pCO2 46.3 ABG pO2 111.0 H ABG HCO3 29.1 H ABG Total CO2 26.5 ABG O2 Saturation 98.3 ABG Base Excess 5.2 H FiO2 40.00 Sodium Potassium Chloride Carbon Dioxide Anion Gap BUN Creatinine GFR Calculation BUN/Creatinine Ratio Glucose POC Glucose 169 H Calculated Osmolality Calcium Magnesium Total Bilirubin AST ALT Alkaline Phosphatase B-Natriuretic Peptide 879 H Total Protein Albumin Globulin Albumin/Globulin Ratio 12/23/16 12/23/16 12/23/16 04:01 04:01 04:01 WBC 9.2 RBC 4.04 Hgb 12.7 L Hct 36.9 L MCV 91.3 MCH 31 MCHC 34.4 RDW 15.3 Plt Count 351 MPV 8.9 L Neut % (Auto) 77.7 H Lymph % (Auto) 8.9 L [place] % (Auto) 11.3 Eos % (Auto) 1.5 Baso % (Auto) 0.2 Neut # (Auto) 7.2 Lymph # (Auto) 0.8 L [place] # (Auto) 1.0 H Eos # (Auto) 0.1 Baso # (Auto) 0.0 Immature Gran % 0.4 Nucleated RBC % 0.0 Immature Gran # 0.04 Nucleated RBCs # 0.00 INR 1.0 PT Patient/Control Mix 11.0 Circ Anticoag PTT 34.3 ABG pH ABG pCO2 ABG pO2 ABG HCO3 ABG Total CO2 ABG O2 Saturation ABG Base Excess FiO2 Sodium 136 Potassium 3.7 Chloride 95 L Carbon Dioxide 30 Anion Gap 14.7 BUN 56 H D Creatinine 2.20 H GFR Calculation 33 BUN/Creatinine Ratio 25.00 H Glucose 136 H POC Glucose Calculated Osmolality 289.0 Calcium 9.1 Magnesium Total Bilirubin < 0.39 AST 13 ALT 15 L Alkaline Phosphatase 89 B-Natriuretic Peptide Total Protein 6.9 Albumin 3.1 L Globulin 3.8 H Albumin/Globulin Ratio 0.8 L 12/23/16 04:01 WBC RBC Hgb Hct MCV MCH MCHC RDW Plt Count MPV Neut % (Auto) Lymph % (Auto) [place] % (Auto) Eos % (Auto) Baso % (Auto) Neut # (Auto) Lymph # (Auto) [place] # (Auto) Eos # (Auto) Baso # (Auto) Immature Gran % Nucleated RBC % Immature Gran # Nucleated RBCs # INR PT Patient/Control Mix Circ Anticoag PTT ABG pH ABG pCO2 ABG pO2 ABG HCO3 ABG Total CO2 ABG O2 Saturation ABG Base Excess FiO2 Sodium Potassium Chloride Carbon Dioxide Anion Gap BUN Creatinine GFR Calculation BUN/Creatinine Ratio Glucose POC Glucose Calculated Osmolality Calcium Magnesium 2.5 H Total Bilirubin AST ALT Alkaline Phosphatase B-Natriuretic Peptide Total Protein Albumin Globulin Albumin/Globulin Ratio - Diagnostic Findings Procedure: Chest x-ray: pending - EKG EKG results: interpreted by me EKG shows: sinus rhythm <Chon Turner - Last Filed: 12/23/16 10:06> Cardiology - PN: Subj Interval history: 76-year-old man with severe aortic stenosis syncopal episode and after review looks to be related to an episode of ventricular fibrillation. He is going to get an ICD for secondary prevention. We will then have him undergo transcatheter or surgical aortic valve replacement. I have discussed in detail the particulars of this case and I have examined the patient and reviewed the patient's chart both current and old. I was directly involved in the patient's evaluation and management and I completely agree with Leti Barton NP regarding this patient's evaluation and treatment plan. Exam (Progress Note) - Constitutional Vitals: Period Temp Pulse Resp BP Sys/Slater Pulse Ox Last 24 Hr 97.2 F-98.5 F 81-92 12-23 86-135/47-82 94-100 Result/EKG - Labs CBC & BMP: 12/23/16 04:01 12/23/16 04:01 Labs: Laboratory Results - last 24 hr 12/22/16 12/22/16 12/22/16 08:58 11:31 16:26 WBC RBC Hgb Hct MCV MCH MCHC RDW Plt Count MPV Neut % (Auto) Lymph % (Auto) [place] % (Auto) Eos % (Auto) Baso % (Auto) Neut # (Auto) Lymph # (Auto) [place] # (Auto) Eos # (Auto) Baso # (Auto) Immature Gran % Nucleated RBC % Immature Gran # Nucleated RBCs # INR PT Patient/Control Mix Circ Anticoag PTT ABG pH ABG pCO2 ABG pO2 ABG HCO3 ABG Total CO2 ABG O2 Saturation ABG Base Excess FiO2 Sodium Potassium Chloride Carbon Dioxide Anion Gap BUN Creatinine GFR Calculation BUN/Creatinine Ratio Glucose POC Glucose 196 H 245 H 56 L Calculated Osmolality Calcium Magnesium Total Bilirubin AST ALT Alkaline Phosphatase B-Natriuretic Peptide Total Protein Albumin Globulin Albumin/Globulin Ratio 12/22/16 12/22/16 12/22/16 17:59 20:05 20:08 WBC RBC Hgb Hct MCV MCH MCHC RDW Plt Count MPV Neut % (Auto) Lymph % (Auto) [place] % (Auto) Eos % (Auto) Baso % (Auto) Neut # (Auto) Lymph # (Auto) [place] # (Auto) Eos # (Auto) Baso # (Auto) Immature Gran % Nucleated RBC % Immature Gran # Nucleated RBCs # INR PT Patient/Control Mix Circ Anticoag PTT ABG pH ABG pCO2 ABG pO2 ABG HCO3 ABG Total CO2 ABG O2 Saturation ABG Base Excess FiO2 Sodium Potassium Chloride Carbon Dioxide Anion Gap BUN Creatinine GFR Calculation BUN/Creatinine Ratio Glucose POC Glucose 100 > 500 H* 169 H Calculated Osmolality Calcium Magnesium Total Bilirubin AST ALT Alkaline Phosphatase B-Natriuretic Peptide Total Protein Albumin Globulin Albumin/Globulin Ratio 12/23/16 12/23/1612/23/17 03:50 04:01 04:01 WBC 9.2 RBC 4.04 Hgb 12.7 L Hct 36.9 L MCV 91.3 MCH 31 MCHC 34.4 RDW 15.3 Plt Count 351 MPV 8.9 L Neut % (Auto) 77.7 H Lymph % (Auto) 8.9 L [place] % (Auto) 11.3 Eos % (Auto) 1.5 Baso % (Auto) 0.2 Neut # (Auto) 7.2 Lymph # (Auto) 0.8 L [place] # (Auto) 1.0 H Eos # (Auto) 0.1 Baso # (Auto) 0.0 Immature Gran % 0.4 Nucleated RBC % 0.0 Immature Gran # 0.04 Nucleated RBCs # 0.00 INR PT Patient/Control Mix Circ Anticoag PTT ABG pH 7.426 ABG pCO2 46.3 ABG pO2 111.0 H ABG HCO3 29.1 H ABG Total CO2 26.5 ABG O2 Saturation 98.3 ABG Base Excess 5.2 H FiO2 40.00 Sodium Potassium Chloride Carbon Dioxide Anion Gap BUN Creatinine GFR Calculation BUN/Creatinine Ratio Glucose POC Glucose Calculated Osmolality Calcium Magnesium Total Bilirubin AST ALT Alkaline Phosphatase B-Natriuretic Peptide 879 H Total Protein Albumin Globulin Albumin/Globulin Ratio 12/23/16 12/23/16 12/23/16 04:01 04:01 04:01 WBC RBC Hgb Hct MCV MCH MCHC RDW Plt Count MPV Neut % (Auto) Lymph % (Auto) [place] % (Auto) Eos % (Auto) Baso % (Auto) Neut # (Auto) Lymph # (Auto) [place] # (Auto) Eos # (Auto) Baso # (Auto) Immature Gran % Nucleated RBC % Immature Gran # Nucleated RBCs # INR 1.0 PT Patient/Control Mix 11.0 Circ Anticoag PTT 34.3 ABG pH ABG pCO2 ABG pO2 ABG HCO3 ABG Total CO2 ABG O2 Saturation ABG Base Excess FiO2 Sodium 136 Potassium 3.7 Chloride 95 L Carbon Dioxide 30 Anion Gap 14.7 BUN 56 H D Creatinine 2.20 H GFR Calculation 33 BUN/Creatinine Ratio 25.00 H Glucose 136 H POC Glucose Calculated Osmolality 289.0 Calcium 9.1 Magnesium 2.5 H Total Bilirubin < 0.39 AST 13 ALT 15 L Alkaline Phosphatase 89 B-Natriuretic Peptide Total Protein 6.9 Albumin 3.1 L Globulin 3.8 H Albumin/Globulin Ratio 0.8 L 12/23/16 07:32 WBC RBC Hgb Hct MCV MCH MCHC RDW Plt Count MPV Neut % (Auto) Lymph % (Auto) [place] % (Auto) Eos % (Auto) Baso % (Auto) Neut # (Auto) Lymph # (Auto) [place] # (Auto) Eos # (Auto) Baso # (Auto) Immature Gran % Nucleated RBC % Immature Gran # Nucleated RBCs # INR PT Patient/Control Mix Circ Anticoag PTT ABG pH ABG pCO2 ABG pO2 ABG HCO3 ABG Total CO2 ABG O2 Saturation ABG Base Excess FiO2 Sodium Potassium Chloride Carbon Dioxide Anion Gap BUN Creatinine GFR Calculation BUN/Creatinine Ratio Glucose POC Glucose 159 H Calculated Osmolality Calcium Magnesium Total Bilirubin AST ALT Alkaline Phosphatase B-Natriuretic Peptide Total Protein Albumin Globulin Albumin/Globulin Ratio
--- NOTE | 2016-12-23 07:38 | EKG Report ---
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
[2016-12-23] MEDS: INSULIN REGULAR 100 UNIT/ML SUBCUT SCH ×4 (07:56→20:25)
[2016-12-23] MEDS ORDERED: FUROSEMIDE 40 MG/4 ML VIAL IV SCH (08:00)
--- NOTE | 2016-12-23 08:02 | XRay Report ---
Exam: XR chest 1V portable Date: 12/23/2016 4:00 AM Indication: Follow-up ventilator respiratory failure Comparison: 12/22/2016 Technical AP Findings:: Mild cardiac enlargement. ASVD is present. Multiple electrical devices are present over the chest. Oxygen tubing is present and external cardiac leads are also noted. No obvious effusions or consolidations otherwise noted. Lateral marginal osteophytes are present. ASVD is noted. No endotracheal tube noted. Impression: 1. No obvious consolidating infiltrate or effusion. PROCEDURE INTERPRETED AT [facility] DEPARTMENT OF RADIOLOGY Final Report Signed by: Dr. Emre Mckeon
--- NOTE | 2016-12-23 08:04 | History and Physical Update ---
Sedation H&P Update - History and Physical H&P was reviewed, the patient examined and there: are no changes in the patients condition since last H&P was completed. - Dictation Physical: refer to scanned H&P, refer to H&P completed by admitting physician - Physical Exam Mental Status: alert and oriented Heart: regular rate and rhythm, other (4/6 hsm) Lung: clear to auscultation Abdomen: within normal limits Vitals: within normal limits - Sedation Plan for Sedation: MAC, other (by the anesthesia team) Patient Consent: Procedure disscussed with patient and patinet has consented., Risks and benefits were discussed with patient,including infection,, bleeding, injury to surrounding structures, seizure, temporary nerve, Patient understands and accepts potential risks/benefits and agrees to ASA Class: IV Airway Assessment: Class III: Soft palate, base of uvula visible
[2016-12-23] MEDS: FERROUS SULFATE 325 MG TABLET PO SCH ×3 (08:37→20:26)
[2016-12-23] MEDS: GLIMEPIRIDE 4 MG TABLET PO SCH (08:37)
[2016-12-23] MEDS: PANTOPRAZOLE 40 MG TABLET PO SCH (08:37)
[2016-12-23] MEDS: POTASSIUM CHLORIDE 10 MEQ TABLET PO SCH (08:38)
[2016-12-23] MEDS: LEVOFLOXACIN INJ 500 MG in PREMIX 1 EACH IV SCH (08:38)
[2016-12-23] MEDS: NITROGLYCERIN DRIP 50 MG/250 ML BOTTLE IV SCH (08:38)
[2016-12-23] MEDS ORDERED: metOLazone 2.5 MG TABLET PO SCH (09:00)
--- NOTE | 2016-12-23 10:50 | Pulmonology Progress Note ---
Pulmonary - PN: Subj Interval history: There is a 76-year-old black male whom I saw in pulmonary consultation on 2016. My impressions were. 1. Acute congestive heart failure. 2. Significant past history of tobacco abuse. At least 16-[id number]-[id number] history of smoking. 3. Severe aortic stenosis with mitral regurgitation and resultant pulmonary hypertension. 4. Severe hypoxemia. Patient may have underlying COPD. Any tendency towards hypoxemia would be exacerbated by his congestive heart failure and pulmonary hypertension. 5. Chronic renal failure with a creatinine of 1.70 6. Severe anemia. Etiology undetermined 7. See past history. 12/21/2016. Today's chest x-ray is improved. Patient still has congestive heart failure. ABGs are also improved. On FiO2 of 44% pH is 7.45, PCO2 40, PO2 70.5 bicarb is 27.1. Natruretic peptide is fallen from 3016 1793. Creatinine is 1.80 with a BUN of 41 electrolytes are normal. No potassium is low normal at 3.5. White count is 6000 with 70 segs 14 lymphs 13 monos H&H is fallen slightly at 8.2/24.2. Patient is on a nitroglycerin drip and this has helped him a great deal. Oxygenation is improving his congestive heart failure resolves and I think as we continue to offload reduction his pulmonary artery pressure should drop some. I doubt pulmonary artery pressures will come back to normal in the face of severe aortic stenosis and moderate mitral regurgitation. Overall the patient looks Much better today 12/23/2016. Today's chest x-ray shows near complete resolution of congestive heart failure. BNP is 879. Electrolytes are normal. Creatinine is increased to 2.20 with a BUN of 56. I have decreased the patient's Levaquin to a renal dose. White count is 9200. H&H is 12.7/36.9. Platelets 351,000. Patient is much stronger and he is breathing comfortably lying in bed. The patient is for dual-chamber ICD. His ABGs on FiO2 of 40% of improved to a pH 7.426, PCO2 46.3 and a PO2 of 111 with a bicarb of 29.1 Physical exam. Vital signs. See below. Afebrile Psychiatric. Oriented 3 General no distress lying in bed at a 35 angle. Face. Symmetrical. No swelling of the lips or tongue. Neck. Symmetrical. Slightly kyphotic. No meningismus. Thyroid was not palpated. Chest. Slight stiffness of breath sounds especially at the bases. Inspiratory excursion is much better. No chest wall tenderness. Heart. As per Dr. Turner Abdomen. Nondistended nontender. Positive bowel sounds Lower extremities. No edema. Note. Doppler venograms of lower extremities showed no evidence of deep venous thrombophlebitis Neurologic. Cranial nerves are intact. Long track motor functions intact. The remainder the physical exam is Plan. 12/20/2016 1. ABGs when available. I do not think this patient is a CO2 retainer and therefore have no hesitation about going higher on supplemental oxygen per 2. I agree with attempts to offload. Hopefully this will result in less mitral regurgitation and therefore a drop in pulmonary hypertension. 3. Patient still has a ways to go as far as his congestive heart failure is concerned. As this improves his oxygenation should also improve. 4. He is anemic and later on we can add red blood cells to increase his oxygen carrying capacity. 12/21/2016 1. See today's note above. 2. Continue present regimen. 3. Daily chest x-ray, ABGs, BMP, BNP 12/23/2016 1. See today's note above 2. Congestive heart failure for all practical purposes resolved. 3. Oxygenation markedly improved. 4. For implantation of dual chamber ICD Exam (Progress Note) - Constitutional Vitals: Period Temp Pulse Resp BP Sys/Slater Pulse Ox Last 24 Hr 97.2 F-98.5 F 81-92 12-23 86-135/47-82 94-100 Results - Labs CBC & BMP: 12/23/16 04:01 12/23/16 04:01
[2016-12-23] MEDS ORDERED: LIDOCAINE 1% 20 ML VIAL ONE (11:47)
[2016-12-23] MEDS ORDERED: HEPARIN/NACL 0.9% 2 UNITS/ML 500 ML IV ONE (11:47)
[2016-12-23] MEDS ORDERED: ceFAZolin 1,000 MG VIAL ONE (11:47)
[2016-12-23] MEDS ORDERED: TISSUE ADHESIVE 1 EACH APPLICATOR TOP ONE (13:04)
--- NOTE | 2016-12-23 13:27 | Cardiac Defibrillator ---
- Preoperative diagnosis Date of Procedure:: 12/23/16 Preop Diagnosis: sustained ventricular tacharrhythmia, either spontaneous or induced by electrophysiology study, not associated with an acute [place] &not due to transient reversible cause Pre-op Diagnosis: ICM, critical , PVT/VF, bradycardia, syncope Post-op diagnosis: same Procedure: PROCEDURE SUMMARY DDD ICD implant from left axillary vein access. Intermittent RBBB/LPFB was noted during the procedure. PLAN Bed rest for 4 hours. Routine post ICD implant site care and activity restrictions. Do not remove pressure dressing until AM. Portable CXR, EKG stat. CXR PA/Lat, device interrogation in AM. Ancef 1g iv. q8h x2. PROCEDURE Informed consent was obtained and a timeout was performed prior to the procedure. The patient was continuously monitored by ECG, pulse oxymetry and NIBP. 1g iv. Ancef was administered prior to the procedure for antibiotic prophylaxis. Monitored anesthesia care was provided by the anesthesia team. The left pectoral area was meticulously prepared with ChloroPrep surgical scrub. Sterile draping was applied and Ioban was used to cover the operation site. The image intensifier was draped with a sterile bag and positioned over the patient's chest. A left subclavian venogram was obtained with 10 cc. iv contrast. The left axillary and subclavian veins and the SVC were patent. After infiltration with 1% lidocaine, an incision was made in the left infraclavicular area, parallel to the deltopectoral groove. The incision was carried down to the level of the pectoral fascia. A subcutaneous pocket was then created with electrocautery and blunt dissection. Hemostasis was then achieved with electrocautery. A micropuncture needle was used to access the left axillary vein under fluoroscopic guidance. The microfilament was used to introduce the micropuncture sheath, which the was used to introduce and advance a long hydrophylic guidewire into the inferior vena cava. A 10.5 Fr sheath was introduced over the guidewire. The dilator was removed. The right ventricular defibrillator lead was introduced through the sheath. The sheath was then peeled away. The curved stylet was used to move the lead into the right ventricular outflow tract. The stylet was then replaced with a straight stylet and the lead was moved into a stable position on the right ventricular septum. Adequate sensing and pacing threshold was confirmed. The active fixation mechanism was then deployed. Stable signal and pacing threshold was noted, with decrease in pacing impedance. No extracardiac stimulation was noted with high output pacing. The lead was then anchored to the subcutaneous tissue with 2-0 nonabsorbable suture, using the anchoring sleeve near the point of entry to the vein. Another 9 Fr sheath was introduced over the retained guidewire. The dilator was removed. The right atrial pacemaker lead was introduced through the sheath. The sheath was then peeled away. A straight stylet was used to move the lead into the right atrium. The stylet was then replaced with a curved J stylet and the lead was moved into a stable position in the right atrial appendage. Adequate sensing and pacing threshold was confirmed. The active fixation mechanism was then deployed. Stable signal and pacing threshold was noted, with decrease in pacing impedance. No extracardiac stimulation was noted with high output pacing. The lead was then anchored to the subcutaneous tissue with 2-0 nonabsorbable suture, using the anchoring sleeve near the point of entry to the vein. The retained guidewire was removed. The ICD generator was attached to the leads and sealed in the prescribed manner. The wound was flushed with Ancef . The generator was placed into the pocket and tied to the pectoral fascia using 2-0 nonabsorbable suture. Stable lead positions were confirmed with fluoroscopy. The wound was closed using a double layer of 2-0 absorbable Vicryl sutures, followed by a subcuticular running suture with 4-0 Monocryl, then Exofin. A sterile, then a pressure dressing was applied. DFT was not performed due to critical . The device was then interrogated and programmed as detailed below. Device Type SN Location Medtronic Evera DR DDD ICD [id number] Left infraclavicular Lead Position Type SN P/R Threshold Impedance RA RA appendage Med[employer]onic 5076-52 [id number] 6.4 mV 1.8 V @ 0.5 ms 1011 Ohm RV RV septum Medtronic 7004Q46 [id number] 11.1 mV 0.6 V @ 0.5 ms 751 Ohm Bradycardia settings MVPR 60/120 Tachycardia settings VF @300 ms, VT @400 ms The implanted system is MRI conditional. Anesthesia: MAC (by the anesthesia team) Surgeon / Physician: Sammy Anders Central Melt Specialist: other (George) Estimated blood loss: minimal Specimens: none sent Condition: stable Disposition: floor - Medications / Follow-up
[2016-12-23] MEDS ORDERED: fentaNYL 100 MCG/2 ML VIAL ONE (13:52)
[2016-12-23] MEDS ORDERED: MIDAZOLAM 2 MG/2 ML VIAL ONE (13:52)
--- NOTE | 2016-12-23 14:09 | EKG Report ---
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
--- NOTE | 2016-12-23 15:08 | XRay Report ---
Exam: XR chest 1V portable Date: 12/23/2016 1:20 PM Indication: Lead placement Comparison: None Technical: 12/23/2016 Findings: Mild cardiac prominence. Cardiac pacing device is present from a left-sided approach with atrial and ventricular leads present. ASVD is present. Mediastinum is unremarkable. The bony structures are otherwise intact. No pneumothorax. Mediastinum is unremarkable. No defined infiltrates or effusions present. Impression: 1. Interval placement of a cardiac pacing device from a left-sided approach 2. No pneumothorax. PROCEDURE INTERPRETED AT [facility] DEPARTMENT OF RADIOLOGY Final Report Signed by: Dr. Emre Mckeon
[2016-12-23] MEDS: CLOPIDOGREL 75 MG TABLET PO SCH (15:19)
[2016-12-23] MEDS: CARVEDILOL 6.25 MG TABLET PO SCH ×2 (15:19→20:26)
[2016-12-23] MEDS: ASPIRIN EC 81 MG TABLET PO SCH (18:30)
[2016-12-23] MEDS: BISACODYL 5 MG TABLET PO PRN (18:31)
[2016-12-23] MEDS: ROSUVASTATIN 10 MG TABLET PO SCH (20:26)
[2016-12-23] MEDS: FUROSEMIDE 40 MG/4 ML VIAL IV SCH (20:26)
[2016-12-24] MEDS: LEVALBUTEROL 0.63 MG/3 ML NEB RESP TX SCH ×4 (00:59→19:19)
[2016-12-24 04:46] LABS: Basophils % 0.2 % (0.0-0.8); Eosinophils # 0.1 10*3/uL (0.0-0.87); Eosinophils % 0.8 % (0.00-10.9); Hemoglobin 12.6 GM/DL (14.0-18.0); Immature Granulocytes % 0.4 %; Immature Granulocytes Absolute 0.04 #; Lymphocytes # 0.8 10*3/uL (1.4-4.0); Lymphocytes % 8.2 % (21.2-54.2); Mean Corpuscular HGB Conc 34.1 GM/DL (32-36); Mean Corpuscular Hemoglobin 32 PG (27-34); Mean Corpuscular Volume 92.7 FL (87-102); Mean Platelet Volume 8.8 FL (9.6-12.0); Monocytes # 1.3 10*3/uL (0.11-0.8); Monocytes % 12.2 % (1.7-12.7); Neutrophils % 78.2 % (38.7-73.9); Platelet Count 344 T/CUMM (130-400); Red Blood Count 3.99 MC/CUMM (3.8-5.5); Red Cell Distribution Width 15.1 % (9.3-17.3); White Blood Count 10.2 T/CUMM (4-12)
[2016-12-24 05:30] LABS: Calcium 9.4 MG/DL (8.5-10.1); Magnesium 2.7 MG/DL (1.8-2.4); Potassium 3.9 MMOL/L (3.5-5.1)
--- NOTE | 2016-12-24 05:49 | Pulmonology Progress Note ---
Pulmonary - PN: Subj Interval history: This 76-year-old white male has severe aortic stenosis and mitral insufficiency. He had an ICD placed yesterday. Seems to be stable at present. Chest x-ray does not show any pulmonary edema. He does have some chronic scarring in his upper lobes. Defer to cardiology as far as when to move to floor. Exam (Progress Note) - Constitutional Vitals: Period Temp Pulse Resp BP Sys/Slater Pulse Ox Last 24 Hr 97.2 F-98.2 F 76-88 15-27 98-140/36-86 90-100 Exam: Vital signs are normal. Pupils react to light. Throat is clear. Neck supple no bruits. Chest shows prolonged expiratory phase. I do not hear any rales or wheezes. Heart normal rhythm no murmurs. Abdomen soft nontender no masses. Extremities no clubbing cyanosis or edema. Calves are nontender. Results - Labs CBC & BMP: 12/24/16 03:24 12/24/16 03:24 Lab Results: I have reviewed the past 24 hour labs - Diagnostic Findings Procedure: Chest x-ray: image reviewed by me (Hyperinflation. Scarring in upper lobes. ICD device noted over left upper chest.) Assessment and Plan (1) Congestive heart failure Status: Acute Assessment and plan: Has elevated BNP but his creatinine is elevated. Chest x-ray does not show any signs of pulmonary edema. Current Visit: No Qualifiers: Congestive heart failure type: systolic (2) COPD (chronic obstructive pulmonary disease) Status: Chronic Assessment and plan: No active wheezing. Continuing bronchodilators as needed, O2 sat acceptable Current Visit: No (3) Cardiomyopathy Status: Chronic Assessment and plan: No evidence of active heart failure at present. Current Visit: No (4) Mitral regurgitation and aortic stenosis Status: Chronic Assessment and plan: Apparently has severe valvular disease. Defer to cardiology. Current Visit: No
--- NOTE | 2016-12-24 06:26 | Cardiology Progress Note ---
Assessment and Plan (1) CHF (congestive heart failure), NYHA class III Status: Acute Assessment and plan: Patient is clinically markedly improved with good diuresis. He is minimally dyspneic. He is for transfer to the floor. Current Visit: Yes Qualifiers: Congestive heart failure type: combined Congestive heart failure chronicity : acute on chronic Qualified Code(s): I50.43 - Acute on chronic combined systolic (congestive) and diastolic (congestive) heart failure (2) Aortic stenosis Status: Chronic Current Visit: Yes Qualifiers: Cardiac valve disease etiology: nonrheumatic Qualified Code(s): I35.0 - Nonrheumatic aortic (valve) stenosis (3) Coronary artery disease Status: Chronic Current Visit: Yes (4) Syncope Status: Acute Assessment and plan: Rhythm has been stable and there is no further syncope. Current Visit: No Cardiology - PN: Subj Interval history: SUMMARY: Mr. Guerrero, 76BM, has a known history of coronary artery disease, hypertension, dyslipidemia, diabetes, ischemic cardiomyopathy (EF 40%), anemia, prostate cancer, CKD stage III. History of several stents placed in the past. Most recent occurred 09/09/2016 with PCI of OM 2 with RAMIREZ, patent stents in the proximal LAD, proximal to mid RCA and distal to mid RCA, EF 25-30% at that time. Echocardiogram performed December 19, 2016 revealed the following: EF 40 %, grade 2 diastolic dysfunction, severe aortic valve stenosis (RAMÓN 0.6 cm, transaortic peak gradient 51 mmHg, transaortic mean gradient 27.6 mmHg), mild to moderate MR, moderate aortic regurgitation, severe pulmonary hypertension ( PAP 96 mmHg.) Patient was admitted December 19, 2016 through ED at [facility] after experiencing a syncopal episode. Patient had just left [facility] after undergoing echocardiogram when he felt weak, tired and short of breath. He has been diagnosed with acute on chronic congestive heart failure, possible pneumonia. During the night, he became more abruptly short of breath, orthopneic with SPO2 saturations in the mid 80s. He was given IV Lasix but his respiratory status did not improve. He was transferred to ICU where he has been housed since around 0100. DECEMBER 20, 2016: This morning, Mr. Guerrero remains tachypneic although he states he is breathing better. He is currently on oxygen at 10 L/min with an SPO2 saturation 87%. [employer] was interrogated last evening in an attempt to identify possible arrhythmia contributing to syncope. There was no arrhythmia noted per report. At this time, he may remove the LifeVest. Troponins flat. This is not NSTEMI. I have discussed with Dr. Turner. We will increase Lasix this morning, and Zaroxolyn daily. IV nitroglycerin to assist with afterload reduction, closely monitoring given his severe . Consult pulmonology for assistance with his severe shortness of breath certainly related to acute on chronic congestive heart failure but may have some underlying chronic issues and /or possible pneumonia. IV Levaquin was initiated yesterday. Patient may be considered a candidate for TAVR but obviously must be tuned up prior to procedure. Recently had stents placed and he continues to take aspirin and Plavix. Allowing for higher blood pressures given the severity of his aortic stenosis. DECEMBER 21, 2016: Mr. Guerrero is less tachypneic this morning. He has diuresed 1 pound overnight. Currently on IV nitroglycerin at 26.7 mcg/min. He is tolerating this well. Appreciate Dr. Mock's assistance. Continue IV Lasix and oral Zaroxolyn. Patient's anemia is stable. Soon, we may consider transfusion to increase his oxygen carrying capacity. We will try to diurese him a little more before we transfuse. I am asking for the life vest telemetry strips (in particular the time when he had his syncopal episode) to be scanned in today to be reviewed with Dr. Turner. At this time, continue current plan of care. Will further discuss with Dr. Turner and await additional recommendations. DECEMBER 22, 2016: Mr. Cox looks much improved overnight. According to his daily weight, he has lost 7 kg overnight. Certainly breathing much more comfortably on oxygen at 2 L/min. No longer orthopneic. Nitroglycerin is off. He was transfused last evening and his anemia has improved. Vital signs are stable as well. Telemetry strips from [employer]t were obtained yesterday. He was wearing a LifeVest when he experiences the syncopal episode it is believed, after reviewing the telemetry strips, he had severe bradycardia likely related to severe aortic stenosis. Patient is currently being evaluated for possible TAVR. Will further discuss with Dr. Turner and await additional recommendations. DECEMBER 23, 2016: Continues to improve, slowly. He is also an additional 1/2 kg overnight, 9 kg since admission. Creatinine/BUN are rising a bit this morning. I think he is well compensated for acute CHF exacerbation will decrease his diuretics today. Scheduled to undergo ICD implantation around [address] Anders. [employer] cash applications representative has been contacted and will reinterrogate life vest monitoring strips this morning for Dr. Anders to be reviewed. When patient experiences syncopal episode recently very irregular rhythms were recorded, suggestive of ventricular fibrillation. For this reason, Dr. Anders is considering ICD for prevention of sudden cardiac . Patient will need aortic valve surgery but, given the frequency of the presyncope, recent syncope and suspected fatal arrhythmia, will proceed with ICD first. Will further discuss with Dr. Turner and await additional recommendations. December 24, 2016: Mr. Guerrero is now post dual-chamber ICD placement. He is stable post procedure. Chest x-ray is pending from this morning. His rhythm is stable and he will be transferred to the floor this morning. We will continue managing his heart failure through the weekend. Arrangements will be made in the next week or to have him evaluated for transcatheter aortic valve replacement in [place]. He denies chest pain shortness of breath orthopnea or PND this morning. Exam (Progress Note) - Constitutional Vitals: Period Temp Pulse Resp BP Sys/Slater Pulse Ox Last 24 Hr 97.2 F-98.2 F 76-88 15-27 98-140/36-86 90-100 Exam: General:no acute distress. alert and oriented, mood and affect are normal HEENT: no new lesions, sclerae are clear, mouth and pharynx benign Neck: supple, trachea midline, no JVD noted Lungs: no rales ronchi or wheeze is noted. pt comfortable without accesory muscle use to assist with breathing CV: RRR no murmur rub or gallop is noted. Abd: soft and nontender, BSNA, no masses. Ext: no cyanosis, clubbing or edema Neuro: grossly intact without focal neurologic deficit. Result/EKG - Labs CBC & BMP: 12/24/16 03:24 12/24/16 03:24 Labs: Laboratory Results - last 24 hr 12/23/16 12/23/16 12/23/16 04:01 07:32 11:34 WBC RBC Hgb Hct MCV MCH MCHC RDW Plt Count MPV Neut % (Auto) Lymph % (Auto) [place] % (Auto) Eos % (Auto) Baso % (Auto) Neut # (Auto) Lymph # (Auto) [place] # (Auto) Eos # (Auto) Baso # (Auto) Immature Gran % Nucleated RBC % Immature Gran # Nucleated RBCs # Sodium 136 Potassium 3.7 Chloride 95 L Carbon Dioxide 30 Anion Gap 14.7 BUN 56 H D Creatinine 2.20 H GFR Calculation 33 BUN/Creatinine Ratio 25.00 H Glucose 136 H POC Glucose 159 H 212 H Calculated Osmolality 289.0 Calcium 9.1 Magnesium Total Bilirubin < 0.39 AST 13 ALT 15 L Alkaline Phosphatase 89 B-Natriuretic Peptide Total Protein 6.9 Albumin 3.1 L Globulin 3.8 H Albumin/Globulin Ratio 0.8 L 12/23/16 12/23/16 12/24/16 16:00 19:52 03:24 WBC RBC Hgb Hct MCV MCH MCHC RDW Plt Count MPV Neut % (Auto) Lymph % (Auto) [place] % (Auto) Eos % (Auto) Baso % (Auto) Neut # (Auto) Lymph # (Auto) [place] # (Auto) Eos # (Auto) Baso # (Auto) Immature Gran % Nucleated RBC % Immature Gran # Nucleated RBCs # Sodium Potassium Chloride Carbon Dioxide Anion Gap BUN Creatinine GFR Calculation BUN/Creatinine Ratio Glucose POC Glucose 144 H 254 H Calculated Osmolality Calcium Magnesium Total Bilirubin AST ALT Alkaline Phosphatase B-Natriuretic Peptide 573 H Total Protein Albumin Globulin Albumin/Globulin Ratio 12/24/16 12/24/16 03:24 03:24 WBC 10.2 RBC 3.99 Hgb 12.6 L Hct 37.0 L MCV 92.7 MCH 32 MCHC 34.1 RDW 15.1 Plt Count 344 MPV 8.8 L Neut % (Auto) 78.2 H Lymph % (Auto) 8.2 L [place] % (Auto) 12.2 Eos % (Auto) 0.8 Baso % (Auto) 0.2 Neut # (Auto) 8.0 H Lymph # (Auto) 0.8 L [place] # (Auto) 1.3 H Eos # (Auto) 0.1 Baso # (Auto) 0.0 Immature Gran % 0.4 Nucleated RBC % 0.0 Immature Gran # 0.04 Nucleated RBCs # 0.00 Sodium 136 Potassium 3.9 Chloride 95 L Carbon Dioxide 28 Anion Gap 16.9 H BUN 65 H Creatinine 2.70 H GFR Calculation 26 BUN/Creatinine Ratio 24.00 H Glucose 99 POC Glucose Calculated Osmolality 290.0 Calcium 9.4 Magnesium 2.7 H Total Bilirubin AST ALT Alkaline Phosphatase B-Natriuretic Peptide Total Protein Albumin Globulin Albumin/Globulin Ratio Quality Measures - VTE Contraindication to Pharmacological VTE Prophylaxis: High Risk of Bleeding
[2016-12-24] MEDS: INSULIN REGULAR 100 UNIT/ML SUBCUT SCH ×4 (07:28→21:57)
--- NOTE | 2016-12-24 08:08 | XRay Report ---
XR chest 2V Indication: Lead placement. Chest 2 views: Comparison yesterday shows stable pacemaker device. Heart size remains normal. Interstitial scarring of the central lungs and pulmonary apices noted. No new infiltrates. Pleural spaces are clear. Impression: Pacemaker as described. Interstitial scarring. PROCEDURE INTERPRETED AT [facility] DEPARTMENT OF RADIOLOGY Final Report Signed by: Elton Sanches M.D.
--- NOTE | 2016-12-24 08:31 | Electrophysiology Progress Not ---
Assessment and Plan (1) Aortic stenosis Status: Chronic Assessment and plan: 76-year-old black male, with critical aortic stenosis, syncope, despite wearing LifeVest. Tracings are heavy with artifacts, are suspicious for PVT/VF, which must have self terminated, he got no shocks, he also had episodes, suggestive of profound bradycardia. ICM, ejection fraction 40%, type 2 diabetes mellitus, CHF class III, COPD. 12/23: DDD ICd implant from left axillary access -Discussed post ICD implant activity limitations and implant site care. Wear the sling all time for 1 week, keep the occlusive dressing in place for 1 week. Do not get the implant site wet for 1 week. -May resume DVT prophylaxis with LMWH. Current Visit: Yes Qualifiers: Cardiac valve disease etiology: nonrheumatic Qualified Code(s): I35.0 - Nonrheumatic aortic (valve) stenosis (2) CHF (congestive heart failure), NYHA class III Status: Acute Current Visit: Yes Qualifiers: Congestive heart failure type: combined Congestive heart failure chronicity : acute on chronic Qualified Code(s): I50.43 - Acute on chronic combined systolic (congestive) and diastolic (congestive) heart failure (3) Coronary artery disease Status: Chronic Current Visit: Yes (4) Diabetes Status: Chronic Current Visit: Yes Qualifiers: Diabetes mellitus type: type 2 Diabetes mellitus complication status: without complication (5) CKD (chronic kidney disease) stage 3, GFR 30-59 ml/min Status: Acute Current Visit: No (6) Syncope Status: Acute Current Visit: No (7) COPD (chronic obstructive pulmonary disease) Status: Chronic Current Visit: No (8) Mitral regurgitation and aortic stenosis Status: Chronic Current Visit: No Electrophysiology Subjective Interval history: He is feeling fine today. There is no lower extremity swelling. Removed pressure dressing, there is no hematoma. Sinus rhythm, with PVCs on telemetry. The IVCD resolved. No AV block. X-ray shows normal lead positions. Device interrogation pending. Exam - Constitutional Vitals: Period Temp Pulse Resp BP Sys/Slater Pulse Ox Last 24 Hr 97.2 F-98.2 F 76-88 15-27 98-140/36-86 90-100 General appearance: normal weight, mild distress - Head Head exam: Present: normal inspection. Absent: contusion, hematoma - Eye Eye exam: Absent: conjunctival injection Pupils: Absent: normal accommodation, dilated - ENT ENT exam: Present: normal external ear exam - Neck Neck exam: Present: normal inspection. Absent: tenderness, thyromegaly - Respiratory Respiratory exam: Present: clear to auscultation bilaterally. Absent: chest wall tenderness - Cardiovascular Cardiovascular exam: Present: irregular rhythm, systolic murmur. Absent: JVD - GI/Abdominal GI/Abdominal exam: Present: normal bowel sounds. Absent: distended - Extremities Exam Extremities exam: Present: normal inspection, normal capillary refill. Absent: edema - Back Exam Back exam: Present: normal inspection - Neurological Exam Neurological exam: Present: alert, oriented X3 - Psychiatric Psychiatric exam: Present: normal affect, normal mood - Skin Skin exam: Present: normal color, warm. Absent: cyanosis Results - Labs CBC & BMP: 12/24/16 03:24 12/24/16 03:24 Lab Results: I have reviewed the past 24 hour labs Quality Measures - VTE Contraindication to Pharmacological VTE Prophylaxis: High Risk of Bleeding
[2016-12-24] MEDS: POTASSIUM CHLORIDE 10 MEQ TABLET PO SCH (08:59)
[2016-12-24] MEDS: ENOXAPARIN 40 MG/0.4 ML SYRINGE SUBCUT SCH (08:59)
[2016-12-24] MEDS: FUROSEMIDE 40 MG/4 ML VIAL IV SCH ×2 (08:59→21:57)
[2016-12-24] MEDS: CARVEDILOL 6.25 MG TABLET PO SCH ×2 (08:59→21:57)
[2016-12-24] MEDS: GLIMEPIRIDE 4 MG TABLET PO SCH (09:00)
[2016-12-24] MEDS ORDERED: metOLazone 2.5 MG TABLET PO SCH (09:00)
[2016-12-24] MEDS: PANTOPRAZOLE 40 MG TABLET PO SCH (09:00)
[2016-12-24] MEDS: CLOPIDOGREL 75 MG TABLET PO SCH (09:00)
[2016-12-24] MEDS: BISACODYL 5 MG TABLET PO PRN (09:00)
[2016-12-24] MEDS: FERROUS SULFATE 325 MG TABLET PO SCH ×3 (09:00→21:57)
[2016-12-24] MEDS: LEVOFLOXACIN INJ 250 MG in PREMIX 1 EACH IV SCH (11:02)
[2016-12-24] MEDS: DOCUSATE SODIUM 100 MG CAPSULE PO PRN (16:59)
[2016-12-24] MEDS: ASPIRIN EC 81 MG TABLET PO SCH (18:43)
[2016-12-24] MEDS: ROSUVASTATIN 10 MG TABLET PO SCH (21:57)
[2016-12-25] MEDS: LEVALBUTEROL 0.63 MG/3 ML NEB RESP TX SCH ×4 (01:32→19:42)
[2016-12-25 04:48] LABS: Basophils % 0.2 % (0.0-0.8); Eosinophils # 0.1 10*3/uL (0.0-0.87); Eosinophils % 1.3 % (0.00-10.9); Hemoglobin 12.4 GM/DL (14.0-18.0); Immature Granulocytes % 0.3 %; Immature Granulocytes Absolute 0.03 #; Lymphocytes # 0.9 10*3/uL (1.4-4.0); Lymphocytes % 8.7 % (21.2-54.2); Mean Corpuscular HGB Conc 33.5 GM/DL (32-36); Mean Corpuscular Hemoglobin 31 PG (27-34); Mean Corpuscular Volume 92.7 FL (87-102); Mean Platelet Volume 8.9 FL (9.6-12.0); Monocytes # 1.3 10*3/uL (0.11-0.8); Monocytes % 13.2 % (1.7-12.7); Neutrophils # 7.6 10*3/uL (1.4-7.4); Neutrophils % 76.3 % (38.7-73.9); Platelet Count 315 T/CUMM (130-400); Red Blood Count 3.99 MC/CUMM (3.8-5.5)
[2016-12-25 05:18] LABS: Calcium 9.5 MG/DL (8.5-10.1); Magnesium 2.9 MG/DL (1.8-2.4); Osmolality,Calculated 293.1 MOS/KG (273-304); Potassium 3.8 MMOL/L (3.5-5.1)
[2016-12-25] MEDS: BISACODYL 5 MG TABLET PO PRN (05:45)
--- NOTE | 2016-12-25 08:31 | Pulmonology Progress Note ---
Pulmonary - PN: Subj Interval history: This 76-year-old white male has severe aortic stenosis and mitral insufficiency. He had an ICD placed yesterday. Seems to be stable at present. Chest x-ray does not show any pulmonary edema. He does have some chronic scarring in his upper lobes. Defer to cardiology as far as when to move to floor. 12/25/2016 patient moved to floor yesterday. No complaints of shortness of breath but is not very active. Plans are going to be for a procedure on his aortic stenosis to be done in [place] in time. Exam (Progress Note) - Constitutional Vitals: Period Temp Pulse Resp BP Sys/Slater Pulse Ox Last 24 Hr 96.6 F-98.2 F 80-98 16-20 109-132/38-75 90-100 Exam: Vital signs are normal. Pupils react to light. Throat is clear. Neck supple no bruits. Chest shows prolonged expiratory phase. I do not hear any rales or wheezes. Heart normal rhythm with both diastolic and systolic murmurs. Abdomen soft nontender no masses. Extremities no clubbing cyanosis or edema. Calves are nontender. Results - Labs CBC & BMP: 12/25/16 04:07 12/25/16 04:07 Lab Results: I have reviewed the past 24 hour labs Assessment and Plan (1) Congestive heart failure Status: Acute Assessment and plan: Has elevated BNP but his creatinine is elevated. Chest x-ray does not show any signs of pulmonary edema. 12/25/2016 heart failure seems to be controlled with current medications. Current Visit: No Qualifiers: Congestive heart failure type: systolic (2) COPD (chronic obstructive pulmonary disease) Status: Chronic Assessment and plan: No active wheezing. Continuing bronchodilators as needed, O2 sat acceptable 12/25/2016 no active bronchospasm. Current Visit: No (3) Cardiomyopathy Status: Chronic Assessment and plan: No evidence of active heart failure at present. Current Visit: No (4) Mitral regurgitation and aortic stenosis Status: Chronic Assessment and plan: Apparently has severe valvular disease. Defer to cardiology. 12/25/2016 cardiology following this. Current Visit: No
[2016-12-25] MEDS: CARVEDILOL 6.25 MG TABLET PO SCH ×2 (08:52→20:54)
[2016-12-25] MEDS: GLIMEPIRIDE 4 MG TABLET PO SCH (08:53)
[2016-12-25] MEDS: ENOXAPARIN 30 MG/0.3 ML SYRINGE SUBCUT SCH (08:53)
[2016-12-25] MEDS: PANTOPRAZOLE 40 MG TABLET PO SCH (08:53)
[2016-12-25] MEDS: FUROSEMIDE 40 MG/4 ML VIAL IV SCH ×2 (08:53→20:54)
[2016-12-25] MEDS: FERROUS SULFATE 325 MG TABLET PO SCH ×3 (08:53→20:54)
[2016-12-25] MEDS: CLOPIDOGREL 75 MG TABLET PO SCH (08:53)
[2016-12-25] MEDS: POTASSIUM CHLORIDE 10 MEQ TABLET PO SCH (08:53)
[2016-12-25] MEDS: INSULIN REGULAR 100 UNIT/ML SUBCUT SCH ×4 (08:54→22:36)
--- NOTE | 2016-12-25 10:02 | Cardiology Progress Note ---
Assessment and Plan (1) CHF (congestive heart failure), NYHA class III Status: Acute Assessment and plan: Patient is clinically markedly improved with good diuresis. He is minimally dyspneic. He is for transfer to the floor. Current Visit: Yes Qualifiers: Congestive heart failure type: combined Congestive heart failure chronicity : acute on chronic Qualified Code(s): I50.43 - Acute on chronic combined systolic (congestive) and diastolic (congestive) heart failure (2) Aortic stenosis Status: Chronic Current Visit: Yes Qualifiers: Cardiac valve disease etiology: nonrheumatic Qualified Code(s): I35.0 - Nonrheumatic aortic (valve) stenosis (3) Coronary artery disease Status: Chronic Current Visit: Yes (4) Syncope Status: Acute Assessment and plan: Rhythm has been stable and there is no further syncope. He has received his ICD and is tolerating that well. His rhythm has been stable. Current Visit: No Cardiology - PN: Subj Interval history: 76-year-old man who has undergone dual-chamber ICD placement. He has been stable. He is up in the chair with gradually increasing his activity. He denies shortness of breath or chest pain. He overall is I think improving and his heart failure has cleared. Exam (Progress Note) - Constitutional Vitals: Period Temp Pulse Resp BP Sys/Slater Pulse Ox Last 24 Hr 96.6 F-98.2 F 80-98 16-20 109-132/38-75 90-100 Exam: General:no acute distress. alert and oriented, mood and affect are normal HEENT: no new lesions, sclerae are clear, mouth and pharynx benign Neck: supple, trachea midline, no JVD noted Lungs: no rales ronchi or wheeze is noted. pt comfortable without accesory muscle use to assist with breathing CV: Regular rate and rhythm with a has murmur noted unchanged from previously. PMI is lateral. Abd: soft and nontender, BSNA, no masses. Ext: no cyanosis, clubbing or edema Neuro: grossly intact without focal neurologic deficit. Result/EKG - Labs CBC & BMP: 12/25/16 04:07 12/25/16 04:07 Labs: Laboratory Results - last 24 hr 12/24/16 12/24/16 12/24/16 11:58 15:19 21:54 WBC RBC Hgb Hct MCV MCH MCHC RDW Plt Count MPV Neut % (Auto) Lymph % (Auto) Bradford % (Auto) Eos % (Auto) Baso % (Auto) Neut # (Auto) Lymph # (Auto) Bradford # (Auto) Eos # (Auto) Baso # (Auto) Immature Gran % Nucleated RBC % Immature Gran # Nucleated RBCs # Sodium Potassium Chloride Carbon Dioxide Anion Gap BUN Creatinine GFR Calculation BUN/Creatinine Ratio Glucose POC Glucose 243 H 152 H 169 H Calculated Osmolality Calcium Magnesium 12/25/16 12/25/16 12/25/16 04:07 04:07 07:14 WBC 10.0 RBC 3.99 Hgb 12.4 L Hct 37.0 L MCV 92.7 MCH 31 MCHC 33.5 RDW 15.0 Plt Count 315 MPV 8.9 L Neut % (Auto) 76.3 H Lymph % (Auto) 8.7 L Bradford % (Auto) 13.2 H Eos % (Auto) 1.3 Baso % (Auto) 0.2 Neut # (Auto) 7.6 H Lymph # (Auto) 0.9 L Bradford # (Auto) 1.3 H Eos # (Auto) 0.1 Baso # (Auto) 0.0 Immature Gran % 0.3 Nucleated RBC % 0.0 Immature Gran # 0.03 Nucleated RBCs # 0.00 Sodium 135 L Potassium 3.8 Chloride 94 L Carbon Dioxide 29 Anion Gap 15.8 H BUN 78 H Creatinine 2.70 H GFR Calculation 26 BUN/Creatinine Ratio 28.00 H Glucose 117 H POC Glucose 127 H Calculated Osmolality 293.1 Calcium 9.5 Magnesium 2.9 H Quality Measures - VTE Contraindication to Pharmacological VTE Prophylaxis: High Risk of Bleeding
[2016-12-25] MEDS: LEVOFLOXACIN INJ 250 MG in PREMIX 1 EACH IV SCH (11:56)
[2016-12-25] MEDS: ASPIRIN EC 81 MG TABLET PO SCH (17:59)
[2016-12-25] MEDS: ROSUVASTATIN 10 MG TABLET PO SCH (20:53)
[2016-12-26] MEDS: LEVALBUTEROL 0.63 MG/3 ML NEB RESP TX SCH ×4 (01:44→19:03)
[2016-12-26 04:58] LABS: Basophils % 0.3 % (0.0-0.8); Eosinophils # 0.1 10*3/uL (0.0-0.87); Eosinophils % 0.9 % (0.00-10.9); Hemoglobin 11.7 GM/DL (14.0-18.0); Immature Granulocytes % 0.2 %; Immature Granulocytes Absolute 0.02 #; Lymphocytes # 0.9 10*3/uL (1.4-4.0); Lymphocytes % 9.1 % (21.2-54.2); Mean Corpuscular HGB Conc 34.4 GM/DL (32-36); Mean Corpuscular Hemoglobin 31 PG (27-34); Mean Corpuscular Volume 90.9 FL (87-102); Monocytes # 1.3 10*3/uL (0.11-0.8); Monocytes % 12.8 % (1.7-12.7); Neutrophils # 7.5 10*3/uL (1.4-7.4); Neutrophils % 76.7 % (38.7-73.9); Platelet Count 323 T/CUMM (130-400); Red Blood Count 3.74 MC/CUMM (3.8-5.5); White Blood Count 9.8 T/CUMM (4-12)
[2016-12-26 05:26] LABS: Calcium 8.6 MG/DL (8.5-10.1); Magnesium 2.9 MG/DL (1.8-2.4); Osmolality,Calculated 298.2 MOS/KG (273-304); Potassium 3.5 MMOL/L (3.5-5.1)
[2016-12-26] MEDS: INSULIN REGULAR 100 UNIT/ML SUBCUT SCH ×4 (08:25→22:26)
--- NOTE | 2016-12-26 08:31 | Electrophysiology Progress Not ---
Assessment and Plan (1) Aortic stenosis Status: Chronic Assessment and plan: 76-year-old black male, with critical aortic stenosis, syncope, despite wearing LifeVest. Tracings are heavy with artifacts, are suspicious for PVT/VF, which must have self terminated, he got no shocks, he also had episodes, suggestive of profound bradycardia. ICM, ejection fraction 40%, type 2 diabetes mellitus, CHF class III, COPD. 12/23: DDD ICd implant from left axillary access -Discussed post ICD implant activity limitations and implant site care. Wear the sling all time for 1 week, keep the occlusive dressing in place for 1 week. Do not get the implant site wet for 1 week - until 12/30 -No recurrence of advanced IVCD or sustained tachyarrhythmia since the ICD implant. Cont Coreg, was increased to 6.25 mg bid. Cont to increase as tolerated by BP -CASSIDY. Creatinine increasing. There was no hypotension in the periprocedural period and ICD testing was deferred due to critical . He was on Lasix 40 mg IV twice daily and metolazone. I/Os, weight remained relatively close to even, he is not symptomatic from CHF at rest currently. Decreased Lasix to 40 mg p.o. daily, held metolazone. Consider renal consult, CASSIDY may affect the timing of his planned AVR -The recent ICD implant is not an absolute contraindication for TAVR or SAVR. Risk of lead dislodgment is higher, if surgical option is pursued so soon after ICD implant. Current Visit: Yes Qualifiers: Cardiac valve disease etiology: nonrheumatic Qualified Code(s): I35.0 - Nonrheumatic aortic (valve) stenosis (2) CHF (congestive heart failure), NYHA class III Status: Acute Current Visit: Yes Qualifiers: Congestive heart failure type: combined Congestive heart failure chronicity : acute on chronic Qualified Code(s): I50.43 - Acute on chronic combined systolic (congestive) and diastolic (congestive) heart failure (3) Coronary artery disease Status: Chronic Current Visit: Yes (4) Diabetes Status: Chronic Current Visit: Yes Qualifiers: Diabetes mellitus type: type 2 Diabetes mellitus complication status: without complication (5) CKD (chronic kidney disease) stage 3, GFR 30-59 ml/min Status: Acute Current Visit: No (6) Syncope Status: Acute Current Visit: No (7) COPD (chronic obstructive pulmonary disease) Status: Chronic Current Visit: No (8) Mitral regurgitation and aortic stenosis Status: Chronic Current Visit: No Electrophysiology Subjective Interval history: He is feeling better. No chest pain or shortness of breath. The ICD implant size shows no signs of erythema or hematoma. Acute kidney injury worsened. Exam - Constitutional Vitals: Period Temp Pulse Resp BP Sys/Slater Pulse Ox Last 24 Hr 97.5 F-98.3 F 74-87 16-20 101-149/45-70 91-100 General appearance: no acute distress, over weight - Head Head exam: Present: normal inspection, normocephalic - Eye Eye exam: Absent: conjunctival injection, scleral icterus Pupils: Present: dilated - ENT ENT exam: Present: normal external ear exam - Neck Neck exam: Present: normal inspection - Respiratory Respiratory exam: Present: clear to auscultation bilaterally. Absent: wheezes - Cardiovascular Cardiovascular exam: Present: regular rate and rhythm, systolic murmur. Absent : JVD - GI/Abdominal GI/Abdominal exam: Present: normal bowel sounds. Absent: distended - Extremities Exam Extremities exam: Present: normal inspection, normal capillary refill. Absent: edema - Back Exam Back exam: Present: normal inspection - Neurological Exam Neurological exam: Present: alert, oriented X3 - Psychiatric Psychiatric exam: Present: normal affect, normal mood - Skin Skin exam: Present: normal color, warm. Absent: cyanosis Results - Labs CBC & BMP: 12/26/16 04:39 12/26/16 04:39 Lab Results: I have reviewed the past 24 hour labs Quality Measures - VTE Contraindication to Pharmacological VTE Prophylaxis: High Risk of Bleeding
[2016-12-26] MEDS: PANTOPRAZOLE 40 MG TABLET PO SCH (09:06)
[2016-12-26] MEDS: FERROUS SULFATE 325 MG TABLET PO SCH ×3 (09:06→22:26)
[2016-12-26] MEDS: FUROSEMIDE 40 MG TABLET PO SCH (09:06)
[2016-12-26] MEDS: CLOPIDOGREL 75 MG TABLET PO SCH (09:06)
[2016-12-26] MEDS: CARVEDILOL 6.25 MG TABLET PO SCH ×2 (09:07→22:26)
[2016-12-26] MEDS: ENOXAPARIN 30 MG/0.3 ML SYRINGE SUBCUT SCH (09:07)
[2016-12-26] MEDS: POTASSIUM CHLORIDE 10 MEQ TABLET PO SCH (09:07)
[2016-12-26] MEDS: GLIMEPIRIDE 4 MG TABLET PO SCH (09:08)
--- NOTE | 2016-12-26 10:53 | Pulmonology Progress Note ---
Pulmonary - PN: Subj Interval history: There is a 76-year-old black male whom I saw in pulmonary consultation on 2016. My impressions were. 1. Acute congestive heart failure. 2. Significant past history of tobacco abuse. At least [id number] history of smoking. 3. Severe aortic stenosis with mitral regurgitation and resultant pulmonary hypertension. 4. Severe hypoxemia. Patient may have underlying COPD. Any tendency towards hypoxemia would be exacerbated by his congestive heart failure and pulmonary hypertension. 5. Chronic renal failure with a creatinine of 1.70 6. Severe anemia. Etiology undetermined 7. See past history. 12/21/2016. Today's chest x-ray is improved. Patient still has congestive heart failure. ABGs are also improved. On FiO2 of 44% pH is 7.45, PCO2 40, PO2 70.5 bicarb is 27.1. Natruretic peptide is fallen from 3016 1793. Creatinine is 1.80 with a BUN of 41 electrolytes are normal. No potassium is low normal at 3.5. White count is 6000 with 70 segs 14 lymphs 13 monos H&H is fallen slightly at 8.2/24.2. Patient is on a nitroglycerin drip and this has helped him a great deal. Oxygenation is improving his congestive heart failure resolves and I think as we continue to offload reduction his pulmonary artery pressure should drop some. I doubt pulmonary artery pressures will come back to normal in the face of severe aortic stenosis and moderate mitral regurgitation. Overall the patient looks Much better today 12/23/2016. Today's chest x-ray shows near complete resolution of congestive heart failure. BNP is 879. Electrolytes are normal. Creatinine is increased to 2.20 with a BUN of 56. I have decreased the patient's Levaquin to a renal dose. White count is 9200. H&H is 12.7/36.9. Platelets 351,000. Patient is much stronger and he is breathing comfortably lying in bed. The patient is for dual-chamber ICD. His ABGs on FiO2 of 40% of improved to a pH 7.426, PCO2 46.3 and a PO2 of 111 with a bicarb of 29.1 12/26/2016. Most recent chest x-ray shows complete resolution of patient's pulmonary edema. There are no positive cultures. Creatinine is 3.0 with a BUN of 104, sodium 134, potassium 3.5. White count is 9877 segs 9 lymphs and 13 monos. H&H 11.7/34.0 platelets are 223,000. Patient is comfortable with his breathing. He has no requested no new complaints. I think from a pulmonary standpoint and her oxygenation standpoint this patient is doing well. I will sign off. Please reconsult whenever needed. Physical exam. Vital signs. See below. Afebrile Psychiatric. Oriented 3 General no distress lying in bed at a 35 angle. Face. Symmetrical. No swelling of the lips or tongue. Neck. Symmetrical. Slightly kyphotic. No meningismus. Thyroid was not palpated. Chest. Hyperinflation. Moderate prolongation of expiration. No rales. No wheeze. No chest wall tenderness. Heart. As per Dr. Turner Abdomen. Nondistended nontender. Positive bowel sounds Lower extremities. No edema. Note. Doppler venograms of lower extremities showed no evidence of deep venous thrombophlebitis Neurologic. Cranial nerves are intact. Long track motor functions intact. The remainder the physical exam is Plan. 12/20/2016 1. ABGs when available. I do not think this patient is a CO2 retainer and therefore have no hesitation about going higher on supplemental oxygen per 2. I agree with attempts to offload. Hopefully this will result in less mitral regurgitation and therefore a drop in pulmonary hypertension. 3. Patient still has a ways to go as far as his congestive heart failure is concerned. As this improves his oxygenation should also improve. 4. He is anemic and later on we can add red blood cells to increase his oxygen carrying capacity. 12/21/2016 1. See today's note above. 2. Continue present regimen. 3. Daily chest x-ray, ABGs, BMP, BNP 12/23/2016 1. See today's note above 2. Congestive heart failure for all practical purposes resolved. 3. Oxygenation markedly improved. 4. For implantation of dual chamber ICD 12/26/2016. 1. See today's note above. 2. From a pulmonary standpoint patient is doing well. 3. I will sign off. Please reconsult whenever needed. Exam (Progress Note) - Constitutional Vitals: Period Temp Pulse Resp BP Sys/Slater Pulse Ox Last 24 Hr 97.1 F-98.3 F 74-87 16-20 101-149/45-70 91-100 Results - Labs CBC & BMP: 12/26/16 04:39 12/26/16 04:39
[2016-12-26] MEDS: LEVOFLOXACIN INJ 250 MG in PREMIX 1 EACH IV SCH (11:50)
--- NOTE | 2016-12-26 14:26 | Cardiology Progress Note ---
Assessment and Plan - Time spent with patient Time spent with patient: Greater than 30 minutes (1) CHF (congestive heart failure), NYHA class III Status: Acute Assessment and plan: SEE PLAN OF CARE LISTED BELOW Current Visit: Yes Qualifiers: Congestive heart failure type: combined Congestive heart failure chronicity : acute on chronic Qualified Code(s): I50.43 - Acute on chronic combined systolic (congestive) and diastolic (congestive) heart failure (2) Abnormal cardiac enzyme level Status: Chronic Assessment and plan: SEE PLAN OF CARE LISTED BELOW Current Visit: Yes (3) Dyspnea Status: Acute Assessment and plan: SEE PLAN OF CARE LISTED BELOW Current Visit: Yes Qualifiers: Dyspnea type: unspecified Qualified Code(s): R06.00 - Dyspnea, unspecified (4) Aortic stenosis Status: Chronic Assessment and plan: SEE PLAN OF CARE LISTED BELOW Current Visit: Yes Qualifiers: Cardiac valve disease etiology: nonrheumatic Qualified Code(s): I35.0 - Nonrheumatic aortic (valve) stenosis (5) Coronary artery disease Status: Chronic Assessment and plan: SEE PLAN OF CARE LISTED BELOW Current Visit: Yes (6) Diabetes Status: Chronic Assessment and plan: SEE PLAN OF CARE LISTED BELOW Current Visit: Yes Qualifiers: Diabetes mellitus type: type 2 Diabetes mellitus complication status: without complication (7) Anemia Status: Chronic Assessment and plan: SEE PLAN OF CARE LISTED BELOW Current Visit: No (8) History of coronary artery stent placement Status: Chronic Assessment and plan: SEE PLAN OF CARE LISTED BELOW Current Visit: No (9) Pneumonia Status: Acute Assessment and plan: SEE PLAN OF CARE LISTED BELOW Current Visit: Yes Qualifiers: Laterality: bilateral Lung location: unspecified part of lung (10) CKD (chronic kidney disease) stage 3, GFR 30-59 ml/min Status: Chronic Assessment and plan: SEE PLAN OF CARE LISTED BELOW Current Visit: No (11) Cardiac murmur Status: Chronic Assessment and plan: SEE PLAN OF CARE LISTED BELOW Current Visit: No (12) Acute exacerbation of congestive heart failure Status: Acute Assessment and plan: SEE PLAN OF CARE LISTED BELOW Current Visit: No Qualifiers: Congestive heart failure type: combined Qualified Code(s): I50.43 - Acute on chronic combined systolic (congestive) and diastolic (congestive) heart failure (13) Bradycardia Status: Acute Assessment and plan: SEE PLAN OF CARE LISTED BELOW Current Visit: Yes (14) Arrhythmia Status: Acute Assessment and plan: SEE PLAN OF CARE LISTED BELOW Current Visit: Yes (15) Ventricular fibrillation Status: Acute Assessment and plan: SEE PLAN OF CARE LISTED BELOW Current Visit: Yes Cardiology - PN: Subj Interval history: RESOURCE DIRECTOR: DR. MAGED SALGADO SUMMARY: Mr. Guerrero, 76BM, has a known history of coronary artery disease, hypertension, dyslipidemia, diabetes, ischemic cardiomyopathy (EF 40%), anemia, prostate cancer, CKD stage III. History of several stents placed in the past. Most recent occurred 09/09/2016 with PCI of OM 2 with RAMIREZ, patent stents in the proximal LAD, proximal to mid RCA and distal to mid RCA, EF 25-30% at that time. Echocardiogram performed December 19, 2016 revealed the following: EF 40 %, grade 2 diastolic dysfunction, severe aortic valve stenosis (RAMÓN 0.6 cm, transaortic peak gradient 51 mmHg, transaortic mean gradient 27.6 mmHg), mild to moderate MR, moderate aortic regurgitation, severe pulmonary hypertension ( PAP 96 mmHg.) Patient was admitted December 19, 2016 through ED at [facility] after experiencing a syncopal episode. Fortunately, patient was wearing a LifeVest when this occurred. Telemetry recorded V. fib and/or severe bradycardia or asystole. He did not receive shock. He underwent ICD Friday, December 23, [address] Anders for secondary prevention. During this hospitalization, patient should be considered for transfer to a facility for TAVR given the recent syncope related to potentially fatal arrhythmia, thought to be related to severe aortic stenosis. However, prior to transfer, patient's general condition had to stabilize. His severe acute CHF has been slow to improve. DECEMBER 26, 2016: Over the weekend, Mr. Guerrero has been moved to telemetry room. He sitting up in bedside chair and looks much improved. ICD site healing well without dehiscence or drainage. Left arm sling intact. He is no longer orthopneic but continues to require oxygen via nasal cannula 2 L/min. He has continued to be treated for possible CAP. Creatinine has continued to slowly increase and this morning was noted to be 3.0. His IV Lasix was changed over the weekend to oral Lasix daily. Soon, patient will need to be considered for TAVR versus surgical repair of his severe aortic stenosis. Will further discuss with Dr. Cox and await additional recommendations. ASSESSMENT/PLAN: 1. SYNCOPE - Most likely related to severe arrythmia (vfib, severe bradycardia /asystole) related to severe . Allowing for higher systolic blood pressure. ICD now in place. Will need TAVR versus traditional AVR soon. 2. KNOWN CAD - PCI of OM 2 with RAMIREZ September 09, 2016 - Continue Aspirin and Plavix 3. AORTIC STENOSIS - Severe. Afterload reduction. Eventual TAVR or invasive AVR. 4. ICM - EF 40%, improved from 25% to 30% recently 5. UNDERLYING HYPERTENSION - Will allow for permissive hypertension given patient's severity of aortic stenosis 6. DYSLIPIDEMIA - Continue lipid-lowering agent. LDL 68. 7. CKD - STAGE III - Avoiding NEMESIO inhibitor for fear of worsening renal insufficiency. Creatinine 3.0 this morning. Recently decreased diuretics. 8. ANEMIA - will get a CBC in the morning. Has had upper GI scope approximately 2 months ago which did not reveal any obvious source of bleeding. Over the weekend, 1+ positive stool for occult blood. May need GI workup prior to TAVR but will wait and discuss with Dr. Cox. Oral iron replacement has been added. He did require transfusion end of last week. 9. ELEVATED TROPONIN - Chronic. Not NSTEMI. 10. SOB - Multifactorial including acute on chronic CHF, possible CAP, pulmonary hypertension. 11. ACUTE ON CHRONIC CHF - Secondary to combined systolic dysfunction (EF 40%) and diastolic dysfunction. NYHA Class IV upon arrival, now class II. Continue with diuretics, afterload reduction agents. Well-compensated. Decreased Lasix to 40mg orally daily. 12. POSSIBLE CAP - Treated with IV Levaquin. 13. PULMONARY HYPERTENSION - Continue current plan of care. 14. DIABETES - Sliding scale insulin coverage. 15. ARRYTHMIA - vfib, severe bradycardia, possible asystole. There has been no additional episodes of severe arrythmia since hospitalized. S/P ICD for secondary prevention. Exam (Progress Note) - Constitutional Vitals: Period Temp Pulse Resp BP Sys/Slater Pulse Ox Last 24 Hr 97.1 F-98.3 F 74-87 16-20 101-131/45-59 91-100 Exam: General: [Mild distress, pleasant. Cooperative.] HEENT: [Bilateral arcus, normocephalic, atraumatic. Mucous membranes moist. No jaundice noted. Conjunctiva moist and clear, sclerae anicteric] Neck: No jugular vein distention noted. No thyromegaly or lymphadenopathy noted. Bilateral carotid bruits noted. Cardiac: [Regular rate and rhythm.] [IV/ RANDALL heard best at bilateral upper sternal borders with radiation to bilateral carotids. Left upper chest ICD implantation site healing well without dehiscence or drainage. Lungs: [Scant crackles in the bases which improved with cough. Wearing oxygen intermittently at 2 L/min. Abdomen: Soft, bowel sounds normoactive. Distended. Nontender. Musculoskeletal: No fluid collection. Decreased range of motion is noted. Extremities: No clubbing, cyanosis noted. [No lower extremity edema noted. ] Upper extremity pulses 2+. Lower extremity pulses 2+. Capillary refill less than 3 seconds. Skin: No unusual lesions or rashes. No skin breakdown appreciated. Neuro: Awake, alert and oriented 3. Moves all extremities well without hemiparesis or paralysis. No essential tremor is appreciated. Result/EKG - Labs CBC & BMP: 12/26/16 04:39 12/26/16 04:39 Lab Results: I have reviewed the past 24 hour labs Labs: Laboratory Results - last 24 hr 12/25/16 12/25/16 12/26/16 15:40 22:16 04:39 WBC 9.8 RBC 3.74 L Hgb 11.7 L Hct 34.0 L MCV 90.9 MCH 31 MCHC 34.4 RDW 15.0 Plt Count 323 MPV 9.0 L Neut % (Auto) 76.7 H Lymph % (Auto) 9.1 L [place] % (Auto) 12.8 H Eos % (Auto) 0.9 Baso % (Auto) 0.3 Neut # (Auto) 7.5 H Lymph # (Auto) 0.9 L [place] # (Auto) 1.3 H Eos # (Auto) 0.1 Baso # (Auto) 0.0 Immature Gran % 0.2 Nucleated RBC % 0.0 Immature Gran # 0.02 Nucleated RBCs # 0.00 Sodium Potassium Chloride Carbon Dioxide Anion Gap BUN Creatinine GFR Calculation BUN/Creatinine Ratio Glucose POC Glucose 285 H 104 Calculated Osmolality Calcium Magnesium 12/26/16 12/26/16 12/26/16 04:39 08:18 08:21 WBC RBC Hgb Hct MCV MCH MCHC RDW Plt Count MPV Neut % (Auto) Lymph % (Auto) [place] % (Auto) Eos % (Auto) Baso % (Auto) Neut # (Auto) Lymph # (Auto) [place] # (Auto) Eos # (Auto) Baso # (Auto) Immature Gran % Nucleated RBC % Immature Gran # Nucleated RBCs # Sodium 134 L Potassium 3.5 Chloride 95 L Carbon Dioxide 26 Anion Gap 16.5 H BUN 104 H Creatinine 3.00 H GFR Calculation 23 BUN/Creatinine Ratio 34.00 H Glucose 60 L POC Glucose 41 L* 47 L* Calculated Osmolality 298.2 Calcium 8.6 Magnesium 2.9 H 12/26/16 12/26/16 09:07 12:34 WBC RBC Hgb Hct MCV MCH MCHC RDW Plt Count MPV Neut % (Auto) Lymph % (Auto) [place] % (Auto) Eos % (Auto) Baso % (Auto) Neut # (Auto) Lymph # (Auto) [place] # (Auto) Eos # (Auto) Baso # (Auto) Immature Gran % Nucleated RBC % Immature Gran # Nucleated RBCs # Sodium Potassium Chloride Carbon Dioxide Anion Gap BUN Creatinine GFR Calculation BUN/Creatinine Ratio Glucose POC Glucose 138 H 193 H Calculated Osmolality Calcium Magnesium - Diagnostic Findings Procedure: Chest x-ray: report reviewed by me - EKG EKG results: interpreted by me EKG shows: sinus rhythm Quality Measures - VTE Contraindication to Pharmacological VTE Prophylaxis: High Risk of Bleeding
[2016-12-26] MEDS: ASPIRIN EC 81 MG TABLET PO SCH (18:13)
[2016-12-26] MEDS: ROSUVASTATIN 10 MG TABLET PO SCH (22:25)
[2016-12-27] MEDS: LEVALBUTEROL 0.63 MG/3 ML NEB RESP TX SCH ×4 (00:19→19:28)
[2016-12-27 05:50] LABS: Calcium 8.8 MG/DL (8.5-10.1); Magnesium 3.1 MG/DL (1.8-2.4); Osmolality,Calculated 300.2 MOS/KG (273-304); Potassium 3.9 MMOL/L (3.5-5.1)
[2016-12-27 06:37] LABS: Basophils % 0.2 % (0.0-0.8); Eosinophils # 0.1 10*3/uL (0.0-0.87); Eosinophils % 0.9 % (0.00-10.9); Hematocrit 35.5 VOL% (42.0-52.0); Hemoglobin 12.1 GM/DL (14.0-18.0); Immature Granulocytes % 0.3 %; Immature Granulocytes Absolute 0.03 #; Lymphocytes # 1.3 10*3/uL (1.4-4.0); Lymphocytes % 11.9 % (21.2-54.2); Mean Corpuscular HGB Conc 34.1 GM/DL (32-36); Mean Corpuscular Hemoglobin 31 PG (27-34); Mean Corpuscular Volume 92.2 FL (87-102); Mean Platelet Volume 8.8 FL (9.6-12.0); Monocytes # 1.6 10*3/uL (0.11-0.8); Monocytes % 15.3 % (1.7-12.7); Neutrophils # 7.5 10*3/uL (1.4-7.4); Neutrophils % 71.4 % (38.7-73.9); Platelet Count 329 T/CUMM (130-400); Red Blood Count 3.85 MC/CUMM (3.8-5.5); Red Cell Distribution Width 14.9 % (9.3-17.3); White Blood Count 10.5 T/CUMM (4-12)
[2016-12-27] MEDS: INSULIN REGULAR 100 UNIT/ML SUBCUT SCH ×4 (08:33→22:19)
[2016-12-27] MEDS: ENOXAPARIN 30 MG/0.3 ML SYRINGE SUBCUT SCH (09:12)
[2016-12-27] MEDS: CLOPIDOGREL 75 MG TABLET PO SCH (09:13)
[2016-12-27] MEDS: PANTOPRAZOLE 40 MG TABLET PO SCH (09:13)
[2016-12-27] MEDS: CARVEDILOL 6.25 MG TABLET PO SCH ×2 (09:13→20:24)
[2016-12-27] MEDS: FERROUS SULFATE 325 MG TABLET PO SCH ×3 (09:13→20:24)
[2016-12-27] MEDS: FUROSEMIDE 40 MG TABLET PO SCH (09:14)
[2016-12-27] MEDS: GLIMEPIRIDE 4 MG TABLET PO SCH (09:14)
[2016-12-27] MEDS: POTASSIUM CHLORIDE 10 MEQ TABLET PO SCH (09:23)
[2016-12-27] MEDS: ACETAMINOPHEN 325 MG TABLET PO PRN ×2 (09:24→17:52)
[2016-12-27] MEDS: LEVOFLOXACIN INJ 250 MG in PREMIX 1 EACH IV SCH (10:19)
--- NOTE | 2016-12-27 13:25 | Cardiology Progress Note ---
Assessment and Plan - Time spent with patient Time spent with patient: Greater than 30 minutes (1) CHF (congestive heart failure), NYHA class III Status: Resolved Assessment and plan: SEE PLAN OF CARE LISTED BELOW Current Visit: Yes Qualifiers: Congestive heart failure type: combined Congestive heart failure chronicity : acute on chronic Qualified Code(s): I50.43 - Acute on chronic combined systolic (congestive) and diastolic (congestive) heart failure (2) Abnormal cardiac enzyme level Status: Chronic Assessment and plan: SEE PLAN OF CARE LISTED BELOW Current Visit: Yes (3) Dyspnea Status: Acute Assessment and plan: SEE PLAN OF CARE LISTED BELOW Current Visit: Yes Qualifiers: Dyspnea type: unspecified Qualified Code(s): R06.00 - Dyspnea, unspecified (4) Aortic stenosis Status: Chronic Assessment and plan: SEE PLAN OF CARE LISTED BELOW Current Visit: Yes Qualifiers: Cardiac valve disease etiology: nonrheumatic Qualified Code(s): I35.0 - Nonrheumatic aortic (valve) stenosis (5) Coronary artery disease Status: Chronic Assessment and plan: SEE PLAN OF CARE LISTED BELOW Current Visit: Yes (6) Diabetes Status: Chronic Assessment and plan: SEE PLAN OF CARE LISTED BELOW Current Visit: Yes Qualifiers: Diabetes mellitus type: type 2 Diabetes mellitus complication status: without complication (7) Anemia Status: Chronic Assessment and plan: SEE PLAN OF CARE LISTED BELOW Current Visit: No (8) History of coronary artery stent placement Status: Chronic Assessment and plan: SEE PLAN OF CARE LISTED BELOW Current Visit: No (9) Pneumonia Status: Acute Assessment and plan: SEE PLAN OF CARE LISTED BELOW Current Visit: Yes Qualifiers: Laterality: bilateral Lung location: unspecified part of lung (10) CKD (chronic kidney disease) stage 3, GFR 30-59 ml/min Status: Chronic Assessment and plan: SEE PLAN OF CARE LISTED BELOW Current Visit: No (11) Cardiac murmur Status: Chronic Assessment and plan: SEE PLAN OF CARE LISTED BELOW Current Visit: No (12) Acute exacerbation of congestive heart failure Status: Acute Assessment and plan: SEE PLAN OF CARE LISTED BELOW Current Visit: No Qualifiers: Congestive heart failure type: combined Qualified Code(s): I50.43 - Acute on chronic combined systolic (congestive) and diastolic (congestive) heart failure (13) Bradycardia Status: Acute Assessment and plan: SEE PLAN OF CARE LISTED BELOW Current Visit: Yes (14) Arrhythmia Status: Acute Assessment and plan: SEE PLAN OF CARE LISTED BELOW Current Visit: Yes (15) Ventricular fibrillation Status: Acute Assessment and plan: SEE PLAN OF CARE LISTED BELOW Current Visit: Yes Cardiology - PN: Subj Interval history: DIRECTOR CARDIAC: DR. MAGED SALGADO SUMMARY: Mr. Guerrero, 76BM, has a known history of coronary artery disease, hypertension, dyslipidemia, diabetes, ischemic cardiomyopathy (EF 40%), anemia, prostate cancer, CKD stage III. History of several stents placed in the past. Most recent occurred 09/09/2016 with PCI of OM 2 with RAMIREZ, patent stents in the proximal LAD, proximal to mid RCA and distal to mid RCA, EF 25-30% at that time. Echocardiogram performed December 19, 2016 revealed the following: EF 40 %, grade 2 diastolic dysfunction, severe aortic valve stenosis (RAMÓN 0.6 cm, transaortic peak gradient 51 mmHg, transaortic mean gradient 27.6 mmHg), mild to moderate MR, moderate aortic regurgitation, severe pulmonary hypertension ( PAP 96 mmHg.) Patient was admitted December 19, 2016 through ED at [facility] after experiencing a syncopal episode. Fortunately, patient was wearing a LifeVest when this occurred. Telemetry recorded V. fib and/or severe bradycardia or asystole. He did not receive shock. He underwent ICD Friday, December 23, [address] Anders for secondary prevention. During this hospitalization, patient should be considered for transfer to a facility for TAVR given the recent syncope related to potentially fatal arrhythmia, thought to be related to severe aortic stenosis. However, prior to transfer, patient's general condition had to stabilize. His severe acute CHF has been slow to improve. DECEMBER 26, 2016: Over the weekend, Mr. Guerrero has been moved to telemetry room. He sitting up in bedside chair and looks much improved. ICD site healing well without dehiscence or drainage. Left arm sling intact. He is no longer orthopneic but continues to require oxygen via nasal cannula 2 L/min. He has continued to be treated for possible CAP. Creatinine has continued to slowly increase and this morning was noted to be 3.0. His IV Lasix was changed over the weekend to oral Lasix daily. Soon, patient will need to be considered for TAVR versus surgical repair of his severe aortic stenosis. Will further discuss with Dr. Cox and await additional recommendations. DECEMBER 27, 2016: Patient is sitting up in the bedside chair. Denies chest pain, heaviness or tightness. He is breathing comfortably. We discussed the possibility of transferring he is ready to undergo procedure as soon as possible. LifeVest has been removed now that he has ICD. Patient's anemia is stable, creatinine continues to improve. Patient's acute CHF has compensated and we expect transfer soon. Further discuss with Dr. Quintana and await additional recommendations. ASSESSMENT/PLAN: 1. SYNCOPE - Most likely related to severe arrythmia (vfib, severe bradycardia /asystole) related to severe . Allowing for higher systolic blood pressure. ICD now in place. Will need TAVR versus traditional AVR soon. 2. KNOWN CAD - PCI of OM 2 with RAMIREZ September 09, 2016 - Continue Aspirin and Plavix 3. AORTIC STENOSIS - Severe. Afterload reduction. Eventual TAVR or invasive AVR. 4. ICM - EF 40%, improved from 25% to 30% recently 5. UNDERLYING HYPERTENSION - Will allow for permissive hypertension given patient's severity of aortic stenosis 6. DYSLIPIDEMIA - Continue lipid-lowering agent. LDL 68. 7. CKD - STAGE III - Avoiding NEMESIO inhibitor for fear of worsening renal insufficiency. Creatinine 3.0 this morning. Recently decreased diuretics. 8. ANEMIA - will get a CBC in the morning. Seems to be stable at this time. 9. ELEVATED TROPONIN - Chronic. Not NSTEMI. 10. SOB - Multifactorial including acute on chronic CHF, possible CAP, pulmonary hypertension. 11. ACUTE ON CHRONIC CHF - Secondary to combined systolic dysfunction (EF 40%) and diastolic dysfunction. NYHA Class IV upon arrival, now class II. Continue with diuretics, afterload reduction agents. Well-compensated. Decreased Lasix to 40mg orally daily. 12. POSSIBLE CAP - Treated with IV Levaquin. 13. PULMONARY HYPERTENSION - Continue current plan of care. 14. DIABETES - Sliding scale insulin coverage. 15. ARRYTHMIA - vfib, severe bradycardia, possible asystole. There has been no additional episodes of severe arrythmia since hospitalized. S/P ICD for secondary prevention. Exam (Progress Note) - Constitutional Vitals: Period Temp Pulse Resp BP Sys/Slater Pulse Ox Last 24 Hr 97 F-98.5 F 74-91 16-209 99-136/50-63 92-100 Exam: General: [Mild distress, pleasant. Cooperative.] HEENT: [Bilateral arcus, normocephalic, atraumatic. Mucous membranes moist. No jaundice noted. Conjunctiva moist and clear, sclerae anicteric] Neck: No jugular vein distention noted. No thyromegaly or lymphadenopathy noted. Bilateral carotid bruits noted. Cardiac: [Regular rate and rhythm.] [IV/ RANDALL heard best at bilateral upper sternal borders with radiation to bilateral carotids. Left upper chest ICD implantation site healing well without dehiscence or drainage. Lungs: [Relatively clear to auscultation. Wearing oxygen intermittently at 2 L/ min. Abdomen: Soft, bowel sounds normoactive. Distended. Nontender. Musculoskeletal: No fluid collection. Decreased range of motion is noted. Extremities: No clubbing, cyanosis noted. [No lower extremity edema noted. ] Upper extremity pulses 2+. Lower extremity pulses 2+. Capillary refill less than 3 seconds. Skin: No unusual lesions or rashes. No skin breakdown appreciated. Neuro: Awake, alert and oriented 3. Moves all extremities well without hemiparesis or paralysis. No essential tremor is appreciated. Result/EKG - Labs CBC & BMP: 12/27/16 06:28 12/27/16 04:04 Lab Results: I have reviewed the past 24 hour labs Labs: Laboratory Results - last 24 hr 12/26/16 12/26/16 12/27/16 16:01 20:56 04:04 WBC RBC Hgb Hct MCV MCH MCHC RDW Plt Count MPV Neut % (Auto) Lymph % (Auto) [place] % (Auto) Eos % (Auto) Baso % (Auto) Neut # (Auto) Lymph # (Auto) [place] # (Auto) Eos # (Auto) Baso # (Auto) Immature Gran % Nucleated RBC % Immature Gran # Nucleated RBCs # Sodium 134 L Potassium 3.9 Chloride 96 L Carbon Dioxide 24 Anion Gap 17.9 H BUN 100 H Creatinine 2.60 H GFR Calculation 27 BUN/Creatinine Ratio 38.00 H Glucose 137 H POC Glucose 226 H 176 H Calculated Osmolality 300.2 Calcium 8.8 Magnesium 3.1 H 12/27/16 12/27/16 12/27/16 06:28 07:47 11:59 WBC 10.5 RBC 3.85 Hgb 12.1 L Hct 35.5 L MCV 92.2 MCH 31 MCHC 34.1 RDW 14.9 Plt Count 329 MPV 8.8 L Neut % (Auto) 71.4 Lymph % (Auto) 11.9 L [place] % (Auto) 15.3 H Eos % (Auto) 0.9 Baso % (Auto) 0.2 Neut # (Auto) 7.5 H Lymph # (Auto) 1.3 L [place] # (Auto) 1.6 H Eos # (Auto) 0.1 Baso # (Auto) 0.0 Immature Gran % 0.3 Nucleated RBC % 0.0 Immature Gran # 0.03 Nucleated RBCs # 0.00 Sodium Potassium Chloride Carbon Dioxide Anion Gap BUN Creatinine GFR Calculation BUN/Creatinine Ratio Glucose POC Glucose 148 H 256 H Calculated Osmolality Calcium Magnesium - EKG EKG results: interpreted by me EKG shows: sinus rhythm Quality Measures - VTE Contraindication to Pharmacological VTE Prophylaxis: High Risk of Bleeding
[2016-12-27] MEDS: ASPIRIN EC 81 MG TABLET PO SCH (18:19)
[2016-12-27] MEDS: ROSUVASTATIN 10 MG TABLET PO SCH (20:24)
[2016-12-28] MEDS: LEVALBUTEROL 0.63 MG/3 ML NEB RESP TX SCH ×2 (00:42→07:55)
[2016-12-28 04:59] LABS: Basophils % 0.4 % (0.0-0.8); Eosinophils # 0.2 10*3/uL (0.0-0.87); Eosinophils % 1.9 % (0.00-10.9); Hemoglobin 11.7 GM/DL (14.0-18.0); Immature Granulocytes % 0.4 %; Immature Granulocytes Absolute 0.03 #; Lymphocytes % 12.6 % (21.2-54.2); Mean Corpuscular HGB Conc 34.4 GM/DL (32-36); Mean Corpuscular Hemoglobin 32 PG (27-34); Mean Corpuscular Volume 91.9 FL (87-102); Mean Platelet Volume 8.9 FL (9.6-12.0); Monocytes % 12.8 % (1.7-12.7); Neutrophils # 5.6 10*3/uL (1.4-7.4); Neutrophils % 71.9 % (38.7-73.9); Platelet Count 335 T/CUMM (130-400); Red Cell Distribution Width 14.6 % (9.3-17.3); White Blood Count 7.8 T/CUMM (4-12)
[2016-12-28 05:30] LABS: Calcium 9.2 MG/DL (8.5-10.1); Magnesium 3.3 MG/DL (1.8-2.4)
[2016-12-28] MEDS: GLIMEPIRIDE 4 MG TABLET PO SCH (09:05)
[2016-12-28] MEDS: FERROUS SULFATE 325 MG TABLET PO SCH (09:08)
[2016-12-28] MEDS: CLOPIDOGREL 75 MG TABLET PO SCH (09:08)
[2016-12-28] MEDS: FUROSEMIDE 40 MG TABLET PO SCH (09:08)
[2016-12-28] MEDS: CARVEDILOL 6.25 MG TABLET PO SCH (09:08)
[2016-12-28] MEDS: PANTOPRAZOLE 40 MG TABLET PO SCH (09:08)
[2016-12-28] MEDS: POTASSIUM CHLORIDE 10 MEQ TABLET PO SCH (09:09)
[2016-12-28] MEDS: ENOXAPARIN 30 MG/0.3 ML SYRINGE SUBCUT SCH (09:09)
[2016-12-28] MEDS: INSULIN REGULAR 100 UNIT/ML SUBCUT SCH ×2 (09:14→12:09)
[2016-12-28] MEDS: LEVOFLOXACIN INJ 250 MG in PREMIX 1 EACH IV SCH (10:12)
--- NOTE | 2016-12-28 11:04 | Discharge Summary ---
Hospital Course - Hospital Course Hospital Course: ROLLER MAN: DR. 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 Guerrero, 76BM, has a known history of coronary artery disease, hypertension, dyslipidemia, diabetes, ischemic cardiomyopathy (EF 40%), anemia, prostate cancer, CKD stage III. History of several stents placed in the past. Most recent occurred 09/09/2016 with PCI of OM 2 with RAMIREZ, patent stents in the proximal LAD, proximal to mid RCA and distal to mid RCA, EF 25-30% at that time. Echocardiogram performed December 19, 2016 revealed the following: EF 40 %, grade 2 diastolic dysfunction, severe aortic valve stenosis (RAMÓN 0.6 cm, transaortic peak gradient 51 mmHg, transaortic mean gradient 27.6 mmHg), mild to moderate MR, moderate aortic regurgitation, severe pulmonary hypertension ( PAP 96 mmHg.) Patient was admitted December 19, 2016 through ED at [facility] after experiencing a syncopal episode. Fortunately, patient was wearing a LifeVest when this occurred. Telemetry recorded V. fib and/or severe bradycardia or asystole. He did not receive shock. He underwent ICD Monday, December 23, [address] Anders for secondary prevention. During this hospitalization, patient should be considered for transfer to a facility for TAVR given the recent syncope related to potentially fatal arrhythmia, thought to be related to severe aortic stenosis. However, prior to transfer, patient's general condition had to stabilize. His severe acute CHF has been slow to improve. DECEMBER 26, 2016: Over the weekend, Mr. Guerrero has been moved to telemetry room. He sitting up in bedside chair and looks much improved. ICD site healing well without dehiscence or drainage. Left arm sling intact. He is no longer orthopneic but continues to require oxygen via nasal cannula 2 L/min. He has continued to be treated for possible CAP. Creatinine has continued to slowly increase and this morning was noted to be 3.0. His IV Lasix was changed over the weekend to oral Lasix daily. Soon, patient will need to be considered for TAVR versus surgical repair of his severe aortic stenosis. Will further discuss with Dr. Cox and await additional recommendations. DECEMBER 27, 2016: Patient is sitting up in the bedside chair. Denies chest pain, heaviness or tightness. He is breathing comfortably. We discussed the possibility of transferring he is ready to undergo procedure as soon as possible. LifeVest has been removed now that he has ICD. Patient's anemia is stable, creatinine continues to improve. Patient's acute CHF has compensated and we expect transfer soon. Further discuss with Dr. Quintana and await additional recommendations. DECEMBER 28, 2016: Mr. Guerrero continues to improve. Creatinine 2.5 today (improved) . Hemoglobin and hematocrit 11.7 and 34.0 respectively. He is breathing well. Dr. Qiuntana is here. Multiple family members are here today. Long discussion ensued today regarding need for transfer to [facility] in [place], [place] for consideration of TAVR by Dr. Marvin Boudreaux. At this time, his son who has power of attorney law clerk, agreeable. We have arranged for transfer. We appreciate the [facility] staff. Patient will be given a one-month follow-up with Dr. Ho, her primary night guard. Of course, should he need to be seen sooner that will be easily arranged. Also, I spoke with Dr. Sejal Anders, case technician. We will remove the dressing from ICD site today but instructed to keep dry until Monday, December 30, 2016. Interrogation will be arranged when he returns to [place] at [facility]. ASSESSMENT/PLAN: 1. SYNCOPE - Most likely related to severe arrythmia (vfib, severe bradycardia /asystole) related to severe . Allowing for higher systolic blood pressure. ICD now in place. Transferring to [place] today for possible TAVR. 2. KNOWN CAD - PCI of OM 2 with RAMIREZ September 09, 2016 - Continue Aspirin and Plavix 3. AORTIC STENOSIS - Severe. Afterload reduction. 4. ICM - EF 40%, improved from 25% to 30% recently 5. UNDERLYING HYPERTENSION - Will allow for permissive hypertension given patient's severity of aortic stenosis 6. DYSLIPIDEMIA - Continue lipid-lowering agent. LDL 68. 7. CKD - STAGE III - Avoiding NEMESIO inhibitor for fear of worsening renal insufficiency. Creatinine improving, 2.5 this morning. Recently decreased diuretics. 8. ANEMIA -stable. 9. ELEVATED TROPONIN - Chronic. Not NSTEMI. 10. SOB - Multifactorial including acute on chronic CHF, possible CAP, pulmonary hypertension. 11. ACUTE ON CHRONIC CHF - Secondary to combined systolic dysfunction (EF 40%) and diastolic dysfunction. NYHA Class IV upon arrival, now class II. Continue with diuretics, afterload reduction agents. Well-compensated. Now taking Lasix to 40mg orally daily. 12. POSSIBLE CAP - Treated with IV Levaquin. Regimen complete. 13. PULMONARY HYPERTENSION - Continue current plan of care. 14. DIABETES - Sliding scale insulin coverage. 15. ARRYTHMIA - vfib, severe bradycardia, possible asystole. There has been no additional episodes of severe arrythmia since hospitalized. S/P ICD for secondary prevention. - Time spent with patient Time with patient DS: Greater than 30 minutes Diagnosis - Discharge Diagnosis (1) CHF (congestive heart failure), NYHA class III Status: Resolved (2) Abnormal cardiac enzyme level Status: Chronic (3) Dyspnea Status: Acute (4) Aortic stenosis Status: Chronic (5) Coronary artery disease Status: Chronic (6) Diabetes Status: Chronic (7) Anemia Status: Chronic (8) History of coronary artery stent placement Status: Chronic (9) Pneumonia Status: Acute (10) CKD (chronic kidney disease) stage 3, GFR 30-59 ml/min Status: Chronic (11) Cardiac murmur Status: Chronic (12) Acute exacerbation of congestive heart failure Status: Acute (13) Bradycardia Status: Acute (14) Arrhythmia Status: Acute (15) Ventricular fibrillation Status: Acute Specialty Discharge - Follow Up or Referrals Follow up with: Maged Ho MD [Physician] - (1 MONTH.) Discharge Plan - Discharge Data Disposition: Disch/Xfer-[facility] Term Hos Condition at Discharge: Stable Discharge Diet: heart healthy Activity: other (Chest ICD expectations) Hygiene: other (Post ICD expectations) Weight Bearing at Discharge: other (Post ICD expectations) Driving: not until seen by doctor Contact your physician if you experience:: fever over 101, Difficulty voiding, Redness or swelling, Nausea/Vomiting, Shortness of breath - Discharge Medications New Carvedilol [Coreg] 6.25 mg PO BID tablet Ferrous Sulfate Tab [Feosol Original Tab] 325 mg PO TID tablet Levalbuterol Neb [Xopenex Neb] 0.63 mg RESP TX RT Q6H Docusate Sodium Cap [Colace Cap] 100 mg PO BID PRN capsule PRN Reason: Constipation Pantoprazole Tab [Protonix Tab] 40 mg PO DAILY tablet Continue Glimepiride [Amaryl] 4 mg PO DAILY Aspirin [Ecotrin] 81 mg PO QPM Potassium Chloride 10 meq PO DAILY Furosemide Tab [Lasix Tab] 40 mg PO DAILY #30 tablet Clopidogrel [Plavix] 75 mg PO DAILY Discontinued Ticagrelor [Brilinta] 90 mg PO BID #120 tablet Isosorbide Mononitrate [Isosorbide Mononitrate ER] 15 mg PO DAILY Carvedilol [Coreg] 12.5 mg PO BID No Action Rosuvastatin Calcium [Crestor] 5 mg PO DAILY - Follow Up or Referral Follow Up: Maged Ho MD [Physician] - (1 MONTH.) Sammy Anders MD [Physician] - (1 month with ICD interrogation) - Forms/Instructions Additional Discharge Instructions: Please remove dressing from ICD site before discharge. Instruct to keep dry until Monday. Exam - Constitutional Vitals: Period Temp Pulse Resp BP Sys/Slater Pulse Ox Last 24 Hr 96.6 F-97.7 F 70-83 12-22 101-136/51-64 92-100 Exam: General: [Mild distress, pleasant. Cooperative.] HEENT: [Bilateral arcus, normocephalic, atraumatic. Mucous membranes moist. No jaundice noted. Conjunctiva moist and clear, sclerae anicteric] Neck: No jugular vein distention noted. No thyromegaly or lymphadenopathy noted. Bilateral carotid bruits noted. Cardiac: [Regular rate and rhythm.] [IV/ RANDALL heard best at bilateral upper sternal borders with radiation to bilateral carotids. Left upper chest ICD implantation site healing well without dehiscence or drainage. Lungs: [Relatively clear to auscultation. Wearing oxygen intermittently at 2 L/ min. Abdomen: Soft, bowel sounds normoactive. Distended. Nontender. Musculoskeletal: No fluid collection. Decreased range of motion is noted. Extremities: No clubbing, cyanosis noted. [No lower extremity edema noted. ] Upper extremity pulses 2+. Lower extremity pulses 2+. Capillary refill less than 3 seconds. Skin: No unusual lesions or rashes. No skin breakdown appreciated. Neuro: Awake, alert and oriented 3. Moves all extremities well without hemiparesis or paralysis. No essential tremor is appreciated. Discharge Results Procedures and tests throughout hospitalization: Pending Orders 12/25/16 06:40 Occult Blood, Stool Stat 12/29/16 04:00 BMP w/ Mg [Basic Metabolic Panel w/Mg] IN AM CBC [Comp Blood Count Auto Diff] IN AM 12/30/16 04:00 BMP w/ Mg [Basic Metabolic Panel w/Mg] IN AM CBC [Comp Blood Count Auto Diff] IN AM Labs on day of discharge: Labs from last 24 hours 12/28/16 12/28/16 12/28/16 08:16 04:18 04:18 WBC 7.8 RBC 3.70 L Hgb 11.7 L Hct 34.0 L MCV 91.9 MCH 32 MCHC 34.4 RDW 14.6 Plt Count 335 MPV 8.9 L Neut % (Auto) 71.9 Lymph % (Auto) 12.6 L King % (Auto) 12.8 H Eos % (Auto) 1.9 Baso % (Auto) 0.4 Neut # (Auto) 5.6 Lymph # (Auto) 1.0 L King # (Auto) 1.0 H Eos # (Auto) 0.2 Baso # (Auto) 0.0 Immature Gran % 0.4 Nucleated RBC % 0.0 Immature Gran # 0.03 Nucleated RBCs # 0.00 Sodium 136 Potassium 4.0 Chloride 97 L Carbon Dioxide 26 Anion Gap 17.0 H BUN 110 H Creatinine 2.50 H GFR Calculation 28 BUN/Creatinine Ratio 44.00 H Glucose 117 H POC Glucose 134 H Calculated Osmolality 307.0 H Calcium 9.2 Magnesium 3.3 H 12/27/16 12/27/16 12/27/16 19:42 15:25 11:59 WBC RBC Hgb Hct MCV MCH MCHC RDW Plt Count MPV Neut % (Auto) Lymph % (Auto) King % (Auto) Eos % (Auto) Baso % (Auto) Neut # (Auto) Lymph # (Auto) King # (Auto) Eos # (Auto) Baso # (Auto) Immature Gran % Nucleated RBC % Immature Gran # Nucleated RBCs # Sodium Potassium Chloride Carbon Dioxide Anion Gap BUN Creatinine GFR Calculation BUN/Creatinine Ratio Glucose POC Glucose 119 H 260 H 256 H Calculated Osmolality Calcium Magnesium - Imaging and Cardiology Cardiology Procedure: report reviewed by me Procedure: Chest x-ray: report reviewed by me DS: Provider Date of admission: 12/20/16 10:39 Primary care physician: Jesus Foss DO Attending physician on admission: Chon Turner MD Consults: 12/20/16 09:02 Consult to Physician [CONS] Routine Comment: Or whomever controls engineer. SOB. Abnormal CT Chest Consulting Provider: [facility] Pulmonology Consulting Provider Notified: Yes Consult to Specialist Group: Pulmonology Person Notified: CHRISTIANO Date Notified: 12/20/16 Time Notified: 09:40 12/22/16 10:28 Consult to Physician [CONS] Routine Comment: Syncope with what looks like bradycardia/asystole Consulting Provider: Sammy Anders Consulting Provider Notified: Yes Consult to Specialist Group: Cardiology Person Notified: LUIS Date Notified: 12/22/16 Time Notified: 10:40 12/22/16 18:33 Consult to Anesthesiology [CONS] Routine Consulting Provider: Reason for Anesthesiology: Pre-op Clearance Discharging clinician: Leti Barton NP Expected date of discharge: 12/28/16
[2016-12-28 12:25] VITALS: BP 110/51
[2016-12-28] MEDS: ACETAMINOPHEN 325 MG TABLET PO PRN (13:23)
== END 2016-12-28 13:35 | disposition hospice, home (50) | DRG 226 ==
LOC: N.ED 09:40 → N.EDINP 09:40 → N.TELES 16:37 → N.ICU 12-20 01:27 → N.TELEN 12-24 10:12
PROVIDERS: ADMIT Internal Medicine Interventional Cardiology; ATTEND Internal Medicine Interventional Cardiology
PROC: CLDCICD (2016-12-23 12:45)

== ENCOUNTER 2017-01-09 22:57 | Observation (INO) ==
[2017-01-09] MEDS ORDERED: SODIUM CHLORIDE 0.9% 250 ML IV STA (23:23)
[2017-01-09] MEDS ORDERED: DEXTROSE 50% 25 GM/50 ML SYRINGE IV STA (23:23)
--- NOTE | 2017-01-09 23:37 | Emergency Department Note ---
Erica Perez Rolonda, am scribing for, and in the presence of, Mitchel Dang MD 23:32. Alton Perez Charles R, MD, personally performed the services described in this documentation, ascribed by Jone Maldonado in my presence, and it is both accurate and complete [id number] . Arrival - Arrival Chief Complaint: Altered Mental Status Stated Complaint: hypoglycemia ED Nursing Triage Note: pt presented to rm #15 via EMS with report of hypoglycemic episode.with confusion Accu check at home was 39. D50 given EXCHANGE UNDERWRITING CONSULTANT. Accu check EXCHANGE UNDERWRITING CONSULTANT was 128 s/p D50. pt uses home O2. Pt had a pacemaker/ICD placed on 01/02/17 Mode of Arrival: Stretcher Limitations: No Limitations Source: Patient, Old Records Reviewed, RN Notes Reviewed Time Seen by Provider: 01/09/17 23:19 - History of Present Illness HPI Narrative: Pt is a 76 y/o male who presents to the ED for further evaluation of AMS with an onset of hours ago. Pt has a PMHx of Cardiovascular problems, DM, and HTN. He states that his blood sugar was low earlier and that he had not eaten much today. During exam pt states that he has no confusion and that he feels normal. Pt denies CP and SOB. No other complaint/pain in ED. Onset (ago): hour(s) Consistency: constant Severity: mild Severity scale (1-10): 3 Allergies/Adverse Reactions: Allergies Allergy/AdvReac Type Severity Reaction Status Date / Time No Known Allergies Allergy Verified 11/12/16 12:10 Home Medications: Home Medications Medication Instructions Recorded Confirmed Type Glimepiride [Amaryl] 4 mg PO DAILY 02/01/15 12/19/16 History Aspirin [Ecotrin] 81 mg PO QPM 07/31/15 12/19/16 History Potassium Chloride 10 meq PO DAILY 11/12/16 12/19/16 History Furosemide Tab [Lasix Tab] 40 mg PO DAILY #30 tablet 11/13/16 12/19/16 Rx Clopidogrel [Plavix] 75 mg PO DAILY 12/19/16 12/19/16 History Rosuvastatin Calcium [Crestor] 5 mg PO DAILY 12/19/16 12/19/16 History Carvedilol [Coreg] 6.25 mg PO BID tablet 12/28/16 Rx Docusate Sodium Cap [Colace Cap] 100 mg PO BID PRN capsule 12/28/16 Rx Ferrous Sulfate Tab [Feosol 325 mg PO TID tablet 12/28/16 Rx Original Tab] Levalbuterol Neb [Xopenex Neb] 0.63 mg RESP TX RT Q6H 12/28/16 Rx Pantoprazole Tab [Protonix Tab] 40 mg PO DAILY tablet 12/28/16 Rx Review of System - Review of System 12 point system: reviewed and no additional remarkable complaints except as stated - Review of System Constitutional: Absent: chills, fever Eyes: Absent: discharge, redness Head/Ears/Nose/Throat: Absent: earache, epistaxis Respiratory: Absent: cough, respiratory distress Cardiovascular: Absent: chest pain Gastrointestinal: Absent: abdominal pain, nausea Genitourinary male: Absent: urgency, dysuria Musculoskeletal: Absent: arm pain, back pain, leg pain, neck pain Skin: Absent: rash Neurological: Absent: headache, weakness Psychiatric: Absent: anxiety Endocrine: Absent: cold intolerance Hematological/Lymphatic: Absent: easy bleeding Allergic/Immunologic: Absent: facial swelling Medical,Surgical,& Family Hx - Medical History Cardio: History of: CHF, CAD, Hypertension, [place] (last [place] 2013), Pacemaker, Valvular Heart Disease Neurology: No history of: Seizures, TIA Endocrine: History of: Diabetes Mellitus (IDDM), Diabetes Mellitus (NIDDM), Dyslipidemia Respiratory: History of: COPD, Pneumonia Renal: History of: Renal Failure Genitourinary: History of: Prostate Problems (cancer) Gastrointestinal: History of: Gastrointestinal Bleed Other: History of: Cancer (PROSTATE) - Surgical History Cardiac Surgeries: Sugical HX of: Cardiac Catheterization (last cath 1 month ago ) Neurologic Surgeries: Patient denies: Neurologic Surgery Abdominal Surgeries: Patient denies: Abdominal Surgery Reproductive Surgeries: Surgical HX of;: Prostate Surgery - Family History Family History: Reports;: Family Cancer (brother), Family Diabetes (son), Family Heart Disease (mother), Family Hypertension (family) Denies;: Family Stroke - Social History Smoking Status: Former smoker Frequency of Alcohol Use: None Type of Drug Use: None Exam Vital Signs: Vital Signs Temperature 97.6 F 01/09/17 23:00 Pulse Rate 97 H 01/09/17 23:00 Respiratory Rate 20 01/09/17 23:00 Blood Pressure 135/72 01/09/17 23:00 O2 Sat by Pulse Oximetry 99 01/09/17 23:00 - General General appearance: alert, in no apparent distress - Head Head exam: Present: atraumatic, normocephalic - Eye Eye exam: Present: PERRL, EOMI - ENT ENT exam: Present: mucous membranes moist. Absent: mucous membranes dry - Neck Neck exam: Present: full ROM. Absent: tenderness - Chest Chest inspection: Present: symmetric chest wall rise. Absent: tenderness - Respiratory Respiratory exam: Present: rales (at base) - Cardiovascular Cardiovascular exam: Present: normal rhythm, tachycardia - Abdominal Exam Abdominal exam: Present: soft, normal bowel sounds. Absent: tenderness - Rectal Exam Rectal exam: Present: heme (+) stool (Faintly positive) - Extremities Exam Extremities exam: Present: pedal edema (+1 bilaterally) - Back Exam Back exam: Present: full ROM. Absent: tenderness - Neurological Exam Neurological exam: Present: alert, oriented X3, CN II-XII intact - Psychiatric Psychiatric exam: Present: normal affect, normal mood - Skin Skin exam: Present: warm, dry, intact, normal color. Absent: rash Course - Consultations Consultation #1: Hospitalist will admit patient Time: 02:27 Results - Labs CBC & BMP: 01/09/17 00:10 01/09/17 00:10 Lab Results: I have reviewed the patients labs Labs: Laboratory Tests 01/09/17 23:55 POC Glucose 73 L Laboratory Tests 01/09/17 01/09/17 01/09/17 00:10 00:10 00:50 WBC 8.2 RBC 2.79 L Hgb 8.9 L Hct 26.0 L Plt Count 427 H MPV 8.7 L Neut % (Auto) 82.1 H Lymph % (Auto) 8.9 L Lymph # (Auto) 0.7 L Ammonia 17 Urine pH 7.0 Ur Specific [place] 1.003 Urine Protein 30 Urine Glucose (UA) 50 Urine Ketones Negative Urine Blood Small Urine Nitrate Negative Urine Bilirubin Negative Urine Urobilinogen < 2.0 H Urine Leukocytes Negative Urine RBC 1 Urine WBC <1 Ur Squamous Epith Cells Occasional Ur Culture Indicated? Not indicated Laboratory Tests 01/09/17 01/10/17 00:10 01:46 Sodium 141 Potassium 3.8 Chloride 105 Carbon Dioxide 31 BUN 16 GFR Calculation 69 POC Glucose 107 H AST 21 Troponin I 0.048 H Albumin 2.8 L Globulin 3.7 H Albumin/Globulin Ratio 0.7 L Critical Care Time Critical Care Time: Yes Total Critical Care Time: 60 Disposition Clinical Impression: Altered mental status, Exertional dyspnea, Cardiomyopathy, Hypoglycemia, GI bleed, Acute blood loss anemia, Coronary artery disease, History of coronary artery stent placement Case discussed with: patient, patient's family Disposition: Still a Patient Condition: Guarded Time of Disposition: 02:30 Contact your physician if you experience:: fever over 101, Difficulty voiding, Redness or swelling, Nausea/Vomiting, Shortness of breath, Bleeding, pain uncontrolled by pain medications, Other Return to the Emergency Department if:: fever over 101, Difficulty voiding, Redness or swelling, Nausea/Vomiting, Shortness of breath, Bleeding, pain uncontrolled by pain medications, Other
[2017-01-10 00:11] LABS: Apearance,Urine CLEAR (Clear); Bilirubin,Urine Negative (Negative); Blood, Urine Small mg/dL (Negative); Glucose,Urine (UA) 50 mg/dL (Negative); Ketones,Urine Negative (Negative); Nitrite,Urine Negative (Negative); Protein,Urine 30 MG/DL; RBC,Urine 1 /HPF (0-4); Squamous Epithelial Cell,Urine Occasional /HPF (0-10); Urine Color Straw (Yellow); Urine Specific Gravity 1.003 (1.001-1.035); Urine Urobilinogen < 2.0 EU/DL (0.2-1.0); WBC,Urine <1 /HPF (0-6)
[2017-01-10 00:19] LABS: Basophils % 0.4 % (0.0-0.8); Eosinophils % 0.5 % (0.00-10.9); Hemoglobin 8.9 GM/DL (14.0-18.0); Immature Granulocytes % 0.4 %; Immature Granulocytes Absolute 0.03 #; Lymphocytes # 0.7 10*3/uL (1.4-4.0); Lymphocytes % 8.9 % (21.2-54.2); Mean Corpuscular HGB Conc 34.2 GM/DL (32-36); Mean Corpuscular Hemoglobin 32 PG (27-34); Mean Corpuscular Volume 93.2 FL (87-102); Mean Platelet Volume 8.7 FL (9.6-12.0); Monocytes # 0.6 10*3/uL (0.11-0.8); Monocytes % 7.7 % (1.7-12.7); Neutrophils # 6.7 10*3/uL (1.4-7.4); Neutrophils % 82.1 % (38.7-73.9); Platelet Count 427 T/CUMM (130-400); Red Blood Count 2.79 MC/CUMM (3.8-5.5); Red Cell Distribution Width 14.3 % (9.3-17.3); White Blood Count 8.2 T/CUMM (4-12)
[2017-01-10 00:35] LABS: Ammonia 17 UMOL/L (11-32)
[2017-01-10 01:07] LABS: Alanine Aminotransferase 26 U/L (16-61); Albumin 2.8 G/DL (3.4-5.0); Alkaline Phosphatase 98 U/L (45-117); Aspartate Amino Transferase 21 U/L (0-37); Bilirubin,Total < 0.39 MG/DL (0.2-1.0); Blood Urea Nitrogen 16 MG/DL (7-18); Calcium 8.6 MG/DL (8.5-10.1); Glucose 61 MG/DL (74-106); Magnesium 1.9 MG/DL (1.8-2.4); Osmolality,Calculated 279.3 MOS/KG (273-304); Potassium 3.8 MMOL/L (3.5-5.1); Sodium 141 MMOL/L (136-145); Total Protein 6.5 G/DL (6.4-8.3); Troponin I Only 0.048 NG/ML (0.00-0.045)
[2017-01-10 02:52] LABS: PT Patient Result 10.7 SECS
--- NOTE | 2017-01-10 03:34 | Hospitalist History & Physical ---
Assessment and Plan (1) Heme + stool Status: Resolved Current Visit: No (2) CHF (congestive heart failure), NYHA class III Status: Resolved Current Visit: No Qualifiers: Congestive heart failure type: combined Congestive heart failure chronicity : acute on chronic Qualified Code(s): I50.43 - Acute on chronic combined systolic (congestive) and diastolic (congestive) heart failure (3) Altered mental status Status: Acute Current Visit: Yes (4) Hypoglycemia Status: Acute Current Visit: Yes (5) GI bleed Status: Acute Assessment and plan: Plan for this patient will be admitting him to our service. Will continue home meds as appropriate once they are confirmed. Will consult Dr. Blackman for his evaluation of his anemia. Will continue meds as appropriate. Monitor H&H every 6 hours. Patient will be placed on a monitored bed. We will continue to monitor his Accu-Cheks every 6 hours. Current Visit: Yes History of Present Illness Chief complaint: Hypoglycemia History of present illness: Mr. Guerrero is a 76 year old male with multiple medical problems including diabetes, coronary artery disease, aortic stenosis, chronic kidney disease, anemia, shortness of breath and pulmonary hypertension who is in his normal state of health until tonight. Apparently patient got confused at home. EMS was called in and he was found to be hypoglycemic with a Accu-Chek of 39. He was brought up to our hospital for further evaluation. He was able to maintain his glucose after he was eating. But on further evaluation of his labs he was found to be anemic with a recent drop since his last hospitalization a few days ago. Patient was found to be heme positive. I was consulted to admit him. I am admitting him to the emergency room Home Medications Medication Instructions Recorded Confirmed Type Glimepiride [Amaryl] 4 mg PO DAILY 02/01/15 12/19/16 History Aspirin [Ecotrin] 81 mg PO QPM 07/31/15 12/19/16 History Potassium Chloride 10 meq PO DAILY 11/12/16 12/19/16 History Furosemide Tab [Lasix Tab] 40 mg PO DAILY #30 tablet 11/13/16 12/19/16 Rx Clopidogrel [Plavix] 75 mg PO DAILY 12/19/16 12/19/16 History Rosuvastatin Calcium [Crestor] 5 mg PO DAILY 12/19/16 12/19/16 History Carvedilol [Coreg] 6.25 mg PO BID tablet 12/28/16 Rx Docusate Sodium Cap [Colace Cap] 100 mg PO BID PRN capsule 12/28/16 Rx Ferrous Sulfate Tab [Feosol 325 mg PO TID tablet 12/28/16 Rx Original Tab] Levalbuterol Neb [Xopenex Neb] 0.63 mg RESP TX RT Q6H 12/28/16 Rx Pantoprazole Tab [Protonix Tab] 40 mg PO DAILY tablet 12/28/16 Rx Allergies Allergy/AdvReac Type Severity Reaction Status Date / Time No Known Allergies Allergy Verified 11/12/16 12:10 Medical,Surgical,& Family Hx - Medical History Cardio: History of: CHF, CAD, Hypertension, [place] (last [place] 2013), Pacemaker, Valvular Heart Disease Neurology: No history of: Seizures, TIA Endocrine: History of: Diabetes Mellitus (IDDM), Diabetes Mellitus (NIDDM), Dyslipidemia Respiratory: History of: COPD, Pneumonia Renal: History of: Renal Failure Genitourinary: History of: Prostate Problems (cancer) Gastrointestinal: History of: Gastrointestinal Bleed Other: History of: Cancer (PROSTATE) - Surgical History Cardiac Surgeries: Sugical HX of: Cardiac Catheterization (last cath 1 month ago ) Neurologic Surgeries: Patient denies: Neurologic Surgery Abdominal Surgeries: Patient denies: Abdominal Surgery Reproductive Surgeries: Surgical HX of;: Prostate Surgery - Family History Family History: Reports;: Family Cancer (brother), Family Diabetes (son), Family Heart Disease (mother), Family Hypertension (family) Denies;: Family Stroke - Social History Smoking Status: Former smoker Frequency of Alcohol Use: None Type of Drug Use: None 12 point system: reviewed and no additional remarkable complaints except as stated Exam - Constitutional Vitals: Period Temp Pulse Resp BP Sys/Slater Pulse Ox Last 24 Hr 97.6 F-97.6 F 97-97 20-20 135-135/72-72 99 - General General appearance: alert, in no apparent distress - Head Head exam: Present: atraumatic, normocephalic - Eye Eye exam: Present: PERRL, EOMI - ENT ENT exam: Present: mucous membranes moist. - Neck Neck exam: Present: full ROM - Chest Chest inspection: Present: symmetric chest wall rise. - Respiratory Respiratory exam: Present: Basilar rales - Cardiovascular Cardiovascular exam: Present: normal rhythm, tachycardia - Abdominal Exam Abdominal exam: Present: soft, normal bowel sounds. - Rectal Exam Rectal exam: Present: heme (+) stool (Faintly positive) per ER physician - Extremities Exam Extremities exam: Present: pedal edema (+1 bilaterally) - Back Exam Back exam: Present: full ROM. Absent: tenderness - Neurological Exam Neurological exam: Present: alert, oriented X3, CN II-XII intact - Psychiatric Psychiatric exam: Present: normal affect, normal mood - Skin Skin exam: Present: warm, dry, intact, normal color. Absent: rash Results - Labs CBC & BMP: 01/09/17 00:10 01/09/17 00:10
[2017-01-10] MEDS ORDERED: GLUCAGON 1 MG VIAL IM PRN (03:43)
[2017-01-10] MEDS ORDERED: DEXTROSE 50% 25 GM/50 ML SYRINGE IV PRN (03:43)
[2017-01-10] MEDS: ACETAMINOPHEN 325 MG TABLET PO PRN (06:09)
[2017-01-10 06:41] LABS: Hematocrit 24.8 VOL% (42.0-52.0); Hemoglobin 8.4 GM/DL (14.0-18.0)
[2017-01-10] MEDS: INSULIN REGULAR 100 UNIT/ML SUBCUT SCH ×4 (07:39→20:13)
--- NOTE | 2017-01-10 07:52 | XRay Report ---
XR chest 1V portable Indication: Altered mental status Comparison: Chest x-ray dated December 24, 2016 Technique: Single frontal view of the chest. Findings: Borderline cardiomegaly. There is a nonspecific reticular pattern throughout the bilateral lungs suspicious for interstitial pulmonary edema, interstitial pneumonia, or other interstitial lung disease. Pacemaker apparatus again demonstrated. Visualized osseous and surrounding soft tissue structures appear grossly unchanged. IMPRESSION: As above. PROCEDURE INTERPRETED AT [facility] DEPARTMENT OF RADIOLOGY Final Report Signed by: Dr Amanuel Keenan
[2017-01-10] MEDS ORDERED: LIDOCAINE 100 MG/5 ML SYRINGE ONE (09:00)
[2017-01-10] MEDS ORDERED: PROPOFOL 200 MG/20 ML VIAL IV ONE (09:00)
--- NOTE | 2017-01-10 09:03 | Gastrointestinal Consult Note ---
Assessment and Plan (1) Anemia Status: Chronic Assessment and plan: 01/10-findings on admission of anemia as well as heme positive stools. On Plavix therapy for recent stent placement, currently on hold with last dose on yesterday. No other associated symptoms. Check stools for occult blood. Monitor serial H&H and transfuse as necessary. Plan an addendum to followed by Dr. Blackman. Current Visit: No History of Present Illness Chief complaint: Anemia, heme positive stools History of present illness: Mr. Guerrero is a 76 year old male who was admitted to the hospital early this morning with onset of hypoglycemia. Patient is a fair historian therefore information is obtained from chart review as well. Patient has a prior history of diabetes, CAD, aortic stenosis, CKD, pulmonary hypertension, and anemia. Patient reportedly became confused at home in the ambulance was called and at that time he was found to have an Accu-Chek of 39 in the field. He was brought in for further evaluation and at that time was also found to be anemic. He was checked while in the emergency room and noted to be heme positive as well. He was noted to be recently just in our facility on 12/28 after inpatient stay for syncopal episodes as well as findings of elevated troponin. He has a recent history also of cardiac stent placement on September 09 of this year and was recently on aspirin and Plavix therapy. He also is noted to have had a internal defibrillator placed on 12/[address] Anders. On admission, his Plavix was held with his last known dose being yesterday. He has a prior history of anemia and was seen by Dr. Blackman in October of this year following admission far anemia and heme positive stools. During that admission he underwent an EGD with no findings regarding explanation of his anemia and only other findings noted for retained food in his stomach. Patient does not recall any reports of melena or hematochezia but states his stools are sticky at times. He is noted to take iron daily as well as Protonix. He denies any recent weight loss, abdominal pain, nausea or vomiting. He denies any recent weight loss, dysphagia , increased GERD. Denies any NSAID use. On admission he was noted to have an H &H of 02/04 with a discharge H&H noted 2 weeks prior of . BUN/creatinine ratio 13. Unable to locate prior colonoscopy records in the facility database and he is unable to recall his prior colonoscopy if any in the past. Home Medications Medication Instructions Recorded Confirmed Type Glimepiride [Amaryl] 4 mg PO DAILY 02/01/15 12/19/16 History Aspirin [Ecotrin] 81 mg PO QPM 07/31/15 12/19/16 History Potassium Chloride 10 meq PO DAILY 11/12/16 12/19/16 History Furosemide Tab [Lasix Tab] 40 mg PO DAILY #30 tablet 11/13/16 12/19/16 Rx Clopidogrel [Plavix] 75 mg PO DAILY 12/19/16 12/19/16 History Rosuvastatin Calcium [Crestor] 5 mg PO DAILY 12/19/16 12/19/16 History Carvedilol [Coreg] 6.25 mg PO BID tablet 12/28/16 Rx Docusate Sodium Cap [Colace Cap] 100 mg PO BID PRN capsule 12/28/16 Rx Ferrous Sulfate Tab [Feosol 325 mg PO TID tablet 12/28/16 Rx Original Tab] Levalbuterol Neb [Xopenex Neb] 0.63 mg RESP TX RT Q6H 12/28/16 Rx Pantoprazole Tab [Protonix Tab] 40 mg PO DAILY tablet 12/28/16 Rx Allergies Allergy/AdvReac Type Severity Reaction Status Date / Time No Known Allergies Allergy Verified 11/12/16 12:10 Medical,Surgical,& Family Hx - Medical History Cardio: History of: CHF, CAD, Hypertension, MO (last MO 2013), Pacemaker, Valvular Heart Disease Neurology: No history of: Seizures, TIA HEENT: History of: Eye Problem (cataracts) Endocrine: History of: Diabetes Mellitus (IDDM), Diabetes Mellitus (NIDDM), Dyslipidemia Respiratory: History of: COPD, Pneumonia Renal: History of: Renal Failure Genitourinary: History of: Prostate Problems (cancer) Gastrointestinal: History of: Gastrointestinal Bleed Other: History of: Cancer (PROSTATE) - Surgical History Cardiac Surgeries: Sugical HX of: Cardiac Catheterization (last cath 1 month ago ) Neurologic Surgeries: Patient denies: Neurologic Surgery Abdominal Surgeries: Patient denies: Abdominal Surgery Reproductive Surgeries: Surgical HX of;: Prostate Surgery - Family History Family History: Reports;: Family Cancer (brother), Family Diabetes (son), Family Heart Disease (mother), Family Hypertension (family) Denies;: Family Stroke - Social History Smoking Status: Former smoker Frequency of Alcohol Use: None Type of Drug Use: None 12 point system: reviewed and no additional remarkable complaints except as stated - Constitutional Constitutional: Present: as per HPI - EENT Eyes: Present: as per HPI Ears: Present: as per HPI Nose, mouth and throat: Present: as per HPI - Cardiovascular Cardiovascular: Present: as per HPI - Respiratory Respiratory: Present: as per HPI - Gastrointestinal Gastrointestinal: Present: as per HPI - Genitourinary Genitourinary: Present: as per HPI - Musculoskeletal Musculoskeletal: Present: as per HPI - Neurological Neurological: Present: as per HPI - Psychiatric Psychiatric: Present: as per HPI - Endocrine Endocrine: Present: as per HPI - Hematologic/Lymphatic Hematologic/Lymphatic: Present: as per HPI Exam - Constitutional Vitals: Period Temp Pulse Resp BP Sys/Slater Pulse Ox Last 24 Hr 97.6 F-97.8 F 82-101 18-22 135-158/67-74 96-99 General appearance: normal weight, no acute distress - Head Head exam: Present: normal inspection, normocephalic - Eye Eye exam: Present: other (Lids and conjunctivae are unremarkable). Absent: scleral icterus - ENT ENT exam: Present: normal exam, normal oropharynx - Neck Neck exam: Present: normal inspection - Respiratory Respiratory exam: Present: clear to auscultation bilaterally. Absent: rales, rhonchi, wheezes - Cardiovascular Cardiovascular exam: Present: regular rate and rhythm. Absent: diastolic murmur , JVD, systolic murmur - GI/Abdominal GI/Abdominal exam: Present: normal bowel sounds, soft. Absent: ascites, distended, mass, organomegaly, tenderness - Extremities Exam Extremities exam: Present: normal inspection, full ROM - Back Exam Back exam: Present: normal inspection - Neurological Exam Neurological exam: Present: alert, oriented X3 - Psychiatric Psychiatric exam: Present: normal affect, normal mood - Skin Skin exam: Present: normal color, warm, dry Results - Labs CBC & BMP: 01/10/17 06:17 01/09/17 00:10 Lab Results: I have reviewed the past 24 hour labs
[2017-01-10] MEDS: PANTOPRAZOLE 40 MG VIAL IV SCH ×2 (09:23→20:13)
[2017-01-10 09:40] LABS: Hematocrit 23.6 VOL% (42.0-52.0)
--- NOTE | 2017-01-10 13:17 | Hospitalist Progress Note ---
Assessment and Plan (1) Hypoglycemia Status: Acute Assessment and plan: 1)hypoglycemia- this has happened in the past, both times when he didn't eat. Glucose is back to normal range now. 2)GIB- H&H down a bit. He has had EGD recently per old records. Dr Blackman to see today. On PPI. No abdominal pain. 3)Ao valve surgery- transferred to [place] last time. 4)arhythmia Current Visit: Yes (2) GI bleed Status: Acute Current Visit: Yes (3) Acute blood loss anemia Status: Acute Current Visit: Yes Hospitalist: Subjective Interval history: Mr Guerrero is doing ok this morning. He has not seen any bleeding in his stool. Exam - Constitutional Vitals: Period Temp Pulse Resp BP Sys/Slater Pulse Ox Last 24 Hr 97.6 F-97.8 F 82-101 18-22 119-158/58-74 96-99 General appearance: normal weight, no acute distress - Eye Eye exam: Present: EOMI. Absent: scleral icterus - Respiratory Respiratory exam: Present: clear to auscultation bilaterally - Cardiovascular Cardiovascular exam: Present: regular rate and rhythm - GI/Abdominal GI/Abdominal exam: Present: normal bowel sounds, soft. Absent: tenderness - Extremities Exam Extremities exam: Absent: edema Results - Labs CBC & BMP: 01/10/17 09:35 01/09/17 00:10 Lab Results: I have reviewed the past 24 hour labs
[2017-01-10 16:33] LABS: Hematocrit 23.9 VOL% (42.0-52.0); Hemoglobin 8.1 GM/DL (14.0-18.0)
[2017-01-10 22:39] LABS: Hematocrit 24.1 VOL% (42.0-52.0)
[2017-01-11 07:03] LABS: Basophils % 0.6 % (0.0-0.8); Eosinophils # 0.3 10*3/uL (0.0-0.87); Eosinophils % 3.6 % (0.00-10.9); Hematocrit 25.9 VOL% (42.0-52.0); Hemoglobin 8.7 GM/DL (14.0-18.0); Immature Granulocytes % 0.4 %; Immature Granulocytes Absolute 0.03 #; Lymphocytes % 13.8 % (21.2-54.2); Mean Corpuscular HGB Conc 33.6 GM/DL (32-36); Mean Corpuscular Hemoglobin 32 PG (27-34); Mean Corpuscular Volume 94.5 FL (87-102); Monocytes # 0.7 10*3/uL (0.11-0.8); Monocytes % 9.3 % (1.7-12.7); Neutrophils # 5.2 10*3/uL (1.4-7.4); Neutrophils % 72.3 % (38.7-73.9); Platelet Count 414 T/CUMM (130-400); Red Blood Count 2.74 MC/CUMM (3.8-5.5); Red Cell Distribution Width 14.4 % (9.3-17.3); White Blood Count 7.2 T/CUMM (4-12)
[2017-01-11] MEDS: INSULIN REGULAR 100 UNIT/ML SUBCUT SCH ×4 (08:29→21:15)
[2017-01-11] MEDS: PANTOPRAZOLE 40 MG VIAL IV SCH ×2 (08:29→21:13)
--- NOTE | 2017-01-11 12:43 | History and Physical Update ---
History and Physical Update - History and Physical H&P was reviewed, the patient examined and there: are no changes in the patients condition since last H&P was completed. - Physical Exam Mental Status: alert and oriented Heart: regular rate and rhythm Lung: clear to auscultation Abdomen: within normal limits Vitals: within normal limits
--- NOTE | 2017-01-11 12:55 | Operative Note ---
Date of procedure: 01/11/17 Pre-op diagnosis: GI bleed, symptomatic anemia Procedure: Procedure: Esophagogastroduodenoscopy Brief clinical abstract: 76-year-old male was admitted with symptomatic anemia. He has been transfused with 2 units packed red blood cells. Occult blood is noted in stool but he has noted no gross GI bleeding. He had similar presentation in 10/26. Indication for procedure: GI bleed, anemia Endoscopic findings:[After informed consent was obtained, the patient was placed in the left lateral decubitus position. The gastroscope was inserted in the upper esophagus under direct vision with no resistance encountered. Esophageal mucosa appeared normal with squamocolumnar junction sharply demarcated at the diaphragmatic indentation. The endoscope was advanced in the stomach which was carefully examined including retroflexed view of the cardia and fundus with no abnormality seen. The pyloric channel,, second and third portion of the duodenum were normal. The endoscope was withdrawn and patient appeared to tolerate the procedure well. Impression: Normal EGD Recommendations: Discussed with patient and his family. Recommend colonoscopy which we could do tomorrow. Plan to leave on antiplatelet therapy given recent coronary stent. Anesthesia: MAC Surgeon / Physician: Emre Blackman Estimated blood loss: none Specimens: none sent Condition: stable Disposition: post procedure unit Results - Labs CBC & BMP: 01/11/17 05:39 01/09/17 00:10 Discharge Plan - Discharge Medications No Action Glimepiride [Amaryl] 4 mg PO DAILY Aspirin [Ecotrin] 81 mg PO QPM Potassium Chloride 10 meq PO DAILY Furosemide Tab [Lasix Tab] 40 mg PO DAILY #30 tablet Rosuvastatin Calcium [Crestor] 5 mg PO DAILY Carvedilol [Coreg] 6.25 mg PO BID tablet Levalbuterol Neb [Xopenex Neb] 0.63 mg RESP TX RT Q6H Ticagrelor [Brilinta] 90 mg PO BID Metformin HCl 1,000 mg PO BID Isosorbide Mononitrate [Imdur] 15 mg PO DAILY - Follow Up or Referral - Forms/Instructions
--- NOTE | 2017-01-11 12:57 | Anesthesia Post-Op ---
Anesthesia Post OP - Post Ansesthetic Evaluation Patient seen in post op: Yes Resp: within normal limits CV: within normal limits Mental: within normal limits Temp: within normal limits [id number]: within normal limits Nausea and Vomiting: within normal limits Pain: within normal limits
--- NOTE | 2017-01-11 13:45 | Hospitalist Progress Note ---
Assessment and Plan (1) Hypoglycemia Status: Acute Assessment and plan: 1)hypoglycemia- resolved. Hold amaryl and metformin. 2)GIB- H&H stable. EGD normal. Cscope tomorrow. No sign of ongoing blood loss- no BM since admission. Continue ASA and Brillinta. 3)Ao valve surgery- transferred to [place] last time. 4)arrhythmia and heart failure- compensated. Current Visit: Yes (2) GI bleed Status: Acute Current Visit: Yes (3) Acute blood loss anemia Status: Acute Current Visit: Yes Hospitalist: Subjective Interval history: MR Grimes has no complaints this morning.He notes that his glucose has not been low since admission. Denies hematemesis or nausea. No BMs. EGD was normal. Cscope tomorrow. Continue antiplatelet meds since recently had stent per GI. Exam - Constitutional Vitals: Period Temp Pulse Resp BP Sys/Slater Pulse Ox Last 24 Hr 97.2 F-97.9 F 73-93 16-20 93-151/47-87 96-100 General appearance: normal weight, no acute distress - Head Head exam: Present: normocephalic, atraumatic - Eye Eye exam: Present: EOMI. Absent: scleral icterus - Respiratory Respiratory exam: Present: clear to auscultation bilaterally - Cardiovascular Cardiovascular exam: Present: regular rate and rhythm - GI/Abdominal GI/Abdominal exam: Present: normal bowel sounds, soft. Absent: tenderness - Extremities Exam Extremities exam: Absent: edema Results - Labs CBC & BMP: 01/11/17 05:39 01/09/17 00:10 Lab Results: I have reviewed the past 24 hour labs
[2017-01-11] MEDS: TICAGRELOR 90 MG TABLET PO SCH ×2 (13:56→21:17)
[2017-01-11] MEDS ORDERED: POLYETHYLENE GLYCOL POWDER 255 GM BOTTLE PO ONE (17:00)
[2017-01-11] MEDS: CARVEDILOL 6.25 MG TABLET PO SCH (21:13)
[2017-01-11] MEDS: ASPIRIN EC 81 MG TABLET PO SCH (21:17)
[2017-01-12] MEDS ORDERED: MAGNESIUM CITRATE 300 ML BOTTLE PO ONE (06:00)
[2017-01-12 07:09] LABS: Basophils % 0.7 % (0.0-0.8); Eosinophils # 0.2 10*3/uL (0.0-0.87); Eosinophils % 3.7 % (0.00-10.9); Hematocrit 25.9 VOL% (42.0-52.0); Hemoglobin 8.8 GM/DL (14.0-18.0); Immature Granulocytes % 0.5 %; Immature Granulocytes Absolute 0.03 #; Lymphocytes % 16.8 % (21.2-54.2); Mean Corpuscular Hemoglobin 32 PG (27-34); Mean Corpuscular Volume 94.2 FL (87-102); Monocytes # 0.7 10*3/uL (0.11-0.8); Monocytes % 11.1 % (1.7-12.7); Neutrophils % 67.2 % (38.7-73.9); Platelet Count 375 T/CUMM (130-400); Red Blood Count 2.75 MC/CUMM (3.8-5.5); Red Cell Distribution Width 14.1 % (9.3-17.3)
[2017-01-12 07:42] LABS: Calcium 8.9 MG/DL (8.5-10.1)
[2017-01-12] MEDS: INSULIN REGULAR 100 UNIT/ML SUBCUT SCH ×4 (07:49→21:25)
[2017-01-12] MEDS: PANTOPRAZOLE 40 MG VIAL IV SCH ×2 (08:14→20:36)
[2017-01-12] MEDS: TICAGRELOR 90 MG TABLET PO SCH ×2 (09:39→20:32)
[2017-01-12] MEDS: CARVEDILOL 6.25 MG TABLET PO SCH ×2 (09:39→20:32)
[2017-01-12] MEDS: ISOSORBIDE MONONITRATE 30 MG TABLET PO SCH (09:39)
[2017-01-12] MEDS: POTASSIUM CHLORIDE 10 MEQ TABLET PO SCH (09:39)
[2017-01-12] MEDS: ROSUVASTATIN 10 MG TABLET PO SCH (09:39)
--- NOTE | 2017-01-12 13:11 | Operative Note ---
Date of procedure: 01/12/17 Pre-op diagnosis: GI bleed Procedure: Procedure note: Colonoscopy Physician: Dr. Biju Blackman Brief clinical abstract: 76-year-old male was admitted with symptomatic anemia and occult blood in stool. He had upper endoscopy yesterday with no bleeding source seen. Patient had coronary stent placed within the last few months and is on Brilinta with last dose of this 3 days ago. Endoscopic findings: After informed consent was obtained, the patient was placed in the left lateral decubitus position. Digital rectal exam was performed with no palpable abnormalities felt. Pediatric videocolonoscope was inserted into the rectum and advanced to the cecum without difficulty. Retroflex view within the cecum was performed back to the level of the hepatic flexure. The endoscope was advanced back to the cecum and on withdrawal colonic mucosa was carefully examined. Bowel prep was of fairly good quality with some scattered stool in the colon which were mostly able to wash away to allow a good exam. Withdrawal time was over 6 minutes duration. There was an approximately 1.5 cm diameter sub-pedunculated polyp in the mid ascending colon noted which was benign appearing. This was not removed due to his recent antiplatelet therapy. Another approximately 8 mm polyp was noted in the proximal transverse colon and also not removed. Patient had scattered diverticuli noted in the ascending, transverse, descending and sigmoid colon. No blood was seen in the colon. Vascular pattern throughout the colon appeared normal. The endoscope was withdrawn in the rectum with retroflex view showing no abnormalities. The endoscope was removed and patient appeared to tolerate the procedure well. Impression: #1 colon polyps-in ascending and transverse colon as described; not removed today due to antiplatelet therapy #2 diverticulosis coli Plan: Continue with Brilinta therapy given recent coronary stent. Follow clinically for now. Small bowel PillCam would be consideration if significant bleeding/anemia recur. Diet as tolerated. Could probably discharge tomorrow if stable Anesthesia: MAC Surgeon / Physician: Emre Blackman Estimated blood loss: none Specimens: none sent Condition: stable Disposition: post procedure unit Results - Labs CBC & BMP: 01/12/17 06:10 01/12/17 06:10 Discharge Plan - Discharge Medications No Action Glimepiride [Amaryl] 4 mg PO DAILY Aspirin [Ecotrin] 81 mg PO QPM Potassium Chloride 10 meq PO DAILY Furosemide Tab [Lasix Tab] 40 mg PO DAILY #30 tablet Rosuvastatin Calcium [Crestor] 5 mg PO DAILY Carvedilol [Coreg] 6.25 mg PO BID tablet Levalbuterol Neb [Xopenex Neb] 0.63 mg RESP TX RT Q6H Ticagrelor [Brilinta] 90 mg PO BID Metformin HCl 1,000 mg PO BID Isosorbide Mononitrate [Imdur] 15 mg PO DAILY - Follow Up or Referral - Forms/Instructions
--- NOTE | 2017-01-12 13:14 | Anesthesia Post-Op ---
Anesthesia Post OP - Post Ansesthetic Evaluation Patient seen in post op: Yes Resp: within normal limits CV: within normal limits Mental: within normal limits Temp: within normal limits [id number]: within normal limits Nausea and Vomiting: within normal limits Pain: within normal limits
[2017-01-12] MEDS ORDERED: FUROSEMIDE 40 MG TABLET PO SCH (14:00)
--- NOTE | 2017-01-12 16:44 | Hospitalist Progress Note ---
Assessment and Plan (1) Diabetes Status: Chronic Current Visit: No Qualifiers: Diabetes mellitus type: type 2 Diabetes mellitus complication status: without complication (2) GI bleed Status: Acute Assessment and plan: H/H stable Colonoscopy today with diverticulosis and colon polyps (not removed due to brilinta) Normal EGD yesterday Possible discharge tomorrow Current Visit: Yes (3) Acute blood loss anemia Status: Acute Current Visit: Yes Hospitalist: Subjective Interval history: No acute events overnight. Patient seen this afternoon, eating dinner. He denies abdominal pain, nausea or vomiting with his meal. Exam - Constitutional Vitals: Period Temp Pulse Resp BP Sys/Slater Pulse Ox Last 24 Hr 97.0 F-98.7 F 75-98 16-20 110-149/44-74 90-100 General appearance: normal weight - Head Head exam: Present: normocephalic, atraumatic - Eye Eye exam: Present: EOMI Pupils: Present: LEANDRO - ENT ENT exam: Present: normal exam - Neck Neck exam: Present: normal inspection - Respiratory Respiratory exam: Present: clear to auscultation bilaterally. Absent: rhonchi, wheezes - Cardiovascular Cardiovascular exam: Present: regular rate and rhythm - GI/Abdominal GI/Abdominal exam: Present: normal bowel sounds, soft. Absent: tenderness, rebound - Extremities Exam Extremities exam: Present: normal inspection - Back Exam Back exam: Present: normal inspection - Neurological Exam Neurological exam: Present: alert, oriented X3 - Psychiatric Psychiatric exam: Present: normal affect, normal mood - Skin Skin exam: Present: warm, intact Results - Labs CBC & BMP: 01/12/17 06:10 01/12/17 06:10
[2017-01-12] MEDS: ACETAMINOPHEN 325 MG TABLET PO PRN (20:31)
[2017-01-12] MEDS: ASPIRIN EC 81 MG TABLET PO SCH (20:35)
[2017-01-13 05:31] LABS: Hematocrit 25.1 VOL% (42.0-52.0); Hemoglobin 8.5 GM/DL (14.0-18.0)
--- NOTE | 2017-01-13 08:43 | Gastrointestinal Progress Note ---
Assessment and Plan (1) Anemia Status: Chronic Assessment and plan: 01/13-C scope findings noted as below. H&H 02/03. No further overt bleeding. Tolerating diet well. May continue Brilinta and will repeat colonoscopy a later date for polyp removal. Okay to discharge from GI standpoint. Follow with PCP for recheck on H&H. Plan an addendum to follow Dr. Blackman 01/10-findings on admission of anemia as well as heme positive stools. On Plavix therapy for recent stent placement, currently on hold with last dose on yesterday. No other associated symptoms. Check stools for occult blood. Monitor serial H&H and transfuse as necessary. Plan an addendum to followed by Dr. Blackman. Current Visit: No Gastroenterology - PN: Subj Interval history: CC: GI bleed Patient is seen, awake alert sitting on side of bed eating breakfast. Noted to have a good appetite denies any abdominal pain, nausea or vomiting. He states that he has had a bowel movement and no overt bleeding was noticed. His blood counts have held stable at 02/03 and has not required any transfusion. Colonoscopy results noted with polyps found in a sending transverse colon, however unable to be removed due to his antiplatelet therapy, as well as diverticulosis. Plan is to continue with the Brilinta at this time due to his recent stent placement and repeat colonoscopy when able to hold his Brilinta. Abdomen soft, nontender. Can discharge from GI standpoint. ROS: Denies shortness of breath or chest pain. Exam (Progress Note) - Constitutional Vitals: Period Temp Pulse Resp BP Sys/Slater Pulse Ox Last 24 Hr 97.0 F-98.6 F 20-98 16-18 110-149/44-75 91-100 - Other Additional findings: General appearance: normal weight, no acute distress - Head Head exam: Present: normal inspection, normocephalic - Eye Eye exam: Present: other (Lids and conjunctivae are unremarkable). Absent: scleral icterus - ENT ENT exam: Present: normal exam, normal oropharynx - Neck Neck exam: Present: normal inspection - Respiratory Respiratory exam: Present: clear to auscultation bilaterally. Absent: rales, rhonchi, wheezes - Cardiovascular Cardiovascular exam: Present: regular rate and rhythm. Absent: diastolic murmur , JVD, systolic murmur - GI/Abdominal GI/Abdominal exam: Present: normal bowel sounds, soft. Absent: ascites, distended, mass, organomegaly, tenderness - Extremities Exam Extremities exam: Present: normal inspection, full ROM - Back Exam Back exam: Present: normal inspection - Neurological Exam Neurological exam: Present: alert, oriented X3 - Psychiatric Psychiatric exam: Present: normal affect, normal mood - Skin Skin exam: Present: normal color, warm, dry Results - Labs CBC & BMP: 01/13/17 04:26 01/12/17 06:10 Lab Results: I have reviewed the past 24 hour labs
[2017-01-13] MEDS: INSULIN REGULAR 100 UNIT/ML SUBCUT SCH (10:10)
[2017-01-13] MEDS: PANTOPRAZOLE 40 MG VIAL IV SCH (10:12)
[2017-01-13] MEDS: CARVEDILOL 6.25 MG TABLET PO SCH (10:13)
[2017-01-13] MEDS: TICAGRELOR 90 MG TABLET PO SCH (10:13)
[2017-01-13] MEDS: ROSUVASTATIN 10 MG TABLET PO SCH (10:13)
[2017-01-13] MEDS: POTASSIUM CHLORIDE 10 MEQ TABLET PO SCH (10:13)
[2017-01-13] MEDS: ISOSORBIDE MONONITRATE 30 MG TABLET PO SCH (10:14)
--- NOTE | 2017-01-13 11:19 | Discharge Summary ---
Hospital Course - Hospital Course Hospital Course: Mr. Guerrero is a 76 year old male with multiple medical problems including diabetes, coronary artery disease, aortic stenosis, chronic kidney disease, anemia, shortness of breath and pulmonary hypertension who was admitted with altered mental status secondary to hypoglycemia and anemia. He was found to have heme positive stool. Gastroenterology was consulted. EGD 01/11/17 was normal. Colonoscopy 01/12/17 with colon polyps and diverticulosis coli. Colon polyps not removed due to him being on brilinta, this will need to be done at a later date. His H/H has remained stable. He has now reached maximal benefit of inpatient stay and will be discharged home. - Time spent with patient Time with patient DS: Less than 30 minutes (25) Diagnosis - Discharge Diagnosis (1) Diabetes Status: Chronic (2) GI bleed Status: Resolved (3) Acute blood loss anemia Status: Resolved Specialty Discharge - Follow Up or Referrals Discharge Plan - Discharge Data Disposition: Disch To Home/Self Care Condition at Discharge: Stable Discharge Diet: high fiber diet Activity: increase activity as tolerated Hygiene: no restrictions Weight Bearing at Discharge: weight bear as tolerated Contact your physician if you experience:: Shortness of breath, Bleeding - Discharge Medications Continue Glimepiride [Amaryl] 4 mg PO DAILY Aspirin [Ecotrin] 81 mg PO QPM Potassium Chloride 10 meq PO DAILY Furosemide Tab [Lasix Tab] 40 mg PO DAILY #30 tablet Rosuvastatin Calcium [Crestor] 5 mg PO DAILY Carvedilol [Coreg] 6.25 mg PO BID tablet Levalbuterol Neb [Xopenex Neb] 0.63 mg RESP TX RT Q6H Ticagrelor [Brilinta] 90 mg PO BID Metformin HCl 1,000 mg PO BID Isosorbide Mononitrate [Imdur] 15 mg PO DAILY - Follow Up or Referral - Forms/Instructions Instructions: Coronary Artery Disease (DC), Restrictive Cardiomyopathy (DC), Dyspnea (GEN), Altered Mental Status (GEN) Exam - Constitutional Vitals: Period Temp Pulse Resp BP Sys/Slater Pulse Ox Last 24 Hr 97.0 F-98.6 F 20-98 14-18 110-149/44-75 91-100 General appearance: normal weight - Head Head exam: Present: normocephalic, atraumatic - Eye Eye exam: Present: EOMI Pupils: Present: LEANDRO - ENT ENT exam: Present: normal exam - Neck Neck exam: Present: normal inspection - Respiratory Respiratory exam: Present: clear to auscultation bilaterally - Cardiovascular Cardiovascular exam: Present: regular rate and rhythm - GI/Abdominal GI/Abdominal exam: Present: normal bowel sounds, soft. Absent: tenderness, rebound - Extremities Exam Extremities exam: Present: normal inspection - Back Exam Back exam: Present: normal inspection - Neurological Exam Neurological exam: Present: alert, oriented X3 - Psychiatric Psychiatric exam: Present: normal affect, normal mood - Skin Skin exam: Present: warm, intact Discharge Results Procedures and tests throughout hospitalization: Pending Orders 01/09/17 23:48 Blood Culture Stat 01/11/17 13:53 Occult Blood, Stool Routine Labs on day of discharge: Labs from last 24 hours 01/13/17 01/12/17 01/12/17 04:26 16:11 11:56 Hgb 8.5 L Hct 25.1 L POC Glucose 211 H 136 H Preliminary micro results at discharge 01/09/17 23:48 Blood Culture - Preliminary Blood No growth at 3 days 01/09/17 23:48 Blood Culture - Preliminary Blood No growth at 3 days DS: Provider Date of admission: 01/10/17 03:41 Primary care physician: Jesus Foss DO Attending physician on admission: Elton Villela MD Consults: 01/10/17 05:26 Consult to Physician [CONS] Routine Comment: heme positive and anemia Consulting Provider: Emre Blackman Person Notified: DARRICK Norman Date Notified: 01/10/17 Time Notified: 10:05 01/10/17 05:38 [facility] to [facility], Educator [CONS] Routine Reason for Knowledge Manager: Evaluate and Recommend Discharging clinician: Damari Sanford MD
[2017-01-13 12:05] VITALS: BP 120/67
== END 2017-01-13 12:00 | disposition home or self-care (01) ==
LOC: EDBD → EDUNIT# → N.ED 22:57 → INTOOBSV 01-10 03:41 → SUATTDRO 01-10 03:41 → N.EDINP 01-10 03:41 → N.5E 01-10 04:06
PROVIDERS: ADMIT Internal Medicine; ATTEND Internal Medicine

== ENCOUNTER 2020-06-30 14:28 | Observation (INO) ==
[2020-06-30] MEDS ORDERED: DEXTROSE 50% 25 GM/50 ML SYRINGE IV ONE (14:40)
[2020-06-30] MEDS ORDERED: DEXTROSE 50% 25 GM/50 ML VIAL IV STA (14:55)
[2020-06-30 15:20] LABS: Basophils % 0.4 % (0.0-0.8); Eosinophils # 0.1 10*3/uL (0.0-0.87); Eosinophils % 1.1 % (0.00-10.9); Hemoglobin 10.7 GM/DL (14.0-18.0); Immature Granulocytes % 0.2 %; Immature Granulocytes Absolute 0.01 #; Lymphocytes # 0.9 10*3/uL (1.4-4.0); Mean Corpuscular HGB Conc 33.4 GM/DL (32-36); Mean Corpuscular Volume 98.5 FL (87-102); Mean Platelet Volume 8.9 FL (9.6-12.0); Monocytes % 8.8 % (1.7-12.7); Neutrophils % 71.5 % (38.7-73.9); Platelet Count 297 T/CUMM (130-400); Red Blood Count 3.25 MC/CUMM (3.8-5.5); Red Cell Distribution Width 11.3 % (9.3-17.3); White Blood Count 5.2 T/CUMM (4-12)
[2020-06-30 15:39] LABS: Bilirubin,Total 0.4 MG/DL (0.2-1.0); Calcium 8.9 MG/DL (8.5-10.1); Osmolality,Calculated 289.1 MOS/KG (273-304); Total Protein 7.1 G/DL (6.4-8.3)
[2020-06-30 16:43] LABS: Bilirubin,Urine Negative (Negative); Blood, Urine Small mg/dL (Negative); Glucose,Urine (UA) 50 mg/dL (Negative); Ketones,Urine Negative (Negative); Mucus,Urine Occasional /LPF (Occasional); Nitrite,Urine Negative (Negative); Protein,Urine 100 MG/DL; RBC,Urine 1 /HPF (0-4); Squamous Epithelial Cell,Urine Occasional /HPF (0-10); Urine Appearance CLEAR (Clear); Urine Color Straw (Yellow); Urine Specific Gravity 1.011 (1.001-1.035); Urine Urobilinogen < 2.0 EU/DL (0.2-1.0); WBC,Urine <1 /HPF (0-6)
[2020-06-30] MEDS ORDERED: DEXTROSE 50% 25 GM/50 ML VIAL IV PRN (17:44)
[2020-06-30] MEDS ORDERED: ONDANSETRON 4 MG/2 ML VIAL IV PRN (17:44)
[2020-06-30] MEDS ORDERED: GLUCAGON 1 MG VIAL IM PRN (17:44)
[2020-06-30] MEDS ORDERED: ACETAMINOPHEN 325 MG TABLET PO PRN (17:44)
[2020-06-30] MEDS ORDERED: DEXTROSE 5% 1,000 ML IV SCH (18:30)
[2020-06-30] MEDS ORDERED: ROSUVASTATIN 20 MG TABLET PO SCH (21:00)
[2020-06-30] MEDS ORDERED: FUROSEMIDE 40 MG TABLET PO SCH (21:00)
[2020-06-30] MEDS: carvediloL 6.25 MG TABLET PO SCH (21:21)
[2020-07-01 05:55] LABS: Basophils % 0.5 % (0.0-0.8); Eosinophils # 0.1 10*3/uL (0.0-0.87); Eosinophils % 2.4 % (0.00-10.9); Hematocrit 31.1 VOL% (42.0-52.0); Hemoglobin 9.9 GM/DL (14.0-18.0); Immature Granulocytes % 0.2 %; Immature Granulocytes Absolute 0.01 #; Lymphocytes # 0.9 10*3/uL (1.4-4.0); Lymphocytes % 15.8 % (21.2-54.2); Mean Corpuscular HGB Conc 31.8 GM/DL (32-36); Mean Corpuscular Volume 102.3 FL (87-102); Mean Platelet Volume 9.2 FL (9.6-12.0); Monocytes % 9.7 % (1.7-12.7); Neutrophils % 71.4 % (38.7-73.9); Platelet Count 283 T/CUMM (130-400); Red Blood Count 3.04 MC/CUMM (3.8-5.5); Red Cell Distribution Width 11.2 % (9.3-17.3)
[2020-07-01 06:10] LABS: Calcium 8.7 MG/DL (8.5-10.1); Osmolality,Calculated 287.3 MOS/KG (273-304)
[2020-07-01] MEDS ORDERED: LACTATED RINGERS 500 ML IV ONE (08:41)
[2020-07-01] MEDS: carvediloL 6.25 MG TABLET PO SCH (08:51)
[2020-07-01] MEDS ORDERED: LOSARTAN 25 MG TABLET PO SCH (09:00)
[2020-07-01] MEDS ORDERED: POTASSIUM CHLORIDE 10 MEQ TABLET PO SCH (09:00)
[2020-07-01] MEDS ORDERED: MAGNESIUM OXIDE 400 MG TABLET PO SCH (09:00)
[2020-07-01] MEDS ORDERED: ISOSORBIDE MONONITRATE 30 MG TABLET PO SCH (09:00)
[2020-07-01] MEDS ORDERED: ASPIRIN EC 81 MG TABLET PO SCH (09:00)
[2020-07-01 11:41] VITALS: BP 147/59
== END 2020-07-01 15:35 | disposition home health service (06) ==
LOC: EDBD → EDUNIT# → N.EDINP 14:28 → N.ED 14:28 → SUATTDRO 17:44 → N.5E 07-01 00:29
PROVIDERS: ADMIT Nurse Practitioner Family; ATTEND Family Medicine